=== PATIENT | male | born 1985 | race Caucasian/White ===

== ENCOUNTER 2021-12-03 01:36 | Inpatient (IN) | payer OTHER, SELFPAY ==
--- NOTE | 2021-12-03 | ECG_ITS ---
Test Reason : medical clearance Blood Pressure : / mmHG Vent. Rate : 062 BPM Atrial Rate : 062 BPM P-R Int : 160 ms QRS Dur : 088 ms QT Int : 394 ms P-R-T Axes : 071 087 071 degrees QTc Int : 399 ms Normal sinus rhythm Normal ECG No previous ECGs available Referred By: Mary Jane Blankenship Electronically Signed By:JAMI NAJERA
[2021-12-03 01:46] VITALS: BP 107/71; PULSE 72; RESP 18; TEMP 36.4; O2SAT 95; BMI 22.4
[2021-12-03 02:17] LABS: Basophils Absolute Auto 0.1 X10*3/uL (0.0-0.2); Basophils Percent Auto 0.8 % (0-2); Eosinophils Absolute Auto 0.3 X10*3/uL (0.0-0.4); Eosinophils Percent Auto 3.5 % (0-4); Hematocrit 41.9 % (42.0-52.0); Hemoglobin 14.2 g/dl (14.0-18.0); Imm Gran Abs Auto 0.02 X10*3/uL (0.00-0.03); Imm Gran Pct Auto 0.2 % (0.0-0.4); Lymphocytes Absolute Auto 2.6 X10*3/uL (1.2-4.9); Lymphocytes Percent Auto 31.5 % (20-40); MANUAL DIFF FLAG NO; Mean Corpuscular HGB Conc 33.9 g/dl (31.0-36.0); Mean Corpuscular Hemoglobin 30.4 pg (27.0-33.0); Mean Corpuscular Volume 89.7 fL (80.0-98.0); Mean Platelet Volume 10.6 fL (9.4-12.4); Monocytes Absolute Auto 0.4 X10*3/uL (0.1-1.2); Monocytes Percent Auto 4.5 % (2-11); Neutrophils Absolute Auto 4.9 x10*3/uL (2.0-8.3); Neutrophils Percent Auto 59.5 % (45-73); Platelet Count 258 X10*3/uL (160-400); Red Blood Count 4.67 X10*6/uL (4.60-5.80); Red Cell Distribution Width 13.6 % (11.0-16.0); White Blood Count 8.3 X10*3/uL (4.8-10.8)
[2021-12-03 02:19] LABS: Amphetamine Screen Urine Not Detected (Not Detect); Barbiturates, Urine Not Detected (Not Detect); Benzodiazepines Screen Urine Not Detected (Not Detect); Cannabinoid Screen Urine POSITIVE (Not Detect); Cocaine Screen Urine POSITIVE (Not Detect); Fentanyl, urine Not Detected (Not Detect); Opiate Screen Urine Not Detected (Not Detect); Phencyclidine Screen Urine Not Detected (Not Detect)
[2021-12-03 02:20] LABS: COVID-19 Test Negative (Negative); IDNOW Serial# 55D5AD1C
[2021-12-03 02:44] LABS: Ethanol 153 mg/dL
[2021-12-03 02:46] LABS: Anion Gap 15 (12-20); Blood Urea Nitrogen 15 mg/dL (9-16); Calcium 9.2 mg/dL (8.4-10.2); Carbon Dioxide 22 mmol/L (22-29); Chloride 110 mmol/L (96-108); Estimated Glomerular Filt Rate > 60; Glucose Random 94 mg/dL (60-115); Potassium 4.4 mmol/L (3.3-5.1); Sodium 143 mmol/L (135-145)
[2021-12-03 02:55] LABS: Valproate < 2.0 mcg/mL (50.0-100.0)
--- NOTE | 2021-12-03 06:09 | PC.NURSE ---
Patient currently sleeping, no distress observed/reported, behavior appropriate, med rec completed, pending provider's approval, BHN referral completed/confirmed, pending evaluation in the morning, VSS, will continue to monitor.
--- NOTE | 2021-12-03 06:34 | ED.PSYCH ---
HPI - Psych General Chief Complaint: Psychiatric Symptoms Stated Complaint: crisis Time Seen by Provider: 12/03/21 06:34 Source: patient Mode of arrival: EMS Limitations: no limitations History of Present Illness MD complaint: suicidal ideation and feels depressed Onset (ago): day(s) Duration: getting worse History of same: Yes Relieving factors: none Context: significant life stressor Associated psychiatric symptoms: depression and suicidal ideation Associated symptoms: denies other symptoms If self harm: admits thoughts of self harm Related Data Home Medications Medication Instructions Recorded Confirmed buprenorphine 8 mg-naloxone 2 mg 1.5 strip SUBLINGUAL DAILY 12/03/21 12/03/21 sublingual film (Suboxone) divalproex 500 mg tablet,delayed 1,500 mg PO BEDTIME 12/03/21 12/03/21 release gabapentin 300 mg capsule 1 cap PO TID 12/03/21 12/03/21 prazosin 1 mg capsule 3 cap PO BEDTIME 12/03/21 12/03/21 quetiapine 100 mg tablet 1 tab PO BEDTIME 12/03/21 12/03/21 Allergies Allergy/AdvReac Type Severity Reaction Status Date / Time No Known Allergies Allergy Verified 12/03/21 01:45 Review of Systems Review of Systems: Constitutional : No Fever, No Chills ENT/Mouth : No Ear Pain, No Nasal Congestion, No sore throat Eyes: No Eye Pain, No Swelling, No Redness Cardiovascular : No Chest Pain, No SOB Respiratory : No Cough, No Sputum, No Dyspnea Gastrointestinal : No Nausea, No Vomiting, No Diarrhea, No Hematochezia, No Melena Genitourinary : No Dysuria, No Urinary Frequency, No Hematuria Musculoskeletal : No Myalgias Skin : No Skin Lesions, No rash Neuro : No Weakness, No Numbness, No Paresthesias, No Dizziness, No Headache Psych : positive Anxiety, positive Depression, positive SI no HI Heme/Lymph: No Lymphadenopathy Endocrine : No Polyuria, No Polydipsia All other systems reviewed and are negative FOR[facility]LY [facility], [facility] Past Medical History Attestation statement: The following information was validated with the patient. Medical History (Updated 12/03/21 @ 07:09 by Mayr Jane Blankenship DO) Depression Substance abuse Social History Social History (Updated 12/03/21 @ 07:07 by Mary Jane Blankenship DO) Patient Tobacco Use Status: Tobacco use Unknown Substance Use Type: Crack/Cocaine and Former Substance User Advance Directives: No Advance Directives Information Provided: No Physical Exam Vital Signs: Vital Signs: Last Vital Signs Temp 97.9 F 12/03/21 07:56 Pulse 80 12/03/21 07:56 Resp 17 12/03/21 07:56 BP 122/76 12/03/21 07:56 Pulse Ox 96 12/03/21 07:56 BMI result Body Mass Index 22.4 Appearance: Alert. Oriented X3. No acute distress. Eyes: Pupils equal, round and reactive to light. ENT: Pharynx normal. Neck: Normal inspection. Neck supple. CVS: Normal heart rate and rhythm. Pulses normal. Respiratory: No respiratory distress. Breath sounds normal. Abdomen: Soft and non-tender. Skin: Skin warm and dry. Normal skin color. Normal skin turgor. Extremities: No lower extremity edema. Neuro: Oriented X 3. No motor deficit. No sensory deficit. CN2-12 intact Course Course Course Narrative: Physician observation started at 709am. Patient placed in physician observation because the patient needed more time for BHN to assess the need for psych admission. At the time observation was started the patient's vitals were stable, patient is alert and oriented Neuro: nonfocal, CV RRR, Lungs clear voluntary bed search can leave if he wants per BHN MDM - Psych MDM Narrative Medical decision making narrative: 36 yo male with hx of substance abuse and depression here with c/o SI and depression will obtain labs and BHN consult, PRN ativan he has been drinking at home. Lab Data Result diagrams: 12/03/21 02:11 12/03/21 02:11 Labs: Lab Results 12/03/21 12/03/21 12/03/21 Range/Units 01:55 01:55 02:11 WBC (4.8-10.8) X10*3/uL RBC (4.60-5.80) X10*6/uL Hgb (14.0-18.0) g/dl Hct (42.0-52.0) % MCV (80.0-98.0) fL MCH (27.0-33.0) pg MCHC (31.0-36.0) g/dl RDW (11.0-16.0) % Plt Count (160-400) X10*3/uL MPV (9.4-12.4) fL Immature Gran % (Auto) (0.0-0.4) % Neut % (Auto) (45-73) % Lymph % (Auto) (20-40) % [place] % (Auto) (2-11) % Eos % (Auto) (0-4) % Baso % (Auto) (0-2) % Lymph # (Auto) (1.2-4.9) X10*3/uL [place] # (Auto) (0.1-1.2) X10*3/uL Eos # (Auto) (0.0-0.4) X10*3/uL Baso # (Auto) (0.0-0.2) X10*3/uL Abs Immat Gran (auto) (0.00-0.03) X10*3/uL Absolute Neuts (auto) (2.0-8.3) x10*3/uL Absolute Nucleated RBC (0.0-0.012) X10*3/uL Nucleated RBC % (auto) (0.0-0.2) /100WBC Sodium (135-145) mmol/L Potassium (3.3-5.1) mmol/L Chloride (96-108) mmol/L Carbon Dioxide (22-29) mmol/L Anion Gap (12-20) BUN (9-16) mg/dL Creatinine (0.5-1.4) mg/dL Estim Creat Clear Calc Estimated GFR Random Glucose (60-115) mg/dL Calcium (8.4-10.2) mg/dL Urine Opiates Screen Not Detected (Not Detect) Urine Fentanyl Screen Not Detected (Not Detect) Ur Barbiturates Screen Not Detected (Not Detect) Valproic Acid (50.0-100.0) mcg/mL Ur Phencyclidine Scrn Not Detected (Not Detect) Ur Amphetamines Screen Not Detected (Not Detect) U Benzodiazepines Scrn Not Detected (Not Detect) Urine Cocaine Screen POSITIVE H (Not Detect) U Marijuana (THC) Screen POSITIVE H (Not Detect) Ethyl Alcohol 153 mg/dL COVID-19 (ML) Negative (Negative) COVID-19 Clin Com See Note 12/03/21 12/03/21 Range/Units 02:11 02:11 WBC 8.3 (4.8-10.8) X10*3/uL RBC 4.67 (4.60-5.80) X10*6/uL Hgb 14.2 (14.0-18.0) g/dl Hct 41.9 L (42.0-52.0) % MCV 89.7 (80.0-98.0) fL MCH 30.4 (27.0-33.0) pg MCHC 33.9 (31.0-36.0) g/dl RDW 13.6 (11.0-16.0) % Plt Count 258 (160-400) X10*3/uL MPV 10.6 (9.4-12.4) fL Immature Gran % (Auto) 0.2 (0.0-0.4) % Neut % (Auto) 59.5 (45-73) % Lymph % (Auto) 31.5 (20-40) % [place] % (Auto) 4.5 (2-11) % Eos % (Auto) 3.5 (0-4) % Baso % (Auto) 0.8 (0-2) % Lymph # (Auto) 2.6 (1.2-4.9) X10*3/uL [place] # (Auto) 0.4 (0.1-1.2) X10*3/uL Eos # (Auto) 0.3 (0.0-0.4) X10*3/uL Baso # (Auto) 0.1 (0.0-0.2) X10*3/uL Abs Immat Gran (auto) 0.02 (0.00-0.03) X10*3/uL Absolute Neuts (auto) 4.9 (2.0-8.3) x10*3/uL Absolute Nucleated RBC 0.000 (0.0-0.012) X10*3/uL Nucleated RBC % (auto) 0.0 (0.0-0.2) /100WBC Sodium 143 (135-145) mmol/L Potassium 4.4 (3.3-5.1) mmol/L Chloride 110 H (96-108) mmol/L Carbon Dioxide 22 (22-29) mmol/L Anion Gap 15 (12-20) BUN 15 (9-16) mg/dL Creatinine 1.02 (0.5-1.4) mg/dL Estim Creat Clear Calc 107.0 Estimated GFR > 60 Random Glucose 94 (60-115) mg/dL Calcium 9.2 (8.4-10.2) mg/dL Urine Opiates Screen (Not Detect) Urine Fentanyl Screen (Not Detect) Ur Barbiturates Screen (Not Detect) Valproic Acid < 2.0 L (50.0-100.0) mcg/mL Ur Phencyclidine Scrn (Not Detect) Ur Amphetamines Screen (Not Detect) U Benzodiazepines Scrn (Not Detect) Urine Cocaine Screen (Not Detect) U Marijuana (THC) Screen (Not Detect) Ethyl Alcohol mg/dL COVID-19 (ML) (Negative) COVID-19 Clin Com Discharge Plan Discharge Clinical Impression: Depression Qualifiers: Depression Type: unspecified Qualified Code(s): F32.A - Depression, unspecified Patient Disposition: Still a Patient Prescriptions: No Action gabapentin 300 mg capsule 1 cap PO TID 0RF divalproex 500 mg tablet,delayed release (DR/EC) 1,500 mg PO BEDTIME 0RF prazosin 1 mg capsule 3 cap PO BEDTIME 0RF quetiapine 100 mg tablet 1 tab PO BEDTIME 0RF buprenorphine-naloxone [Suboxone] 8-2 mg film 1.5 strip sublingual DAILY 0RF
--- NOTE | 2021-12-03 07:10 | PC.NURSE ---
patient appears to remain asleep at present respirations are even and unlabored patient appears in no distress
[2021-12-03 07:56] VITALS: BP 122/76; PULSE 80; RESP 17; TEMP 36.6; O2SAT 96
[2021-12-03] MEDS: Gabapentin 300 MG CAPSULE PO ×3 (09:51→20:18)
[2021-12-03] MEDS: Buprenorphine/Naloxone 8/2 mg FILM 1.5 FILM SUBLINGUAL (09:51)
--- NOTE | 2021-12-03 15:28 | PC.NURSE ---
Patient resting comfortably in bed ate lunch and took all meds without difficulty. Patient aware of being transferred to m3 later this shift.
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
[2021-12-03 20:18] VITALS: BP 122/89; PULSE 69; RESP 17; TEMP 36.2; O2SAT 97
[2021-12-03] MEDS: LORazepam 1 MG TABLET 2 MG PO (20:18)
[2021-12-03] MEDS: QUEtiapine Fumarate 100 MG TABLET PO (20:18)
[2021-12-03] MEDS: Prazosin HCL 1 MG CAPSULE 3 MG PO (20:18)
[2021-12-03] MEDS: Divalproex Sodium 500 MG TABLET.DR 1500 MG PO (20:18)
[2021-12-03 22:54] VITALS: BP 104/70; PULSE 106; RESP 18; TEMP 36.7; O2SAT 97
--- NOTE | 2021-12-04 01:25 | PC.NURSE ---
Vidal is a 36 year old male who was brought in by the PD for SI. Patient had no plan. Alert and oriented x4. Pleasant, calm, cooperative. History of substance and ETOH abuse. Got into an argument with his live-in girlfriend where she felt like she needed to call the box office attendant because he seemed unstable. Patient currently taking suboxone. Patient has been off his other medications for a while . At this time, the patient shows willingness to get back on a medication regimen, get his head right , and wants to stop getting high . Patient has no medical complaints at time of admission. Currently denies SI/HI and hallucinations.
[2021-12-04 08:00] VITALS: BP 104/59; PULSE 60; RESP 16; TEMP 36.6; O2SAT 98
[2021-12-04] MEDS: Buprenorphine/Naloxone 12/3 mg FILM 1 FILM BUCCAL (09:05)
[2021-12-04] MEDS: Folic Acid 1 MG TABLET PO (09:05)
[2021-12-04] MEDS: Gabapentin 300 MG CAPSULE PO ×3 (09:05→20:21)
[2021-12-04] MEDS: Thiamine HCL 100 MG TABLET 50 MG PO (09:05)
[2021-12-04 09:35] LABS: Cholesterol 179 mg/dL; HDL Cholesterol 63 mg/dL; LDL Cholesterol Calculated 94 mg/dl; Magnesium 1.8 mg/dL (1.6-2.6); Triglycerides 114 mg/dL
[2021-12-04 09:53] LABS: Estimated Average Glucose 100 mg/dL; Hemoglobin A1c % 5.1 %
[2021-12-04 09:57] LABS: Free T4 (Free Thyroxine) 1.14 ng/dL (0.71-1.85); Thyroid Stimulating Hormone 1.95 uIU/mL (0.32-4.0)
[2021-12-04 10:12] LABS: Folate 8.5 ng/mL (> or = 4.0); Vitamin B12 423 pg/mL (200-900)
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
[2021-12-04] MEDS: LORazepam 1 MG TABLET 2 MG PO ×2 (12:45→20:22)
[2021-12-04 20:05] VITALS: BP 122/73; PULSE 81; RESP 18; TEMP 36.6; O2SAT 97
[2021-12-04] MEDS: Divalproex Sodium 500 MG TABLET.DR 1500 MG PO (20:21)
[2021-12-04] MEDS: Prazosin HCL 1 MG CAPSULE 3 MG PO (20:21)
[2021-12-04] MEDS: QUEtiapine Fumarate 50 MG TABLET PO (22:03)
[2021-12-05 00:20] VITALS: BP 121/80; PULSE 120; RESP 20; O2SAT 97
--- NOTE | 2021-12-05 05:10 | PC.NURSE ---
At 0400 patient was sleeping soundly. No noted distress. Patient was not sweating Respirations 16. Nurse did not wake patient for full CIWA assessment. Nurse will continue to monitor.
[2021-12-05 06:00] VITALS: BP 129/72; PULSE 116; RESP 16; TEMP 36.3; O2SAT 99
[2021-12-05] MEDS: Gabapentin 300 MG CAPSULE PO ×3 (08:35→20:26)
[2021-12-05] MEDS: Buprenorphine/Naloxone 12/3 mg FILM 1 FILM BUCCAL (08:35)
[2021-12-05] MEDS: Thiamine HCL 100 MG TABLET PO (08:35)
[2021-12-05] MEDS: Folic Acid 1 MG TABLET PO (08:35)
[2021-12-05] MEDS: FLUoxetine HCl 20 MG CAPSULE PO (11:02)
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
[2021-12-05] MEDS: Acetaminophen 325 MG TABLET 650 MG PO (13:39)
[2021-12-05] MEDS: LORazepam 1 MG TABLET 2 MG PO (13:39)
[2021-12-05 20:15] VITALS: BP 94/55; PULSE 85; RESP 20; TEMP 36.5; O2SAT 97
[2021-12-05] MEDS: Divalproex Sodium 500 MG TABLET.DR 1500 MG PO (20:24)
[2021-12-05] MEDS: Prazosin HCL 1 MG CAPSULE 3 MG PO (20:25)
[2021-12-05] MEDS: QUEtiapine Fumarate 50 MG TABLET PO ×2 (20:25→21:09)
[2021-12-05] MEDS: LORazepam 1 MG TABLET PO (20:26)
--- NOTE | 2021-12-06 00:17 | PC.NURSE ---
AT 0000, patient in bed sleeping. Noted some sweat on forehead but no agitation, respiration was 16. Patient awake 30 minutes prior to grab a snack and did not report any withdrawal symptoms at that time. Nurse did not wake patient for full CIWA assessment. Nurse will continue to monitor.
[2021-12-06] MEDS: LORazepam 1 MG TABLET PO ×2 (00:32→20:28)
--- NOTE | 2021-12-06 00:40 | PC.NURSE ---
Patient awake at 0030. Patient reports increased anxiety and diaphoresis . Patient scored a 9 on the CIWA assessment and was medicated with 1 mg Ativan PO prn. Patient
[2021-12-06] MEDS: traZODone HCL 50 MG TABLET PO (02:13)
[2021-12-06] MEDS: QUEtiapine Fumarate 50 MG TABLET PO ×2 (02:13→20:43)
--- NOTE | 2021-12-06 05:17 | PC.NURSE ---
Patient was sleeping at 0400, did not want to wake patient for full CIWA assessment. Patient observed from 0400 -0500 on safety checks. Mild sweating with no outward appearance of discomfort. Respirations were 16. Nurse will continue to monitor.
[2021-12-06 07:00] VITALS: BMI 21.0
[2021-12-06 08:49] VITALS: BP 116/64; PULSE 111; RESP 16; TEMP 36.8; O2SAT 98
[2021-12-06] MEDS: Buprenorphine/Naloxone 12/3 mg FILM 1 FILM BUCCAL (08:52)
[2021-12-06] MEDS: Folic Acid 1 MG TABLET PO (08:53)
[2021-12-06] MEDS: Gabapentin 300 MG CAPSULE PO ×3 (08:53→20:43)
[2021-12-06] MEDS: FLUoxetine HCl 20 MG CAPSULE PO (08:53)
[2021-12-06] MEDS: Thiamine HCL 100 MG TABLET PO (08:53)
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
[2021-12-06 20:25] VITALS: BP 102/60; PULSE 77; TEMP 36.3; O2SAT 95
[2021-12-06] MEDS: Divalproex Sodium 500 MG TABLET.DR 1500 MG PO (20:43)
[2021-12-06] MEDS: Prazosin HCL 1 MG CAPSULE 3 MG PO (20:43)
[2021-12-07 00:38] VITALS: BP 119/77; PULSE 128; RESP 18; TEMP 36.6; O2SAT 96
[2021-12-07 06:26] VITALS: BP 116/66; PULSE 85; RESP 17; TEMP 36.4; O2SAT 98
[2021-12-07 08:05] VITALS: BP 128/66; PULSE 90; RESP 17; TEMP 36.6; O2SAT 97
[2021-12-07] MEDS: Thiamine HCL 100 MG TABLET PO (08:20)
[2021-12-07] MEDS: FLUoxetine HCl 20 MG CAPSULE PO (08:20)
[2021-12-07] MEDS: Folic Acid 1 MG TABLET PO (08:20)
[2021-12-07] MEDS: Gabapentin 300 MG CAPSULE PO (08:20)
[2021-12-07] MEDS: Buprenorphine/Naloxone 12/3 mg FILM 1 FILM BUCCAL (08:20)
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
--- NOTE | 2021-12-07 13:56 | PC.NURSE ---
Patient is alert and oriented x4. Patient is in agreement with discharge and discharge teaching. Patient denies SI/HI/AH/VH. Patient reports that he is experiencing anxiety d/t being discharged. I am happy to go home, but am just a little anxious . Patient denies physical complaints at this time.
[2022-02-06 11:00] LABS: Alanine Aminotransferase 61 U/L (0-40); Albumin Level 3.7 g/dL (3.5-5.0); Alkaline Phosphatase 76 U/L (39-117); Anion Gap 12 (12-20); Aspartate Amino Transferase 28 U/L (5-37); Blood Urea Nitrogen 21 mg/dL (9-16); Calcium 9.8 mg/dL (8.4-10.2); Carbon Dioxide 29 mmol/L (22-29); Chloride 104 mmol/L (96-108); Creatinine Clr Calc Pharmacy 123.6; Estimated Glomerular Filt Rate > 60; Glucose Fasting 96 mg/dL (60-99); Potassium 4.3 mmol/L (3.3-5.1); Sodium 141 mmol/L (135-145); Total Protein 6.5 g/dL (6.5-8.0)
[2022-02-06 11:10] LABS: Thyroid Stimulating Hormone 1.56 uIU/mL (0.32-4.0)
[2022-02-06 11:19] LABS: Bilirubin Total < 0.2 mg/dL (0.0-1.0)
[2022-02-06 11:52] LABS: Folate 8.5 ng/mL (> or = 4.0); Vitamin B12 479 pg/mL (200-900)
== END 2021-12-07 14:08 | disposition home or self-care (01) | DRG 753 ==
LOC: HO.ED 19:25 → HO.PADLT16 22:23
PROVIDERS: Nurse Practitioner Family; Admitting Provider Registered Nurse; Emergency Provider Emergency Medicine; Visit Provider Social Worker
DX: F31.81 Bipolar II disorder (principal); R45.851 Suicidal ideations; F11.20 Opioid dependence, uncomplicated; F14.10 Cocaine abuse, uncomplicated; F17.210 Nicotine dependence, cigarettes, uncomplicated; F43.10 Post-traumatic stress disorder, unspecified; Z20.822 Contact with and (suspected) exposure to COVID-19; Z71.6 Tobacco abuse counseling; Z79.899 Other long term (current) drug therapy
CPT/HCPCS: 36415; 80048; 80053; 80061; 80164; 80307; 82077; 82607; 82746; 83036; 83735; 84439; 84443; 85025; 87635; 93005; 99285

== ENCOUNTER 2022-01-25 03:09 | Inpatient (IN) | payer OTHER, SELFPAY ==
[2022-01-25 03:14] VITALS: BMI 22.1
[2022-01-25 03:26] VITALS: BP 121/75; PULSE 85; RESP 16; TEMP 36.6; O2SAT 100
[2022-01-25 03:58] LABS: Amphetamine Screen Urine Not Detected (Not Detect); Barbiturates, Urine Not Detected (Not Detect); Benzodiazepines Screen Urine Not Detected (Not Detect); Cannabinoid Screen Urine Not Detected (Not Detect); Cocaine Screen Urine POSITIVE (Not Detect); Fentanyl, urine Not Detected (Not Detect); Opiate Screen Urine Not Detected (Not Detect); Phencyclidine Screen Urine Not Detected (Not Detect)
[2022-01-25 04:00] LABS: COVID-19 Test Negative (Negative)
[2022-01-25 04:11] LABS: MANUAL DIFF FLAG NO
[2022-01-25 04:23] LABS: Basophils Absolute Auto 0.1 X10*3/uL (0.0-0.2); Basophils Percent Auto 0.5 % (0-2); Eosinophils Absolute Auto 0.1 X10*3/uL (0.0-0.4); Eosinophils Percent Auto 0.7 % (0-4); Hematocrit 40.4 % (42.0-52.0); Hemoglobin 13.6 g/dl (14.0-18.0); Imm Gran Abs Auto 0.05 X10*3/uL (0.00-0.03); Imm Gran Pct Auto 0.4 % (0.0-0.4); Lymphocytes Absolute Auto 1.9 X10*3/uL (1.2-4.9); Lymphocytes Percent Auto 14.1 % (20-40); Mean Corpuscular HGB Conc 33.7 g/dl (31.0-36.0); Mean Corpuscular Volume 89.2 fL (80.0-98.0); Monocytes Absolute Auto 1.1 X10*3/uL (0.1-1.2); Monocytes Percent Auto 7.9 % (2-11); Neutrophils Absolute Auto 10.4 x10*3/uL (2.0-8.3); Neutrophils Percent Auto 76.4 % (45-73); Platelet Count 234 X10*3/uL (160-400); Red Blood Count 4.53 X10*6/uL (4.60-5.80); Red Cell Distribution Width 12.9 % (11.0-16.0); White Blood Count 13.6 X10*3/uL (4.8-10.8)
[2022-01-25 04:25] LABS: Ethanol 14 mg/dL
[2022-01-25 04:27] LABS: Anion Gap 12 (12-20); Blood Urea Nitrogen 16 mg/dL (9-16); Calcium 9.8 mg/dL (8.4-10.2); Carbon Dioxide 29 mmol/L (22-29); Chloride 106 mmol/L (96-108); Creatinine Clr Calc Pharmacy 127.7; Estimated Glomerular Filt Rate > 60; Glucose Random 83 mg/dL (60-115); Potassium 4.4 mmol/L (3.3-5.1); Sodium 143 mmol/L (135-145)
--- NOTE | 2022-01-25 05:01 | ED.PSYCH ---
HPI - Psych General Chief Complaint: Psychiatric Symptoms Stated Complaint: CRISIS/+SI Time Seen by Provider: 01/25/22 05:00 Source: patient and EMS Mode of arrival: EMS Limitations: no limitations History of Present Illness HPI Narrative: 36-year-old male came in by ambulance for evaluation of depression. Patient was just released from longterm yesterday, cannot go back home because he has restraining order by his girlfriend, patient had no place to go feeling depressed with suicidal ideation but no definitive plan. Patient admitted to drinking alcohol and used cocaine by sniffing. Patient has no medical complaints. Related Data Home Medications Medication Instructions Recorded Confirmed buprenorphine 8 mg-naloxone 2 mg 1.5 strip SUBLINGUAL DAILY 01/25/22 01/25/22 sublingual film (Suboxone) divalproex 500 mg tablet,delayed 3 tab PO BEDTIME 01/25/22 01/25/22 release gabapentin 300 mg capsule 1 cap PO TID 01/25/22 01/25/22 prazosin 1 mg capsule 3 cap PO BEDTIME 01/25/22 01/25/22 quetiapine 100 mg tablet 1 tab PO BEDTIME 01/25/22 01/25/22 Allergies Allergy/AdvReac Type Severity Reaction Status Date / Time No Known Allergies Allergy Verified 12/03/21 01:45 Review of Systems Review of Systems: All other systems are reviewed and are negative Constitutional: Reports as per HPI and Reports no additional constitutional complaints Eyes: Reports as per HPI and Reports no additional eye complaints Reports system reviewed and no additional complaints, except as documented Cardiovascular: Reports as per HPI and Reports no additional cardiovascular complaints Respiratory: Reports as per HPI and Reports no additional respiratory complaints Gastrointestinal: Reports as per HPI and Reports no additional gastrointestinal complaints Genitourinary: Reports no additional female genitourinary complaints Musculoskeletal: Reports no additional musculoskeletal complaints Skin/Breast: Reports system reviewed and no additional complaints, except as docu Psychiatric: Reports no additional psychiatric complaints Endocrine: Reports no additional endocrine complaints Hematologic/Lymphatic: Reports no additional hematologic/lymphatic complaints Allergic/Immunologic: Reports no additional allergic/immunologic complaints Reports system reviewed and no additional complaints, except as documented and Reports Abnormal speech present [facility] Past Medical History Medical History Depression Substance abuse Social History Social History Household Members: Other Household Members Other:: girlfriend Housing: House Do you presently have visiting nurse or other home services: No Patient Tobacco Use Status: Tobacco use Unknown Tobacco use type: Cigarette Cigarette Packs Per Day: 2 Cigarettes Per Day: 40.0 Substance Use Type: Crack/Cocaine and Marijuana Advance Directives: No Advance Directives Information Provided: No service: No Sexual orientation: Did not discuss. Physical Exam Vital Signs: Vital Signs: Last Vital Signs Temp 98 F 01/25/22 03:26 Pulse 85 01/25/22 03:26 Resp 16 01/25/22 03:26 BP 121/75 01/25/22 03:26 Pulse Ox 100 01/25/22 03:26 BMI result Body Mass Index 22.1 Vital signs have been reviewed as appeared to be correct. Blood pressure normal. Heart rate normal. Respiration rate normal. Temperature normal. Oxygen saturation normal. Appearance: Alert. Oriented X3. No acute distress. Head: Normal external exam. Normocephalic. Atraumatic. No Ellis signs noted. No raccoon eyes noted Eyes: PERRLA. EOMI. Conjunctiva and sclera normal. Eyelids normal. ENT: TM's Normal. Pharynx normal. Uvula midline. Moist mucous membranes. No trismus noted. No drooling noted. No muffled voice noted. Neck: Normal inspection. Neck supple. FROM. No adenopathy. Thyroid Normal. No meningeal signs. No neck mass noted. CVS: Normal heart rate and rhythm. Heart sound normal. No murmurs noted. Pulses normal throughout. Respiratory: No respiratory distress. Painless inspiration. Breath sounds normal. No wheezes/rales/rhonchi noted. Chest nontender. No accessory muscle usage noted or decreased air movement noted. Abdomen: Soft and nontender. Bowel sounds normal in all 4 quadrants. No distention noted. No organomegaly noted. No visible injury noted. Back: No CVA tenderness. Full range of motion noted. Skin: Skin warm and dry. Normal skin color. Normal skin turgor. No rashes/lesions/lacerations noted. Extremities: No lower extremity edema. Extremities exhibit normal range of motion. Extremities nontender. Neuro: Oriented X 3. Cranial nerve exam: II-XII are grossly intact No motor deficit. No sensory deficit. Reflexes normal. Patient Orientation: Person, Place, Time and Situation Level of Consciousness: Awake, Appropriate and Alert Patient Behavior: Appropriate, Guarded, Cooperative and Anxious Mood Description: Constricted, Blunted and Apprehensive Affect Description: Constricted, Blunted and Apprehensive Patient Cognition Impaired: No Ability to Follow Directions: Excellent Speech Pattern: Clear, Appropriate and Spontaneous Speech Memory Description: Intact, Immediate Intact and Short Term Intact Hallucinations: None Delusions: Not Present Thought Process: Intact Thought Content: positive for Intact, positive for Logical, denies Suicidal Ideation and denies Homicidal Ideation. Judgement: Appropriate Judgement and Insight: Intact Course Reevaluation(s) Reevaluation #1: Patient medically cleared, patient will be under physician observation started at 05:00, waiting for N evaluation. Time: 05:08 MDM - Psych Lab Data Result diagrams: 01/25/22 04:05 01/25/22 04:05 Labs: Lab Results 01/25/22 01/25/22 01/25/22 Range/Units 03:37 03:37 04:05 WBC 13.6 H (4.8-10.8) X10*3/uL RBC 4.53 L (4.60-5.80) X10*6/uL Hgb 13.6 L (14.0-18.0) g/dl Hct 40.4 L (42.0-52.0) % MCV 89.2 (80.0-98.0) fL MCH 30.0 (27.0-33.0) pg MCHC 33.7 (31.0-36.0) g/dl RDW 12.9 (11.0-16.0) % Plt Count 234 (160-400) X10*3/uL MPV 11.0 (9.4-12.4) fL Immature Gran % (Auto) 0.4 (0.0-0.4) % Neut % (Auto) 76.4 H (45-73) % Lymph % (Auto) 14.1 L (20-40) % [place] % (Auto) 7.9 (2-11) % Eos % (Auto) 0.7 (0-4) % Baso % (Auto) 0.5 (0-2) % Lymph # (Auto) 1.9 (1.2-4.9) X10*3/uL [place] # (Auto) 1.1 (0.1-1.2) X10*3/uL Eos # (Auto) 0.1 (0.0-0.4) X10*3/uL Baso # (Auto) 0.1 (0.0-0.2) X10*3/uL Abs Immat Gran (auto) 0.05 H (0.00-0.03) X10*3/uL Absolute Neuts (auto) 10.4 H (2.0-8.3) x10*3/uL Absolute Nucleated RBC 0.000 (0.0-0.012) X10*3/uL Nucleated RBC % (auto) 0.0 (0.0-0.2) /100WBC Sodium (135-145) mmol/L Potassium (3.3-5.1) mmol/L Chloride (96-108) mmol/L Carbon Dioxide (22-29) mmol/L Anion Gap (12-20) BUN (9-16) mg/dL Creatinine (0.5-1.4) mg/dL Estim Creat Clear Calc Estimated GFR Random Glucose (60-115) mg/dL Calcium (8.4-10.2) mg/dL Urine Opiates Screen Not Detected (Not Detect) Urine Fentanyl Screen Not Detected (Not Detect) Ur Barbiturates Screen Not Detected (Not Detect) Ur Phencyclidine Scrn Not Detected (Not Detect) Ur Amphetamines Screen Not Detected (Not Detect) U Benzodiazepines Scrn Not Detected (Not Detect) Urine Cocaine Screen POSITIVE H (Not Detect) U Marijuana (THC) Screen Not Detected (Not Detect) Ethyl Alcohol mg/dL COVID-19 (ML) Negative (Negative) COVID-19 Clin Com See Note 01/25/22 01/25/22 Range/Units 04:05 04:05 WBC (4.8-10.8) X10*3/uL RBC (4.60-5.80) X10*6/uL Hgb (14.0-18.0) g/dl Hct (42.0-52.0) % MCV (80.0-98.0) fL MCH (27.0-33.0) pg MCHC (31.0-36.0) g/dl RDW (11.0-16.0) % Plt Count (160-400) X10*3/uL MPV (9.4-12.4) fL Immature Gran % (Auto) (0.0-0.4) % Neut % (Auto) (45-73) % Lymph % (Auto) (20-40) % [place] % (Auto) (2-11) % Eos % (Auto) (0-4) % Baso % (Auto) (0-2) % Lymph # (Auto) (1.2-4.9) X10*3/uL [place] # (Auto) (0.1-1.2) X10*3/uL Eos # (Auto) (0.0-0.4) X10*3/uL Baso # (Auto) (0.0-0.2) X10*3/uL Abs Immat Gran (auto) (0.00-0.03) X10*3/uL Absolute Neuts (auto) (2.0-8.3) x10*3/uL Absolute Nucleated RBC (0.0-0.012) X10*3/uL Nucleated RBC % (auto) (0.0-0.2) /100WBC Sodium 143 (135-145) mmol/L Potassium 4.4 (3.3-5.1) mmol/L Chloride 106 (96-108) mmol/L Carbon Dioxide 29 (22-29) mmol/L Anion Gap 12 (12-20) BUN 16 (9-16) mg/dL Creatinine 0.82 (0.5-1.4) mg/dL Estim Creat Clear Calc 127.7 Estimated GFR > 60 Random Glucose 83 (60-115) mg/dL Calcium 9.8 D (8.4-10.2) mg/dL Urine Opiates Screen (Not Detect) Urine Fentanyl Screen (Not Detect) Ur Barbiturates Screen (Not Detect) Ur Phencyclidine Scrn (Not Detect) Ur Amphetamines Screen (Not Detect) U Benzodiazepines Scrn (Not Detect) Urine Cocaine Screen (Not Detect) U Marijuana (THC) Screen (Not Detect) Ethyl Alcohol 14 mg/dL COVID-19 (ML) (Negative) COVID-19 Clin Com Discharge Plan Discharge Clinical Impression: Depression, Suicidal ideation Prescriptions: No Action prazosin 1 mg capsule 3 cap PO BEDTIME 0RF divalproex 500 mg tablet,delayed release (DR/EC) 3 tab PO BEDTIME 0RF quetiapine 100 mg tablet 1 tab PO BEDTIME 0RF gabapentin 300 mg capsule 1 cap PO TID 0RF buprenorphine-naloxone [Suboxone] 8-2 mg film 1.5 strip sublingual DAILY 0RF
[2022-01-25 05:10] LABS: Valproate < 2.0 mcg/mL (50.0-100.0)
--- NOTE | 2022-01-25 06:33 | PC.NURSE ---
Patient slept through the night, no distress observed/reported, [facility] referral completed/confirmed/pending ETA, med rec completed/pending provider's approval, behavior non concerning, VSS, will continue to monitor.
[2022-01-25 07:29] VITALS: BP 93/63; PULSE 76; TEMP 36.7; O2SAT 97
--- NOTE | 2022-01-25 07:53 | PC.NURSE ---
pt is asleep, resps are = and nonlabored. pt is awaiting care team eval.
--- NOTE | 2022-01-25 11:12 | ECG_ITS ---
Test Reason : medical clearance Blood Pressure : / mmHG Vent. Rate : 066 BPM Atrial Rate : 066 BPM P-R Int : 150 ms QRS Dur : 092 ms QT Int : 414 ms P-R-T Axes : 051 085 066 degrees QTc Int : 434 ms Normal sinus rhythm Normal ECG When compared with ECG of 03-DEC-2021 10:19, No significant change was found Referred By: Salomon Fisher Electronically Signed By:JAMI NAJERA
--- NOTE | 2022-01-25 11:18 | PC.NURSE ---
pt has been seen by care team. Plan of care is to admit pt to inpt psych at [facility] [place] pt's suboxone dose was verified by Referral Rn of [place]. pt is aware and agreeale to plan of care.
[2022-01-25] MEDS: Buprenorphine/Naloxone 12/3 mg FILM 1 FILM SUBLINGUAL (12:19)
[2022-01-25] MEDS: LORazepam 1 MG TABLET 2 MG PO (16:24)
[2022-01-25] MEDS: Docusate Sodium 100 MG CAPSULE PO (22:42)
[2022-01-25] MEDS: Gabapentin 300 MG CAPSULE PO (22:43)
[2022-01-25] MEDS: Prazosin HCL 1 MG CAPSULE 3 MG PO (22:43)
[2022-01-25] MEDS: Divalproex Sodium 500 MG TABLET.DR 1500 MG PO (22:43)
[2022-01-25] MEDS: QUEtiapine Fumarate 100 MG TABLET PO (22:44)
[2022-01-25 22:47] VITALS: BP 118/76; PULSE 73; TEMP 37; O2SAT 99
[2022-01-25 22:48] VITALS: BMI 20.7
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
[2022-01-26 06:00] VITALS: BP 99/61; PULSE 96; TEMP 36.8; O2SAT 98
[2022-01-26 07:52] LABS: Cholesterol 149 mg/dL; HDL Cholesterol 55 mg/dL; LDL Cholesterol Calculated 76 mg/dl; Magnesium 1.9 mg/dL (1.6-2.6); Triglycerides 92 mg/dL
[2022-01-26 08:13] LABS: Free T4 (Free Thyroxine) 1.17 ng/dL (0.71-1.85); Thyroid Stimulating Hormone 1.83 uIU/mL (0.32-4.0)
[2022-01-26 08:14] LABS: Estimated Average Glucose 103 mg/dL; Hemoglobin A1c % 5.2 %
[2022-01-26] MEDS: Gabapentin 300 MG CAPSULE PO ×3 (09:00→20:17)
[2022-01-26] MEDS: Buprenorphine/Naloxone 8/2 mg FILM 1 FILM SUBLINGUAL (09:46)
[2022-01-26] MEDS: Buprenorphine/Naloxone 4/1 mg FILM 1 FILM SUBLINGUAL (09:46)
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
[2022-01-26] MEDS: FLUoxetine HCl Oral Solution 20 MG/5 ML SOLUTION PO (14:50)
[2022-01-26 18:00] VITALS: BP 117/73; PULSE 89; TEMP 37.1; O2SAT 100
[2022-01-26] MEDS: QUEtiapine Fumarate 25 MG TABLET PO (18:13)
[2022-01-26] MEDS: Prazosin HCL 1 MG CAPSULE 3 MG PO (20:16)
[2022-01-26] MEDS: QUEtiapine Fumarate 100 MG TABLET PO (20:17)
[2022-01-26] MEDS: Divalproex Sodium 500 MG TABLET.DR 1500 MG PO (20:18)
[2022-01-27 08:26] VITALS: BP 96/68; PULSE 80; TEMP 36.6; O2SAT 99
[2022-01-27] MEDS: FLUoxetine HCl Oral Solution 20 MG/5 ML SOLUTION PO (08:35)
[2022-01-27] MEDS: Gabapentin 300 MG CAPSULE PO ×3 (08:35→20:10)
[2022-01-27] MEDS: Buprenorphine/Naloxone 8/2 mg FILM 1 FILM SUBLINGUAL (08:36)
[2022-01-27] MEDS: Buprenorphine/Naloxone 4/1 mg FILM 1 FILM SUBLINGUAL (08:36)
[2022-01-27] MEDS: QUEtiapine Fumarate 25 MG TABLET PO ×2 (14:38→18:15)
[2022-01-27 20:00] VITALS: BP 106/76; PULSE 85; TEMP 36.8; O2SAT 99
[2022-01-27] MEDS: Divalproex Sodium 500 MG TABLET.DR 1500 MG PO (20:09)
[2022-01-27] MEDS: QUEtiapine Fumarate 100 MG TABLET PO (20:09)
[2022-01-27] MEDS: Docusate Sodium 100 MG CAPSULE PO (20:10)
[2022-01-27] MEDS: Prazosin HCL 1 MG CAPSULE 3 MG PO (20:10)
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
[2022-01-28 06:01] LABS: Folate 8.7 ng/mL (> or = 4.0); Vitamin B12 463 pg/mL (200-900)
[2022-01-28 06:49] VITALS: BP 113/70; PULSE 97; RESP 18; TEMP 36.2; O2SAT 97
[2022-01-28] MEDS: Buprenorphine/Naloxone 8/2 mg FILM 1 FILM SUBLINGUAL (07:54)
[2022-01-28] MEDS: Buprenorphine/Naloxone 4/1 mg FILM 1 FILM SUBLINGUAL (07:54)
[2022-01-28] MEDS: FLUoxetine HCl 20 MG CAPSULE PO (07:54)
[2022-01-28] MEDS: Gabapentin 300 MG CAPSULE PO ×3 (08:20→21:36)
[2022-01-28] MEDS: hydrOXYzine HCL 25 MG TABLET PO (12:05)
[2022-01-28] MEDS: QUEtiapine Fumarate 25 MG TABLET PO ×2 (12:05→23:12)
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
[2022-01-28 21:30] VITALS: BP 110/68; PULSE 85; TEMP 37.4
[2022-01-28] MEDS: Prazosin HCL 1 MG CAPSULE 3 MG PO (21:35)
[2022-01-28] MEDS: Divalproex Sodium 500 MG TABLET.DR 1500 MG PO (21:36)
[2022-01-28] MEDS: QUEtiapine Fumarate 100 MG TABLET PO (21:37)
[2022-01-28] MEDS: traZODone HCL 50 MG TABLET PO (23:12)
[2022-01-29] MEDS: FLUoxetine HCl 20 MG CAPSULE PO (09:11)
[2022-01-29] MEDS: Gabapentin 300 MG CAPSULE PO ×3 (09:12→21:37)
[2022-01-29] MEDS: Dextroamphetamine/Amphetamine XR 10 MG CAP.ER.24H 20 MG PO (09:12)
[2022-01-29 09:26] VITALS: BP 118/66; PULSE 99; RESP 16; TEMP 36.4; O2SAT 99
[2022-01-29] MEDS: QUEtiapine Fumarate 25 MG TABLET PO ×2 (10:37→19:05)
[2022-01-29] MEDS: hydrOXYzine HCL 25 MG TABLET PO ×2 (10:37→19:05)
[2022-01-29] MEDS: Nicotine Polacrilex 2 MG GUM 4 MG BUCCAL ×2 (13:20→19:05)
[2022-01-29 18:00] VITALS: BP 123/65; PULSE 95; TEMP 37; O2SAT 95
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
[2022-01-29] MEDS: QUEtiapine Fumarate 50 MG TABLET 150 MG PO (21:37)
[2022-01-29] MEDS: Prazosin HCL 1 MG CAPSULE 3 MG PO (21:37)
[2022-01-29] MEDS: Divalproex Sodium 500 MG TABLET.DR 1500 MG PO (21:37)
--- NOTE | 2022-01-29 21:49 | PC.NURSE ---
Pt submitted a Three Day Notice on Monday 01/29 up on Thursday 02/01.
[2022-01-30] MEDS: FLUoxetine HCl 20 MG CAPSULE PO (08:33)
[2022-01-30] MEDS: Buprenorphine/Naloxone 4/1 mg FILM 1 FILM SUBLINGUAL (08:33)
[2022-01-30] MEDS: Gabapentin 300 MG CAPSULE PO ×2 (08:33→14:07)
[2022-01-30] MEDS: Dextroamphetamine/Amphetamine XR 10 MG CAP.ER.24H 20 MG PO (08:33)
[2022-01-30] MEDS: Buprenorphine/Naloxone 8/2 mg FILM 1 FILM SUBLINGUAL (08:33)
[2022-01-30 09:11] VITALS: BP 112/72; PULSE 95; RESP 18; TEMP 36.4; O2SAT 99
[2022-01-30 10:32] LABS: Valproate 51.3 mcg/mL (50.0-100.0)
[2022-01-30] MEDS: QUEtiapine Fumarate 25 MG TABLET PO (14:07)
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
== END 2022-01-30 16:15 | disposition home or self-care (01) | DRG 753 ==
LOC: HO.ED 05:00 → HO.PM5 21:13
PROVIDERS: Admitting Provider Registered Nurse; Emergency Provider Emergency Medicine; Visit Provider Registered Nurse
DX: F31.81 Bipolar II disorder (principal); R45.851 Suicidal ideations; F11.10 Opioid abuse, uncomplicated; F14.10 Cocaine abuse, uncomplicated; F43.10 Post-traumatic stress disorder, unspecified; F11.20 Opioid dependence, uncomplicated; Z20.822 Contact with and (suspected) exposure to COVID-19; F17.210 Nicotine dependence, cigarettes, uncomplicated; Z71.6 Tobacco abuse counseling; Z79.899 Other long term (current) drug therapy
CPT/HCPCS: 36415; 80048; 80061; 80164; 80307; 82077; 82607; 82746; 83036; 83735; 84439; 84443; 85025; 87635; 93005; 99285

== ENCOUNTER 2022-02-02 15:10 | Inpatient (IN) | payer OTHER, SELFPAY ==
[2022-02-02 15:21] VITALS: BP 114/69; PULSE 103; RESP 18; TEMP 37.1; O2SAT 99; BMI 20.9
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
[2022-02-02 15:58] LABS: MANUAL DIFF FLAG NO
[2022-02-02 16:02] LABS: Amphetamine Screen Urine POSITIVE (Not Detect); Barbiturates, Urine Not Detected (Not Detect); Benzodiazepines Screen Urine Not Detected (Not Detect); Cannabinoid Screen Urine POSITIVE (Not Detect); Cocaine Screen Urine POSITIVE (Not Detect); Fentanyl, urine POSITIVE (Not Detect); Opiate Screen Urine Not Detected (Not Detect); Phencyclidine Screen Urine Not Detected (Not Detect)
[2022-02-02 16:03] LABS: Basophils Absolute Auto 0.1 X10*3/uL (0.0-0.2); Basophils Percent Auto 0.5 % (0-2); Eosinophils Absolute Auto 0.3 X10*3/uL (0.0-0.4); Eosinophils Percent Auto 3.7 % (0-4); Hemoglobin 12.7 g/dl (14.0-18.0); Imm Gran Abs Auto 0.03 X10*3/uL (0.00-0.03); Imm Gran Pct Auto 0.3 % (0.0-0.4); Lymphocytes Absolute Auto 2.1 X10*3/uL (1.2-4.9); Lymphocytes Percent Auto 22.4 % (20-40); Mean Corpuscular HGB Conc 33.4 g/dl (31.0-36.0); Mean Corpuscular Volume 89.8 fL (80.0-98.0); Mean Platelet Volume 11.1 fL (9.4-12.4); Monocytes Absolute Auto 0.7 X10*3/uL (0.1-1.2); Neutrophils Absolute Auto 5.9 x10*3/uL (2.0-8.3); Neutrophils Percent Auto 65.1 % (45-73); Platelet Count 233 X10*3/uL (160-400); Red Blood Count 4.23 X10*6/uL (4.60-5.80); Red Cell Distribution Width 13.2 % (11.0-16.0); White Blood Count 9.1 X10*3/uL (4.8-10.8)
[2022-02-02 16:04] LABS: COVID-19 Test Negative (Negative)
[2022-02-02 16:16] LABS: Ethanol 51 mg/dL
[2022-02-02 16:20] LABS: Alanine Aminotransferase 146 U/L (0-40); Albumin Level 4.1 g/dL (3.5-5.0); Alkaline Phosphatase 101 U/L (39-117); Anion Gap 16 (12-20); Aspartate Amino Transferase 79 U/L (5-37); Bilirubin Direct < 0.2 mg/dL (0.0-0.5); Bilirubin Total 0.3 mg/dL (0.0-1.0); Blood Urea Nitrogen 25 mg/dL (9-16); Calcium 9.4 mg/dL (8.4-10.2); Carbon Dioxide 24 mmol/L (22-29); Chloride 105 mmol/L (96-108); Creatinine Clr Calc Pharmacy 76.9; Estimated Glomerular Filt Rate > 60; Glucose Random 107 mg/dL (60-115); Potassium 3.8 mmol/L (3.3-5.1); Sodium 141 mmol/L (135-145); Total Protein 7.2 g/dL (6.5-8.0)
[2022-02-02 16:23] LABS: Valproate 2.8 mcg/mL (50.0-100.0)
--- NOTE | 2022-02-02 17:06 | PHA.MEDREC ---
Pharmacy Consult ? Medication Reconciliation Pharmacy has completed the medication reconciliation. Pt stated that he was here Friday and that is the last time he had his medications.
[2022-02-02 21:12] VITALS: BP 105/76; PULSE 87; RESP 15; O2SAT 99
[2022-02-02] MEDS: Prazosin HCL 1 MG CAPSULE 3 MG PO (21:13)
[2022-02-02] MEDS: Divalproex Sodium 500 MG TABLET.DR 1500 MG PO (21:14)
[2022-02-02] MEDS: QUEtiapine Fumarate 100 MG TABLET PO (21:14)
[2022-02-02] MEDS: Gabapentin 300 MG CAPSULE PO (21:14)
--- NOTE | 2022-02-03 07:24 | PC.NURSE ---
Patient slept through the night, no distress observed/reported, medication compliant, awaiting BHN assessment in the morning, behavior appropriate and non concerning at this time, VSS, will continue to monitor.
[2022-02-03 08:24] VITALS: BP 101/69; PULSE 82; RESP 15; O2SAT 98
[2022-02-03] MEDS: FLUoxetine HCl 20 MG CAPSULE PO (08:31)
[2022-02-03] MEDS: Dextroamphetamine/Amphetamine XR 10 MG CAP.ER.24H 20 MG PO (08:31)
[2022-02-03] MEDS: Buprenorphine/Naloxone 8/2 mg FILM 1 FILM SUBLINGUAL (08:32)
[2022-02-03] MEDS: Gabapentin 300 MG CAPSULE PO ×3 (08:32→20:53)
[2022-02-03] MEDS: Buprenorphine/Naloxone 4/1 mg FILM 1 FILM SUBLINGUAL (08:32)
--- NOTE | 2022-02-03 12:01 | PC.NURSE ---
pt calm cooperative, aox4, inpatient bed search
[2022-02-03] MEDS: QUEtiapine Fumarate 100 MG TABLET PO (20:53)
[2022-02-03] MEDS: Prazosin HCL 1 MG CAPSULE 3 MG PO (20:53)
[2022-02-03] MEDS: Divalproex Sodium 500 MG TABLET.DR 1500 MG PO (20:53)
[2022-02-03 20:57] VITALS: BP 116/77; PULSE 75; TEMP 36.6; O2SAT 98
--- NOTE | 2022-02-04 06:36 | PC.NURSE ---
Patient slept through the night, no distress observed/reported, medication complaint, disposition by N is section 12 inpatient bed search, VSS, contracted for the safety, behavior non concerning and appropriate, will continue to monitor.
[2022-02-04] MEDS: Buprenorphine/Naloxone 8/2 mg FILM 1 FILM SUBLINGUAL (08:29)
[2022-02-04] MEDS: Dextroamphetamine/Amphetamine XR 10 MG CAP.ER.24H 20 MG PO (08:29)
[2022-02-04] MEDS: FLUoxetine HCl 20 MG CAPSULE PO (08:29)
[2022-02-04] MEDS: Buprenorphine/Naloxone 4/1 mg FILM 1 FILM SUBLINGUAL (08:29)
[2022-02-04] MEDS: Gabapentin 300 MG CAPSULE PO ×3 (08:29→20:20)
[2022-02-04 08:33] VITALS: BP 106/59; PULSE 90; RESP 16; TEMP 36.7; O2SAT 98
--- NOTE | 2022-02-04 08:38 | PC.NURSE ---
pt a/o x 3 no sob/ana noted skin pink warm dry speaks in full sentences. denies any si/hi.
--- NOTE | 2022-02-04 10:33 | PC.NURSE ---
pt seen by [facility], pt aware of plan of care.
--- NOTE | 2022-02-04 12:37 | PC.NURSE ---
pt requested/given blank coloring paper sketches and 10 coloring pencils.
[2022-02-04] MEDS: QUEtiapine Fumarate 25 MG TABLET PO (12:56)
--- NOTE | 2022-02-04 12:58 | PC.NURSE ---
pt c/o slight anxiety, med x 1 with seroquel 25mg po.
[2022-02-04 13:57] VITALS: BP 112/72; PULSE 80; RESP 18; TEMP 37.1; O2SAT 100
[2022-02-04] MEDS: LORazepam 1 MG TABLET 2 MG PO (18:39)
[2022-02-04 20:19] VITALS: BP 124/83; PULSE 83; RESP 18; O2SAT 98
[2022-02-04] MEDS: Prazosin HCL 1 MG CAPSULE 3 MG PO (20:19)
[2022-02-04] MEDS: QUEtiapine Fumarate 100 MG TABLET PO (20:19)
[2022-02-04] MEDS: Divalproex Sodium 500 MG TABLET.DR 1500 MG PO (20:19)
--- NOTE | 2022-02-05 | ECG_ITS ---
Test Reason : CLEARANCE Blood Pressure : / mmHG Vent. Rate : 076 BPM Atrial Rate : 076 BPM P-R Int : 154 ms QRS Dur : 086 ms QT Int : 368 ms P-R-T Axes : 063 080 054 degrees QTc Int : 414 ms Normal sinus rhythm Normal ECG When compared with ECG of 25-JAN-2022 11:10, No significant change was found Referred By: Clary Tinsley Electronically Signed By:MELVIN ALDANA MD
--- NOTE | 2022-02-05 07:13 | PC.NURSE ---
patient appears to remain at rest at present respirations are even and unlabored patient appears in no distress
[2022-02-05 07:40] VITALS: BP 105/65; PULSE 86; TEMP 37.1; O2SAT 98
[2022-02-05] MEDS: Gabapentin 300 MG CAPSULE PO ×3 (09:10→20:12)
[2022-02-05] MEDS: Dextroamphetamine/Amphetamine XR 10 MG CAP.ER.24H 20 MG PO (09:10)
[2022-02-05] MEDS: FLUoxetine HCl 20 MG CAPSULE PO (09:10)
[2022-02-05] MEDS: Buprenorphine/Naloxone 8/2 mg FILM 1 FILM SUBLINGUAL (09:10)
[2022-02-05] MEDS: Buprenorphine/Naloxone 4/1 mg FILM 1 FILM SUBLINGUAL (09:10)
[2022-02-05] MEDS: QUEtiapine Fumarate 25 MG TABLET PO ×2 (10:23→20:12)
[2022-02-05 12:28] LABS: COVID-19 Test Negative (Negative)
[2022-02-05 16:42] VITALS: BP 131/78; PULSE 99; RESP 17; TEMP 36.6; O2SAT 98
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
[2022-02-05] MEDS: QUEtiapine Fumarate 100 MG TABLET PO (20:12)
[2022-02-05] MEDS: Prazosin HCL 1 MG CAPSULE 3 MG PO (20:12)
[2022-02-05] MEDS: Divalproex Sodium 500 MG TABLET.DR 1500 MG PO (20:12)
[2022-02-05 20:17] VITALS: BP 114/78; PULSE 85; RESP 18; TEMP 36.8; O2SAT 96
[2022-02-06 09:00] VITALS: BP 116/69; PULSE 88; RESP 16; TEMP 36.6; O2SAT 99
[2022-02-06] MEDS: Buprenorphine/Naloxone 8/2 mg FILM 1 FILM SUBLINGUAL (10:30)
[2022-02-06] MEDS: Gabapentin 300 MG CAPSULE PO ×3 (10:30→22:46)
[2022-02-06] MEDS: FLUoxetine HCl 20 MG CAPSULE PO (10:30)
[2022-02-06] MEDS: Buprenorphine/Naloxone 4/1 mg FILM 1 FILM SUBLINGUAL (10:30)
[2022-02-06] MEDS: QUEtiapine Fumarate 25 MG TABLET PO (12:07)
[2022-02-06 14:03] VITALS: BMI 20.9
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
[2022-02-06] MEDS: Prazosin HCL 1 MG CAPSULE 3 MG PO (22:46)
[2022-02-06] MEDS: QUEtiapine Fumarate 100 MG TABLET PO (22:46)
[2022-02-06] MEDS: Divalproex Sodium 500 MG TABLET.DR 1500 MG PO (22:46)
[2022-02-07] MEDS: FLUoxetine HCl 20 MG CAPSULE PO (10:09)
[2022-02-07] MEDS: Gabapentin 300 MG CAPSULE PO ×3 (10:09→20:48)
[2022-02-07] MEDS: Buprenorphine/Naloxone 8/2 mg FILM 1 FILM SUBLINGUAL (10:09)
[2022-02-07] MEDS: Buprenorphine/Naloxone 4/1 mg FILM 1 FILM SUBLINGUAL (10:10)
[2022-02-07 10:20] VITALS: BP 99/64; PULSE 93; RESP 17; TEMP 36.8; O2SAT 95
[2022-02-07] MEDS: QUEtiapine Fumarate 25 MG TABLET PO (13:20)
[2022-02-07 15:29] VITALS: BMI 22.9
--- NOTE | 2022-02-07 16:19 | P.PNPSI_ITS ---
Subjective Subjective Date of Service: 02/07/22 Reason For Visit: SI Interim History: planning to discuss rehabs with SW. some small thoughts of SI. reports otherwise he is sleeping, eating, getting along OK. no complaints or requests, other than to start adderall, which declines. Mental Status Exam Mental Status Exam Narrative: A&O. Pt has thin body habitus, tattoos, casual attire. intense eye contact, attentive. No Tics or Tremors. No abnormal involuntary movements. Calm, engaged in conversation. Non-pressured speech, spontaneous with regular rate and rhythm, normal volume and prosody. No prolonged speech latency or dysarthria. Mood is improved since admission. affect is constricted, normo-intense, non- labile. no SI/HI/AVH expressed. Thoughts are goal oriented. No known cognitive or memory impairment. Insight/ Judgment limited. Diagnostics Vital Signs (24Hr): Vital Signs - 24 hr 02/07/22 10:20 Temperature 98.3 F Pulse Rate 93 Respiratory Rate 17 Blood Pressure 99/64 Pulse Oximetry 95 BMI result Body Mass Index 22.9 Labs Results: 02/02/22 15:51 02/02/22 15:51 Medications Medications Current Medications Acetaminophen (Acetaminophen 325 Mg Tablet) 650 mg PO Q6H PRN PRN Reason: Headache/Pain Mild Scale (1-3) Al Hydroxide/Mg Hydroxide (Magnesium Hydrox/Alum Hydrox 30 Ml Oral.Susp) 30 ml PO Q6H PRN PRN Reason: Heartburn/Nausea Buprenorphine/Naloxone (Buprenorphine/Naloxone 4/1 Mg Film) 1 film SUBLINGUAL DAILY [facility] Last Admin: 02/07/22 10:10 Dose: 1 film Documented by: Buprenorphine/Naloxone (Buprenorphine/Naloxone 8/2 Mg Film) 1 film SUBLINGUAL DAILY [facility] Last Admin: 02/07/22 10:09 Dose: 1 film Documented by: Divalproex Sodium (Divalproex Sodium 500 Mg Tablet.) 1,500 mg PO BEDTIME [facility] Last Admin: 02/06/22 22:46 Dose: 1,500 mg Documented by: Fluoxetine HCl (Fluoxetine Hcl 20 Mg Capsule) 20 mg PO DAILY [facility] Last Admin: 02/07/22 10:09 Dose: 20 mg Documented by: Gabapentin (Gabapentin 300 Mg Capsule) 300 mg PO TID [facility] Last Admin: 02/07/22 14:46 Dose: 300 mg Documented by: Hydroxyzine HCl (Hydroxyzine Hcl 25 Mg Tablet) 25 mg PO BEDTIME PRN PRN Reason: Anxiety Magnesium Hydroxide (Milk Of Magnesia 30 Ml Oral.Susp) 30 ml PO DAILY PRN PRN Reason: Constipation Nicotine Polacrilex (Nicotine Polacrilex 2 Mg Gum) 4 mg BUCCAL Q2H PRN PRN Reason: nicotine withdrawal Prazosin HCl (Prazosin Hcl 1 Mg Capsule) 3 mg PO BEDTIME [facility]; Protocol Last Admin: 02/06/22 22:46 Dose: 3 mg Documented by: Quetiapine Fumarate (Quetiapine Fumarate 25 Mg Tablet) 25 mg PO QID PRN PRN Reason: anxiety, agitation Last Admin: 02/07/22 13:20 Dose: 25 mg Documented by: Quetiapine Fumarate (Quetiapine Fumarate 100 Mg Tablet) 100 mg PO BEDTIME [facility] Last Admin: 02/06/22 22:46 Dose: 100 mg Documented by: Trazodone HCl (Trazodone Hcl 50 Mg Tablet) 50 mg PO BEDTIME PRN PRN Reason: Insomnia Allergies Allergies Allergy/AdvReac Type Severity Reaction Status Date / Time No Known Allergies Allergy Verified 12/03/21 01:45 Assessment & Plan Assessment & Plan (1) Malingering: Status: Acute Code(s): Z76.5 - Malingerer [conscious simulation] (2) Post traumatic stress disorder (PTSD): Status: Acute Code(s): F43.10 - Post-traumatic stress disorder, unspecified (3) Cocaine use disorder: Status: Acute Code(s): F14.10 - Cocaine abuse, uncomplicated Plan 02/06: restarted prior meds aside from stimulant. 02/07: calmed since getting upset yesterday at no stimulant prescription. working with SW on rehab referrals. I spent _20 minutes with the patient and/or on the patient floor today, greater than?50% of which was spent counseling/coordinating care. Reason for contiued inpatient stay Substantial Risk for: harm to self
[2022-02-07] MEDS: Divalproex Sodium 500 MG TABLET.DR 1500 MG PO (20:49)
[2022-02-07] MEDS: traZODone HCL 50 MG TABLET PO (20:49)
[2022-02-07] MEDS: QUEtiapine Fumarate 100 MG TABLET PO (20:49)
[2022-02-07] MEDS: Prazosin HCL 1 MG CAPSULE 3 MG PO (20:49)
[2022-02-07 20:54] VITALS: BP 113/78; PULSE 90; TEMP 36.4; O2SAT 99
[2022-02-08 09:00] VITALS: BP 136/63; PULSE 99; RESP 17; TEMP 36.9; O2SAT 98
[2022-02-08] MEDS: FLUoxetine HCl 20 MG CAPSULE PO (09:06)
[2022-02-08] MEDS: Gabapentin 300 MG CAPSULE PO ×3 (09:06→21:25)
[2022-02-08] MEDS: Buprenorphine/Naloxone 4/1 mg FILM 1 FILM SUBLINGUAL (09:43)
[2022-02-08] MEDS: Buprenorphine/Naloxone 8/2 mg FILM 1 FILM SUBLINGUAL (09:43)
[2022-02-08] MEDS: QUEtiapine Fumarate 25 MG TABLET PO ×2 (10:54→21:25)
--- NOTE | 2022-02-08 13:02 | HO.PSYCHPN ---
Subjective Subjective Date of Service: 02/08/22 Reason For Visit: SI Interim History: pt found resting in bed. comes to interview room for discussion. states he is working with SW on referrals for rehabs. does not seem aware of his need to call daily for a rehab, referred to speak with SW again today. asking for adderall again. rationale for no adderall explained again. long explanation of where is GF is and changing decisions for treatment for the pair and his missing ID and how he can't discharge without an ID bcse he won't be able to picker/puller his medications. difficult to follow, sometimes apparently self-contradictory. per staff, irritable re adderall issue. threatening self-harm if DCed. napping days. med-compliant. has been referred to a couple of rehabs. attended some pm groups, not am groups. Mental Status Exam Mental Status Exam Narrative: A&O. Pt has thin body habitus, tattoos, casual attire. intense eye contact, attentive. No Tics or Tremors. No abnormal involuntary movements. Calm, engaged in conversation. Non-pressured speech, spontaneous with regular rate and rhythm, normal volume and prosody. No prolonged speech latency or dysarthria. Mood is improved since admission. affect is constricted, normo-intense, non-labile. no SI/HI/AVH expressed. Thoughts are goal oriented. No known cognitive or memory impairment. Insight/ Judgment limited. Diagnostics Vital Signs (24Hr): Vital Signs - 24 hr 02/07/22 20:54 02/08/22 09:00 Temperature 97.6 F 98.5 F Pulse Rate 90 99 Respiratory Rate 17 Blood Pressure 113/78 136/63 Pulse Oximetry 99 98 BMI result Body Mass Index 22.9 Labs Results: 02/02/22 15:51 02/02/22 15:51 Medications Medications Current Medications Acetaminophen (Acetaminophen 325 Mg Tablet) 650 mg PO Q6H PRN PRN Reason: Headache/Pain Mild Scale (1-3) Al Hydroxide/Mg Hydroxide (Magnesium Hydrox/Alum Hydrox 30 Ml Oral.Susp) 30 ml PO Q6H PRN PRN Reason: Heartburn/Nausea Buprenorphine/Naloxone (Buprenorphine/Naloxone 4/1 Mg Film) 1 film SUBLINGUAL DAILY [facility] Last Admin: 02/08/22 09:43 Dose: 1 film Documented by: Buprenorphine/Naloxone (Buprenorphine/Naloxone 8/2 Mg Film) 1 film SUBLINGUAL DAILY [facility] Last Admin: 02/08/22 09:43 Dose: 1 film Documented by: Divalproex Sodium (Divalproex Sodium 500 Mg Tablet.) 1,500 mg PO BEDTIME [facility] Last Admin: 02/07/22 20:49 Dose: 1,500 mg Documented by: Fluoxetine HCl (Fluoxetine Hcl 20 Mg Capsule) 20 mg PO DAILY [facility] Last Admin: 02/08/22 09:06 Dose: 20 mg Documented by: Gabapentin (Gabapentin 300 Mg Capsule) 300 mg PO TID [facility] Last Admin: 02/08/22 09:06 Dose: 300 mg Documented by: Hydroxyzine HCl (Hydroxyzine Hcl 25 Mg Tablet) 25 mg PO BEDTIME PRN PRN Reason: Anxiety Magnesium Hydroxide (Milk Of Magnesia 30 Ml Oral.Susp) 30 ml PO DAILY PRN PRN Reason: Constipation Nicotine Polacrilex (Nicotine Polacrilex 2 Mg Gum) 4 mg BUCCAL Q2H PRN PRN Reason: nicotine withdrawal Prazosin HCl (Prazosin Hcl 1 Mg Capsule) 3 mg PO BEDTIME [facility]; Protocol Last Admin: 02/07/22 20:49 Dose: 3 mg Documented by: Quetiapine Fumarate (Quetiapine Fumarate 25 Mg Tablet) 25 mg PO QID PRN PRN Reason: anxiety, agitation Last Admin: 02/08/22 10:54 Dose: 25 mg Documented by: Quetiapine Fumarate (Quetiapine Fumarate 100 Mg Tablet) 100 mg PO BEDTIME [facility] Last Admin: 02/07/22 20:49 Dose: 100 mg Documented by: Trazodone HCl (Trazodone Hcl 50 Mg Tablet) 50 mg PO BEDTIME PRN PRN Reason: Insomnia Last Admin: 02/07/22 20:49 Dose: 50 mg Documented by: Allergies Allergies Allergy/AdvReac Type Severity Reaction Status Date / Time No Known Allergies Allergy Verified 12/03/21 01:45 Assessment & Plan Assessment & Plan (1) Malingering: Status: Acute Code(s): Z76.5 - Malingerer [conscious simulation] (2) Post traumatic stress disorder (PTSD): Status: Acute Code(s): F43.10 - Post-traumatic stress disorder, unspecified (3) Cocaine use disorder: Status: Acute Code(s): F14.10 - Cocaine abuse, uncomplicated Plan 02/06: restarted prior meds aside from stimulant. 02/07: calmed since getting upset yesterday at no stimulant prescription. working with SW on rehab referrals. I spent ___25___ minutes with the patient and/or on the patient floor today, greater than?50% of which was spent counseling/coordinating care. Reason for contiued inpatient stay Substantial Risk for: inability to function and rapid decompensation
[2022-02-08] MEDS: Prazosin HCL 1 MG CAPSULE 3 MG PO (21:24)
[2022-02-08] MEDS: Divalproex Sodium 500 MG TABLET.DR 1500 MG PO (21:24)
[2022-02-08] MEDS: QUEtiapine Fumarate 100 MG TABLET PO (21:24)
[2022-02-08] MEDS: traZODone HCL 50 MG TABLET PO (21:24)
[2022-02-08 21:30] VITALS: BP 110/74; PULSE 85; RESP 16; TEMP 36.8; O2SAT 98
[2022-02-09 09:06] VITALS: BP 107/56; PULSE 79; RESP 18; TEMP 36.6; O2SAT 95
--- NOTE | 2022-02-09 09:57 | P.PNPSI_ITS ---
Subjective Subjective Date of Service: 02/09/22 Reason For Visit: SI Subjective Notes: Conditional Voluntary Healthcare Proxy: No Guardianship: No Medical Problems Affecting Mental Status: No Interim History: Patient was seen and discussed in rounds today. He continues to have some anxiety and depression. He talked about his thoughts about not being continued on Adderall which he plans to pursue when he leaves here. No complaints or side effects otherwise. Eating and sleeping adequately. No changes were made today Medication Compliance: Yes Side effects from medications: No Attending Groups: Intermittent Review of Systems Review of Systems Yes all other systems are reviewed and are negative Mental Status Exam Mental Status Exam Narrative: In today's visit he is alert, oriented and pleasant. Normal speech. Good eye contact. Affect is appropriate and constricted. No signs of psychosis. No SI/HI. Cognitively is grossly intact. Judgment and Diagnostics Vital Signs (24Hr): Vital Signs - 24 hr 02/08/22 21:30 02/09/22 09:06 Temperature 98.2 F 97.9 F Pulse Rate 85 79 Respiratory Rate 16 18 Blood Pressure 110/74 107/56 L Pulse Oximetry 98 95 BMI result Body Mass Index 22.9 Labs Results: 02/02/22 15:51 02/02/22 15:51 Medications Medications Current Medications Acetaminophen (Acetaminophen 325 Mg Tablet) 650 mg PO Q6H PRN PRN Reason: Headache/Pain Mild Scale (1-3) Al Hydroxide/Mg Hydroxide (Magnesium Hydrox/Alum Hydrox 30 Ml Oral.Susp) 30 ml PO Q6H PRN PRN Reason: Heartburn/Nausea Buprenorphine/Naloxone (Buprenorphine/Naloxone 4/1 Mg Film) 1 film SUBLINGUAL DAILY [facility] Last Admin: 02/08/22 09:43 Dose: 1 film Documented by: Buprenorphine/Naloxone (Buprenorphine/Naloxone 8/2 Mg Film) 1 film SUBLINGUAL DAILY [facility] Last Admin: 02/08/22 09:43 Dose: 1 film Documented by: Divalproex Sodium (Divalproex Sodium 500 Mg Tablet.) 1,500 mg PO BEDTIME [facility] Last Admin: 02/08/22 21:24 Dose: 1,500 mg Documented by: Fluoxetine HCl (Fluoxetine Hcl 20 Mg Capsule) 20 mg PO DAILY [facility] Last Admin: 02/08/22 09:06 Dose: 20 mg Documented by: Gabapentin (Gabapentin 300 Mg Capsule) 300 mg PO TID [facility] Last Admin: 02/08/22 21:25 Dose: 300 mg Documented by: Hydroxyzine HCl (Hydroxyzine Hcl 25 Mg Tablet) 25 mg PO BEDTIME PRN PRN Reason: Anxiety Magnesium Hydroxide (Milk Of Magnesia 30 Ml Oral.Susp) 30 ml PO DAILY PRN PRN Reason: Constipation Nicotine Polacrilex (Nicotine Polacrilex 2 Mg Gum) 4 mg BUCCAL Q2H PRN PRN Reason: nicotine withdrawal Prazosin HCl (Prazosin Hcl 1 Mg Capsule) 3 mg PO BEDTIME [facility]; Protocol Last Admin: 02/08/22 21:24 Dose: 3 mg Documented by: Quetiapine Fumarate (Quetiapine Fumarate 25 Mg Tablet) 25 mg PO QID PRN PRN Reason: anxiety, agitation Last Admin: 02/08/22 21:25 Dose: 25 mg Documented by: Quetiapine Fumarate (Quetiapine Fumarate 100 Mg Tablet) 100 mg PO BEDTIME [facility] Last Admin: 02/08/22 21:24 Dose: 100 mg Documented by: Trazodone HCl (Trazodone Hcl 50 Mg Tablet) 50 mg PO BEDTIME PRN PRN Reason: Insomnia Last Admin: 02/08/22 21:24 Dose: 50 mg Documented by: Allergies Allergies Allergy/AdvReac Type Severity Reaction Status Date / Time No Known Allergies Allergy Verified 12/03/21 01:45 Assessment & Plan Assessment & Plan (1) Malingering: Status: Acute Code(s): Z76.5 - Malingerer [conscious simulation] (2) Post traumatic stress disorder (PTSD): Status: Acute Code(s): F43.10 - Post-traumatic stress disorder, unspecified (3) Cocaine use disorder: Status: Acute Code(s): F14.10 - Cocaine abuse, uncomplicated Plan 02/06: restarted prior meds aside from stimulant. 02/07: calmed since getting upset yesterday at no stimulant prescription. working with SW on rehab referrals. 02/09: Continue current regimen and plans I spent minutes with the patient and/or on the patient floor today, greater than?50% of which was spent counseling/coordinating care. Reason for contiued inpatient stay Substantial Risk for: med/psych decompensation
[2022-02-09] MEDS: FLUoxetine HCl 20 MG CAPSULE PO (10:14)
[2022-02-09] MEDS: Gabapentin 300 MG CAPSULE PO ×3 (10:14→20:53)
[2022-02-09] MEDS: Buprenorphine/Naloxone 4/1 mg FILM 1 FILM SUBLINGUAL (10:15)
[2022-02-09] MEDS: Buprenorphine/Naloxone 8/2 mg FILM 1 FILM SUBLINGUAL (10:15)
[2022-02-09] MEDS: QUEtiapine Fumarate 25 MG TABLET PO ×2 (13:43→20:53)
[2022-02-09] MEDS: QUEtiapine Fumarate 50 MG TABLET PO (14:46)
[2022-02-09 20:45] VITALS: BP 105/62; PULSE 84; RESP 16; TEMP 36.6; O2SAT 97
[2022-02-09] MEDS: Prazosin HCL 1 MG CAPSULE 3 MG PO (20:52)
[2022-02-09] MEDS: hydrOXYzine HCL 25 MG TABLET PO (20:52)
[2022-02-09] MEDS: Divalproex Sodium 500 MG TABLET.DR 1500 MG PO (20:53)
[2022-02-09] MEDS: QUEtiapine Fumarate 100 MG TABLET PO (20:53)
[2022-02-10] MEDS: traZODone HCL 50 MG TABLET PO (02:52)
[2022-02-10] MEDS: QUEtiapine Fumarate 25 MG TABLET PO (02:52)
[2022-02-10 06:00] VITALS: BP 105/66; PULSE 86; RESP 18; TEMP 36.7; O2SAT 97
--- NOTE | 2022-02-10 09:35 | P.PNPSI_ITS ---
Subjective Subjective Date of Service: 02/10/22 Reason For Visit: SI Subjective Notes: Conditional Voluntary Interim History: Patient was seen and discussed in rounds today. Records and plans were reviewed. He continues to complain of racing thoughts and anxiety of Adderall which has not been continued. He will discuss that with Dr. Chapin and I also suggested that he may need to wait until he leaves and then should reconnect with [employer]OTT[employer]ING [employer]PERVIS[employer]. He also is requesting for his nighttime Seroquel to be increased to 150 mg which has been helpful with sleep and to change his p.r.n. Seroquel from 25-50 mg q.i.d. p.r.n.. No other complaints. No other changes were made Review of Systems Review of Systems Yes all other systems are reviewed and are negative Diagnostics Vital Signs (24Hr): Vital Signs - 24 hr 02/09/22 20:45 02/10/22 06:00 Temperature 97.8 F 98.1 F Pulse Rate 84 86 Respiratory Rate 16 18 Blood Pressure 105/62 105/66 Pulse Oximetry 97 97 BMI result Body Mass Index 22.9 Labs Results: 02/02/22 15:51 02/02/22 15:51 Medications Medications Current Medications Acetaminophen (Acetaminophen 325 Mg Tablet) 650 mg PO Q6H PRN PRN Reason: Headache/Pain Mild Scale (1-3) Al Hydroxide/Mg Hydroxide (Magnesium Hydrox/Alum Hydrox 30 Ml Oral.Susp) 30 ml PO Q6H PRN PRN Reason: Heartburn/Nausea Buprenorphine/Naloxone (Buprenorphine/Naloxone 4/1 Mg Film) 1 film SUBLINGUAL DAILY [facility] Last Admin: 02/09/22 10:15 Dose: 1 film Documented by: Buprenorphine/Naloxone (Buprenorphine/Naloxone 8/2 Mg Film) 1 film SUBLINGUAL DAILY [facility] Last Admin: 02/09/22 10:15 Dose: 1 film Documented by: Divalproex Sodium (Divalproex Sodium 500 Mg Tablet.) 1,500 mg PO BEDTIME [facility] Last Admin: 02/09/22 20:53 Dose: 1,500 mg Documented by: Fluoxetine HCl (Fluoxetine Hcl 20 Mg Capsule) 20 mg PO DAILY [facility] Last Admin: 02/09/22 10:14 Dose: 20 mg Documented by: Gabapentin (Gabapentin 300 Mg Capsule) 300 mg PO TID [facility] Last Admin: 02/09/22 20:53 Dose: 300 mg Documented by: Hydroxyzine HCl (Hydroxyzine Hcl 25 Mg Tablet) 25 mg PO BEDTIME PRN PRN Reason: Anxiety Last Admin: 02/09/22 20:52 Dose: 25 mg Documented by: Magnesium Hydroxide (Milk Of Magnesia 30 Ml Oral.Susp) 30 ml PO DAILY PRN PRN Reason: Constipation Nicotine Polacrilex (Nicotine Polacrilex 2 Mg Gum) 4 mg BUCCAL Q2H PRN PRN Reason: nicotine withdrawal Prazosin HCl (Prazosin Hcl 1 Mg Capsule) 3 mg PO BEDTIME [facility]; Protocol Last Admin: 02/09/22 20:52 Dose: 3 mg Documented by: Quetiapine Fumarate (Quetiapine Fumarate 50 Mg Tablet) 50 mg PO QID PRN PRN Reason: anxiety, agitation Quetiapine Fumarate (Quetiapine Fumarate 50 Mg Tablet) 150 mg PO BEDTIME [facility] Trazodone HCl (Trazodone Hcl 50 Mg Tablet) 50 mg PO BEDTIME PRN PRN Reason: Insomnia Last Admin: 02/10/22 02:52 Dose: 50 mg Documented by: Allergies Allergies Allergy/AdvReac Type Severity Reaction Status Date / Time No Known Allergies Allergy Verified 12/03/21 01:45 Assessment & Plan Assessment & Plan (1) Malingering: Status: Acute Code(s): Z76.5 - Malingerer [conscious simulation] (2) Post traumatic stress disorder (PTSD): Status: Acute Code(s): F43.10 - Post-traumatic stress disorder, unspecified (3) Cocaine use disorder: Status: Acute Code(s): F14.10 - Cocaine abuse, uncomplicated Plan 02/06: restarted prior meds aside from stimulant. 02/07: calmed since getting upset yesterday at no stimulant prescription. working with SW on rehab referrals. 02/09: Continue current regimen and plans 02/10: Continue current regimen and plans with changes to his p.r.n. Seroquel and nighttime Seroquel I spent minutes with the patient and/or on the patient floor today, greater than?50% of which was spent counseling/coordinating care. Reason for contiued inpatient stay Substantial Risk for: med/psych decompensation and other
[2022-02-10] MEDS: Buprenorphine/Naloxone 8/2 mg FILM 1 FILM SUBLINGUAL (09:40)
[2022-02-10] MEDS: Buprenorphine/Naloxone 4/1 mg FILM 1 FILM SUBLINGUAL (09:40)
[2022-02-10] MEDS: Gabapentin 300 MG CAPSULE PO ×3 (09:40→20:56)
[2022-02-10] MEDS: FLUoxetine HCl 20 MG CAPSULE PO (09:40)
[2022-02-10] MEDS: QUEtiapine Fumarate 50 MG TABLET PO (09:40)
[2022-02-10] MEDS: Prazosin HCL 1 MG CAPSULE 3 MG PO (20:56)
[2022-02-10] MEDS: QUEtiapine Fumarate 50 MG TABLET 150 MG PO (20:56)
[2022-02-10] MEDS: Divalproex Sodium 500 MG TABLET.DR 1500 MG PO (20:56)
[2022-02-10 20:59] VITALS: BP 102/62; PULSE 92; RESP 16; TEMP 36.6; O2SAT 98
[2022-02-11 08:30] VITALS: BP 106/62; PULSE 101; RESP 20; TEMP 36.1; O2SAT 98
[2022-02-11] MEDS: Gabapentin 300 MG CAPSULE PO ×3 (09:29→20:25)
[2022-02-11] MEDS: FLUoxetine HCl 20 MG CAPSULE PO (09:29)
[2022-02-11] MEDS: Buprenorphine/Naloxone 4/1 mg FILM 1 FILM SUBLINGUAL (09:30)
[2022-02-11] MEDS: Buprenorphine/Naloxone 8/2 mg FILM 1 FILM SUBLINGUAL (09:30)
[2022-02-11] MEDS: QUEtiapine Fumarate 50 MG TABLET PO (10:06)
[2022-02-11] MEDS: Perphenazine 4 MG TABLET PO ×2 (12:02→16:00)
--- NOTE | 2022-02-11 12:42 | HO.PSYCHPN ---
Subjective Subjective Date of Service: 02/11/22 Reason For Visit: SI Interim History: long monologue by pt re why he needs to be on adderall. declined to RX, citing adderall is not a Tx for anxiety or PTSD, which are the symptom and syndrome pt is c/o. reports seroquel makes him tired, can't use it during the day for anxiety. proposes other less-sedating neuroleptics. pt agrees to trial of perphenazine 4 mg Q4H PRN. per staff, isolative, napping. wants adderall. agitated dar shift. seroquel helpful for him but sedating. Mental Status Exam Mental Status Exam Narrative: A&O. Pt has thin body habitus, tattoos, casual attire. intense eye contact, attentive. No Tics or Tremors. No abnormal involuntary movements. engaged in conversation. Non-pressured speech, but with increased loudness, rate and amount. normal prosody. No prolonged speech latency or dysarthria. Mood is improved since admission. affect is constricted, hyper-intense, min-labile. no SI/HI/AVH expressed. Thoughts are goal oriented. No known cognitive or memory impairment. Insight/ Judgment limited. Diagnostics Vital Signs (24Hr): Vital Signs - 24 hr 02/10/22 20:59 Temperature 97.9 F Pulse Rate 92 Respiratory Rate 16 Blood Pressure 102/62 Pulse Oximetry 98 BMI result Body Mass Index 22.9 Labs Results: 02/02/22 15:51 02/02/22 15:51 Medications Medications Current Medications Acetaminophen (Acetaminophen 325 Mg Tablet) 650 mg PO Q6H PRN PRN Reason: Headache/Pain Mild Scale (1-3) Al Hydroxide/Mg Hydroxide (Magnesium Hydrox/Alum Hydrox 30 Ml Oral.Susp) 30 ml PO Q6H PRN PRN Reason: Heartburn/Nausea Buprenorphine/Naloxone (Buprenorphine/Naloxone 4/1 Mg Film) 1 film SUBLINGUAL DAILY JOSSELIN Last Admin: 02/11/22 09:30 Dose: 1 film Documented by: Buprenorphine/Naloxone (Buprenorphine/Naloxone 8/2 Mg Film) 1 film SUBLINGUAL DAILY JOSSELIN Last Admin: 02/11/22 09:30 Dose: 1 film Documented by: Divalproex Sodium (Divalproex Sodium 500 Mg Tablet.) 1,500 mg PO BEDTIME JOSSELIN Last Admin: 02/10/22 20:56 Dose: 1,500 mg Documented by: Fluoxetine HCl (Fluoxetine Hcl 20 Mg Capsule) 20 mg PO DAILY JOSSELIN Last Admin: 02/11/22 09:29 Dose: 20 mg Documented by: Gabapentin (Gabapentin 300 Mg Capsule) 300 mg PO TID JOSSELIN Last Admin: 02/11/22 09:29 Dose: 300 mg Documented by: Hydroxyzine HCl (Hydroxyzine Hcl 25 Mg Tablet) 25 mg PO BEDTIME PRN PRN Reason: Anxiety Last Admin: 02/09/22 20:52 Dose: 25 mg Documented by: Magnesium Hydroxide (Milk Of Magnesia 30 Ml Oral.Susp) 30 ml PO DAILY PRN PRN Reason: Constipation Nicotine Polacrilex (Nicotine Polacrilex 2 Mg Gum) 4 mg BUCCAL Q2H PRN PRN Reason: nicotine withdrawal Perphenazine (Perphenazine 4 Mg Tablet) 4 mg PO Q4H PRN PRN Reason: anxiety Last Admin: 02/11/22 12:02 Dose: 4 mg Documented by: Prazosin HCl (Prazosin Hcl 1 Mg Capsule) 3 mg PO BEDTIME JOSSELIN; Protocol Last Admin: 02/10/22 20:56 Dose: 3 mg Documented by: Quetiapine Fumarate (Quetiapine Fumarate 50 Mg Tablet) 150 mg PO BEDTIME JOSSELIN Last Admin: 02/10/22 20:56 Dose: 150 mg Documented by: Trazodone HCl (Trazodone Hcl 50 Mg Tablet) 50 mg PO BEDTIME PRN PRN Reason: Insomnia Last Admin: 02/10/22 02:52 Dose: 50 mg Documented by: Allergies Allergies Allergy/AdvReac Type Severity Reaction Status Date / Time No Known Allergies Allergy Verified 12/03/21 01:45 Assessment & Plan Assessment & Plan (1) Malingering: Status: Acute Code(s): Z76.5 - Malingerer [conscious simulation] (2) Post traumatic stress disorder (PTSD): Status: Acute Code(s): F43.10 - Post-traumatic stress disorder, unspecified (3) Cocaine use disorder: Status: Acute Code(s): F14.10 - Cocaine abuse, uncomplicated Plan 02/06: restarted prior meds aside from stimulant. 02/07: calmed since getting upset yesterday at no stimulant prescription. working with SW on rehab referrals. 02/09: Continue current regimen and plans 02/10: Continue current regimen and plans with changes to his p.r.n. Seroquel and nighttime Seroquel 02/11: focused on stimulant, which is once again declined. seroquel PRNs DCed as too sedating, perphenazine 4 mg PRNs started for anxiety. I spent ___25___ minutes with the patient and/or on the patient floor today, greater than?50% of which was spent counseling/coordinating care. Reason for contiued inpatient stay Substantial Risk for: inability to function and rapid decompensation
[2022-02-11 18:00] VITALS: BP 104/59; PULSE 92; RESP 18; TEMP 36.8; O2SAT 97
[2022-02-11] MEDS: Divalproex Sodium 500 MG TABLET.DR 1500 MG PO (20:25)
[2022-02-11] MEDS: QUEtiapine Fumarate 50 MG TABLET 150 MG PO (20:25)
[2022-02-11] MEDS: Prazosin HCL 1 MG CAPSULE 3 MG PO (20:25)
[2022-02-12 06:00] VITALS: BP 112/70; PULSE 106; RESP 18; TEMP 36.7; O2SAT 98
[2022-02-12] MEDS: Gabapentin 300 MG CAPSULE PO ×3 (09:31→20:35)
[2022-02-12] MEDS: FLUoxetine HCl 20 MG CAPSULE PO (09:31)
[2022-02-12] MEDS: Buprenorphine/Naloxone 4/1 mg FILM 1 FILM SUBLINGUAL (09:31)
[2022-02-12] MEDS: Buprenorphine/Naloxone 8/2 mg FILM 1 FILM SUBLINGUAL (09:31)
[2022-02-12] MEDS: Perphenazine 4 MG TABLET PO (10:04)
[2022-02-12] MEDS: Perphenazine 2 MG TABLET 6 MG PO ×2 (14:36→18:34)
--- NOTE | 2022-02-12 15:18 | P.PNPSI_ITS ---
Subjective Subjective Date of Service: 02/12/22 Reason For Visit: SI Interim History: seen with SKINNY song. calm, cooperative. asks questions about Rxs for the future, asks MD in ordaz if MD would be willing to Rx vyvanse, which MD declines. pt has been accepted for [facility] tomorrow. meds to be sent to [facility]. DC 1030. pt appears pleased with this plan. trilafon PRNs increased to 6 mg each, as pt cannot tell if they are helpful or not. per staff, taking trilafon PRNs. wants new MD soriae this commercial insurance underwriter will not Rx adderall. Mental Status Exam Mental Status Exam Narrative: A&O. Pt has thin body habitus, tattoos, casual attire. intense eye contact, attentive. No Tics or Tremors. No abnormal involuntary movements. engaged in conversation. Non-pressured speech, but with increased loudness, rate and amount. normal prosody. No prolonged speech latency or dysarthria. Mood is improved since admission. affect is constricted, normo-intense, non-labile. no SI/HI/AVH expressed. Thoughts are goal oriented. No known cognitive or memory impairment. Insight/ Judgment limited. Diagnostics Vital Signs (24Hr): Vital Signs - 24 hr 02/11/22 18:00 02/12/22 06:00 Temperature 98.3 F 98.1 F Pulse Rate 92 106 H Respiratory Rate 18 18 Blood Pressure 104/59 L 112/70 Pulse Oximetry 97 98 BMI result Body Mass Index 22.9 Labs Results: 02/02/22 15:51 02/02/22 15:51 Medications Medications Current Medications Acetaminophen (Acetaminophen 325 Mg Tablet) 650 mg PO Q6H PRN PRN Reason: Headache/Pain Mild Scale (1-3) Al Hydroxide/Mg Hydroxide (Magnesium Hydrox/Alum Hydrox 30 Ml Oral.Susp) 30 ml PO Q6H PRN PRN Reason: Heartburn/Nausea Buprenorphine/Naloxone (Buprenorphine/Naloxone 4/1 Mg Film) 1 film SUBLINGUAL DAILY JOSSELIN Last Admin: 02/12/22 09:31 Dose: 1 film Documented by: Buprenorphine/Naloxone (Buprenorphine/Naloxone 8/2 Mg Film) 1 film SUBLINGUAL DAILY JOSSELIN Last Admin: 02/12/22 09:31 Dose: 1 film Documented by: Divalproex Sodium (Divalproex Sodium 500 Mg Tablet.) 1,500 mg PO BEDTIME JOSSELIN Last Admin: 02/11/22 20:25 Dose: 1,500 mg Documented by: Fluoxetine HCl (Fluoxetine Hcl 20 Mg Capsule) 20 mg PO DAILY JOSSELIN Last Admin: 02/12/22 09:31 Dose: 20 mg Documented by: Gabapentin (Gabapentin 300 Mg Capsule) 300 mg PO TID [facility] Last Admin: 02/12/22 14:34 Dose: 300 mg Documented by: Hydroxyzine HCl (Hydroxyzine Hcl 25 Mg Tablet) 25 mg PO BEDTIME PRN PRN Reason: Anxiety Last Admin: 02/09/22 20:52 Dose: 25 mg Documented by: Magnesium Hydroxide (Milk Of Magnesia 30 Ml Oral.Susp) 30 ml PO DAILY PRN PRN Reason: Constipation Nicotine Polacrilex (Nicotine Polacrilex 2 Mg Gum) 4 mg BUCCAL Q2H PRN PRN Reason: nicotine withdrawal Perphenazine (Perphenazine 2 Mg Tablet) 6 mg PO Q4H PRN PRN Reason: anxiety Last Admin: 02/12/22 14:36 Dose: 6 mg Documented by: Prazosin HCl (Prazosin Hcl 1 Mg Capsule) 3 mg PO BEDTIME JOSSELIN; Protocol Last Admin: 02/11/22 20:25 Dose: 3 mg Documented by: Quetiapine Fumarate (Quetiapine Fumarate 50 Mg Tablet) 150 mg PO BEDTIME JOSSELIN Last Admin: 02/11/22 20:25 Dose: 150 mg Documented by: Trazodone HCl (Trazodone Hcl 50 Mg Tablet) 50 mg PO BEDTIME PRN PRN Reason: Insomnia Last Admin: 02/10/22 02:52 Dose: 50 mg Documented by: Allergies Allergies Allergy/AdvReac Type Severity Reaction Status Date / Time No Known Allergies Allergy Verified 12/03/21 01:45 Assessment & Plan Assessment & Plan (1) Malingering: Status: Acute Code(s): Z76.5 - Malingerer [conscious simulation] (2) Post traumatic stress disorder (PTSD): Status: Acute Code(s): F43.10 - Post-traumatic stress disorder, unspecified (3) Cocaine use disorder: Status: Acute Code(s): F14.10 - Cocaine abuse, uncomplicated Plan 02/06: restarted prior meds aside from stimulant. 02/07: calmed since getting upset yesterday at no stimulant prescription. working with SW on rehab referrals. 02/09: Continue current regimen and plans 02/10: Continue current regimen and plans with changes to his p.r.n. Seroquel and nighttime Seroquel 02/11: focused on stimulant, which is once again declined. seroquel PRNs DCed as too sedating, perphenazine 4 mg PRNs started for anxiety. 02/12: asks about vyvanse, which MD declines to Rx for him. DC [facility], meds to [facility]. I spent ___25___ minutes with the patient and/or on the patient floor today, greater than?50% of which was spent counseling/coordinating care. Reason for contiued inpatient stay Substantial Risk for: inability to function and rapid decompensation
[2022-02-12] MEDS: Prazosin HCL 1 MG CAPSULE 3 MG PO (20:34)
[2022-02-12] MEDS: Divalproex Sodium 500 MG TABLET.DR 1500 MG PO (20:34)
[2022-02-12] MEDS: QUEtiapine Fumarate 50 MG TABLET 150 MG PO (20:35)
[2022-02-12 20:38] VITALS: BP 120/75; PULSE 88; RESP 16; TEMP 36.6; O2SAT 96
[2022-02-13] MEDS: Gabapentin 300 MG CAPSULE PO (08:28)
[2022-02-13] MEDS: FLUoxetine HCl 20 MG CAPSULE PO (08:28)
--- NOTE | 2022-02-13 08:40 | MHC.CLN ---
F/U WEIGHT=74.752 KG, BMI=23. ADMISSION WEIGHT WAS 87% IBW. NOW WITHIN NORMAL LIMITS. NO NEW NUTRITION INTERVENTIONS.
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
[2022-02-13] MEDS: Acetaminophen 325 MG TABLET 650 MG PO (09:57)
[2022-02-13] MEDS: Buprenorphine/Naloxone 8/2 mg FILM 1 FILM SUBLINGUAL (10:14)
[2022-02-13] MEDS: Buprenorphine/Naloxone 4/1 mg FILM 1 FILM SUBLINGUAL (10:14)
--- NOTE | 2022-02-13 10:38 | PC.NURSE ---
Vidal is alert, fully oriented, pleasant and cooperative with discharge process. He denies ideation, plan or intent to harm self or others. He verbalizes understanding of meds and appointments and verbalizes plan to adhere to discharge plan. Plan is for discharge to the [facility]. He denies physical complaint.
== END 2022-02-13 10:20 | disposition home or self-care (01) | DRG 755 ==
LOC: HO.ED 16:06 → HO.PADLT16 02-05 15:19
PROVIDERS: Emergency Medicine; Physician Assistant Medical; Admitting Provider Social Worker; Emergency Provider Emergency Medicine Emergency Medical Services; Visit Provider Psychiatry & Neurology Psychiatry
DX: F43.10 Post-traumatic stress disorder, unspecified (principal); R45.851 Suicidal ideations; F11.20 Opioid dependence, uncomplicated; F17.210 Nicotine dependence, cigarettes, uncomplicated; F14.10 Cocaine abuse, uncomplicated; Z20.822 Contact with and (suspected) exposure to COVID-19; Z76.5 Malingerer [conscious simulation]; Z71.6 Tobacco abuse counseling; Z79.899 Other long term (current) drug therapy
CPT/HCPCS: 80048; 80076; 80164; 80307; 82077; 85025; 87635; 93005; 99285

== ENCOUNTER 2022-03-16 06:53 | Inpatient (IN) | payer OTHER, SELFPAY ==
[2022-03-16 07:01] VITALS: BP 133/80; PULSE 96; RESP 18; TEMP 36.7; O2SAT 95; BMI 26.6
--- NOTE | 2022-03-16 07:24 | ED_ITS ---
HPI - Psych General Chief Complaint: Psychiatric Symptoms Stated Complaint: SI Time Seen by Provider: 03/16/22 07:20 Source: patient Limitations: no limitations History of Present Illness HPI Narrative: This is a 36 years old male with prior psychiatric history and psychiatric hospitalization presented to emergency room complaining of MD NAVDEEP complaint: suicidal ideation and feels depressed Onset (ago): day(s) (1) Duration: constant History of same: Yes Relieving factors: none Related Data Previous Rx's Medication Instructions Recorded buprenorphine 4 mg-naloxone 1 mg 1 film sublingual DAILY 14 days 02/13/22 sublingual film (Suboxone) #14 ea buprenorphine 8 mg-naloxone 2 mg 1 film sublingual DAILY 14 days 02/13/22 sublingual film #14 ea divalproex 500 mg tablet,delayed 3 tab PO BEDTIME 30 days #90 tabs 02/13/22 release fluoxetine 20 mg capsule 20 mg PO DAILY 30 days #30 caps 02/13/22 gabapentin 300 mg capsule 1 cap PO TID 30 days #90 caps 02/13/22 perphenazine 2 mg tablet 8 mg PO Q4H PRN anxiety 30 days 02/13/22 #360 tabs prazosin 1 mg capsule 3 mg PO BEDTIME 30 days #30 caps 02/13/22 quetiapine 50 mg tablet 150 mg PO BEDTIME 30 days #90 tabs 02/13/22 Allergies Allergy/AdvReac Type Severity Reaction Status Date / Time No Known Allergies Allergy Verified 12/03/21 01:45 Review of Systems Review of Systems: Yes all other systems are reviewed and are negative Cardiovascular: Cardiovascular: Denies chest pain and Denies rapid heart rate Gastrointestinal: Gastrointestinal: Denies abdominal pain Psychiatric: Psychiatric: Reports as per HPI, Reports anxiety and Reports depression [facility] Past Medical History Medical History Depression Depression Opioid use disorder Substance abuse Suicidal ideation Social History Social History Household Members: Spouse Household Members Other:: girlfriend Housing: Apartment Housing Other:: can't stay with gf. can live with friend Do you presently have visiting nurse or other home services: No Patient Tobacco Use Status: Current everyday Tobacco user Tobacco use type: Cigarette Cigarette Packs Per Day: 1 Cigarettes Per Day: 20.0 Years Smoked: 18+ e-Cigarette/Vaping Use: Never Used Second Hand Smoke Exposure: No Substance Use Type: Crack/Cocaine Advance Directives: No service: No Sexual orientation: Don't Know Physical Exam Vital Signs: Vital Signs: Last Vital Signs Temp 98.1 F 03/16/22 07:01 Pulse 96 03/16/22 07:01 Resp 18 03/16/22 08:50 BP 133/80 03/16/22 07:01 Pulse Ox 95 03/16/22 07:01 O2 Del Method 03/16/22 07:01 BMI result Body Mass Index 26.6 Const: General: cooperative and comfortable Nutritional Appearance: average body habitus Orientation/consciousness: patient oriented x3 Limitations: no limitations HEENT: Head: Yes normal to inspection Ears: TM's normal bilaterally General nose exam: Normal external nose present Face and sinus: Yes normal facial exam Mouth: Normal oral and palatal mucosa present Throat: Yes posterior oropharynx normal Neck: Neck: Yes normal visual inspection and Yes full ROM Thyroid: Thyroid normal Chest: Chest palpation & inspection: normal inspection of the chest Resp: Effort & Inspection: normal respiratory effort Auscultation: clear to auscultation bilaterally Cardio: Jugular venous distension: no JVD Rate: regular rate Rhythm: regular rhythm GI: Inspection: Yes normal to inspection Palpation (GI): Soft to palpation, not firm, nontender and no guarding Auscultation: normal bowel sounds : General: Yes no CVA tenderness Back/Spine/Pelvis: Back: no CVA tenderness Skin: General skin exam: no rashes or lesions noted and elasticity normal Lesions: no lesions Rashes: no rashes Neuro: General: patient oriented x3 Cranial nerves: Yes CN's II-XII intact bilaterally and Yes Facial sensation intact/muscles of mastication intact Cognition (Neuro): normal cognition Gait exam (Neuro): Normal gait present Coordination: [id number] test normal Psych: Mental Status: mental status grossly normal Affect: Sad affect present Attitude: cooperative Thought process: Normal thought process present Thought content: Suicidality present Course Reevaluation(s) Reevaluation #1: we are waiting for crisis eval. I will sign out the pt to Dr Blankenship MDM - Psych Lab Data Labs: Lab Results 03/16/22 03/16/22 Range/Units 11:24 15:56 Urine Opiates Screen Not Detected (Not Detect) Urine Fentanyl Screen Not Detected (Not Detect) Ur Barbiturates Screen Not Detected (Not Detect) Ur Phencyclidine Scrn Not Detected (Not Detect) Ur Amphetamines Screen Not Detected (Not Detect) U Benzodiazepines Scrn Not Detected (Not Detect) Urine Cocaine Screen POSITIVE H (Not Detect) U Marijuana (THC) Screen Not Detected (Not Detect) COVID-19 (ML) Negative (Negative) COVID-19 Clin Com See Note Discharge Plan Discharge Clinical Impression: Depression Prescriptions: No Action perphenazine 2 mg Tablet 8 mg PO Q4H PRN (Reason: anxiety) 30 Days Qty: 360 0RF quetiapine 50 mg Tablet 150 mg PO BEDTIME 30 Days Qty: 90 0RF prazosin 1 mg capsule 3 mg PO BEDTIME 30 Days Qty: 30 0RF divalproex 500 mg tablet,delayed release (DR/EC) 3 tab PO BEDTIME 30 Days Qty: 90 0RF gabapentin 300 mg capsule 1 cap PO TID 30 Days Qty: 90 0RF fluoxetine 20 mg Capsule 20 mg PO DAILY 30 Days Qty: 30 0RF buprenorphine-naloxone 8-2 mg film 1 film sublingual DAILY 14 Days Qty: 14 0RF buprenorphine-naloxone [Suboxone] 4-1 mg film 1 film sublingual DAILY 14 Days Qty: 14 0RF
[2022-03-16 08:50] VITALS: RESP 18
[2022-03-16 11:49] LABS: Amphetamine Screen Urine Not Detected (Not Detect); Barbiturates, Urine Not Detected (Not Detect); Benzodiazepines Screen Urine Not Detected (Not Detect); Cannabinoid Screen Urine Not Detected (Not Detect); Cocaine Screen Urine POSITIVE (Not Detect); Fentanyl, urine Not Detected (Not Detect); Opiate Screen Urine Not Detected (Not Detect); Phencyclidine Screen Urine Not Detected (Not Detect)
[2022-03-16 16:25] LABS: COVID-19 Test Negative (Negative); IDNOW Serial# 55D5AD1C
[2022-03-16 16:53] VITALS: BP 108/68; PULSE 90; RESP 17; TEMP 36.2; O2SAT 96
--- NOTE | 2022-03-16 18:52 | ECG_ITS ---
Test Reason : MED CLEARANCE Blood Pressure : / mmHG Vent. Rate : 072 BPM Atrial Rate : 072 BPM P-R Int : 170 ms QRS Dur : 090 ms QT Int : 382 ms P-R-T Axes : 052 069 049 degrees QTc Int : 418 ms Normal sinus rhythm Normal ECG When compared with ECG of 05-FEB-2022 11:30, T wave amplitude has decreased in Anterior leads Referred By: Trena Parra Electronically Signed By:Spencer Virgen
[2022-03-16 19:08] LABS: MANUAL DIFF FLAG NO
[2022-03-16 19:09] LABS: Basophils Absolute Auto 0.1 X10*3/uL (0.0-0.2); Basophils Percent Auto 0.7 % (0-2); Eosinophils Absolute Auto 0.8 X10*3/uL (0.0-0.4); Eosinophils Percent Auto 9.6 % (0-4); Hematocrit 34.8 % (42.0-52.0); Hemoglobin 11.8 g/dl (14.0-18.0); Imm Gran Abs Auto 0.02 X10*3/uL (0.00-0.03); Imm Gran Pct Auto 0.2 % (0.0-0.4); Lymphocytes Absolute Auto 1.8 X10*3/uL (1.2-4.9); Lymphocytes Percent Auto 21.2 % (20-40); Mean Corpuscular HGB Conc 33.9 g/dl (31.0-36.0); Mean Corpuscular Hemoglobin 29.8 pg (27.0-33.0); Mean Corpuscular Volume 87.9 fL (80.0-98.0); Mean Platelet Volume 10.3 fL (9.4-12.4); Monocytes Percent Auto 12.1 % (2-11); Neutrophils Absolute Auto 4.8 x10*3/uL (2.0-8.3); Neutrophils Percent Auto 56.2 % (45-73); Platelet Count 231 X10*3/uL (160-400); Red Blood Count 3.96 X10*6/uL (4.60-5.80); Red Cell Distribution Width 13.3 % (11.0-16.0); White Blood Count 8.5 X10*3/uL (4.8-10.8)
[2022-03-16 19:29] LABS: Alanine Aminotransferase 18 U/L (0-40); Albumin Level 3.9 g/dL (3.5-5.0); Alkaline Phosphatase 77 U/L (39-117); Anion Gap 12 (12-20); Aspartate Amino Transferase 27 U/L (5-37); Bilirubin Direct 0.2 mg/dL (0.0-0.5); Bilirubin Total 0.4 mg/dL (0.0-1.0); Blood Urea Nitrogen 24 mg/dL (9-16); Carbon Dioxide 26 mmol/L (22-29); Chloride 105 mmol/L (96-108); Creatinine Clr Calc Pharmacy 97.1; Estimated Glomerular Filt Rate > 60; Glucose Random 108 mg/dL (60-115); Sodium 139 mmol/L (135-145); Total Protein 6.4 g/dL (6.5-8.0)
[2022-03-16 20:47] VITALS: BP 119/69; PULSE 78
[2022-03-16 20:49] LABS: Valproate 10.4 mcg/mL (50.0-100.0)
[2022-03-16] MEDS: hydrOXYzine HCL 50 MG TABLET PO (21:04)
[2022-03-16] MEDS: Buprenorphine/Naloxone 4/1 mg FILM 1 FILM SUBLINGUAL (22:46)
[2022-03-16] MEDS: Divalproex Sodium 500 MG TABLET.DR 1500 MG PO (22:46)
[2022-03-16] MEDS: Prazosin HCL 1 MG CAPSULE 3 MG PO (22:47)
[2022-03-16] MEDS: QUEtiapine Fumarate 50 MG TABLET 150 MG PO (22:47)
[2022-03-16] MEDS: Gabapentin 400 MG CAPSULE PO (22:47)
[2022-03-16 22:51] VITALS: BP 101/59
[2022-03-17] VITALS: BMI 26.6
[2022-03-17 06:00] VITALS: BP 111/72; PULSE 86; RESP 18; TEMP 36.6; O2SAT 96
[2022-03-17] MEDS: Buprenorphine/Naloxone 8/2 mg FILM 1 FILM SUBLINGUAL (08:23)
[2022-03-17] MEDS: Gabapentin 400 MG CAPSULE PO ×3 (08:24→20:29)
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
[2022-03-17] MEDS: FLUoxetine HCl 20 MG CAPSULE PO (12:10)
[2022-03-17] MEDS: QUEtiapine Fumarate 25 MG TABLET PO ×2 (14:15→18:10)
[2022-03-17 18:00] VITALS: BP 100/78; PULSE 86; TEMP 36.6; O2SAT 97
--- NOTE | 2022-03-17 18:07 | PC.NURSE ---
3-day noticed signed on 03/17/22, up on 03/20/22.
[2022-03-17] MEDS: LORazepam 0.5 MG TABLET PO (19:11)
[2022-03-17] MEDS: Buprenorphine/Naloxone 4/1 mg FILM 1 FILM SUBLINGUAL (20:28)
[2022-03-17] MEDS: QUEtiapine Fumarate 50 MG TABLET 150 MG PO (20:28)
[2022-03-17] MEDS: Prazosin HCL 1 MG CAPSULE 3 MG PO (20:28)
[2022-03-17] MEDS: Divalproex Sodium 500 MG TABLET.DR 1500 MG PO (20:29)
[2022-03-18 08:07] VITALS: BP 104/69; PULSE 76; RESP 16; TEMP 36.5; O2SAT 99
[2022-03-18] MEDS: FLUoxetine HCl 20 MG CAPSULE PO (08:09)
[2022-03-18] MEDS: Gabapentin 400 MG CAPSULE PO (08:09)
[2022-03-18] MEDS: Buprenorphine/Naloxone 8/2 mg FILM 1 FILM SUBLINGUAL (08:09)
[2022-03-18] MEDS: QUEtiapine Fumarate 25 MG TABLET PO (09:39)
--- NOTE | 2022-03-18 10:58 | PC.NURSE ---
pt states he does not want any nicotine replacement therapy.
--- NOTE | 2022-03-31 18:41 | P.DS_ITS ---
DS: Providers Provider Date of Service: 03/18/22 Date of admission: 03/16/22 20:01 Date of discharge: 03/18/22 Primary care physician: None Physician Admitting clinician: Sam Ernandez Attending physician on admission: Sam Ernandez Attending physician on discharge: Benito Chavez Discharging clinician: Brenda Arteaga DS: Diagnosis Discharge Diagnosis (1) Bipolar disorder: Status: Acute (2) Post traumatic stress disorder (PTSD): Status: Acute (3) Cocaine use disorder: Status: Acute DS: Medications Discharge Medications Home Medications: Home Medications Medication Instructions Recorded Confirmed divalproex 500 mg tablet,delayed 3 tab PO BEDTIME 03/23/22 03/23/22 release fluoxetine 20 mg capsule 1 cap PO DAILY 03/23/22 03/23/22 gabapentin 400 mg capsule 1 cap PO TID 03/23/22 03/23/22 perphenazine 2 mg tablet 8 mg PO QID PRN Psychosis 03/23/22 03/23/22 prazosin 1 mg capsule 3 cap PO BEDTIME 03/23/22 03/23/22 Previous Rx's Medication Instructions Recorded buprenorphine 4 mg-naloxone 1 mg 1 film sublingual QPM 2 days #2 ea 03/18/22 sublingual film (Suboxone) buprenorphine 8 mg-naloxone 2 mg 1 film sublingual QAM 2 days #2 ea 03/18/22 sublingual film quetiapine 50 mg tablet 150 mg PO BEDTIME 30 days #21 tabs 03/18/22 Mental Status Exam Mental Status Exam Patient Appearance: Appropriate Patient Orientation: Person, Place, Time and Situation Level of Consciousness: Alert Patient Behavior: Appropriate, Talkative and Good Eye Contact Mood Description: Appropriate Affect Description: Appropriate Patient Cognition Impaired: No Ability to Follow Directions: Good Speech Pattern: Spontaneous Speech Memory Description: Intact Hallucinations: None Delusions: Not Present Thought Process: Intact and Goal Oriented Thought Content: positive for Intact, positive for Goal Oriented and positive for Suicidal Ideation (denies) Judgement: Good DS: Summary Hospital Course Hospital Course: Admission to adult psychiatry for exacerbation of symptoms of bipolar disorder, substance abuse. Pt with increased depression, SI, one day relapse after attending [facility] and relationship discord-pt finding partner with another man [employer]. Medication regime was re-established after pt missed one day of regime, Pt trialing Quetiapine prn to see if it is more effective than Perphenazine. Pt asking to leave as he was feeling back on track and has plans to return to work and sobriety plan. Time spent discussing smoking cessation with patient: 3 to 10 minutes Status at Discharge Functional status at discharge: independent ambulation Overall status at discharge: patient is progressing back to baseline Time Spent with Patient Time attestation: Total time spent providing and/or coordinating discharge services: 35 Time spent: Greater than 30 minutes Discharge Plan Discharge Patient Disposition: Home, Self-Care Discharge Diagnosis: Bipolar Disorder PTSD Cocaine Use Disorder Referrals: [facility] [Other] - 03/20/22 11:00 am ([place] with [facility] [place] [facility] [place] Physician,None [Primary Care Provider] - 1 Week Discharge Medications: Continued quetiapine 50 mg Tablet 150 mg PO BEDTIME 30 Days Qty: 21 4RF Changed buprenorphine-naloxone 8-2 mg film 1 film sublingual QAM 2 Days Qty: 2 0RF buprenorphine-naloxone [Suboxone] 4-1 mg film 1 film sublingual QPM 2 Days Qty: 2 0RF Discontinued prazosin 1 mg capsule 3 mg PO BEDTIME 30 Days Qty: 30 0RF divalproex 500 mg tablet,delayed release (DR/EC) 3 tab PO BEDTIME 30 Days Qty: 90 0RF fluoxetine 20 mg Capsule 20 mg PO DAILY 30 Days Qty: 30 0RF gabapentin 400 mg capsule 1 cap PO TID perphenazine 2 mg tablet 8 mg PO QID PRN (Reason: anxiety) No Action perphenazine 2 mg tablet 8 mg PO QID PRN (Reason: Psychosis) prazosin 1 mg capsule 3 cap PO BEDTIME gabapentin 400 mg capsule 1 cap PO TID divalproex 500 mg tablet,delayed release (DR/EC) 3 tab PO BEDTIME fluoxetine 20 mg capsule 1 cap PO DAILY Discharge Orders: Discharge Order (Routine); Ordered 03/18/22 Ordered By: Brenda Arteaga Diet: Advance to usual diet Activity on Discharge: As tolerated Stand Alone Forms: Patient Portal Discharge page, Community Support Care Plan Goals: Stabilization of mood Continued work on sobriety Return to [facility] treatment focus Health Concerns: Bipolar Disorder PTSD Cocaine Use Disorder Plan of Treatment: Return to [facility] Return to [facility] treatment in [place] Attend follow up appointments Take medications as directed Continue to work on sobriety and mood stabilization Assessment: Alert, oriented, non-suicidal, non-psychotic. Goal oriented Pt reports he has a court date on 03/[address] [place] [address] and is planning to attend Discharge Date/Time: 03/18/22 11:28
== END 2022-03-18 11:28 | disposition home or self-care (01) | DRG 753 ==
LOC: HO.ED 18:53 → HO.PM5 20:06
PROVIDERS: Nurse Practitioner Family; Psychiatry & Neurology Psychiatry; Admitting Provider Psychiatry & Neurology Psychiatry; Emergency Provider Emergency Medicine; Visit Provider Clinical Nurse Specialist Psychiatric/Mental Health, Adult
DX: F31.9 Bipolar disorder, unspecified (principal); R45.851 Suicidal ideations; F17.210 Nicotine dependence, cigarettes, uncomplicated; Z71.6 Tobacco abuse counseling; F14.10 Cocaine abuse, uncomplicated; F43.10 Post-traumatic stress disorder, unspecified; Z20.822 Contact with and (suspected) exposure to COVID-19; Z79.899 Other long term (current) drug therapy
CPT/HCPCS: 36415; 80048; 80076; 80164; 80307; 85025; 87635; 93005; 99285

== ENCOUNTER 2022-03-22 23:46 | Emergency (ER) | payer OTHER, SELFPAY ==
--- NOTE | ~2022-03-22 | XR_ITS ---
EXAMINATION: XR CHEST CLINICAL INFORMATION: Productive cough COMPARISON: None TECHNIQUE: 2 views of the chest were obtained. FINDINGS: Osseous alignment is anatomic. No dense consolidation is seen. There is suggestion of mildly thick-walled perihilar airways in the left lung. No evidence of pneumothorax or pleural effusion. No acute osseous findings are seen. XR/XR chest 2V IMPRESSION: No dense consolidation. Suggestion of mildly thick-walled airways in the perihilar left lung, which could indicate bronchitis.
[2022-03-23 01:12] VITALS: BP 132/86; PULSE 88; RESP 16; TEMP 36.7; BMI 24.4
[2022-03-23 01:41] LABS: COVID-19 Test Negative (Negative)
--- NOTE | 2022-03-23 02:43 | ED.URI ---
HPI - URI/Sore Throat General Chief Complaint: Upper Respiratory Symptoms Stated Complaint: cough, cold sweats Time Seen by Provider: 03/23/22 02:42 Source: patient Mode of arrival: ambulatory History of Present Illness HPI Narrative: 36-year-old male who presents with loss of taste, productive cough, body aches but denies any GI or symptoms. Unsure if he has had a COVID sick contact. Related Data Previous Rx's Medication Instructions Recorded buprenorphine 4 mg-naloxone 1 mg 1 film sublingual QPM 2 days #2 ea 03/18/22 sublingual film (Suboxone) buprenorphine 8 mg-naloxone 2 mg 1 film sublingual QAM 2 days #2 ea 03/18/22 sublingual film divalproex 500 mg tablet,delayed 3 tab PO BEDTIME 30 days #21 tabs 03/18/22 release fluoxetine 20 mg capsule 20 mg PO DAILY 30 days #30 caps 03/18/22 gabapentin 400 mg capsule 1 cap PO TID #21 caps 03/18/22 naloxone 4 mg/actuation nasal 4 mg intranasal Q2M PRN opioid 03/18/22 spray (Narcan) overdose #2 ea prazosin 1 mg capsule 3 mg PO BEDTIME 30 days #21 caps 03/18/22 quetiapine 25 mg tablet 25 mg PO QID PRN Anxiety #28 tabs 03/18/22 quetiapine 50 mg tablet 150 mg PO BEDTIME 30 days #21 tabs 03/18/22 prednisone 50 mg tablet 50 mg PO DAILY 4 days #4 tabs 03/23/22 Allergies Allergy/AdvReac Type Severity Reaction Status Date / Time No Known Allergies Allergy Verified 12/03/21 01:45 Review of Systems Review of Systems: Pertinent positives and negatives as stated in HPI 10 point review of systems is otherwise negative. [facility] Past Medical History Source: nursing notes reviewed Medical History Depression Depression Opioid use disorder Substance abuse Suicidal ideation Social History Social History Household Members: None Household Members Other:: girlfriend Housing: Homeless Housing Other:: can't stay with gf. can live with friend Do you presently have visiting nurse or other home services: No Patient Tobacco Use Status: Current everyday Tobacco user Tobacco use type: Cigarette Cigarette Packs Per Day: 1 Cigarettes Per Day: 20.0 Years Smoked: 18+ e-Cigarette/Vaping Use: Never Used Second Hand Smoke Exposure: No Substance Use Type: Crack/Cocaine Advance Directives: No Advance Directives Information Provided: Yes service: No Sexual orientation: Straight/Heterosexual Physical Exam Vital Signs: Vital Signs: Last Vital Signs Temp 98.1 F 03/23/22 01:12 Pulse 88 03/23/22 01:12 Resp 16 03/23/22 01:12 BP 132/86 03/23/22 01:12 O2 Del Method 03/23/22 01:12 BMI result Body Mass Index 24.4 VITAL SIGNS: Reviewed. GENERAL: Well developed, well nourished, in no acute distress. HEAD: Normocephalic/atraumatic EYES: PERRLA, EOMI EARS: Ext canals without abnormality, TMs non-bulging and non-erythematous NOSE: Nares patent bilateral OROPHARYNX: no oral lesions noted, posterior pharynx clear and non-erythematous without noted tonsillar enlargement/erythema/exudates NECK: Supple, no adenopathy LUNGS: Good inspiratory effort, not decreased in the bases but there are some scattered trace wheeze CARDIOVASCULAR: Regular rate and rhythm without noted murmurs ABDOMEN: Soft, non-tender, non-distended with bowel sounds. MUSCULOSKELETAL: No tenderness, deformities, or effusions noted on gross inspection. EXTREMITIES: No cyanosis, clubbing or edema. SKIN: Inspection of the skin reveals no rashes NEUROLOGIC: Alert and oriented x 4. Strength and sensation to light touch were grossly intact x 4. Course Course Course Narrative: 36-year-old male with history and clinical presentation consistent with viral syndrome and he denies any history of asthma. Given patient's symptoms raises concern for possible COVID infection though on review of all investigations no evidence to suggest on chest x-ray or testing that he has COVID at this time. Patient was provided with albuterol and initial prednisone and then discharged home in stable condition. MDM - URI/Sore Throat Lab Data Labs: Lab Results 03/23/22 Range/Units 01:18 COVID-19 (ML) Negative (Negative) COVID-19 Clin Com See Note Discharge Plan Discharge Clinical Impression: Viral syndrome, Bronchitis, URI (upper respiratory infection) Patient Disposition: Home, Self-Care Instructions: Upper Respiratory Infection (ED), Acute Bronchitis (ED), Viral Syndrome (ED) Additional Instructions: 1. Recommend Tylenol/ibuprofen as needed for headaches, temperatures greater than 100.4, body aches. Increase fluid hydration, especially with water. 2. Please complete the short course of steroids you have been provided. 3. Follow-up with your primary care provider. Prescriptions: New prednisone 50 mg tablet 50 mg PO DAILY 4 Days Qty: 4 0RF No Action quetiapine 25 mg Tablet 25 mg PO QID PRN (Reason: Anxiety) Qty: 28 4RF prazosin 1 mg capsule 3 mg PO BEDTIME 30 Days Qty: 21 4RF gabapentin 400 mg capsule 1 cap PO TID Qty: 21 4RF divalproex 500 mg tablet,delayed release (DR/EC) 3 tab PO BEDTIME 30 Days Qty: 21 4RF fluoxetine 20 mg Capsule 20 mg PO DAILY 30 Days Qty: 30 0RF quetiapine 50 mg Tablet 150 mg PO BEDTIME 30 Days Qty: 21 4RF naloxone [Narcan] 4 mg/actuation spray,non-aerosol 4 mg intranasal Q2M PRN (Reason: opioid overdose) Qty: 2 0RF Rx Instructions: spray 1 dose into ONE nostril; alternate nostrils w each dose until help arrives buprenorphine-naloxone 8-2 mg film 1 film sublingual QAM 2 Days Qty: 2 0RF buprenorphine-naloxone [Suboxone] 4-1 mg film 1 film sublingual QPM 2 Days Qty: 2 0RF
[2022-03-23] MEDS: Albuterol Sulfate 90 MCG 8 GM INHALER 4 PUFF INHALE (03:05)
[2022-03-23 03:06] VITALS: PULSE 88; RESP 16; O2SAT 96
[2022-03-23] MEDS: predniSONE 10 MG TABLET 50 MG PO (03:15)
[2022-03-23] MEDS: Acetaminophen 325 MG TABLET 975 MG PO (03:15)
[2022-03-23] MEDS: Ibuprofen 400 MG TABLET PO (03:15)
[2022-03-23 03:18] VITALS: BP 113/78; PULSE 71; RESP 14; O2SAT 98
== END 2022-03-23 03:34 | disposition home or self-care (01) ==
PROVIDERS: Emergency Provider Student in an Organized Health Care Education/Training Program
DX: B34.9 Viral infection, unspecified (principal); J06.9 Acute upper respiratory infection, unspecified; J40 Bronchitis, not specified as acute or chronic; Z20.822 Contact with and (suspected) exposure to COVID-19; Z79.899 Other long term (current) drug therapy; F17.210 Nicotine dependence, cigarettes, uncomplicated
CPT/HCPCS: 71046; 87635; 94640; 99284

== ENCOUNTER 2022-03-23 03:27 | Inpatient (IN) | payer OTHER, SELFPAY ==
--- NOTE | ~2022-03-23 | CT_ITS ---
EXAMINATION: CT ABDOMEN AND PELVIS WITHOUT CONTRAST CLINICAL INFORMATION: Umbilical hernia with question of strangulation COMPARISON: None TECHNIQUE: Multidetector volumetric imaging was performed from the superior aspect of the liver through the pubic symphysis. Sagittal and coronal reformatted images were obtained on the technologist's workstation. This CT examination was performed using dose optimization techniques as appropriate, variously including the following: *Automated exposure control *Adjustment of mA and/or kV according to patient size (this includes techniques or standardized protocols for targeted exams where dose is matched to indication/reason for exam; i.e. extremities or head) *Use of iterative reconstruction technique DLP: 604 mGy-cm FINDINGS: LUNG BASES: The visualized lung bases are unremarkable. LIVER, GALLBLADDER, AND BILIARY TREE: The liver is normal in size, shape, and attenuation. No focal hepatic lesion or biliary ductal dilatation is present. The gallbladder is contracted but otherwise unremarkable with no evidence of radiopaque gallstones, gallbladder wall thickening, or obvious pericholecystic inflammatory changes. PANCREAS: Unremarkable. SPLEEN: Unremarkable. ADRENAL GLANDS: Unremarkable. KIDNEYS AND URETERS: The kidneys are normal in size, shape, and attenuation. No hydronephrosis, hydroureter, or calculi seen. No perinephric stranding. BLADDER: Unremarkable. GASTROINTESTINAL TRACT: Moderate stool burden is present throughout the colon. The small and large bowel are unremarkable. The appendix is is not seen with certainty but there is no evidence of appendicitis.. ABDOMINAL WALL: There is a tiny periumbilical hernia seen containing predominantly only fat. Peritoneal opening is about 5 mm x 4 mm. A tiny bit of fluid density is seen within this hernia sac. No bowel or bowel wall is within the hernia. The entire hernia measures 2.1 x 1.7 x 2.6 cm. LYMPH NODES: Shotty retroperitoneal lymph nodes are seen but there is no lymphadenopathy. VASCULAR: Unremarkable. PELVIC VISCERA: Unremarkable. OSSEOUS STRUCTURES: Unremarkable. CT/CT abdomen pelvis wo con IMPRESSION: Small periumbilical hernia containing only fat with a tiny amount of fluid seen. No other significant abnormality is detected. Fleischner guidelines were followed.
--- NOTE | ~2022-03-23 | XR_ITS ---
EXAMINATION: XR CHEST CLINICAL INFORMATION: Productive cough, shortness of breath COMPARISON: 03/23/2022 TECHNIQUE: 2 views of the chest were obtained. FINDINGS: As noted previously, there is a suggestion of perihilar bronchial wall thickening most notable on the lateral view. No dense focal consolidation. No pleural effusion or pneumothorax. Normal heart size. Regional skeleton intact. XR/XR chest 2V IMPRESSION: Similar appearance of perihilar bronchial wall thickening which can be seen in the setting of bronchitis or reactive airways disease.
[2022-03-23 03:31] VITALS: BP 115/76; PULSE 72; RESP 16; TEMP 37.1; O2SAT 98; BMI 25.7
[2022-03-23 04:05] LABS: Hematocrit 36.9 % (42.0-52.0); Hemoglobin 12.8 g/dl (14.0-18.0); Mean Corpuscular HGB Conc 34.7 g/dl (31.0-36.0); Mean Corpuscular Hemoglobin 29.6 pg (27.0-33.0); Mean Corpuscular Volume 85.2 fL (80.0-98.0); Platelet Count 273 X10*3/uL (160-400); Red Blood Count 4.33 X10*6/uL (4.60-5.80); Red Cell Distribution Width 13.2 % (11.0-16.0); White Blood Count 12.1 X10*3/uL (4.8-10.8)
[2022-03-23 04:06] LABS: Appearance Urine CLEAR; Color Urine YELLOW; Glucose Urine UA NEG (NEG); Leukocyte Esterase Urine NEG (NEG); Nitrite Urine NEG (NEG); Specific Gravity - Urine 1.025 (1.005-1.025); Urine Blood 1+ (NEG); Urine Ketones NEG (NEG); Urine Protein NEG (NEG-TRACE)
[2022-03-23 04:22] LABS: Anion Gap 12 (12-20); Blood Urea Nitrogen 15 mg/dL (9-16); Calcium 9.4 mg/dL (8.4-10.2); Carbon Dioxide 27 mmol/L (22-29); Chloride 102 mmol/L (96-108); Estimated Glomerular Filt Rate > 60; Ethanol < 10 mg/dL; Glucose Random 108 mg/dL (60-115); Potassium 3.6 mmol/L (3.3-5.1); Sodium 137 mmol/L (135-145)
[2022-03-23 04:22] LABS: Bacteria Urine TRACE /LPF; Mucus Urine 3+ /LPF; RBC Urine 0-2 /HPF (0); Squamous Epithelial Cell Urine TRACE /LPF; WBC Urine 0 /HPF (0-4)
[2022-03-23 04:23] LABS: Amphetamine Screen Urine Not Detected (Not Detect); Barbiturates, Urine Not Detected (Not Detect); Benzodiazepines Screen Urine Not Detected (Not Detect); Cannabinoid Screen Urine Not Detected (Not Detect); Cocaine Screen Urine POSITIVE (Not Detect); Fentanyl, urine POSITIVE (Not Detect); Opiate Screen Urine Not Detected (Not Detect); Phencyclidine Screen Urine Not Detected (Not Detect)
--- NOTE | 2022-03-23 05:29 | ED.GENADULT ---
HPI - General Adult General Chief complaint: Psychiatric Symptoms Stated complaint: SI Time Seen by Provider: 03/23/22 05:16 Source: patient Mode of arrival: ambulatory Limitations: no limitations History of Present Illness HPI narrative: Patient comes to the emergency room complaining of suicidal ideation. Patient was discharged from this hospital/ER after complaining for COVID like symptoms. Patient's test was negative for COVID, discharged. Soon after, patient return to the emergency room stating that he has been suicidal for 1 year. Patient states that his plan to overdose or cutting wrists. Patient reports being homeless for 11 days. Related Data Home Medications Medication Instructions Recorded Confirmed divalproex 500 mg tablet,delayed 3 tab PO BEDTIME 03/23/22 03/23/22 release fluoxetine 20 mg capsule 1 cap PO DAILY 03/23/22 03/23/22 gabapentin 400 mg capsule 1 cap PO TID 03/23/22 03/23/22 perphenazine 2 mg tablet 8 mg PO QID PRN Psychosis 03/23/22 03/23/22 prazosin 1 mg capsule 3 cap PO BEDTIME 03/23/22 03/23/22 Previous Rx's Medication Instructions Recorded buprenorphine 4 mg-naloxone 1 mg 1 film sublingual QPM 2 days #2 ea 03/18/22 sublingual film (Suboxone) buprenorphine 8 mg-naloxone 2 mg 1 film sublingual QAM 2 days #2 ea 03/18/22 sublingual film quetiapine 50 mg tablet 150 mg PO BEDTIME 30 days #21 tabs 03/18/22 Allergies Allergy/AdvReac Type Severity Reaction Status Date / Time No Known Allergies Allergy Verified 12/03/21 01:45 Review of Systems Review of Systems: Constitutional : No Weight loss, No Fever, No Chills, No Night Sweats, No Fatigue, No Malaise ENT/Mouth : No Hearing loss, No Ear Pain, No Nasal Congestion, No Sinus Pain, No Hoarseness, No sore throat, No Rhinorrhea, No Swallowing Difficulty Eyes: No Eye Pain, No Swelling, No Redness, No Foreign Body, No Discharge, No Vision Changes Cardiovascular : No Chest Pain, No SOB, No Dyspnea on Exertion, No Orthopnea, No Edema, No Palpitations Respiratory : No Cough, No Sputum, No Wheezing, No Smoke Exposure, No Dyspnea Gastrointestinal : No Nausea, No Vomiting, No Diarrhea, No Constipation, No abdominal Pain, No Hematochezia, No Melena Genitourinary : no irregular bleeding, No Dysuria, No Urinary Frequency, No Hematuria, No Urinary Incontinence, No Urgency, No Flank Pain, No Urinary Flow Changes, No Hesitancy Musculoskeletal : No joint pain, No Myalgias, No Joint Swelling Skin : No Skin Lesions, No rash Neuro : No Weakness, No Numbness, No Paresthesias, No Loss of Consciousness, No Dizziness, No Headache Psych : Patient complaining of anxiety, depression, suicidal ideation, no homicidal ideation Heme/Lymph: No Bruising, No Bleeding,No Lymphadenopathy Endocrine : No Polyuria, No Polydipsia, No Temperature Intolerance PMFSH Past Medical History Medical History Depression Depression Opioid use disorder Substance abuse Suicidal ideation Social History Social History Household Members: None Household Members Other:: girlfriend Housing: Homeless Housing Other:: can't stay with gf. can live with friend Do you presently have visiting nurse or other home services: No Patient Tobacco Use Status: Current everyday Tobacco user Tobacco use type: Cigarette Cigarette Packs Per Day: 1 Cigarettes Per Day: 20.0 Years Smoked: 18+ e-Cigarette/Vaping Use: Never Used Second Hand Smoke Exposure: No Substance Use Type: Crack/Cocaine Advance Directives: No Advance Directives Information Provided: Yes service: No Sexual orientation: Straight/Heterosexual Physical Exam ED Vital Signs: Vital Signs - 24 hr 03/23/22 03:31 Temperature 98.8 F Pulse Rate 72 Respiratory Rate 16 Blood Pressure 115/76 Pulse Oximetry 98 Oxygen Delivery Method Room Air BMI result Body Mass Index 25.7 Const Other: Appearance: Alert. Oriented X3. No acute distress. Somnolent but easily arousable Eyes: Pupils equal, round and reactive to light. ENT: Pharynx normal. Neck: Normal inspection. Neck supple. No lymph nodes noted. No crepitus CVS: Normal heart rate and rhythm. Pulses normal. Normal S1 and S2 Respiratory: No respiratory distress. Breath sounds normal. No Wheezing. No rales Abdomen: Soft and nontender. No rigidity. No distention. Skin: Skin warm and dry. Normal skin color. Normal skin turgor. Extremities: No lower extremity edema. No Lacerations. No Rash Neuro: Oriented X 3. No motor deficit. No sensory deficit. Moving all extremities. No slurred speech. CN 2 through 12 grossly intact Psych: calm, cooperative, normal affect Course Course Course Narrative: Behavioral health network consult pending. Physician observation started at 05:30 Medical Decision Making Lab Data Result diagrams: 03/23/22 03:59 03/23/22 03:59 Labs: Lab Results 03/23/22 03/23/22 03/23/22 Range/Units 03:52 03:53 03:59 WBC 12.1 H (4.8-10.8) X10*3/uL RBC 4.33 L (4.60-5.80) X10*6/uL Hgb 12.8 L (14.0-18.0) g/dl Hct 36.9 L (42.0-52.0) % MCV 85.2 (80.0-98.0) fL MCH 29.6 (27.0-33.0) pg MCHC 34.7 (31.0-36.0) g/dl RDW 13.2 (11.0-16.0) % Plt Count 273 (160-400) X10*3/uL MPV 10.0 (9.4-12.4) fL Absolute Nucleated RBC 0.000 (0.0-0.012) X10*3/uL Nucleated RBC % (auto) 0.0 (0.0-0.2) /100WBC Sodium (135-145) mmol/L Potassium (3.3-5.1) mmol/L Chloride (96-108) mmol/L Carbon Dioxide (22-29) mmol/L Anion Gap (12-20) BUN (9-16) mg/dL Creatinine (0.5-1.4) mg/dL Estim Creat Clear Calc Estimated GFR Random Glucose (60-115) mg/dL Calcium (8.4-10.2) mg/dL Urine Color YELLOW Urine Appearance CLEAR Urine pH 6.0 (5.0-8.0) Ur Specific [place] 1.025 (1.005-1.025) Urine Protein NEG (NEG-TRACE) MG/DL Urine Glucose (UA) NEG (NEG) MG/DL Urine Ketones NEG (NEG) MG/DL Urine Blood 1+ H (NEG) Urine Nitrite NEG (NEG) Ur Leukocyte Esterase NEG (NEG) Urine RBC 0-2 (0) /HPF Urine WBC 0 (0-4) /HPF Ur Squamous Epith Cells TRACE /LPF Urine Bacteria TRACE /LPF Urine Mucus 3+ /LPF Urine Opiates Screen Not Detected (Not Detect) Urine Fentanyl Screen POSITIVE H (Not Detect) Ur Barbiturates Screen Not Detected (Not Detect) Ur Phencyclidine Scrn Not Detected (Not Detect) Ur Amphetamines Screen Not Detected (Not Detect) U Benzodiazepines Scrn Not Detected (Not Detect) Urine Cocaine Screen POSITIVE H (Not Detect) U Marijuana (THC) Screen Not Detected (Not Detect) Ethyl Alcohol mg/dL 03/23/22 Range/Units 03:59 WBC (4.8-10.8) X10*3/uL RBC (4.60-5.80) X10*6/uL Hgb (14.0-18.0) g/dl Hct (42.0-52.0) % MCV (80.0-98.0) fL MCH (27.0-33.0) pg MCHC (31.0-36.0) g/dl RDW (11.0-16.0) % Plt Count (160-400) X10*3/uL MPV (9.4-12.4) fL Absolute Nucleated RBC (0.0-0.012) X10*3/uL Nucleated RBC % (auto) (0.0-0.2) /100WBC Sodium 137 (135-145) mmol/L Potassium 3.6 (3.3-5.1) mmol/L Chloride 102 (96-108) mmol/L Carbon Dioxide 27 (22-29) mmol/L Anion Gap 12 (12-20) BUN 15 (9-16) mg/dL Creatinine 0.90 (0.5-1.4) mg/dL Estim Creat Clear Calc 122.0 Estimated GFR > 60 Random Glucose 108 (60-115) mg/dL Calcium 9.4 (8.4-10.2) mg/dL Urine Color Urine Appearance Urine pH (5.0-8.0) Ur Specific [place] (1.005-1.025) Urine Protein (NEG-TRACE) MG/DL Urine Glucose (UA) (NEG) MG/DL Urine Ketones (NEG) MG/DL Urine Blood (NEG) Urine Nitrite (NEG) Ur Leukocyte Esterase (NEG) Urine RBC (0) /HPF Urine WBC (0-4) /HPF Ur Squamous Epith Cells /LPF Urine Bacteria /LPF Urine Mucus /LPF Urine Opiates Screen (Not Detect) Urine Fentanyl Screen (Not Detect) Ur Barbiturates Screen (Not Detect) Ur Phencyclidine Scrn (Not Detect) Ur Amphetamines Screen (Not Detect) U Benzodiazepines Scrn (Not Detect) Urine Cocaine Screen (Not Detect) U Marijuana (THC) Screen (Not Detect) Ethyl Alcohol < 10 mg/dL Discharge Plan Discharge Clinical Impression: Suicidal ideation Patient Disposition: Still a Patient Prescriptions: No Action quetiapine 50 mg Tablet 150 mg PO BEDTIME 30 Days Qty: 21 4RF buprenorphine-naloxone 8-2 mg film 1 film sublingual QAM 2 Days Qty: 2 0RF buprenorphine-naloxone [Suboxone] 4-1 mg film 1 film sublingual QPM 2 Days Qty: 2 0RF perphenazine 2 mg tablet 8 mg PO QID PRN (Reason: Psychosis) prazosin 1 mg capsule 3 cap PO BEDTIME gabapentin 400 mg capsule 1 cap PO TID divalproex 500 mg tablet,delayed release (DR/EC) 3 tab PO BEDTIME fluoxetine 20 mg capsule 1 cap PO DAILY
--- NOTE | 2022-03-23 06:53 | PC.NURSE ---
Patient slept through the night, no distress observed/reported, med rec completed/pending provider's approval, behavior appropriate and non concerning, [facility] referral completed/confirmed/pending ETA, VSS, will continue to monitor.
--- NOTE | 2022-03-23 07:11 | PC.NURSE ---
patient appears to remain asleep at present respirations are even and unlabored patient appears in no distress
--- NOTE | 2022-03-23 12:52 | PHA.MEDREC ---
Pharmacy Consult ? Medication Reconciliation rN has completed the medication reconciliation, PHARMACY REVIEWED
[2022-03-23 13:08] VITALS: BP 123/77; PULSE 82; TEMP 36.7; O2SAT 95
[2022-03-23] MEDS: Buprenorphine/Naloxone 8/2 mg FILM 1 FILM SUBLINGUAL (13:09)
[2022-03-23] MEDS: Gabapentin 400 MG CAPSULE PO ×2 (13:09→20:55)
[2022-03-23] MEDS: FLUoxetine HCl 20 MG CAPSULE PO (13:09)
--- NOTE | 2022-03-23 17:02 | ECG_ITS ---
Test Reason : GENERAL MEDICAL Blood Pressure : / mmHG Vent. Rate : 068 BPM Atrial Rate : 068 BPM P-R Int : 160 ms QRS Dur : 096 ms QT Int : 412 ms P-R-T Axes : 071 083 062 degrees QTc Int : 438 ms Normal sinus rhythm Incomplete right bundle branch block Borderline ECG When compared with ECG of 16-MAR-2022 19:38, No significant change was found Referred By: Brenda Arteaga Electronically Signed By:Spencer Virgen
[2022-03-23] MEDS: Buprenorphine/Naloxone 4/1 mg FILM 1 FILM SUBLINGUAL (17:53)
[2022-03-23] MEDS: Divalproex Sodium 500 MG TABLET.DR 1500 MG PO (20:55)
[2022-03-23] MEDS: QUEtiapine Fumarate 50 MG TABLET 150 MG PO (20:55)
[2022-03-23] MEDS: Prazosin HCL 1 MG CAPSULE 3 MG PO (20:55)
[2022-03-23 20:58] VITALS: BP 111/58; PULSE 74; RESP 18; TEMP 36.5; O2SAT 96
--- NOTE | 2022-03-23 21:50 | PM.IMHP ---
History of Present Illness Date of Service: 03/23/22 Chief Complaint: Epigastric pain This is a 36-year-old male with past medical history of ADHD, bipolar, PTSD, alcohol use disorder who presents to the hospital with complaints of gastric pain. Patient reports that he binge drinks occasionally, he was been drinking last night, woke up this morning with severe abdominal pain. [facility] Medical History Depression Depression Opioid use disorder Substance abuse Suicidal ideation Social History Household Members: None Household Members Other:: girlfriend Housing: Homeless Housing Other:: can't stay with gf. can live with friend Do you presently have visiting nurse or other home services: No Patient Tobacco Use Status: Current everyday Tobacco user Tobacco use type: Cigarette Cigarette Packs Per Day: 1 Cigarettes Per Day: 20.0 Years Smoked: 18+ e-Cigarette/Vaping Use: Never Used Second Hand Smoke Exposure: No Substance Use Type: Crack/Cocaine Advance Directives: No Advance Directives Information Provided: Yes service: No Sexual orientation: Straight/Heterosexual Meds Allergies Allergy/AdvReac Type Severity Reaction Status Date / Time No Known Allergies Allergy Verified 12/03/21 01:45 Active Medications: Current Medications Buprenorphine/Naloxone (Buprenorphine/Naloxone 8/2 Mg Film) 1 film SUBLINGUAL DAILY [facility] Last Admin: 03/23/22 13:09 Dose: 1 film Buprenorphine/Naloxone (Buprenorphine/Naloxone 4/1 Mg Film) 1 film SUBLINGUAL DAILY@1700 [facility] Last Admin: 03/23/22 17:53 Dose: 1 film Divalproex Sodium (Divalproex Sodium 500 Mg Tablet.) 1,500 mg PO BEDTIME [facility] Last Admin: 03/23/22 20:55 Dose: 1,500 mg Fluoxetine HCl (Fluoxetine Hcl 20 Mg Capsule) 20 mg PO DAILY [facility] Last Admin: 03/23/22 13:09 Dose: 20 mg Gabapentin (Gabapentin 400 Mg Capsule) 400 mg PO TID [facility] Last Admin: 03/23/22 20:55 Dose: 400 mg Perphenazine (Perphenazine 8 Mg Tablet) 8 mg PO QID PRN PRN Reason: Psychosis Prazosin HCl (Prazosin Hcl 1 Mg Capsule) 3 mg PO BEDTIME [facility]; Protocol Last Admin: 03/23/22 20:55 Dose: 3 mg Quetiapine Fumarate (Quetiapine Fumarate 50 Mg Tablet) 150 mg PO BEDTIME [facility] Last Admin: 03/23/22 20:55 Dose: 150 mg Home Medications Medication Instructions Recorded Confirmed Last Taken Type divalproex 500 mg tablet,delayed 3 tab PO BEDTIME 03/23/22 03/23/22 Unknown History release fluoxetine 20 mg capsule 1 cap PO DAILY 03/23/22 03/23/22 Unknown History gabapentin 400 mg capsule 1 cap PO TID 03/23/22 03/23/22 Unknown History perphenazine 2 mg tablet 8 mg PO QID PRN Psychosis 03/23/22 03/23/22 Unknown History prazosin 1 mg capsule 3 cap PO BEDTIME 03/23/22 03/23/22 Unknown History Physical Exam Vital Signs and Narrative: Vital Signs: Last Vital Signs Temp 97.7 F 03/23/22 20:58 Pulse 74 03/23/22 20:58 Resp 18 03/23/22 20:58 BP 111/58 L 03/23/22 20:58 Pulse Ox 96 03/23/22 20:58 O2 Del Method 03/23/22 20:58 BMI result Body Mass Index 25.7 Results Labs CBC and Chem 7: 03/23/22 03:59 03/23/22 03:59 Labs: Laboratory Results - last 24 hr 03/23/22 03/23/22 03/23/22 03:52 03:53 03:59 MCV 85.2 MCH 29.6 MCHC 34.7 RDW 13.2 Plt Count 273 MPV 10.0 Absolute Nucleated RBC 0.000 Nucleated RBC % (auto) 0.0 Anion Gap Estim Creat Clear Calc Estimated GFR Random Glucose Calcium Urine Color YELLOW Urine Appearance CLEAR Urine pH 6.0 Ur Specific [place] 1.025 Urine Protein NEG Urine Glucose (UA) NEG Urine Ketones NEG Urine Blood 1+ H Urine Nitrite NEG Ur Leukocyte Esterase NEG Urine RBC 0-2 Urine WBC 0 Ur Squamous Epith Cells TRACE Urine Bacteria TRACE Urine Mucus 3+ Urine Opiates Screen Not Detected Urine Fentanyl Screen POSITIVE H Ur Barbiturates Screen Not Detected Ur Phencyclidine Scrn Not Detected Ur Amphetamines Screen Not Detected U Benzodiazepines Scrn Not Detected Urine Cocaine Screen POSITIVE H U Marijuana (THC) Screen Not Detected Ethyl Alcohol 03/23/22 03:59 MCV MCH MCHC RDW Plt Count MPV Absolute Nucleated RBC Nucleated RBC % (auto) Anion Gap 12 Estim Creat Clear Calc 122.0 Estimated GFR > 60 Random Glucose 108 Calcium 9.4 Urine Color Urine Appearance Urine pH Ur Specific [place] Urine Protein Urine Glucose (UA) Urine Ketones Urine Blood Urine Nitrite Ur Leukocyte Esterase Urine RBC Urine WBC Ur Squamous Epith Cells Urine Bacteria Urine Mucus Urine Opiates Screen Urine Fentanyl Screen Ur Barbiturates Screen Ur Phencyclidine Scrn Ur Amphetamines Screen U Benzodiazepines Scrn Urine Cocaine Screen U Marijuana (THC) Screen Ethyl Alcohol < 10
[2022-03-24 00:45] VITALS: BP 118/68; PULSE 80; RESP 14; TEMP 36.2; O2SAT 95
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
[2022-03-24 06:00] VITALS: BP 103/57; PULSE 77; TEMP 36.3; O2SAT 96
[2022-03-24] MEDS: Gabapentin 400 MG CAPSULE PO ×3 (09:44→21:46)
[2022-03-24] MEDS: FLUoxetine HCl 20 MG CAPSULE PO (09:45)
[2022-03-24] MEDS: Buprenorphine/Naloxone 8/2 mg FILM 1 FILM SUBLINGUAL (09:46)
--- NOTE | 2022-03-24 12:42 | HO.PSYCHPN ---
Subjective Subjective Date of Service: 03/24/22 Reason For Visit: Depression/SI Diagnostics Vital Signs (24Hr): Vital Signs - 24 hr 03/23/22 13:08 03/23/22 20:58 03/24/22 00:45 Temperature 98.1 F 97.7 F 97.1 F Pulse Rate 82 74 80 Respiratory Rate 18 14 Blood Pressure 123/77 111/58 L 118/68 Pulse Oximetry 95 96 95 Oxygen Delivery Method Room Air Room Air Room Air 03/24/22 06:00 Temperature 97.3 F Pulse Rate 77 Respiratory Rate Blood Pressure 103/57 L Pulse Oximetry 96 Oxygen Delivery Method Room Air BMI result Body Mass Index 25.7 Labs Results: 03/23/22 03:59 03/23/22 03:59 Labs: Laboratory Results - last 48 hr 03/23/22 03/23/22 03/23/22 03:52 03:53 03:59 WBC 12.1 H RBC 4.33 L Hgb 12.8 L Hct 36.9 L MCV 85.2 MCH 29.6 MCHC 34.7 RDW 13.2 Plt Count 273 MPV 10.0 Absolute Nucleated RBC 0.000 Nucleated RBC % (auto) 0.0 Sodium Potassium Chloride Carbon Dioxide Anion Gap BUN Creatinine Estim Creat Clear Calc Estimated GFR Random Glucose Calcium Urine Color YELLOW Urine Appearance CLEAR Urine pH 6.0 Ur Specific [place] 1.025 Urine Protein NEG Urine Glucose (UA) NEG Urine Ketones NEG Urine Blood 1+ H Urine Nitrite NEG Ur Leukocyte Esterase NEG Urine RBC 0-2 Urine WBC 0 Ur Squamous Epith Cells TRACE Urine Bacteria TRACE Urine Mucus 3+ Urine Opiates Screen Not Detected Urine Fentanyl Screen POSITIVE H Ur Barbiturates Screen Not Detected Ur Phencyclidine Scrn Not Detected Ur Amphetamines Screen Not Detected U Benzodiazepines Scrn Not Detected Urine Cocaine Screen POSITIVE H U Marijuana (THC) Screen Not Detected Ethyl Alcohol 03/23/22 03:59 WBC RBC Hgb Hct MCV MCH MCHC RDW Plt Count MPV Absolute Nucleated RBC Nucleated RBC % (auto) Sodium 137 Potassium 3.6 Chloride 102 Carbon Dioxide 27 Anion Gap 12 BUN 15 Creatinine 0.90 Estim Creat Clear Calc 122.0 Estimated GFR > 60 Random Glucose 108 Calcium 9.4 Urine Color Urine Appearance Urine pH Ur Specific [place] Urine Protein Urine Glucose (UA) Urine Ketones Urine Blood Urine Nitrite Ur Leukocyte Esterase Urine RBC Urine WBC Ur Squamous Epith Cells Urine Bacteria Urine Mucus Urine Opiates Screen Urine Fentanyl Screen Ur Barbiturates Screen Ur Phencyclidine Scrn Ur Amphetamines Screen U Benzodiazepines Scrn Urine Cocaine Screen U Marijuana (THC) Screen Ethyl Alcohol < 10 Medications Medications Current Medications Acetaminophen (Acetaminophen 325 Mg Tablet) 650 mg PO Q6H PRN PRN Reason: Headache/Pain Mild Scale (1-3) Al Hydroxide/Mg Hydroxide (Magnesium Hydrox/Alum Hydrox 30 Ml Oral.Susp) 30 ml PO Q6H PRN PRN Reason: Heartburn/Nausea Buprenorphine/Naloxone (Buprenorphine/Naloxone 8/2 Mg Film) 1 film SUBLINGUAL DAILY [facility] Last Admin: 03/24/22 09:46 Dose: 1 film Buprenorphine/Naloxone (Buprenorphine/Naloxone 4/1 Mg Film) 1 film SUBLINGUAL DAILY@1700 [facility] Last Admin: 03/23/22 17:53 Dose: 1 film Divalproex Sodium (Divalproex Sodium 500 Mg Tablet.Dr) 1,500 mg PO BEDTIME [facility] Last Admin: 03/23/22 20:55 Dose: 1,500 mg Fluoxetine HCl (Fluoxetine Hcl 20 Mg Capsule) 20 mg PO DAILY [facility] Last Admin: 03/24/22 09:45 Dose: 20 mg Gabapentin (Gabapentin 400 Mg Capsule) 400 mg PO TID [facility] Last Admin: 03/24/22 09:44 Dose: 400 mg Magnesium Hydroxide (Milk Of Magnesia 30 Ml Oral.Susp) 30 ml PO DAILY PRN PRN Reason: Constipation Perphenazine (Perphenazine 8 Mg Tablet) 8 mg PO QID PRN PRN Reason: Psychosis Prazosin HCl (Prazosin Hcl 1 Mg Capsule) 3 mg PO BEDTIME [facility]; Protocol Last Admin: 03/23/22 20:55 Dose: 3 mg Quetiapine Fumarate (Quetiapine Fumarate 50 Mg Tablet) 150 mg PO BEDTIME [facility] Last Admin: 03/23/22 20:55 Dose: 150 mg Allergies Allergies Allergy/AdvReac Type Severity Reaction Status Date / Time No Known Allergies Allergy Verified 12/03/21 01:45 Assessment & Plan I spent minutes with the patient and/or on the patient floor today, greater than?50% of which was spent counseling/coordinating care.
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
[2022-03-24] MEDS: predniSONE 10 MG TABLET 50 MG PO (13:45)
[2022-03-24] MEDS: QUEtiapine Fumarate 25 MG TABLET PO (13:46)
[2022-03-24] MEDS: Buprenorphine/Naloxone 4/1 mg FILM 1 FILM SUBLINGUAL (16:48)
[2022-03-24 21:30] VITALS: BP 112/71; TEMP 36.3; O2SAT 96
[2022-03-24] MEDS: Prazosin HCL 1 MG CAPSULE 3 MG PO (21:45)
[2022-03-24] MEDS: Divalproex Sodium 500 MG TABLET.DR 1500 MG PO (21:46)
[2022-03-24] MEDS: QUEtiapine Fumarate 50 MG TABLET 150 MG PO (21:46)
[2022-03-25 06:00] VITALS: BP 114/72; PULSE 73; RESP 16; TEMP 36.3; O2SAT 96
[2022-03-25] MEDS: Gabapentin 400 MG CAPSULE PO ×3 (09:09→20:55)
[2022-03-25] MEDS: FLUoxetine HCl 20 MG CAPSULE PO (09:09)
[2022-03-25] MEDS: predniSONE 10 MG TABLET 50 MG PO (09:09)
[2022-03-25] MEDS: Buprenorphine/Naloxone 8/2 mg FILM 1 FILM SUBLINGUAL (09:09)
[2022-03-25] MEDS: Nicotine 21 MG PATCH.TD24 TRANSDERMA (12:34)
[2022-03-25] MEDS: Acetaminophen 325 MG TABLET 650 MG PO ×2 (12:43→20:58)
[2022-03-25] MEDS: QUEtiapine Fumarate 25 MG TABLET PO ×2 (12:44→14:29)
--- NOTE | 2022-03-25 13:15 | HO.PSYCHPN ---
Subjective Subjective Date of Service: 03/25/22 Reason For Visit: Depression/SI Subjective Notes: Conditional Voluntary Healthcare Proxy: No Guardianship: No Medical Problems Affecting Mental Status: No Interim History: Vidal reviewed precipitants to readmission, I never took the medications, began using, and fought with my girlfriend-she has someone else. Discussed his goals-believes medications are still not properly adjusted, review of regime with changes suggested. Medication Compliance: Yes Side effects from medications: No Attending Groups: Intermittent Review of Systems Acute medical concerns: No Medical Review of Systems: unchanged Review of Systems Reports behavioral changes Psychiatric: Reports abnormal sleep pattern, Reports anxiety, Reports behavioral changes, Reports depression, Reports hopelessness, Reports irritability, Reports anhedonia, Reports mood swings and Reports suicidal ideation Mental Status Exam Mental Status Exam Patient Appearance: Appropriate Patient Orientation: Person, Place, Time and Situation Level of Consciousness: Alert Patient Behavior: Talkative and Good Eye Contact Mood Description: Apprehensive Affect Description: Apprehensive Patient Cognition Impaired: No Ability to Follow Directions: Good Speech Pattern: Spontaneous Speech Memory Description: Episodic Impaired Hallucinations: None Delusions: Not Present Thought Process: Distracted and Rumination Thought Content: positive for Circumstantial and positive for Suicidal Ideation Depressive Symptoms: Increased Anxiety Judgement: Good Diagnostics Vital Signs (24Hr): Vital Signs - 24 hr 03/24/22 21:30 03/25/22 06:00 Temperature 97.4 F 97.4 F Pulse Rate 73 Respiratory Rate 16 Blood Pressure 112/71 114/72 Pulse Oximetry 96 96 Oxygen Delivery Method Room Air BMI result Body Mass Index 25.7 Labs Results: 03/26/22 08:13 03/23/22 03:59 Medications Medications Current Medications Acetaminophen (Acetaminophen 325 Mg Tablet) 650 mg PO Q6H PRN PRN Reason: Headache/Pain Mild Scale (1-3) Last Admin: 03/25/22 12:43 Dose: 650 mg Al Hydroxide/Mg Hydroxide (Magnesium Hydrox/Alum Hydrox 30 Ml Oral.Susp) 30 ml PO Q6H PRN PRN Reason: Heartburn/Nausea Amphetamine/Dextroamphetamine (Dextroamphetamine/Amphetamine Xr 10 Mg Cap.Er.24h) 20 mg PO DAILY [facility] Buprenorphine/Naloxone (Buprenorphine/Naloxone 8/2 Mg Film) 1 film SUBLINGUAL DAILY [facility] Last Admin: 03/25/22 09:09 Dose: 1 film Buprenorphine/Naloxone (Buprenorphine/Naloxone 4/1 Mg Film) 1 film SUBLINGUAL DAILY@1700 [facility] Last Admin: 03/24/22 16:48 Dose: 1 film Divalproex Sodium (Divalproex Sodium 500 Mg Tablet.) 1,500 mg PO BEDTIME [facility] Last Admin: 03/24/22 21:46 Dose: 1,500 mg Ferrous Sulfate (Ferrous Sulfate 324 Mg Tablet.) 325 mg PO DAILY [facility] Fluoxetine HCl (Fluoxetine Hcl 20 Mg Capsule) 20 mg PO DAILY [facility] Last Admin: 03/25/22 09:09 Dose: 20 mg Gabapentin (Gabapentin 400 Mg Capsule) 400 mg PO TID [facility] Last Admin: 03/25/22 09:09 Dose: 400 mg Magnesium Hydroxide (Milk Of Magnesia 30 Ml Oral.Susp) 30 ml PO DAILY PRN PRN Reason: Constipation Multivitamins/Vitamin C (Multivitamin Tablet) 1 tab PO DAILY [facility] Nicotine (Nicotine 21 Mg Patch.Td24) 21 mg TRANSDERMA DAILY [facility] Last Admin: 03/25/22 12:34 Dose: 21 mg Nicotine Polacrilex (Nicotine Polacrilex 2 Mg Gum) 4 mg BUCCAL Q1H PRN PRN Reason: Nicotine Cravings Prazosin HCl (Prazosin Hcl 1 Mg Capsule) 3 mg PO BEDTIME [facility]; Protocol Last Admin: 03/24/22 21:45 Dose: 3 mg Prednisone (Prednisone 10 Mg Tablet) 50 mg PO DAILY [facility] Stop: 03/26/22 23:50 Last Admin: 03/25/22 09:09 Dose: 50 mg Quetiapine Fumarate (Quetiapine Fumarate 50 Mg Tablet) 150 mg PO BEDTIME [facility] Last Admin: 03/24/22 21:46 Dose: 150 mg Quetiapine Fumarate (Quetiapine Fumarate 25 Mg Tablet) 25 mg PO QID PRN PRN Reason: anxiety Last Admin: 03/25/22 12:44 Dose: 25 mg Quetiapine Fumarate (Quetiapine Fumarate 25 Mg Tablet) 25 mg PO BID [facility] Vitamin D (Cholecalciferol (Vitamin D3) 25 Mcg Tablet) 25 mcg PO DAILY [facility] Allergies Allergies Allergy/AdvReac Type Severity Reaction Status Date / Time No Known Allergies Allergy Verified 12/03/21 01:45 Assessment & Plan Assessment & Plan (1) Adjustment disorder with mixed disturbance of emotions and conduct in remission: Status: Acute Code(s): F43.25 - Adjustment disorder with mixed disturbance of emotions and conduct (2) Bipolar II disorder: Status: Acute Code(s): F31.81 - Bipolar II disorder (3) Post traumatic stress disorder (PTSD): Status: Acute Code(s): F43.10 - Post-traumatic stress disorder, unspecified (4) Cocaine use disorder: Status: Acute Code(s): F14.10 - Cocaine abuse, uncomplicated Plan Patient is a 36-year-old male with history of mood lability, possibly bipolar 2 disorder and substance abuse, recently discharged from 02/13/22 and again from on 03/18/22 who presents for depression and SI in the face of relapse the day of discharge, not taking medications and continued relational strife. Plan: CV Q 15 minute checks Restart home meds 03/25/22 Re-start Adderall XR 20 mg daily Seroquel 25 mg 0900, 1500 I spent minutes with the patient and/or on the patient floor today, greater than?50% of which was spent counseling/coordinating care. Patient educated on: medication risk/benefits and therapeutic strategies Informed Consent: understands and further education needed Reason for contiued inpatient stay Substantial Risk for: inability to function and rapid decompensation
[2022-03-25] MEDS: Buprenorphine/Naloxone 4/1 mg FILM 1 FILM SUBLINGUAL (18:50)
[2022-03-25 20:50] VITALS: BP 141/72; PULSE 70; RESP 18; TEMP 36.7; O2SAT 97
[2022-03-25] MEDS: Prazosin HCL 1 MG CAPSULE 3 MG PO (20:55)
[2022-03-25] MEDS: QUEtiapine Fumarate 50 MG TABLET 150 MG PO (20:55)
[2022-03-25] MEDS: Divalproex Sodium 500 MG TABLET.DR 1500 MG PO (20:55)
[2022-03-26 06:00] VITALS: BP 111/71; PULSE 76; RESP 18; TEMP 36.3; O2SAT 96
[2022-03-26] MEDS: Dextroamphetamine/Amphetamine XR 10 MG CAP.ER.24H 20 MG PO (08:20)
[2022-03-26] MEDS: Gabapentin 400 MG CAPSULE PO (08:20)
[2022-03-26] MEDS: Buprenorphine/Naloxone 8/2 mg FILM 1 FILM SUBLINGUAL (08:20)
[2022-03-26] MEDS: predniSONE 10 MG TABLET 50 MG PO (08:21)
[2022-03-26] MEDS: Multivitamin TABLET 1 TAB PO (08:22)
[2022-03-26] MEDS: Ferrous Sulfate 324 MG TABLET.DR 325 MG PO (08:22)
[2022-03-26] MEDS: FLUoxetine HCl 20 MG CAPSULE PO (08:22)
[2022-03-26] MEDS: QUEtiapine Fumarate 25 MG TABLET PO ×3 (08:22→14:26)
[2022-03-26] MEDS: Cholecalciferol (Vitamin D3) 25 MCG TABLET PO (08:23)
[2022-03-26 08:27] LABS: MANUAL DIFF FLAG NO
[2022-03-26 08:29] LABS: Basophils Absolute Auto 0.1 X10*3/uL (0.0-0.2); Basophils Percent Auto 0.5 % (0-2); Eosinophils Absolute Auto 0.2 X10*3/uL (0.0-0.4); Eosinophils Percent Auto 1.9 % (0-4); Hemoglobin 11.5 g/dl (14.0-18.0); Imm Gran Abs Auto 0.04 X10*3/uL (0.00-0.03); Imm Gran Pct Auto 0.4 % (0.0-0.4); Lymphocytes Absolute Auto 3.7 X10*3/uL (1.2-4.9); Lymphocytes Percent Auto 35.6 % (20-40); Mean Corpuscular HGB Conc 33.8 g/dl (31.0-36.0); Mean Corpuscular Hemoglobin 29.9 pg (27.0-33.0); Mean Corpuscular Volume 88.3 fL (80.0-98.0); Mean Platelet Volume 10.7 fL (9.4-12.4); Monocytes Absolute Auto 0.9 X10*3/uL (0.1-1.2); Neutrophils Absolute Auto 5.5 x10*3/uL (2.0-8.3); Neutrophils Percent Auto 52.6 % (45-73); Platelet Count 253 X10*3/uL (160-400); Red Blood Count 3.85 X10*6/uL (4.60-5.80); Red Cell Distribution Width 13.8 % (11.0-16.0); White Blood Count 10.5 X10*3/uL (4.8-10.8)
[2022-03-26 08:34] LABS: Ammonia 56 umol/L (13-55)
[2022-03-26 08:44] LABS: Estimated Average Glucose 97 mg/dL
[2022-03-26 08:47] LABS: Alanine Aminotransferase 9 U/L (0-40); Albumin Level 3.6 g/dL (3.5-5.0); Alkaline Phosphatase 81 U/L (39-117); Aspartate Amino Transferase 10 U/L (5-37); Bilirubin Direct < 0.2 mg/dL (0.0-0.5); Bilirubin Total < 0.2 mg/dL (0.0-1.0); Cholesterol 147 mg/dL; HDL Cholesterol 47 mg/dL; LDL Cholesterol Calculated 86 mg/dl; Total Protein 6.2 g/dL (6.5-8.0); Triglycerides 73 mg/dL
[2022-03-26 08:51] LABS: Valproate 83.4 mcg/mL (50.0-100.0)
[2022-03-26 11:29] LABS: COVID-19 Test Negative (Negative)
[2022-03-26] MEDS: Nicotine 21 MG PATCH.TD24 TRANSDERMA (11:38)
--- NOTE | 2022-03-26 12:14 | P.PNPSI_ITS ---
Subjective Subjective Date of Service: 03/26/22 Reason For Visit: Depression/SI Subjective Notes: Conditional Voluntary Healthcare Proxy: No Guardianship: No Medical Problems Affecting Mental Status: No Interim History: Discussed interest in [facility]-applications are in place for [employer], [employer] and [facility]. Reports productive cough with green sputum- culture sent, rapid covid sent. Discussed sx of anxiety and potential medication titrations. Medication Compliance: Yes Side effects from medications: No Attending Groups: Intermittent Review of Systems Acute medical concerns: No Medical Review of Systems: unchanged Review of Systems Respiratory: Reports chest congestion and Reports cough Psychiatric: Reports anxiety Mental Status Exam Mental Status Exam Patient Appearance: Appropriate Patient Orientation: Person, Place, Time and Situation Level of Consciousness: Alert Patient Behavior: Talkative and Good Eye Contact Mood Description: Anxious Affect Description: Flat Patient Cognition Impaired: No Ability to Follow Directions: Good Speech Pattern: Spontaneous Speech Memory Description: Intact Hallucinations: None Delusions: Not Present Thought Process: Distracted Thought Content: positive for Intact Depressive Symptoms: Increased Anxiety Judgement: Good Diagnostics Vital Signs (24Hr): Vital Signs - 24 hr 03/25/22 20:50 03/26/22 06:00 Temperature 98.1 F 97.4 F Pulse Rate 70 76 Respiratory Rate 18 18 Blood Pressure 141/72 H 111/71 Pulse Oximetry 97 96 Oxygen Delivery Method Room Air BMI result Body Mass Index 25.7 Labs Results: 03/26/22 08:13 03/23/22 03:59 Labs: Laboratory Results - last 48 hr 03/26/22 03/26/22 03/26/22 08:13 08:13 08:13 WBC 10.5 RBC 3.85 L Hgb 11.5 L Hct 34.0 L MCV 88.3 MCH 29.9 MCHC 33.8 RDW 13.8 Plt Count 253 MPV 10.7 Immature Gran % (Auto) 0.4 Neut % (Auto) 52.6 Lymph % (Auto) 35.6 Amelia % (Auto) 9.0 Eos % (Auto) 1.9 Baso % (Auto) 0.5 Lymph # (Auto) 3.7 Amelia # (Auto) 0.9 Eos # (Auto) 0.2 Baso # (Auto) 0.1 Abs Immat Gran (auto) 0.04 H Absolute Neuts (auto) 5.5 Absolute Nucleated RBC 0.000 Nucleated RBC % (auto) 0.0 Estimat Average Glucose 97 Hemoglobin A1c % 5.0 Total Bilirubin < 0.2 Direct Bilirubin < 0.2 AST 10 D ALT 9 Alkaline Phosphatase 81 Ammonia Total Protein 6.2 L Albumin 3.6 Triglycerides 73 Cholesterol 147 LDL Cholesterol, Calc 86 HDL Cholesterol 47 Valproic Acid COVID-19 (ML) COVID-19 Clin Com 03/26/22 03/26/22 03/26/22 08:13 08:13 10:30 WBC RBC Hgb Hct MCV MCH MCHC RDW Plt Count MPV Immature Gran % (Auto) Neut % (Auto) Lymph % (Auto) Amelia % (Auto) Eos % (Auto) Baso % (Auto) Lymph # (Auto) Amelia # (Auto) Eos # (Auto) Baso # (Auto) Abs Immat Gran (auto) Absolute Neuts (auto) Absolute Nucleated RBC Nucleated RBC % (auto) Estimat Average Glucose Hemoglobin A1c % Total Bilirubin Direct Bilirubin AST ALT Alkaline Phosphatase Ammonia 56 H Total Protein Albumin Triglycerides Cholesterol LDL Cholesterol, Calc HDL Cholesterol Valproic Acid 83.4 COVID-19 (ML) Negative COVID-19 Clin Com See Note Medications Medications Current Medications Acetaminophen (Acetaminophen 325 Mg Tablet) 650 mg PO Q6H PRN PRN Reason: Headache/Pain Mild Scale (1-3) Last Admin: 03/25/22 20:58 Dose: 650 mg Al Hydroxide/Mg Hydroxide (Magnesium Hydrox/Alum Hydrox 30 Ml Oral.Susp) 30 ml PO Q6H PRN PRN Reason: Heartburn/Nausea Amphetamine/Dextroamphetamine (Dextroamphetamine/Amphetamine Xr 10 Mg Cap.Er.24h) 20 mg PO DAILY [facility] Last Admin: 03/26/22 08:20 Dose: 20 mg Buprenorphine/Naloxone (Buprenorphine/Naloxone 8/2 Mg Film) 1 film SUBLINGUAL DAILY [facility] Last Admin: 03/26/22 08:20 Dose: 1 film Buprenorphine/Naloxone (Buprenorphine/Naloxone 4/1 Mg Film) 1 film SUBLINGUAL DAILY@1700 [facility] Last Admin: 03/25/22 18:50 Dose: 1 film Divalproex Sodium (Divalproex Sodium 500 Mg Tablet.) 1,500 mg PO BEDTIME [facility] Last Admin: 03/25/22 20:55 Dose: 1,500 mg Ferrous Sulfate (Ferrous Sulfate 324 Mg Tablet.) 325 mg PO DAILY [facility] Last Admin: 03/26/22 08:22 Dose: 325 mg Fluoxetine HCl (Fluoxetine Hcl 10 Mg Capsule) 30 mg PO DAILY [facility] Gabapentin (Gabapentin 300 Mg Capsule) 600 mg PO TID [facility] Magnesium Hydroxide (Milk Of Magnesia 30 Ml Oral.Susp) 30 ml PO DAILY PRN PRN Reason: Constipation Multivitamins/Vitamin C (Multivitamin Tablet) 1 tab PO DAILY [facility] Last Admin: 03/26/22 08:22 Dose: 1 tab Nicotine (Nicotine 21 Mg Patch.Td24) 21 mg TRANSDERMA DAILY [facility] Last Admin: 03/26/22 11:38 Dose: 21 mg Nicotine Polacrilex (Nicotine Polacrilex 2 Mg Gum) 4 mg BUCCAL Q1H PRN PRN Reason: Nicotine Cravings Prazosin HCl (Prazosin Hcl 1 Mg Capsule) 3 mg PO BEDTIME [facility]; Protocol Last Admin: 03/25/22 20:55 Dose: 3 mg Prednisone (Prednisone 10 Mg Tablet) 50 mg PO DAILY [facility] Stop: 03/26/22 23:50 Last Admin: 03/26/22 08:21 Dose: 50 mg Quetiapine Fumarate (Quetiapine Fumarate 50 Mg Tablet) 150 mg PO BEDTIME [facility] Last Admin: 03/25/22 20:55 Dose: 150 mg Quetiapine Fumarate (Quetiapine Fumarate 25 Mg Tablet) 25 mg PO QID PRN PRN Reason: anxiety Last Admin: 03/26/22 11:57 Dose: 25 mg Quetiapine Fumarate (Quetiapine Fumarate 25 Mg Tablet) 25 mg PO 0900,1500 [facility] Last Admin: 03/26/22 08:22 Dose: 25 mg Vitamin D (Cholecalciferol (Vitamin D3) 25 Mcg Tablet) 25 mcg PO DAILY [facility] Last Admin: 03/26/22 08:23 Dose: 25 mcg Allergies Allergies Allergy/AdvReac Type Severity Reaction Status Date / Time No Known Allergies Allergy Verified 12/03/21 01:45 Assessment & Plan Assessment & Plan (1) Adjustment disorder with mixed disturbance of emotions and conduct in remission: Status: Acute Code(s): F43.25 - Adjustment disorder with mixed disturbance of emotions and conduct (2) Bipolar II disorder: Status: Acute Code(s): F31.81 - Bipolar II disorder (3) Post traumatic stress disorder (PTSD): Status: Acute Code(s): F43.10 - Post-traumatic stress disorder, unspecified (4) Cocaine use disorder: Status: Acute Code(s): F14.10 - Cocaine abuse, uncomplicated Plan Patient is a 36-year-old male with history of mood lability, possibly bipolar 2 disorder and substance abuse, recently discharged from [facility] 02/13/22 and again from on 03/18/22 who presents for depression and SI in the face of relapse the day of discharge, not taking medications and continued relational strife. Plan: CV Q 15 minute checks Restart home meds 03/26/22 Sputum culture, rapid covid testing Increase Gabapentin to 600 mg tid Increase Prozac to 30 mg daily I spent minutes with the patient and/or on the patient floor today, greater than?50% of which was spent counseling/coordinating care. Patient educated on: medication risk/benefits, therapeutic strategies and medical condition Informed Consent: understands and further education needed Reason for contiued inpatient stay Substantial Risk for: rapid decompensation
[2022-03-26] MEDS: Gabapentin 300 MG CAPSULE 600 MG PO ×2 (14:25→19:59)
[2022-03-26] MEDS: cloNIDine HCL 0.1 MG TABLET PO ×2 (14:45→20:04)
[2022-03-26] MEDS: Buprenorphine/Naloxone 4/1 mg FILM 1 FILM SUBLINGUAL (16:54)
[2022-03-26 18:45] VITALS: BP 125/78; PULSE 80
[2022-03-26] MEDS: Divalproex Sodium 500 MG TABLET.DR 1500 MG PO (19:58)
[2022-03-26] MEDS: Prazosin HCL 1 MG CAPSULE 3 MG PO (19:58)
[2022-03-26] MEDS: QUEtiapine Fumarate 50 MG TABLET 150 MG PO (19:59)
[2022-03-27] MEDS: Buprenorphine/Naloxone 8/2 mg FILM 1 FILM SUBLINGUAL (09:02)
[2022-03-27] MEDS: Nicotine 21 MG PATCH.TD24 TRANSDERMA (09:02)
[2022-03-27] MEDS: Dextroamphetamine/Amphetamine XR 10 MG CAP.ER.24H 20 MG PO (09:03)
[2022-03-27] MEDS: FLUoxetine HCl 10 MG CAPSULE 30 MG PO (09:03)
[2022-03-27] MEDS: Multivitamin TABLET 1 TAB PO (09:03)
[2022-03-27] MEDS: Gabapentin 300 MG CAPSULE 600 MG PO ×3 (09:03→21:06)
[2022-03-27] MEDS: Ferrous Sulfate 324 MG TABLET.DR PO (09:03)
[2022-03-27] MEDS: Cholecalciferol (Vitamin D3) 25 MCG TABLET PO (09:03)
[2022-03-27] MEDS: QUEtiapine Fumarate 25 MG TABLET PO ×4 (09:04→18:25)
[2022-03-27] MEDS: Acetaminophen 325 MG TABLET 650 MG PO (09:58)
[2022-03-27] MEDS: cloNIDine HCL 0.1 MG TABLET PO ×2 (10:02→18:26)
[2022-03-27] MEDS: guaiFENesin DM 200/20/10 ML 10 ML SYRUP PO ×2 (12:04→18:26)
[2022-03-27] MEDS: Buprenorphine/Naloxone 4/1 mg FILM 1 FILM SUBLINGUAL (15:58)
--- NOTE | 2022-03-27 16:09 | HO.PSYCHPN ---
Subjective Subjective Date of Service: 03/27/22 Reason For Visit: Depression/SI Subjective Notes: Conditional Voluntary Healthcare Proxy: No Guardianship: No Medical Problems Affecting Mental Status: No Interim History: Reports relief of sx of anxiety with recent increase in meds and prn use. Continues to report cough-culture pending, will ask hospitalist to meet with pt, CXR ordered, expectorant ordered-pt is agreement with this plan Medication Compliance: Yes Side effects from medications: No Attending Groups: No Review of Systems Acute medical concerns: No Medical Review of Systems: unchanged Review of Systems Respiratory: Reports cough Psychiatric: Reports no additional psychiatric complaints Mental Status Exam Mental Status Exam Patient Appearance: Appropriate Patient Orientation: Person, Place, Time and Situation Level of Consciousness: Alert Patient Behavior: Talkative and Good Eye Contact Mood Description: Anxious Affect Description: Flat Patient Cognition Impaired: No Ability to Follow Directions: Good Speech Pattern: Spontaneous Speech Memory Description: Intact Hallucinations: None Delusions: Not Present Thought Process: Distracted Thought Content: positive for Intact Judgement: Good Diagnostics Vital Signs (24Hr): Vital Signs - 24 hr 03/26/22 18:45 Pulse Rate 80 Blood Pressure 125/78 BMI result Body Mass Index 25.7 Labs Results: 03/26/22 08:13 03/23/22 03:59 Labs: Laboratory Results - last 48 hr 03/26/22 03/26/22 03/26/22 08:13 08:13 08:13 WBC 10.5 RBC 3.85 L Hgb 11.5 L Hct 34.0 L MCV 88.3 MCH 29.9 MCHC 33.8 RDW 13.8 Plt Count 253 MPV 10.7 Immature Gran % (Auto) 0.4 Neut % (Auto) 52.6 Lymph % (Auto) 35.6 Garden % (Auto) 9.0 Eos % (Auto) 1.9 Baso % (Auto) 0.5 Lymph # (Auto) 3.7 Garden # (Auto) 0.9 Eos # (Auto) 0.2 Baso # (Auto) 0.1 Abs Immat Gran (auto) 0.04 H Absolute Neuts (auto) 5.5 Absolute Nucleated RBC 0.000 Nucleated RBC % (auto) 0.0 Estimat Average Glucose 97 Hemoglobin A1c % 5.0 Total Bilirubin < 0.2 Direct Bilirubin < 0.2 AST 10 D ALT 9 Alkaline Phosphatase 81 Ammonia Total Protein 6.2 L Albumin 3.6 Triglycerides 73 Cholesterol 147 LDL Cholesterol, Calc 86 HDL Cholesterol 47 Valproic Acid COVID-19 (ML) COVID-19 Clin Com 03/26/22 03/26/22 03/26/22 08:13 08:13 10:30 WBC RBC Hgb Hct MCV MCH MCHC RDW Plt Count MPV Immature Gran % (Auto) Neut % (Auto) Lymph % (Auto) Garden % (Auto) Eos % (Auto) Baso % (Auto) Lymph # (Auto) Garden # (Auto) Eos # (Auto) Baso # (Auto) Abs Immat Gran (auto) Absolute Neuts (auto) Absolute Nucleated RBC Nucleated RBC % (auto) Estimat Average Glucose Hemoglobin A1c % Total Bilirubin Direct Bilirubin AST ALT Alkaline Phosphatase Ammonia 56 H Total Protein Albumin Triglycerides Cholesterol LDL Cholesterol, Calc HDL Cholesterol Valproic Acid 83.4 COVID-19 (ML) Negative COVID-19 Clin Com See Note Medications Medications Current Medications Acetaminophen (Acetaminophen 325 Mg Tablet) 650 mg PO Q6H PRN PRN Reason: Headache/Pain Mild Scale (1-3) Last Admin: 03/27/22 09:58 Dose: 650 mg Al Hydroxide/Mg Hydroxide (Magnesium Hydrox/Alum Hydrox 30 Ml Oral.Susp) 30 ml PO Q6H PRN PRN Reason: Heartburn/Nausea Amphetamine/Dextroamphetamine (Dextroamphetamine/Amphetamine Xr 10 Mg Cap.Er.24h) 20 mg PO DAILY [facility] Last Admin: 03/27/22 09:03 Dose: 20 mg Buprenorphine/Naloxone (Buprenorphine/Naloxone 8/2 Mg Film) 1 film SUBLINGUAL DAILY [facility] Last Admin: 03/27/22 09:02 Dose: 1 film Buprenorphine/Naloxone (Buprenorphine/Naloxone 4/1 Mg Film) 1 film SUBLINGUAL DAILY@1700 [facility] Last Admin: 03/27/22 15:58 Dose: 1 film Clonidine HCl (Clonidine Hcl 0.1 Mg Tablet) 0.1 mg PO BID PRN; Protocol PRN Reason: anxiety Last Admin: 03/27/22 10:02 Dose: 0.1 mg Divalproex Sodium (Divalproex Sodium 500 Mg Tablet.) 1,500 mg PO BEDTIME [facility] Last Admin: 03/26/22 19:58 Dose: 1,500 mg Ferrous Sulfate (Ferrous Sulfate 324 Mg Tablet.) 324 mg PO DAILY [facility] Last Admin: 03/27/22 09:03 Dose: 324 mg Fluoxetine HCl (Fluoxetine Hcl 10 Mg Capsule) 30 mg PO DAILY [facility] Last Admin: 03/27/22 09:03 Dose: 30 mg Gabapentin (Gabapentin 300 Mg Capsule) 600 mg PO TID [facility] Last Admin: 03/27/22 14:32 Dose: 600 mg Guaifenesin/Dextromethorphan (Guaifenesin Dm 200/20/10 Ml 10 Ml Syrup) 10 ml PO Q6H PRN PRN Reason: productive cough Last Admin: 03/27/22 12:04 Dose: 10 ml Magnesium Hydroxide (Milk Of Magnesia 30 Ml Oral.Susp) 30 ml PO DAILY PRN PRN Reason: Constipation Multivitamins/Vitamin C (Multivitamin Tablet) 1 tab PO DAILY [facility] Last Admin: 03/27/22 09:03 Dose: 1 tab Nicotine (Nicotine 21 Mg Patch.Td24) 21 mg TRANSDERMA DAILY [facility] Last Admin: 03/27/22 09:02 Dose: 21 mg Nicotine Polacrilex (Nicotine Polacrilex 2 Mg Gum) 4 mg BUCCAL Q1H PRN PRN Reason: Nicotine Cravings Prazosin HCl (Prazosin Hcl 1 Mg Capsule) 3 mg PO BEDTIME [facility]; Protocol Last Admin: 03/26/22 19:58 Dose: 3 mg Quetiapine Fumarate (Quetiapine Fumarate 50 Mg Tablet) 150 mg PO BEDTIME [facility] Last Admin: 03/26/22 19:59 Dose: 150 mg Quetiapine Fumarate (Quetiapine Fumarate 25 Mg Tablet) 25 mg PO QID PRN PRN Reason: anxiety Last Admin: 03/27/22 14:32 Dose: 25 mg Quetiapine Fumarate (Quetiapine Fumarate 25 Mg Tablet) 25 mg PO 0900,1500 [facility] Last Admin: 03/27/22 14:32 Dose: 25 mg Vitamin D (Cholecalciferol (Vitamin D3) 25 Mcg Tablet) 25 mcg PO DAILY [facility] Last Admin: 03/27/22 09:03 Dose: 25 mcg Allergies Allergies Allergy/AdvReac Type Severity Reaction Status Date / Time No Known Allergies Allergy Verified 12/03/21 01:45 Assessment & Plan Assessment & Plan (1) Adjustment disorder with mixed disturbance of emotions and conduct in remission: Status: Acute Code(s): F43.25 - Adjustment disorder with mixed disturbance of emotions and conduct (2) Bipolar II disorder: Status: Acute Code(s): F31.81 - Bipolar II disorder (3) Post traumatic stress disorder (PTSD): Status: Acute Code(s): F43.10 - Post-traumatic stress disorder, unspecified (4) Cocaine use disorder: Status: Acute Code(s): F14.10 - Cocaine abuse, uncomplicated Plan Patient is a 36-year-old male with history of mood lability, possibly bipolar 2 disorder and substance abuse, recently discharged from [facility] 02/13/22 and again from on 03/18/22 who presents for depression and SI in the face of relapse the day of discharge, not taking medications and continued relational strife. Plan: CV Q 15 minute checks Restart home meds 03/27/22 Chest xray Hospitalist consult-productive cough Sputum culture pending Continue psychotropic regime-pt reporting relief of anxiety today. I spent minutes with the patient and/or on the patient floor today, greater than?50% of which was spent counseling/coordinating care. Patient educated on: medication risk/benefits, therapeutic strategies and medical condition Informed Consent: understands and further education needed Reason for contiued inpatient stay Substantial Risk for: rapid decompensation
[2022-03-27 18:00] VITALS: BP 102/60; PULSE 76; TEMP 36.6; O2SAT 96
[2022-03-27] MEDS: Divalproex Sodium 500 MG TABLET.DR 1500 MG PO (21:05)
[2022-03-27] MEDS: QUEtiapine Fumarate 50 MG TABLET 150 MG PO (21:05)
[2022-03-28] MEDS: QUEtiapine Fumarate 25 MG TABLET PO ×5 (00:19→18:57)
[2022-03-28] MEDS: guaiFENesin DM 200/20/10 ML 10 ML SYRUP PO ×2 (00:19→08:35)
[2022-03-28 06:35] VITALS: BP 111/64; PULSE 86; RESP 16; TEMP 36.2; O2SAT 97
[2022-03-28] MEDS: Nicotine 21 MG PATCH.TD24 TRANSDERMA (08:18)
[2022-03-28] MEDS: Cholecalciferol (Vitamin D3) 25 MCG TABLET PO (08:18)
[2022-03-28] MEDS: FLUoxetine HCl 10 MG CAPSULE 30 MG PO (08:18)
[2022-03-28] MEDS: Buprenorphine/Naloxone 8/2 mg FILM 1 FILM SUBLINGUAL (08:18)
[2022-03-28] MEDS: Dextroamphetamine/Amphetamine XR 10 MG CAP.ER.24H 20 MG PO (08:18)
[2022-03-28] MEDS: Gabapentin 300 MG CAPSULE 600 MG PO ×3 (08:19→20:27)
[2022-03-28] MEDS: Multivitamin TABLET 1 TAB PO (08:19)
[2022-03-28] MEDS: Ferrous Sulfate 324 MG TABLET.DR PO (08:28)
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
[2022-03-28] MEDS: Acetaminophen 325 MG TABLET 650 MG PO ×2 (09:53→17:33)
--- NOTE | 2022-03-28 11:31 | HO.PM.IMCN ---
History of Present Illness Data of Consult Service Date: 03/28/22 Primary Care Provider: None Physician HPI Reason for consult: Cough This is a 36 year old male who reports no chronic medical diagnoses. He is admitted to the inpatient psychiatric unit. Medical consult is requested for productive cough. Patient is seen and examined on the unit. He reports a productive cough of greenish sputum which has been ongoing for 1 week. He reports that it has not worsened but that has not also improved. He denies any shortness of breath or any pleuritic type chest pain. He denies any fevers or chills. He reports that he never gets sick. He does report chronic tobacco use as well as crack cocaine smoking.. Reports last use of crack on the ED prior to arrival at [facility]. A sputum culture has been ordered by the psychiatry team which is growing Streptococcus pneumonia. Past medical history Denies Past surgical history Denies Family history Reports his father of cancer, unknown type. He was in his 40s. Social history Reports drinking alcohol 3 times a week, denies prior withdrawal symptoms Reports smoking tobacco about a pack a day although he reports that he has been in and out of rehab for the last 3 months so has not been smoking as much. Reports crack cocaine use. Review of Systems Review of Systems: Negative except HPI PMFSH Medical History Depression Depression Opioid use disorder Substance abuse Suicidal ideation Social History Household Members: None Household Members Other:: girlfriend Housing: Homeless Housing Other:: can't stay with gf. can live with friend Do you presently have visiting nurse or other home services: No Patient Tobacco Use Status: Current everyday Tobacco user Tobacco use type: Cigarette Cigarette Packs Per Day: 1 Cigarettes Per Day: 1 Years Smoked: 18+ Smoked in Last 30 Days: Yes e-Cigarette/Vaping Use: Currently Using Patient Interested in Nicotine Replacement: Yes Patient Given Instructions on How to Stop Smoking: No Second Hand Smoke Exposure: Yes Use of substances other than those prescribed or required for medical reasons: Yes Substance Use Type: Crack/Cocaine Substance Use Frequency: Daily Last Used Substance: Just Prior to Admission Currently Displaying Signs/Symptoms of Drug Intoxication Withdrawal: No Any prior treatment program specific to substance use: Yes Have you been hit, kicked, punched, or otherwise hurt by someone within the past year? If so, by whom?: No Do you feel safe in your current relationship?: Yes Is there a partner from a previous relationship who is making you feel unsafe now?: No Are you made to feel afraid or neglected: No Advance Directives: No Advance Directives Information Provided: Yes Do you have thoughts of harming others: None Do you have a plan to hurt others: No Plan Recently lost weight without trying: Unsure How much weight loss: Unsure Eating poorly because of decreased appetite: Yes Nutrition screen score: 5 Poor oral hygiene: No service: No Sexual orientation: Straight/Heterosexual Meds Allergies Allergy/AdvReac Type Severity Reaction Status Date / Time No Known Allergies Allergy Verified 12/03/21 01:45 Active Medications: Current Medications Acetaminophen (Acetaminophen 325 Mg Tablet) 650 mg PO Q6H PRN PRN Reason: Headache/Pain Mild Scale (1-3) Last Admin: 03/28/22 09:53 Dose: 650 mg Al Hydroxide/Mg Hydroxide (Magnesium Hydrox/Alum Hydrox 30 Ml Oral.Susp) 30 ml PO Q6H PRN PRN Reason: Heartburn/Nausea Amphetamine/Dextroamphetamine (Dextroamphetamine/Amphetamine Xr 10 Mg Cap.Er.24h) 30 mg PO DAILY [facility] Buprenorphine/Naloxone (Buprenorphine/Naloxone 8/2 Mg Film) 1 film SUBLINGUAL DAILY [facility] Last Admin: 03/28/22 08:18 Dose: 1 film Buprenorphine/Naloxone (Buprenorphine/Naloxone 4/1 Mg Film) 1 film SUBLINGUAL DAILY@1700 [facility] Last Admin: 03/27/22 15:58 Dose: 1 film Clonidine HCl (Clonidine Hcl 0.1 Mg Tablet) 0.1 mg PO BID PRN; Protocol PRN Reason: anxiety Last Admin: 03/27/22 18:26 Dose: 0.1 mg Divalproex Sodium (Divalproex Sodium 500 Mg Tablet.) 1,500 mg PO BEDTIME [facility] Last Admin: 03/27/22 21:05 Dose: 1,500 mg Ferrous Sulfate (Ferrous Sulfate 324 Mg Tablet.) 324 mg PO DAILY [facility] Last Admin: 03/28/22 08:28 Dose: 324 mg Fluoxetine HCl (Fluoxetine Hcl 10 Mg Capsule) 30 mg PO DAILY [facility] Last Admin: 03/28/22 08:18 Dose: 30 mg Gabapentin (Gabapentin 300 Mg Capsule) 600 mg PO TID [facility] Last Admin: 03/28/22 08:19 Dose: 600 mg Guaifenesin/Dextromethorphan (Guaifenesin Dm 200/20/10 Ml 10 Ml Syrup) 10 ml PO Q6H PRN PRN Reason: productive cough Last Admin: 03/28/22 08:35 Dose: 10 ml Magnesium Hydroxide (Milk Of Magnesia 30 Ml Oral.Susp) 30 ml PO DAILY PRN PRN Reason: Constipation Multivitamins/Vitamin C (Multivitamin Tablet) 1 tab PO DAILY [facility] Last Admin: 03/28/22 08:19 Dose: 1 tab Nicotine (Nicotine 21 Mg Patch.Td24) 21 mg TRANSDERMA DAILY [facility] Last Admin: 03/28/22 08:18 Dose: 21 mg Nicotine Polacrilex (Nicotine Polacrilex 2 Mg Gum) 4 mg BUCCAL Q1H PRN PRN Reason: Nicotine Cravings Prazosin HCl (Prazosin Hcl 1 Mg Capsule) 3 mg PO BEDTIME [facility]; Protocol Last Admin: 03/27/22 21:12 Dose: Not Given Quetiapine Fumarate (Quetiapine Fumarate 50 Mg Tablet) 150 mg PO BEDTIME [facility] Last Admin: 03/27/22 21:05 Dose: 150 mg Quetiapine Fumarate (Quetiapine Fumarate 25 Mg Tablet) 25 mg PO QID PRN PRN Reason: anxiety Last Admin: 03/28/22 11:06 Dose: 25 mg Quetiapine Fumarate (Quetiapine Fumarate 25 Mg Tablet) 25 mg PO 0900,1500 [facility] Last Admin: 03/28/22 08:28 Dose: 25 mg Vitamin D (Cholecalciferol (Vitamin D3) 25 Mcg Tablet) 25 mcg PO DAILY [facility] Last Admin: 03/28/22 08:18 Dose: 25 mcg Home Medications Medication Instructions Recorded Confirmed Last Taken Type divalproex 500 mg tablet,delayed 3 tab PO BEDTIME 03/23/22 03/23/22 Unknown History release fluoxetine 20 mg capsule 1 cap PO DAILY 03/23/22 03/23/22 Unknown History gabapentin 400 mg capsule 1 cap PO TID 03/23/22 03/23/22 Unknown History perphenazine 2 mg tablet 8 mg PO QID PRN Psychosis 03/23/22 03/23/22 Unknown History prazosin 1 mg capsule 3 cap PO BEDTIME 03/23/22 03/23/22 Unknown History Physical Exam Vital Signs and Narrative: Vital Signs: Last Vital Signs Temp 97.1 F 03/28/22 06:35 Pulse 86 03/28/22 06:35 Resp 16 03/28/22 06:35 BP 111/64 03/28/22 06:35 Pulse Ox 97 03/28/22 06:35 O2 Del Method 03/27/22 18:00 BMI result Body Mass Index 25.7 Const: Other: Constitutional - Awake and Alert, No apparent distress Eyes - PERRLA, EOMI Cardiovascular - S1S2, RRR, No edema Respiratory - scattered mild wheezing; no respiratory distress, no accessory muscle use; ambulated the hallway of without any signs of respiratory distress Gastrointestinal - NT / ND; +BS; No rebound or guarding - No CVA tenderness Extremities - no calf tenderness bilaterally, no swelling Musculoskeletal - Normal inspection, normal ROM Skin - Warm/Dry Neurological - Alert & oriented x3, No focal deficit Psychological - Appropriate affect Results Labs CBC and Chem 7: 03/26/22 08:13 03/23/22 03:59 Imaging Radiologist's Impressions: Impressions Chest X-Ray 03/27/22 13:08 IMPRESSION: Similar appearance of perihilar bronchial wall thickening which can be seen in the setting of bronchitis or reactive airways disease. Assessment and Plan (1) Pneumonia: Status: Acute Plan This is a 36-year-old male with no prior medical history who is admitted to the inpatient psychiatric unit. Medical consult has been requested for a productive cough. His sputum culture has returned positive for Streptococcus pneumoniae. 1. Bronchitis/early pneumonia Sputum growing strep pneumo. He has no signs of sepsis. He is afebrile with normal oxygen saturations and without respiratory distress. He is not hypotensive. CBC checked 2 days ago when sputum was collected shows a normal white blood cell count and only 4% bands. Will treat with oral Ceftin 500 mg twice daily for 7 days. At this time he does not need transfer to the medical 4 for treatment with IV antibiotics. Please monitor for fevers, hypoxia, respiratory decline and hypotension. Should any of these occur please consult hospitalist immediately as at that point he may need transfer to the medical floor. Patient has been encouraged patient of tobacco as well as crack/cocaine. Will sign off. Please reconsult if any issues arise. Thank you.
[2022-03-28] MEDS: Buprenorphine/Naloxone 4/1 mg FILM 1 FILM SUBLINGUAL (16:18)
[2022-03-28 18:00] VITALS: BP 122/78; PULSE 88; RESP 16; TEMP 36.6; O2SAT 99
[2022-03-28] MEDS: Divalproex Sodium 500 MG TABLET.DR 1500 MG PO (20:27)
[2022-03-28] MEDS: QUEtiapine Fumarate 50 MG TABLET 150 MG PO (20:27)
[2022-03-28] MEDS: Prazosin HCL 1 MG CAPSULE 3 MG PO (20:28)
--- NOTE | 2022-03-29 | ECG_ITS ---
Test Reason : cp Blood Pressure : / mmHG Vent. Rate : 068 BPM Atrial Rate : 068 BPM P-R Int : 166 ms QRS Dur : 090 ms QT Int : 402 ms P-R-T Axes : 049 062 043 degrees QTc Int : 427 ms Normal sinus rhythm Normal ECG When compared with ECG of 23-MAR-2022 17:02, No significant change was found Referred By: Taylor Flores Electronically Signed By:JAMI NAJERA
[2022-03-29 06:00] VITALS: BP 93/57; PULSE 97; RESP 16; TEMP 36.1; O2SAT 95
[2022-03-29 08:14] LABS: HIV AB/AG Nonreactive (Nonreactive); HIV Num 1 0.12 S/CO (0.00-0.99)
[2022-03-29] MEDS: Ferrous Sulfate 324 MG TABLET.DR PO (08:39)
[2022-03-29] MEDS: Dextroamphetamine/Amphetamine XR 10 MG CAP.ER.24H 30 MG PO (08:39)
[2022-03-29] MEDS: Nicotine 21 MG PATCH.TD24 TRANSDERMA (08:39)
[2022-03-29] MEDS: FLUoxetine HCl 10 MG CAPSULE 30 MG PO (08:40)
[2022-03-29] MEDS: Buprenorphine/Naloxone 8/2 mg FILM 1 FILM SUBLINGUAL (08:40)
[2022-03-29] MEDS: Multivitamin TABLET 1 TAB PO (08:40)
[2022-03-29] MEDS: Cholecalciferol (Vitamin D3) 25 MCG TABLET PO (08:40)
[2022-03-29] MEDS: Gabapentin 300 MG CAPSULE 600 MG PO ×3 (08:40→20:14)
[2022-03-29] MEDS: QUEtiapine Fumarate 25 MG TABLET PO ×4 (09:01→21:55)
--- NOTE | 2022-03-29 09:19 | HO.PSYCHPN ---
Subjective Subjective Date of Service: 03/29/22 Reason For Visit: Depression/SI Subjective Notes: Conditional Voluntary Healthcare Proxy: No Guardianship: No Medical Problems Affecting Mental Status: No Interim History: Reports feeling some physical sx improvement with initiation of antibiotics. Denies med SE. Does report intermittent anxiety and SI-mainly with interactions with his partner. Overall finds regime to currently be on track, tolerated. Anxious about potential placement with [facility] Discussed that by history, he precipitously leaves hospital before improvment and does not allow med changes to take place-currently attempting to change this pattern. Medication Compliance: Yes Side effects from medications: No Attending Groups: Intermittent Review of Systems Acute medical concerns: No Medical Review of Systems: unchanged Review of Systems Psychiatric: Reports anxiety and Reports suicidal ideation (intermittent-usually r/t interactions with partner) Mental Status Exam Mental Status Exam Patient Appearance: Appropriate Patient Orientation: Person, Place, Time and Situation Level of Consciousness: Alert Patient Behavior: Appropriate, Talkative, Cooperative and Good Eye Contact Mood Description: Anxious Affect Description: Flat Patient Cognition Impaired: No Ability to Follow Directions: Good Speech Pattern: Spontaneous Speech Memory Description: Intact Hallucinations: None Delusions: Not Present Thought Process: Intact and Goal Oriented Thought Content: positive for Intact Depressive Symptoms: Increased Anxiety and Thoughts of /Suicide (intermittent-r/t interactions with partner) Judgement: Good Diagnostics Vital Signs (24Hr): Vital Signs - 24 hr 03/28/22 18:00 03/29/22 06:00 Temperature 97.8 F 97.0 F Pulse Rate 88 97 Respiratory Rate 16 16 Blood Pressure 122/78 93/57 L Pulse Oximetry 99 95 Oxygen Delivery Method Room Air Room Air BMI result Body Mass Index 25.7 Labs Results: 03/26/22 08:13 03/23/22 03:59 Labs: Laboratory Results - last 48 hr 03/28/22 12:25 HIV 1&2 Ab/P24 Ag 4thGn Nonreactive Imaging Radiology Impressions: ITS Impressions Chest X-Ray 03/27/22 13:08 IMPRESSION: Similar appearance of perihilar bronchial wall thickening which can be seen in the setting of bronchitis or reactive airways disease. Medications Medications Current Medications Acetaminophen (Acetaminophen 325 Mg Tablet) 650 mg PO Q6H PRN PRN Reason: Headache/Pain Mild Scale (1-3) Last Admin: 03/28/22 17:33 Dose: 650 mg Al Hydroxide/Mg Hydroxide (Magnesium Hydrox/Alum Hydrox 30 Ml Oral.Susp) 30 ml PO Q6H PRN PRN Reason: Heartburn/Nausea Amphetamine/Dextroamphetamine (Dextroamphetamine/Amphetamine Xr 10 Mg Cap.Er.24h) 30 mg PO DAILY [facility] Last Admin: 03/29/22 08:39 Dose: 30 mg Buprenorphine/Naloxone (Buprenorphine/Naloxone 8/2 Mg Film) 1 film SUBLINGUAL DAILY [facility] Last Admin: 03/29/22 08:40 Dose: 1 film Buprenorphine/Naloxone (Buprenorphine/Naloxone 4/1 Mg Film) 1 film SUBLINGUAL DAILY@1700 [facility] Last Admin: 03/28/22 16:18 Dose: 1 film Cefuroxime Axetil (Cefuroxime Axetil 500 Mg Tablet) 500 mg PO BID [facility] Stop: 04/03/22 21:01 Last Admin: 03/29/22 08:40 Dose: 500 mg Clonidine HCl (Clonidine Hcl 0.1 Mg Tablet) 0.1 mg PO BID PRN; Protocol PRN Reason: anxiety Last Admin: 03/27/22 18:26 Dose: 0.1 mg Divalproex Sodium (Divalproex Sodium 500 Mg Tablet.) 1,500 mg PO BEDTIME [facility] Last Admin: 03/28/22 20:27 Dose: 1,500 mg Ferrous Sulfate (Ferrous Sulfate 324 Mg Tablet.) 324 mg PO DAILY [facility] Last Admin: 03/29/22 08:39 Dose: 324 mg Fluoxetine HCl (Fluoxetine Hcl 10 Mg Capsule) 30 mg PO DAILY [facility] Last Admin: 03/29/22 08:40 Dose: 30 mg Gabapentin (Gabapentin 300 Mg Capsule) 600 mg PO TID [facility] Last Admin: 03/29/22 08:40 Dose: 600 mg Guaifenesin/Dextromethorphan (Guaifenesin Dm 200/20/10 Ml 10 Ml Syrup) 10 ml PO Q6H PRN PRN Reason: productive cough Last Admin: 03/28/22 08:35 Dose: 10 ml Magnesium Hydroxide (Milk Of Magnesia 30 Ml Oral.Susp) 30 ml PO DAILY PRN PRN Reason: Constipation Multivitamins/Vitamin C (Multivitamin Tablet) 1 tab PO DAILY [facility] Last Admin: 03/29/22 08:40 Dose: 1 tab Nicotine (Nicotine 21 Mg Patch.Td24) 21 mg TRANSDERMA DAILY [facility] Last Admin: 03/29/22 08:39 Dose: 21 mg Nicotine Polacrilex (Nicotine Polacrilex 2 Mg Gum) 4 mg BUCCAL Q1H PRN PRN Reason: Nicotine Cravings Prazosin HCl (Prazosin Hcl 1 Mg Capsule) 3 mg PO BEDTIME [facility]; Protocol Last Admin: 03/28/22 20:28 Dose: 3 mg Quetiapine Fumarate (Quetiapine Fumarate 50 Mg Tablet) 150 mg PO BEDTIME [facility] Last Admin: 03/28/22 20:27 Dose: 150 mg Quetiapine Fumarate (Quetiapine Fumarate 25 Mg Tablet) 25 mg PO QID PRN PRN Reason: anxiety Last Admin: 03/28/22 18:57 Dose: 25 mg Quetiapine Fumarate (Quetiapine Fumarate 25 Mg Tablet) 25 mg PO 0900,1500 [facility] Last Admin: 03/29/22 09:01 Dose: 25 mg Vitamin D (Cholecalciferol (Vitamin D3) 25 Mcg Tablet) 25 mcg PO DAILY [facility] Last Admin: 03/29/22 08:40 Dose: 25 mcg Allergies Allergies Allergy/AdvReac Type Severity Reaction Status Date / Time No Known Allergies Allergy Verified 12/03/21 01:45 Assessment & Plan Assessment & Plan (1) Adjustment disorder with mixed disturbance of emotions and conduct in remission: Status: Acute Code(s): F43.25 - Adjustment disorder with mixed disturbance of emotions and conduct (2) Bipolar II disorder: Status: Acute Code(s): F31.81 - Bipolar II disorder (3) Post traumatic stress disorder (PTSD): Status: Acute Code(s): F43.10 - Post-traumatic stress disorder, unspecified (4) Cocaine use disorder: Status: Acute Code(s): F14.10 - Cocaine abuse, uncomplicated Plan Patient is a 36-year-old male with history of mood lability, possibly bipolar 2 disorder and substance abuse, recently discharged from 02/13/22 and again from on 03/18/22 who presents for depression and SI in the face of relapse the day of discharge, not taking medications and continued relational strife. Plan: CV Q 15 minute checks Restart home meds 03/27/22 Chest xray Hospitalist consult-productive cough Sputum culture pending Continue psychotropic regime-pt reporting relief of anxiety today. 03/28/22 Increase Adderall XR to 30 mg Continue Rx for strep/pneumonia/bronchitis Discharge planning 7/22/22 Continue current plan. I spent minutes with the patient and/or on the patient floor today, greater than?50% of which was spent counseling/coordinating care. Patient educated on: therapeutic strategies Informed Consent: understands Reason for contiued inpatient stay Substantial Risk for: harm to self, inability to function and rapid decompensation
[2022-03-29] MEDS: Acetaminophen 325 MG TABLET 650 MG PO ×2 (10:38→18:12)
[2022-03-29] MEDS: cloNIDine HCL 0.1 MG TABLET PO ×2 (14:34→21:55)
[2022-03-29] MEDS: Buprenorphine/Naloxone 4/1 mg FILM 1 FILM SUBLINGUAL (17:04)
[2022-03-29 18:00] VITALS: BP 114/62; PULSE 84; TEMP 36.7; O2SAT 97
[2022-03-29] MEDS: guaiFENesin DM 200/20/10 ML 10 ML SYRUP PO (18:12)
[2022-03-29] MEDS: QUEtiapine Fumarate 50 MG TABLET 150 MG PO (20:13)
[2022-03-29] MEDS: Prazosin HCL 1 MG CAPSULE 3 MG PO (20:13)
[2022-03-29] MEDS: Divalproex Sodium 500 MG TABLET.DR 1500 MG PO (20:14)
[2022-03-29] MEDS: Ibuprofen 800 MG TABLET PO (20:21)
[2022-03-30] MEDS: guaiFENesin DM 200/20/10 ML 10 ML SYRUP PO ×3 (01:30→23:44)
[2022-03-30] MEDS: QUEtiapine Fumarate 50 MG TABLET PO (02:05)
[2022-03-30 08:42] VITALS: BP 93/64; PULSE 97; RESP 16; TEMP 36.4; O2SAT 96
[2022-03-30] MEDS: Buprenorphine/Naloxone 8/2 mg FILM 1 FILM SUBLINGUAL (08:42)
[2022-03-30] MEDS: Nicotine 21 MG PATCH.TD24 TRANSDERMA (08:42)
[2022-03-30] MEDS: Cholecalciferol (Vitamin D3) 25 MCG TABLET PO (08:42)
[2022-03-30] MEDS: Dextroamphetamine/Amphetamine XR 10 MG CAP.ER.24H 30 MG PO (08:43)
[2022-03-30] MEDS: Gabapentin 300 MG CAPSULE 600 MG PO ×3 (08:43→21:59)
[2022-03-30] MEDS: Ferrous Sulfate 324 MG TABLET.DR PO (08:43)
[2022-03-30] MEDS: QUEtiapine Fumarate 25 MG TABLET PO ×5 (08:43→21:58)
[2022-03-30] MEDS: Multivitamin TABLET 1 TAB PO (08:43)
[2022-03-30] MEDS: FLUoxetine HCl 10 MG CAPSULE 30 MG PO (08:43)
--- NOTE | 2022-03-30 11:43 | P.PNPSI_ITS ---
Subjective Subjective Date of Service: 03/30/22 Reason For Visit: Depression/SI Subjective Notes: Conditional Voluntary Healthcare Proxy: No Guardianship: No Medical Problems Affecting Mental Status: No Interim History: Patient was seen and discussed in rounds today. He has been pleasant and cooperative. He does have some cravings. He continues to have anxiety and is using the p.r.n. medications with moderate benefits. No complaints or side effects today. Eating and sleeping adequately. No changes were made today Review of Systems Psychiatric: Reports anxiety and Reports suicidal ideation (intermittent-usually r/t interactions with partner) Mental Status Exam Mental Status Exam Patient Appearance: Appropriate Patient Orientation: Person, Place, Time and Situation Level of Consciousness: Alert Patient Behavior: Appropriate, Talkative, Cooperative and Good Eye Contact Mood Description: Anxious Affect Description: Flat Patient Cognition Impaired: No Ability to Follow Directions: Good Speech Pattern: Spontaneous Speech Memory Description: Intact Hallucinations: None Delusions: Not Present Thought Process: Intact and Goal Oriented Thought Content: positive for Intact Depressive Symptoms: Increased Anxiety and Thoughts of /Suicide (intermittent-r/t interactions with partner) Judgement: Good Diagnostics Vital Signs (24Hr): Vital Signs - 24 hr 03/29/22 18:00 03/30/22 08:42 Temperature 98.1 F 97.6 F Pulse Rate 84 97 Respiratory Rate 16 Blood Pressure 114/62 93/64 Pulse Oximetry 97 96 Oxygen Delivery Method Room Air BMI result Body Mass Index 25.7 Labs Results: 03/26/22 08:13 03/23/22 03:59 Labs: Laboratory Results - last 48 hr 03/28/22 12:25 HIV 1&2 Ab/P24 Ag 4thGn Nonreactive Imaging Radiology Impressions: ITS Impressions Chest X-Ray 03/27/22 13:08 IMPRESSION: Similar appearance of perihilar bronchial wall thickening which can be seen in the setting of bronchitis or reactive airways disease. Medications Medications Current Medications Acetaminophen (Acetaminophen 325 Mg Tablet) 650 mg PO Q6H PRN PRN Reason: Headache/Pain Mild Scale (1-3) Last Admin: 03/29/22 18:12 Dose: 650 mg Al Hydroxide/Mg Hydroxide (Magnesium Hydrox/Alum Hydrox 30 Ml Oral.Susp) 30 ml PO Q6H PRN PRN Reason: Heartburn/Nausea Amphetamine/Dextroamphetamine (Dextroamphetamine/Amphetamine Xr 10 Mg Cap.Er.24h) 30 mg PO DAILY [facility] Last Admin: 03/30/22 08:43 Dose: 30 mg Buprenorphine/Naloxone (Buprenorphine/Naloxone 8/2 Mg Film) 1 film SUBLINGUAL DAILY [facility] Last Admin: 03/30/22 08:42 Dose: 1 film Buprenorphine/Naloxone (Buprenorphine/Naloxone 4/1 Mg Film) 1 film SUBLINGUAL DAILY@1700 [facility] Last Admin: 03/29/22 17:04 Dose: 1 film Cefuroxime Axetil (Cefuroxime Axetil 500 Mg Tablet) 500 mg PO BID [facility] Stop: 04/03/22 21:01 Last Admin: 03/30/22 08:43 Dose: 500 mg Clonidine HCl (Clonidine Hcl 0.1 Mg Tablet) 0.1 mg PO BID PRN; Protocol PRN Reason: anxiety Last Admin: 03/29/22 21:55 Dose: 0.1 mg Divalproex Sodium (Divalproex Sodium 500 Mg Tablet.) 1,500 mg PO BEDTIME [facility] Last Admin: 03/29/22 20:14 Dose: 1,500 mg Ferrous Sulfate (Ferrous Sulfate 324 Mg Tablet.) 324 mg PO DAILY [facility] Last Admin: 03/30/22 08:43 Dose: 324 mg Fluoxetine HCl (Fluoxetine Hcl 10 Mg Capsule) 30 mg PO DAILY [facility] Last Admin: 03/30/22 08:43 Dose: 30 mg Gabapentin (Gabapentin 300 Mg Capsule) 600 mg PO TID [facility] Last Admin: 03/30/22 08:43 Dose: 600 mg Guaifenesin/Dextromethorphan (Guaifenesin Dm 200/20/10 Ml 10 Ml Syrup) 10 ml PO Q6H PRN PRN Reason: productive cough Last Admin: 03/30/22 01:30 Dose: 10 ml Magnesium Hydroxide (Milk Of Magnesia 30 Ml Oral.Susp) 30 ml PO DAILY PRN PRN Reason: Constipation Multivitamins/Vitamin C (Multivitamin Tablet) 1 tab PO DAILY [facility] Last Admin: 03/30/22 08:43 Dose: 1 tab Nicotine (Nicotine 21 Mg Patch.Td24) 21 mg TRANSDERMA DAILY [facility] Last Admin: 03/30/22 08:42 Dose: 21 mg Nicotine Polacrilex (Nicotine Polacrilex 2 Mg Gum) 4 mg BUCCAL Q1H PRN PRN Reason: Nicotine Cravings Prazosin HCl (Prazosin Hcl 1 Mg Capsule) 3 mg PO BEDTIME [facility]; Protocol Last Admin: 03/29/22 20:13 Dose: 3 mg Quetiapine Fumarate (Quetiapine Fumarate 50 Mg Tablet) 150 mg PO BEDTIME [facility] Last Admin: 03/29/22 20:13 Dose: 150 mg Quetiapine Fumarate (Quetiapine Fumarate 25 Mg Tablet) 25 mg PO QID PRN PRN Reason: anxiety Last Admin: 03/29/22 21:55 Dose: 25 mg Quetiapine Fumarate (Quetiapine Fumarate 25 Mg Tablet) 25 mg PO 0900,1500 [facility] Last Admin: 03/30/22 08:43 Dose: 25 mg Vitamin D (Cholecalciferol (Vitamin D3) 25 Mcg Tablet) 25 mcg PO DAILY [facility] Last Admin: 03/30/22 08:42 Dose: 25 mcg Allergies Allergies Allergy/AdvReac Type Severity Reaction Status Date / Time No Known Allergies Allergy Verified 12/03/21 01:45 Assessment & Plan Assessment & Plan (1) Adjustment disorder with mixed disturbance of emotions and conduct in remission: Status: Acute Code(s): F43.25 - Adjustment disorder with mixed disturbance of emotions and conduct (2) Bipolar II disorder: Status: Acute Code(s): F31.81 - Bipolar II disorder (3) Post traumatic stress disorder (PTSD): Status: Acute Code(s): F43.10 - Post-traumatic stress disorder, unspecified (4) Cocaine use disorder: Status: Acute Code(s): F14.10 - Cocaine abuse, uncomplicated Plan Patient is a 36-year-old male with history of mood lability, possibly bipolar 2 disorder and substance abuse, recently discharged from 02/13/22 and again from on 03/18/22 who presents for depression and SI in the face of relapse the day of discharge, not taking medications and continued relational strife. Plan: CV Q 15 minute checks Restart home meds 03/27/22 Chest xray Hospitalist consult-productive cough Sputum culture pending Continue psychotropic regime-pt reporting relief of anxiety today. 03/28/22 Increase Adderall XR to 30 mg Continue Rx for strep/pneumonia/bronchitis Discharge planning 03/29/22 Continue current plan. 03/30: Continue current regimen and plans I spent minutes with the patient and/or on the patient floor today, greater than?50% of which was spent counseling/coordinating care. Reason for contiued inpatient stay Substantial Risk for: med/psych decompensation
[2022-03-30] MEDS: Acetaminophen 325 MG TABLET 650 MG PO (13:08)
[2022-03-30] MEDS: cloNIDine HCL 0.1 MG TABLET PO ×2 (13:08→21:59)
[2022-03-30 13:13] VITALS: BP 113/74; PULSE 86; RESP 16; O2SAT 94
[2022-03-30] MEDS: Ibuprofen 600 MG TABLET PO (14:17)
[2022-03-30] MEDS: Buprenorphine/Naloxone 4/1 mg FILM 1 FILM SUBLINGUAL (16:20)
[2022-03-30 17:03] VITALS: BP 110/65; PULSE 88; RESP 20; TEMP 36.7; O2SAT 96
[2022-03-30 21:56] VITALS: BP 105/64; PULSE 77
[2022-03-30] MEDS: Divalproex Sodium 500 MG TABLET.DR 1500 MG PO (21:58)
[2022-03-30] MEDS: QUEtiapine Fumarate 50 MG TABLET 150 MG PO (21:58)
[2022-03-30] MEDS: Prazosin HCL 1 MG CAPSULE 3 MG PO (21:59)
[2022-03-31 06:00] VITALS: BP 109/67; PULSE 92; RESP 18; TEMP 36.6; O2SAT 96
[2022-03-31] MEDS: Buprenorphine/Naloxone 8/2 mg FILM 1 FILM SUBLINGUAL (08:19)
[2022-03-31] MEDS: Nicotine 21 MG PATCH.TD24 TRANSDERMA (08:19)
[2022-03-31] MEDS: Ferrous Sulfate 324 MG TABLET.DR PO (08:20)
[2022-03-31] MEDS: Multivitamin TABLET 1 TAB PO (08:20)
[2022-03-31] MEDS: Gabapentin 300 MG CAPSULE 600 MG PO ×3 (08:20→20:26)
[2022-03-31] MEDS: Cholecalciferol (Vitamin D3) 25 MCG TABLET PO (08:20)
[2022-03-31] MEDS: Nicotine Polacrilex 2 MG GUM 4 MG BUCCAL (08:20)
[2022-03-31] MEDS: Dextroamphetamine/Amphetamine XR 10 MG CAP.ER.24H 30 MG PO (08:20)
[2022-03-31] MEDS: FLUoxetine HCl 10 MG CAPSULE 30 MG PO (08:21)
[2022-03-31] MEDS: QUEtiapine Fumarate 25 MG TABLET PO ×5 (08:21→21:57)
--- NOTE | 2022-03-31 09:31 | P.PNPSI_ITS ---
Subjective Subjective Date of Service: 03/31/22 Reason For Visit: Depression/SI Subjective Notes: Conditional Voluntary Healthcare Proxy: No Guardianship: No Medical Problems Affecting Mental Status: No Interim History: Patient was seen and discussed in rounds today. Records and plans were r oliviaiewed. He has been active, more social. No SI. Last night he became more anxious and agitated and was demanding Ativan or else. The on-call clinician did not prescribe this and he settled down. No complaints. No request for benzos today. No changes were made today Review of Systems Review of Systems Yes all other systems are reviewed and are negative Mental Status Exam Mental Status Exam Patient Appearance: Appropriate Patient Orientation: Person, Place, Time and Situation Level of Consciousness: Alert Patient Behavior: Appropriate, Talkative, Cooperative and Good Eye Contact Mood Description: Anxious Affect Description: Flat Patient Cognition Impaired: No Ability to Follow Directions: Good Speech Pattern: Spontaneous Speech Memory Description: Intact Hallucinations: None Delusions: Not Present Thought Process: Intact and Goal Oriented Thought Content: positive for Intact Depressive Symptoms: Increased Anxiety and Thoughts of /Suicide (intermittent-r/t interactions with partner) Judgement: Good Diagnostics Vital Signs (24Hr): Vital Signs - 24 hr 03/30/22 13:13 03/30/22 17:03 03/30/22 21:56 Temperature 98.1 F Pulse Rate 86 88 77 Respiratory Rate 16 20 Blood Pressure 113/74 110/65 105/64 Pulse Oximetry 94 96 Oxygen Delivery Method Room Air Room Air 03/31/22 06:00 Temperature 97.9 F Pulse Rate 92 Respiratory Rate 18 Blood Pressure 109/67 Pulse Oximetry 96 Oxygen Delivery Method BMI result Body Mass Index 25.7 Labs Results: 03/26/22 08:13 03/23/22 03:59 Imaging Radiology Impressions: ITS Impressions Chest X-Ray 03/27/22 13:08 IMPRESSION: Similar appearance of perihilar bronchial wall thickening which can be seen in the setting of bronchitis or reactive airways disease. Medications Medications Current Medications Acetaminophen (Acetaminophen 325 Mg Tablet) 650 mg PO Q6H PRN PRN Reason: Headache/Pain Mild Scale (1-3) Last Admin: 03/30/22 13:08 Dose: 650 mg Al Hydroxide/Mg Hydroxide (Magnesium Hydrox/Alum Hydrox 30 Ml Oral.Susp) 30 ml PO Q6H PRN PRN Reason: Heartburn/Nausea Amphetamine/Dextroamphetamine (Dextroamphetamine/Amphetamine Xr 10 Mg Cap.Er.24h) 30 mg PO DAILY [facility] Last Admin: 03/31/22 08:20 Dose: 30 mg Buprenorphine/Naloxone (Buprenorphine/Naloxone 8/2 Mg Film) 1 film SUBLINGUAL DAILY [facility] Last Admin: 03/31/22 08:19 Dose: 1 film Buprenorphine/Naloxone (Buprenorphine/Naloxone 4/1 Mg Film) 1 film SUBLINGUAL DAILY@1700 [facility] Last Admin: 03/30/22 16:20 Dose: 1 film Cefuroxime Axetil (Cefuroxime Axetil 500 Mg Tablet) 500 mg PO BID [facility] Stop: 04/03/22 21:01 Last Admin: 03/31/22 08:20 Dose: 500 mg Clonidine HCl (Clonidine Hcl 0.1 Mg Tablet) 0.1 mg PO BID PRN; Protocol PRN Reason: anxiety Last Admin: 03/30/22 21:59 Dose: 0.1 mg Divalproex Sodium (Divalproex Sodium 500 Mg Tablet.) 1,500 mg PO BEDTIME [facility] Last Admin: 03/30/22 21:58 Dose: 1,500 mg Ferrous Sulfate (Ferrous Sulfate 324 Mg Tablet.) 324 mg PO DAILY [facility] Last Admin: 03/31/22 08:20 Dose: 324 mg Fluoxetine HCl (Fluoxetine Hcl 10 Mg Capsule) 30 mg PO DAILY [facility] Last Admin: 03/31/22 08:21 Dose: 30 mg Gabapentin (Gabapentin 300 Mg Capsule) 600 mg PO TID [facility] Last Admin: 03/31/22 08:20 Dose: 600 mg Guaifenesin/Dextromethorphan (Guaifenesin Dm 200/20/10 Ml 10 Ml Syrup) 10 ml PO Q6H PRN PRN Reason: productive cough Last Admin: 03/30/22 23:44 Dose: 10 ml Ibuprofen (Ibuprofen 600 Mg Tablet) 600 mg PO Q4H PRN PRN Reason: Pain, Moderate (Pain Scale 4-6 Last Admin: 03/30/22 14:17 Dose: 600 mg Magnesium Hydroxide (Milk Of Magnesia 30 Ml Oral.Susp) 30 ml PO DAILY PRN PRN Reason: Constipation Multivitamins/Vitamin C (Multivitamin Tablet) 1 tab PO DAILY [facility] Last Admin: 03/31/22 08:20 Dose: 1 tab Nicotine (Nicotine 21 Mg Patch.Td24) 21 mg TRANSDERMA DAILY [facility] Last Admin: 03/31/22 08:19 Dose: 21 mg Nicotine Polacrilex (Nicotine Polacrilex 2 Mg Gum) 4 mg BUCCAL Q1H PRN PRN Reason: Nicotine Cravings Last Admin: 03/31/22 08:20 Dose: 4 mg Prazosin HCl (Prazosin Hcl 1 Mg Capsule) 3 mg PO BEDTIME [facility]; Protocol Last Admin: 03/30/22 21:59 Dose: 3 mg Quetiapine Fumarate (Quetiapine Fumarate 50 Mg Tablet) 150 mg PO BEDTIME [facility] Last Admin: 03/30/22 21:58 Dose: 150 mg Quetiapine Fumarate (Quetiapine Fumarate 25 Mg Tablet) 25 mg PO QID PRN PRN Reason: anxiety Last Admin: 03/30/22 21:58 Dose: 25 mg Quetiapine Fumarate (Quetiapine Fumarate 25 Mg Tablet) 25 mg PO 0900,1500 [facility] Last Admin: 03/31/22 08:21 Dose: 25 mg Vitamin D (Cholecalciferol (Vitamin D3) 25 Mcg Tablet) 25 mcg PO DAILY [facility] Last Admin: 03/31/22 08:20 Dose: 25 mcg Allergies Allergies Allergy/AdvReac Type Severity Reaction Status Date / Time No Known Allergies Allergy Verified 12/03/21 01:45 Assessment & Plan Assessment & Plan (1) Adjustment disorder with mixed disturbance of emotions and conduct in remission: Status: Acute Code(s): F43.25 - Adjustment disorder with mixed disturbance of emotions and conduct (2) Bipolar II disorder: Status: Acute Code(s): F31.81 - Bipolar II disorder (3) Post traumatic stress disorder (PTSD): Status: Acute Code(s): F43.10 - Post-traumatic stress disorder, unspecified (4) Cocaine use disorder: Status: Acute Code(s): F14.10 - Cocaine abuse, uncomplicated Plan Patient is a 36-year-old male with history of mood lability, possibly bipolar 2 disorder and substance abuse, recently discharged from [facility] 02/13/22 and again from on 03/18/22 who presents for depression and SI in the face of relapse the day of discharge, not taking medications and continued relational strife. Plan: CV Q 15 minute checks Restart home meds 03/27/22 Chest xray Hospitalist consult-productive cough Sputum culture pending Continue psychotropic regime-pt reporting relief of anxiety today. 03/28/22 Increase Adderall XR to 30 mg Continue Rx for strep/pneumonia/bronchitis Discharge planning 03/29/22 Continue current plan. 03/30: Continue current regimen and plans 03/31: Continue current plans and regimen I spent minutes with the patient and/or on the patient floor today, greater than?50% of which was spent counseling/coordinating care. Reason for contiued inpatient stay Substantial Risk for: med/psych decompensation
[2022-03-31] MEDS: cloNIDine HCL 0.1 MG TABLET PO ×2 (11:32→20:25)
[2022-03-31] MEDS: Buprenorphine/Naloxone 4/1 mg FILM 1 FILM SUBLINGUAL (16:53)
[2022-03-31 16:58] VITALS: BP 109/64; PULSE 80; RESP 20; TEMP 36.5; O2SAT 97
[2022-03-31 20:25] VITALS: BP 115/66; PULSE 90; RESP 14
[2022-03-31] MEDS: QUEtiapine Fumarate 50 MG TABLET 150 MG PO (20:26)
[2022-03-31] MEDS: Divalproex Sodium 500 MG TABLET.DR 1500 MG PO (20:26)
[2022-03-31] MEDS: Prazosin HCL 1 MG CAPSULE 3 MG PO (20:26)
[2022-03-31] MEDS: guaiFENesin DM 200/20/10 ML 10 ML SYRUP PO (21:57)
[2022-04-01 06:00] VITALS: BP 112/72; PULSE 79; RESP 18; TEMP 36.4; O2SAT 96
[2022-04-01] MEDS: QUEtiapine Fumarate 25 MG TABLET PO ×5 (07:04→23:20)
[2022-04-01] MEDS: Cholecalciferol (Vitamin D3) 25 MCG TABLET PO (08:38)
[2022-04-01] MEDS: Multivitamin TABLET 1 TAB PO (08:38)
[2022-04-01] MEDS: Ferrous Sulfate 324 MG TABLET.DR PO (08:38)
[2022-04-01] MEDS: Dextroamphetamine/Amphetamine XR 10 MG CAP.ER.24H 30 MG PO (08:38)
[2022-04-01] MEDS: FLUoxetine HCl 10 MG CAPSULE 30 MG PO (08:38)
[2022-04-01] MEDS: Nicotine 21 MG PATCH.TD24 TRANSDERMA (08:38)
[2022-04-01] MEDS: Gabapentin 300 MG CAPSULE 600 MG PO ×3 (08:39→22:07)
[2022-04-01] MEDS: Buprenorphine/Naloxone 8/2 mg FILM 1 FILM SUBLINGUAL (09:16)
[2022-04-01] MEDS: Acetaminophen 325 MG TABLET 650 MG PO ×2 (14:14→23:19)
[2022-04-01] MEDS: guaiFENesin DM 200/20/10 ML 10 ML SYRUP PO (15:57)
[2022-04-01] MEDS: cloNIDine HCL 0.1 MG TABLET PO (15:57)
--- NOTE | 2022-04-01 16:50 | HO.PSYCHPN ---
Subjective Subjective Date of Service: 04/01/22 Reason For Visit: Depression/SI Subjective Notes: [facility] Warning and Conditional Voluntary Healthcare Proxy: No Guardianship: No Medical Problems Affecting Mental Status: No Interim History: Patient seen and discussed with team. I evaluated the pt this evening and upon interview he reports pain due to a possible umbilical hernia, ?it just happened today.? Says he can feel the hernia because he can ?push it in real slow and feel it pop out.? Says ?other than that, im doing good.? Sleep and appetite are good. Reports his PRN seroquel and clonidine are working ?a little bit? but only if he takes them together and this makes him ?super sleepy.? Also notices increased appetite. Wants to go to the [facility]. Has not tried buspar in years, willing to re-trial.? Patient evaluated today and upon interview In the milieu, patient is safe and appropriate in behavior. Denies SI/SIB/HI upon inquiry. Denies irritability or assaultive ideation. Says he feels safe. Medication Compliance: Yes Mental Status Exam Mental Status Exam Narrative: A&O. Pt has normal body habitus, tattoos, casual attire. Moderate eye contact, attentive. No Tics or Tremors. No abnormal involuntary movements. Calm, engaged in conversation. Non-pressured speech, spontaneous with regular rate and rhythm, normal volume and prosody. No prolonged speech latency or dysarthria. Mood is good,? affect is constricted, c/o pain. Denies SI/SIB/HI upon inquiry. Denies A/VH or delusional thought content. Thoughts are goal oriented. No known cognitive or memory impairment. Insight/ Judgment limited. Diagnostics Vital Signs (24Hr): Vital Signs - 24 hr 03/31/22 16:58 03/31/22 20:25 04/01/22 06:00 Temperature 97.7 F 97.6 F Pulse Rate 80 90 79 Respiratory Rate 20 14 18 Blood Pressure 109/64 115/66 112/72 Pulse Oximetry 97 96 Oxygen Delivery Method Room Air BMI result Body Mass Index 25.7 Labs Results: 03/26/22 08:13 03/23/22 03:59 Imaging Radiology Impressions: ITS Impressions Chest X-Ray 03/27/22 13:08 IMPRESSION: Similar appearance of perihilar bronchial wall thickening which can be seen in the setting of bronchitis or reactive airways disease. Medications Medications Current Medications Acetaminophen (Acetaminophen 325 Mg Tablet) 650 mg PO Q6H PRN PRN Reason: Headache/Pain Mild Scale (1-3) Last Admin: 04/01/22 14:14 Dose: 650 mg Al Hydroxide/Mg Hydroxide (Magnesium Hydrox/Alum Hydrox 30 Ml Oral.Susp) 30 ml PO Q6H PRN PRN Reason: Heartburn/Nausea Amphetamine/Dextroamphetamine (Dextroamphetamine/Amphetamine Xr 10 Mg Cap.Er.24h) 30 mg PO DAILY [facility] Last Admin: 04/01/22 08:38 Dose: 30 mg Buprenorphine/Naloxone (Buprenorphine/Naloxone 8/2 Mg Film) 1 film SUBLINGUAL DAILY [facility] Last Admin: 04/01/22 09:16 Dose: 1 film Buprenorphine/Naloxone (Buprenorphine/Naloxone 4/1 Mg Film) 1 film SUBLINGUAL DAILY@1700 [facility] Last Admin: 03/31/22 16:53 Dose: 1 film Cefuroxime Axetil (Cefuroxime Axetil 500 Mg Tablet) 500 mg PO BID [facility] Stop: 04/03/22 21:01 Last Admin: 04/01/22 08:39 Dose: 500 mg Clonidine HCl (Clonidine Hcl 0.1 Mg Tablet) 0.1 mg PO BID PRN; Protocol PRN Reason: anxiety Last Admin: 04/01/22 15:57 Dose: 0.1 mg Divalproex Sodium (Divalproex Sodium 500 Mg Tablet.) 1,500 mg PO BEDTIME [facility] Last Admin: 03/31/22 20:26 Dose: 1,500 mg Ferrous Sulfate (Ferrous Sulfate 324 Mg Tablet.) 324 mg PO DAILY [facility] Last Admin: 04/01/22 08:38 Dose: 324 mg Fluoxetine HCl (Fluoxetine Hcl 10 Mg Capsule) 30 mg PO DAILY [facility] Last Admin: 04/01/22 08:38 Dose: 30 mg Gabapentin (Gabapentin 300 Mg Capsule) 600 mg PO TID [facility] Last Admin: 04/01/22 14:11 Dose: 600 mg Guaifenesin/Dextromethorphan (Guaifenesin Dm 200/20/10 Ml 10 Ml Syrup) 10 ml PO Q6H PRN PRN Reason: productive cough Last Admin: 04/01/22 15:57 Dose: 10 ml Ibuprofen (Ibuprofen 600 Mg Tablet) 600 mg PO Q4H PRN PRN Reason: Pain, Moderate (Pain Scale 4-6 Last Admin: 03/30/22 14:17 Dose: 600 mg Magnesium Hydroxide (Milk Of Magnesia 30 Ml Oral.Susp) 30 ml PO DAILY PRN PRN Reason: Constipation Multivitamins/Vitamin C (Multivitamin Tablet) 1 tab PO DAILY [facility] Last Admin: 04/01/22 08:38 Dose: 1 tab Nicotine (Nicotine 21 Mg Patch.Td24) 21 mg TRANSDERMA DAILY [facility] Last Admin: 04/01/22 08:38 Dose: 21 mg Nicotine Polacrilex (Nicotine Polacrilex 2 Mg Gum) 4 mg BUCCAL Q1H PRN PRN Reason: Nicotine Cravings Last Admin: 03/31/22 08:20 Dose: 4 mg Prazosin HCl (Prazosin Hcl 1 Mg Capsule) 3 mg PO BEDTIME [facility]; Protocol Last Admin: 03/31/22 20:26 Dose: 3 mg Quetiapine Fumarate (Quetiapine Fumarate 50 Mg Tablet) 150 mg PO BEDTIME [facility] Last Admin: 03/31/22 20:26 Dose: 150 mg Quetiapine Fumarate (Quetiapine Fumarate 25 Mg Tablet) 25 mg PO QID PRN PRN Reason: anxiety Last Admin: 04/01/22 15:56 Dose: 25 mg Quetiapine Fumarate (Quetiapine Fumarate 25 Mg Tablet) 25 mg PO 0900,1500 [facility] Last Admin: 04/01/22 14:12 Dose: 25 mg Vitamin D (Cholecalciferol (Vitamin D3) 25 Mcg Tablet) 25 mcg PO DAILY [facility] Last Admin: 04/01/22 08:38 Dose: 25 mcg Allergies Allergies Allergy/AdvReac Type Severity Reaction Status Date / Time No Known Allergies Allergy Verified 12/03/21 01:45 Assessment & Plan Assessment & Plan (1) Adjustment disorder with mixed disturbance of emotions and conduct in remission: Status: Acute Code(s): F43.25 - Adjustment disorder with mixed disturbance of emotions and conduct (2) Bipolar II disorder: Status: Acute Code(s): F31.81 - Bipolar II disorder (3) Post traumatic stress disorder (PTSD): Status: Acute Code(s): F43.10 - Post-traumatic stress disorder, unspecified (4) Cocaine use disorder: Status: Acute Code(s): F14.10 - Cocaine abuse, uncomplicated Plan Patient is a 36-year-old male with history of mood lability, possibly bipolar 2 disorder and substance abuse, recently discharged from [facility] 02/[facility]/22 and again from [facility] on 03/18/22 who presents for depression and SI in the face of relapse the day of discharge, not taking medications and continued relational strife. Plan: CV Q 15 minute checks Restart home meds 03/27/22 Chest xray Hospitalist consult-productive cough Sputum culture pending Continue psychotropic regime-pt reporting relief of anxiety today. 03/28/22 Increase Adderall XR to 30 mg Continue Rx for strep/pneumonia/bronchitis Discharge planning 03/29/22 Continue current plan. 03/30: Continue current regimen and plans 03/31: Increase buspar to 20 mg TID for anxiety. Discontinue seroquel due to reported sedation. I spent minutes with the patient and/or on the patient floor today, greater than?50% of which was spent counseling/coordinating care. Patient educated on: medication risk/benefits Reason for contiued inpatient stay Substantial Risk for: med/psych decompensation
[2022-04-01] MEDS: Buprenorphine/Naloxone 4/1 mg FILM 1 FILM SUBLINGUAL (17:02)
[2022-04-01] MEDS: Ibuprofen 600 MG TABLET PO ×2 (18:44→23:19)
[2022-04-01] MEDS: Prazosin HCL 1 MG CAPSULE 3 MG PO (22:04)
[2022-04-01 22:05] VITALS: BP 107/61; PULSE 79; TEMP 36.6
[2022-04-01] MEDS: busPIRone HCl 10 MG TABLET 20 MG PO (22:05)
[2022-04-01] MEDS: QUEtiapine Fumarate 50 MG TABLET 150 MG PO (22:06)
[2022-04-01] MEDS: Divalproex Sodium 500 MG TABLET.DR 1500 MG PO (22:07)
[2022-04-02 06:41] VITALS: BP 94/54; PULSE 71; RESP 18; TEMP 36.1; O2SAT 99
[2022-04-02] MEDS: FLUoxetine HCl 10 MG CAPSULE 30 MG PO (09:25)
[2022-04-02] MEDS: Nicotine 21 MG PATCH.TD24 TRANSDERMA (09:25)
[2022-04-02] MEDS: Gabapentin 300 MG CAPSULE 600 MG PO ×3 (09:25→20:50)
[2022-04-02] MEDS: busPIRone HCl 10 MG TABLET 20 MG PO ×3 (09:25→20:51)
[2022-04-02] MEDS: Cholecalciferol (Vitamin D3) 25 MCG TABLET PO (09:25)
[2022-04-02] MEDS: Buprenorphine/Naloxone 8/2 mg FILM 1 FILM SUBLINGUAL (09:25)
[2022-04-02] MEDS: Dextroamphetamine/Amphetamine XR 10 MG CAP.ER.24H 30 MG PO (09:26)
[2022-04-02] MEDS: Multivitamin TABLET 1 TAB PO (09:26)
[2022-04-02] MEDS: Ferrous Sulfate 324 MG TABLET.DR PO (09:26)
[2022-04-02] MEDS: QUEtiapine Fumarate 25 MG TABLET PO ×3 (11:34→23:23)
[2022-04-02] MEDS: Acetaminophen 325 MG TABLET 650 MG PO (11:34)
[2022-04-02] MEDS: cloNIDine HCL 0.1 MG TABLET PO (14:05)
[2022-04-02 14:06] VITALS: BP 109/64; PULSE 88; RESP 16
[2022-04-02] MEDS: Buprenorphine/Naloxone 4/1 mg FILM 1 FILM SUBLINGUAL (17:07)
[2022-04-02 18:00] VITALS: BP 102/64; PULSE 85; RESP 16; TEMP 36.4; O2SAT 96
[2022-04-02] MEDS: guaiFENesin DM 200/20/10 ML 10 ML SYRUP PO (18:12)
--- NOTE | 2022-04-02 19:01 | P.PNPSI_ITS ---
Subjective Subjective Date of Service: 04/02/22 Reason For Visit: Depression/SI Interim History: Patient seen and discussed with team. Patient evaluated today and upon interview he reports I cant hardly lay down or anything due to his umbilical pain, rates it as a 7/10 for pain. Denies benefit on Tylenol or NSAIDs, has suboxone on board, which complicates pain management with opiates. Discussed with hospitalist, who recommended toradol IM PRN. Otherwise says his mood is excellent and his sleep is good. He likes his meds they're fine, on buspar now, it seems to be doing better, not as sedated off seroquel. Says I think its okay. In the milieu, patient is safe and appropriate in behavior. Says he feels safe. Medication Compliance: Yes Side effects from medications: No Attending Groups: Yes Review of Systems Acute medical concerns: No Medical Review of Systems: unchanged Mental Status Exam Mental Status Exam Narrative: A&O. Pt has normal body habitus, tattoos, casual attire. Moderate eye contact, attentive. No Tics or Tremors. No abnormal involuntary movements. Calm, engaged in conversation. Non-pressured speech, spontaneous with regular rate and rhythm, normal volume and prosody. No prolonged speech latency or dysarthria. Mood is good,? affect is constricted, c/o pain. Denies SI/SIB/HI upon inquiry. Denies A/VH or delusional thought content. Thoughts are goal oriented. No known cognitive or memory impairment. Insight/ Judgment limited. Diagnostics Vital Signs (24Hr): Vital Signs - 24 hr 04/01/22 22:05 04/02/22 06:41 04/02/22 14:06 Temperature 97.8 F 96.9 F Pulse Rate 79 71 88 Respiratory Rate 18 16 Blood Pressure 107/61 94/54 L 109/64 Pulse Oximetry 99 Oxygen Delivery Method Room Air BMI result Body Mass Index 25.7 Labs Results: 03/26/22 08:13 03/23/22 03:59 Imaging Radiology Impressions: ITS Impressions Chest X-Ray 03/27/22 13:08 IMPRESSION: Similar appearance of perihilar bronchial wall thickening which can be seen in the setting of bronchitis or reactive airways disease. Abdomen/Pelvis CT 04/01/22 22:27 IMPRESSION: Small periumbilical hernia containing only fat with a tiny amount of fluid seen. No other significant abnormality is detected. Fleischner guidelines were followed. Medications Medications Current Medications Acetaminophen (Acetaminophen 325 Mg Tablet) 650 mg PO Q6H PRN PRN Reason: Headache/Pain Mild Scale (1-3) Last Admin: 04/02/22 11:34 Dose: 650 mg Al Hydroxide/Mg Hydroxide (Magnesium Hydrox/Alum Hydrox 30 Ml Oral.Susp) 30 ml PO Q6H PRN PRN Reason: Heartburn/Nausea Amphetamine/Dextroamphetamine (Dextroamphetamine/Amphetamine Xr 10 Mg Cap.Er .24h) 30 mg PO DAILY [facility] Last Admin: 04/02/22 09:26 Dose: 30 mg Buprenorphine/Naloxone (Buprenorphine/Naloxone 8/2 Mg Film) 1 film SUBLINGUAL DAILY [facility] Last Admin: 04/02/22 09:25 Dose: 1 film Buprenorphine/Naloxone (Buprenorphine/Naloxone 4/1 Mg Film) 1 film SUBLINGUAL DAILY@1700 [facility] Last Admin: 04/02/22 17:07 Dose: 1 film Buspirone HCl (Buspirone Hcl 10 Mg Tablet) 20 mg PO TID [facility] Last Admin: 04/02/22 14:03 Dose: 20 mg Cefuroxime Axetil (Cefuroxime Axetil 500 Mg Tablet) 500 mg PO BID [facility] Stop: 04/03/22 21:01 Last Admin: 04/02/22 09:26 Dose: 500 mg Clonidine HCl (Clonidine Hcl 0.1 Mg Tablet) 0.1 mg PO BID PRN; Protocol PRN Reason: anxiety Last Admin: 04/02/22 14:05 Dose: 0.1 mg Divalproex Sodium (Divalproex Sodium 500 Mg Tablet.) 1,500 mg PO BEDTIME [facility] Last Admin: 04/01/22 22:07 Dose: 1,500 mg Ferrous Sulfate (Ferrous Sulfate 324 Mg Tablet.) 324 mg PO DAILY [facility] Last Admin: 04/02/22 09:26 Dose: 324 mg Fluoxetine HCl (Fluoxetine Hcl 10 Mg Capsule) 30 mg PO DAILY [facility] Last Admin: 04/02/22 09:25 Dose: 30 mg Gabapentin (Gabapentin 300 Mg Capsule) 600 mg PO TID [facility] Last Admin: 04/02/22 14:03 Dose: 600 mg Guaifenesin/Dextromethorphan (Guaifenesin Dm 200/20/10 Ml 10 Ml Syrup) 10 ml PO Q6H PRN PRN Reason: productive cough Last Admin: 04/02/22 18:12 Dose: 10 ml Ibuprofen (Ibuprofen 600 Mg Tablet) 600 mg PO Q4H PRN PRN Reason: Pain, Moderate (Pain Scale 4-6 Last Admin: 04/01/22 23:19 Dose: 600 mg Magnesium Hydroxide (Milk Of Magnesia 30 Ml Oral.Susp) 30 ml PO DAILY PRN PRN Reason: Constipation Multivitamins/Vitamin C (Multivitamin Tablet) 1 tab PO DAILY [facility] Last Admin: 04/02/22 09:26 Dose: 1 tab Nicotine (Nicotine 21 Mg Patch.Td24) 21 mg TRANSDERMA DAILY [facility] Last Admin: 04/02/22 09:25 Dose: 21 mg Nicotine Polacrilex (Nicotine Polacrilex 2 Mg Gum) 4 mg BUCCAL Q1H PRN PRN Reason: Nicotine Cravings Last Admin: 03/31/22 08:20 Dose: 4 mg Prazosin HCl (Prazosin Hcl 1 Mg Capsule) 3 mg PO BEDTIME [facility]; Protocol Last Admin: 04/01/22 22:04 Dose: 3 mg Quetiapine Fumarate (Quetiapine Fumarate 50 Mg Tablet) 150 mg PO BEDTIME [facility] Last Admin: 04/01/22 22:06 Dose: 150 mg Quetiapine Fumarate (Quetiapine Fumarate 25 Mg Tablet) 25 mg PO QID PRN PRN Reason: anxiety Last Admin: 04/02/22 18:10 Dose: 25 mg Vitamin D (Cholecalciferol (Vitamin D3) 25 Mcg Tablet) 25 mcg PO DAILY [facility] Last Admin: 04/02/22 09:25 Dose: 25 mcg Allergies Allergies Allergy/AdvReac Type Severity Reaction Status Date / Time No Known Allergies Allergy Verified 12/03/21 01:45 Assessment & Plan Assessment & Plan (1) Adjustment disorder with mixed disturbance of emotions and conduct in remission: Status: Acute Code(s): F43.25 - Adjustment disorder with mixed disturbance of emotions and conduct (2) Bipolar II disorder: Status: Acute Code(s): F31.81 - Bipolar II disorder (3) Post traumatic stress disorder (PTSD): Status: Acute Code(s): F43.10 - Post-traumatic stress disorder, unspecified (4) Cocaine use disorder: Status: Acute Code(s): F14.10 - Cocaine abuse, uncomplicated Plan Patient is a 36-year-old male with history of mood lability, possibly bipolar 2 disorder and substance abuse, recently discharged from [facility] 02/13/22 and again from [facility] on 03/18/22 who presents for depression and SI in the face of relapse the day of discharge, not taking medications and continued relational strife. Plan: CV Q 15 minute checks Restart home meds 03/27/22 Chest xray Hospitalist consult-productive cough Sputum culture pending Continue psychotropic regime-pt reporting relief of anxiety today. 03/28/22 Increase Adderall XR to 30 mg Continue Rx for strep/pneumonia/bronchitis Discharge planning 03/29/22 Continue current plan. 03/30: Continue current regimen and plans 04/01: Start buspar to 20 mg TID for anxiety. Discontinue seroquel due to reported sedation. 04/02: reports benefit on buspar, c/o pain, hospitalist consult recommended toradol. I spent minutes with the patient and/or on the patient floor today, greater than?50% of which was spent counseling/coordinating care. Patient educated on: medication risk/benefits Reason for contiued inpatient stay Substantial Risk for: med/psych decompensation
[2022-04-02] MEDS: Divalproex Sodium 500 MG TABLET.DR 1500 MG PO (20:50)
[2022-04-02] MEDS: Prazosin HCL 1 MG CAPSULE 3 MG PO (20:51)
[2022-04-02] MEDS: QUEtiapine Fumarate 50 MG TABLET 150 MG PO (20:51)
[2022-04-02] MEDS: Ketorolac Tromethamine 15 MG/ML VIAL 10 MG IM (21:03)
[2022-04-03] MEDS: cloNIDine HCL 0.1 MG TABLET PO ×2 (06:02→18:29)
[2022-04-03] MEDS: QUEtiapine Fumarate 25 MG TABLET PO ×3 (06:02→18:33)
[2022-04-03 06:19] VITALS: BP 107/63; PULSE 76; RESP 16; TEMP 36.4; O2SAT 93
[2022-04-03] MEDS: Buprenorphine/Naloxone 8/2 mg FILM 1 FILM SUBLINGUAL (09:17)
[2022-04-03] MEDS: FLUoxetine HCl 10 MG CAPSULE 30 MG PO (09:17)
[2022-04-03] MEDS: Dextroamphetamine/Amphetamine XR 10 MG CAP.ER.24H 30 MG PO (09:17)
[2022-04-03] MEDS: Multivitamin TABLET 1 TAB PO (09:17)
[2022-04-03] MEDS: Gabapentin 300 MG CAPSULE 600 MG PO ×3 (09:18→21:32)
[2022-04-03] MEDS: Cholecalciferol (Vitamin D3) 25 MCG TABLET PO (09:18)
[2022-04-03] MEDS: busPIRone HCl 10 MG TABLET 20 MG PO ×3 (09:18→21:34)
[2022-04-03] MEDS: Ferrous Sulfate 324 MG TABLET.DR PO (09:18)
[2022-04-03] MEDS: Buprenorphine/Naloxone 4/1 mg FILM 1 FILM SUBLINGUAL (17:13)
[2022-04-03 21:30] VITALS: BP 100/61; PULSE 82; TEMP 36.4
[2022-04-03] MEDS: Divalproex Sodium 500 MG TABLET.DR 1500 MG PO (21:32)
[2022-04-03] MEDS: QUEtiapine Fumarate 50 MG TABLET 150 MG PO (21:33)
[2022-04-03] MEDS: Prazosin HCL 1 MG CAPSULE 3 MG PO (21:35)
[2022-04-03] MEDS: oxyCODONE HCl Immed Release 5 MG TABLET PO (21:41)
--- NOTE | 2022-04-03 23:18 | HO.PSYCHPN ---
Subjective Subjective Date of Service: 04/03/22 Reason For Visit: Depression/SI Subjective Notes: [facility] Warning Interim History: Patient seen and discussed with team. Patient evaluated today and upon interview he reports the toradol did not help, didnt notice much of nothing. No complaints. Says its been a rough day, his gf didnt come, thinks she relapsed on heroin. Pain is a 7 or 8/10. In the milieu, patient is safe and appropriate in behavior. Says he feels safe. Medication Compliance: Yes Side effects from medications: No Attending Groups: No Review of Systems Acute medical concerns: No Medical Review of Systems: unchanged Mental Status Exam Mental Status Exam Narrative: A&O. Pt has normal body habitus, tattoos, casual attire. Moderate eye contact, attentive. No Tics or Tremors. No abnormal involuntary movements. Calm, engaged in conversation. Non-pressured speech, spontaneous with regular rate and rhythm, normal volume and prosody. No prolonged speech latency or dysarthria. Mood is good,? affect is constricted, c/o pain. Denies SI/SIB/HI upon inquiry. Denies A/VH or delusional thought content. Thoughts are goal oriented. No known cognitive or memory impairment. Insight/ Judgment limited. Diagnostics Vital Signs (24Hr): Vital Signs - 24 hr 04/03/22 06:19 04/03/22 21:30 Temperature 97.6 F 97.6 F Pulse Rate 76 82 Respiratory Rate 16 Blood Pressure 107/63 100/61 Pulse Oximetry 93 Oxygen Delivery Method Room Air BMI result Body Mass Index 25.7 Labs Results: 03/26/22 08:13 03/23/22 03:59 Imaging Radiology Impressions: ITS Impressions Chest X-Ray 03/27/22 13:08 IMPRESSION: Similar appearance of perihilar bronchial wall thickening which can be seen in the setting of bronchitis or reactive airways disease. Abdomen/Pelvis CT 04/01/22 22:27 IMPRESSION: Small periumbilical hernia containing only fat with a tiny amount of fluid seen. No other significant abnormality is detected. Fleischner guidelines were followed. Medications Medications Current Medications Acetaminophen (Acetaminophen 325 Mg Tablet) 650 mg PO Q6H PRN PRN Reason: Headache/Pain Mild Scale (1-3) Last Admin: 04/02/22 11:34 Dose: 650 mg Al Hydroxide/Mg Hydroxide (Magnesium Hydrox/Alum Hydrox 30 Ml Oral.Susp) 30 ml PO Q6H PRN PRN Reason: Heartburn/Nausea Amphetamine/Dextroamphetamine (Dextroamphetamine/Amphetamine Xr 10 Mg Cap.Er.24h) 30 mg PO DAILY [facility] Last Admin: 04/03/22 09:17 Dose: 30 mg Buprenorphine/Naloxone (Buprenorphine/Naloxone 8/2 Mg Film) 1 film SUBLINGUAL DAILY [facility] Last Admin: 04/03/22 09:17 Dose: 1 film Buprenorphine/Naloxone (Buprenorphine/Naloxone 4/1 Mg Film) 1 film SUBLINGUAL DAILY@1700 [facility] Last Admin: 04/03/22 17:13 Dose: 1 film Buspirone HCl (Buspirone Hcl 10 Mg Tablet) 20 mg PO TID [facility] Last Admin: 04/03/22 21:34 Dose: 20 mg Clonidine HCl (Clonidine Hcl 0.1 Mg Tablet) 0.1 mg PO BID PRN; Protocol PRN Reason: anxiety Last Admin: 04/03/22 18:29 Dose: 0.1 mg Divalproex Sodium (Divalproex Sodium 500 Mg Tablet.) 1,500 mg PO BEDTIME [facility] Last Admin: 04/03/22 21:32 Dose: 1,500 mg Ferrous Sulfate (Ferrous Sulfate 324 Mg Tablet.) 324 mg PO DAILY [facility] Last Admin: 04/03/22 09:18 Dose: 324 mg Fluoxetine HCl (Fluoxetine Hcl 10 Mg Capsule) 30 mg PO DAILY [facility] Last Admin: 04/03/22 09:17 Dose: 30 mg Gabapentin (Gabapentin 300 Mg Capsule) 600 mg PO TID [facility] Last Admin: 04/03/22 21:32 Dose: 600 mg Guaifenesin/Dextromethorphan (Guaifenesin Dm 200/20/10 Ml 10 Ml Syrup) 10 ml PO Q6H PRN PRN Reason: productive cough Last Admin: 04/02/22 18:12 Dose: 10 ml Magnesium Hydroxide (Milk Of Magnesia 30 Ml Oral.Susp) 30 ml PO DAILY PRN PRN Reason: Constipation Multivitamins/Vitamin C (Multivitamin Tablet) 1 tab PO DAILY [facility] Last Admin: 04/03/22 09:17 Dose: 1 tab Nicotine (Nicotine 21 Mg Patch.Td24) 21 mg TRANSDERMA DAILY [facility] Last Admin: 04/03/22 11:45 Dose: Not Given Nicotine Polacrilex (Nicotine Polacrilex 2 Mg Gum) 4 mg BUCCAL Q1H PRN PRN Reason: Nicotine Cravings Last Admin: 03/31/22 08:20 Dose: 4 mg Prazosin HCl (Prazosin Hcl 1 Mg Capsule) 3 mg PO BEDTIME [facility]; Protocol Last Admin: 04/03/22 21:35 Dose: 3 mg Quetiapine Fumarate (Quetiapine Fumarate 50 Mg Tablet) 150 mg PO BEDTIME [facility] Last Admin: 04/03/22 21:33 Dose: 150 mg Quetiapine Fumarate (Quetiapine Fumarate 25 Mg Tablet) 25 mg PO QID PRN PRN Reason: anxiety Last Admin: 04/03/22 18:33 Dose: 25 mg Vitamin D (Cholecalciferol (Vitamin D3) 25 Mcg Tablet) 25 mcg PO DAILY [facility] Last Admin: 04/03/22 09:18 Dose: 25 mcg Allergies Allergies Allergy/AdvReac Type Severity Reaction Status Date / Time No Known Allergies Allergy Verified 12/03/21 01:45 Assessment & Plan Assessment & Plan (1) Adjustment disorder with mixed disturbance of emotions and conduct in remission: Status: Acute Code(s): F43.25 - Adjustment disorder with mixed disturbance of emotions and conduct (2) Bipolar II disorder: Status: Acute Code(s): F31.81 - Bipolar II disorder (3) Post traumatic stress disorder (PTSD): Status: Acute Code(s): F43.10 - Post-traumatic stress disorder, unspecified (4) Cocaine use disorder: Status: Acute Code(s): F14.10 - Cocaine abuse, uncomplicated Plan Patient is a 36-year-old male with history of mood lability, possibly bipolar 2 disorder and substance abuse, recently discharged from 02/13/22 and again from on 03/18/22 who presents for depression and SI in the face of relapse the day of discharge, not taking medications and continued relational strife. Plan: CV Q 15 minute checks Restart home meds 03/27/22 Chest xray Hospitalist consult-productive cough Sputum culture pending Continue psychotropic regime-pt reporting relief of anxiety today. 03/28/22 Increase Adderall XR to 30 mg Continue Rx for strep/pneumonia/bronchitis Discharge planning 03/29/22 Continue current plan. 03/30: Continue current regimen and plans 04/01: Start buspar to 20 mg TID for anxiety. Discontinue seroquel due to reported sedation. 04/02: reports benefit on buspar, c/o pain, hospitalist consult recommended toradol. 04/03: denies benefit on toradol, discussed pain management with hospitalist and she recommended oxycodone IR 5 mg once and surgical consult in the AM. I spent minutes with the patient and/or on the patient floor today, greater than?50% of which was spent counseling/coordinating care. Patient educated on: medication risk/benefits Reason for contiued inpatient stay Substantial Risk for: med/psych decompensation
[2022-04-04 07:00] VITALS: BMI 27.8
[2022-04-04] MEDS: Dextroamphetamine/Amphetamine XR 10 MG CAP.ER.24H 30 MG PO (08:19)
[2022-04-04] MEDS: busPIRone HCl 10 MG TABLET 20 MG PO ×3 (08:19→20:46)
[2022-04-04] MEDS: Nicotine 21 MG PATCH.TD24 TRANSDERMA (08:19)
[2022-04-04] MEDS: Ferrous Sulfate 324 MG TABLET.DR PO (08:19)
[2022-04-04] MEDS: FLUoxetine HCl 10 MG CAPSULE 30 MG PO (08:19)
[2022-04-04] MEDS: Multivitamin TABLET 1 TAB PO (08:19)
[2022-04-04] MEDS: Gabapentin 300 MG CAPSULE 600 MG PO ×3 (08:19→20:48)
[2022-04-04] MEDS: Cholecalciferol (Vitamin D3) 25 MCG TABLET PO (08:19)
[2022-04-04] MEDS: Buprenorphine/Naloxone 8/2 mg FILM 1 FILM SUBLINGUAL (08:19)
--- NOTE | 2022-04-04 08:34 | PM.CNGS ---
History of Present Illness Consult details Consult date: 04/04/22 Narrative: 36-year-old male referred for an umbilical hernia. He has been admitted to the psych unit since 03/23/2022 because of suicidal ideations and mood lability. He does have long history of behavioral health issues and has had multiple admissions at the psych unit. He had complained of pain on this umbilical hernia last night. He says that he had noticed this hernia about 3 days ago. He says that he feels that this started after he had a coughing fit from bronchitis. He denies vomiting. He currently appears comfortable Review of Systems Constitutional: Constitutional: Denies chills and Denies fever(s) Cardiovascular: Cardiovascular: Denies chest pain Respiratory: Respiratory: Reports cough Gastrointestinal: Gastrointestinal: Denies bloating and Denies vomiting PMFSH Past Medical History Medical History (Updated 04/04/22 @ 08:38 by Schuyler Summers MD) Depression Depression Opioid use disorder Substance abuse Suicidal ideation Umbilical hernia Social History Social History Household Members: None Household Members Other:: girlfriend Housing: Homeless Housing Other:: can't stay with gf. can live with friend Do you presently have visiting nurse or other home services: No Patient Tobacco Use Status: Current everyday Tobacco user Tobacco use type: Cigarette Cigarette Packs Per Day: 1 Cigarettes Per Day: 1 Years Smoked: 18+ Smoked in Last 30 Days: Yes e-Cigarette/Vaping Use: Currently Using Patient Interested in Nicotine Replacement: Yes Patient Given Instructions on How to Stop Smoking: No Second Hand Smoke Exposure: Yes Use of substances other than those prescribed or required for medical reasons: Yes Substance Use Type: Crack/Cocaine Substance Use Frequency: Daily Last Used Substance: Just Prior to Admission Currently Displaying Signs/Symptoms of Drug Intoxication Withdrawal: No Any prior treatment program specific to substance use: Yes Have you been hit, kicked, punched, or otherwise hurt by someone within the past year? If so, by whom?: No Do you feel safe in your current relationship?: Yes Is there a partner from a previous relationship who is making you feel unsafe now?: No Are you made to feel afraid or neglected: No Advance Directives: No Advance Directives Information Provided: Yes Do you have thoughts of harming others: None Do you have a plan to hurt others: No Plan Recently lost weight without trying: Unsure How much weight loss: Unsure Eating poorly because of decreased appetite: Yes Nutrition screen score: 5 Poor oral hygiene: No service: No Sexual orientation: Straight/Heterosexual Meds Allergies Allergy/AdvReac Type Severity Reaction Status Date / Time No Known Allergies Allergy Verified 12/03/21 01:45 Active Medications: Current Medications Acetaminophen (Acetaminophen 325 Mg Tablet) 650 mg PO Q6H PRN PRN Reason: Headache/Pain Mild Scale (1-3) Last Admin: 04/02/22 11:34 Dose: 650 mg Al Hydroxide/Mg Hydroxide (Magnesium Hydrox/Alum Hydrox 30 Ml Oral.Susp) 30 ml PO Q6H PRN PRN Reason: Heartburn/Nausea Amphetamine/Dextroamphetamine (Dextroamphetamine/Amphetamine Xr 10 Mg Cap.Er.24h) 30 mg PO DAILY [facility] Last Admin: 04/04/22 08:19 Dose: 30 mg Buprenorphine/Naloxone (Buprenorphine/Naloxone 8/2 Mg Film) 1 film SUBLINGUAL DAILY [facility] Last Admin: 04/04/22 08:19 Dose: 1 film Buprenorphine/Naloxone (Buprenorphine/Naloxone 4/1 Mg Film) 1 film SUBLINGUAL DAILY@1700 [facility] Last Admin: 04/03/22 17:13 Dose: 1 film Buspirone HCl (Buspirone Hcl 10 Mg Tablet) 20 mg PO TID [facility] Last Admin: 04/04/22 08:19 Dose: 20 mg Clonidine HCl (Clonidine Hcl 0.1 Mg Tablet) 0.1 mg PO BID PRN; Protocol PRN Reason: anxiety Last Admin: 04/03/22 18:29 Dose: 0.1 mg Divalproex Sodium (Divalproex Sodium 500 Mg Tablet.) 1,500 mg PO BEDTIME [facility] Last Admin: 04/03/22 21:32 Dose: 1,500 mg Ferrous Sulfate (Ferrous Sulfate 324 Mg Tablet.) 324 mg PO DAILY [facility] Last Admin: 04/04/22 08:19 Dose: 324 mg Fluoxetine HCl (Fluoxetine Hcl 10 Mg Capsule) 30 mg PO DAILY [facility] Last Admin: 04/04/22 08:19 Dose: 30 mg Gabapentin (Gabapentin 300 Mg Capsule) 600 mg PO TID [facility] Last Admin: 04/04/22 08:19 Dose: 600 mg Guaifenesin/Dextromethorphan (Guaifenesin Dm 200/20/10 Ml 10 Ml Syrup) 10 ml PO Q6H PRN PRN Reason: productive cough Last Admin: 04/02/22 18:12 Dose: 10 ml Magnesium Hydroxide (Milk Of Magnesia 30 Ml Oral.Susp) 30 ml PO DAILY PRN PRN Reason: Constipation Multivitamins/Vitamin C (Multivitamin Tablet) 1 tab PO DAILY [facility] Last Admin: 04/04/22 08:19 Dose: 1 tab Nicotine (Nicotine 21 Mg Patch.Td24) 21 mg TRANSDERMA DAILY [facility] Last Admin: 04/04/22 08:19 Dose: 21 mg Nicotine Polacrilex (Nicotine Polacrilex 2 Mg Gum) 4 mg BUCCAL Q1H PRN PRN Reason: Nicotine Cravings Last Admin: 03/31/22 08:20 Dose: 4 mg Prazosin HCl (Prazosin Hcl 1 Mg Capsule) 3 mg PO BEDTIME [facility]; Protocol Last Admin: 04/03/22 21:35 Dose: 3 mg Quetiapine Fumarate (Quetiapine Fumarate 50 Mg Tablet) 150 mg PO BEDTIME [facility] Last Admin: 04/03/22 21:33 Dose: 150 mg Quetiapine Fumarate (Quetiapine Fumarate 25 Mg Tablet) 25 mg PO QID PRN PRN Reason: anxiety Last Admin: 04/03/22 18:33 Dose: 25 mg Vitamin D (Cholecalciferol (Vitamin D3) 25 Mcg Tablet) 25 mcg PO DAILY [facility] Last Admin: 04/04/22 08:19 Dose: 25 mcg Home Medications Medication Instructions Recorded Confirmed Last Taken Type divalproex 500 mg tablet,delayed 3 tab PO BEDTIME 03/23/22 03/23/22 Unknown History release fluoxetine 20 mg capsule 1 cap PO DAILY 03/23/22 03/23/22 Unknown History gabapentin 400 mg capsule 1 cap PO TID 03/23/22 03/23/22 Unknown History perphenazine 2 mg tablet 8 mg PO QID PRN Psychosis 03/23/22 03/23/22 Unknown History prazosin 1 mg capsule 3 cap PO BEDTIME 03/23/22 03/23/22 Unknown History Physical Exam Vital Signs: Vital Signs: Last Vital Signs Temp 97.6 F 04/03/22 21:30 Pulse 82 04/03/22 21:30 Resp 16 04/03/22 06:19 BP 100/61 04/03/22 21:30 Pulse Ox 93 04/03/22 06:19 O2 Del Method 04/03/22 06:19 BMI result Body Mass Index 25.7 Const: General: comfortable and no acute distress Resp: Effort & Inspection: normal respiratory effort Cardio: Rate: regular rate GI: Other: Soft, small umbilical hernia, obvious feel Valsalva maneuver, reducible, slightly tender Results Labs Result diagrams: 03/26/22 08:13 03/23/22 03:59 Labs: Urine 03/23/22 Range/Units 03:52 Urine Color YELLOW Urine Appearance CLEAR Urine pH 6.0 (5.0-8.0) Ur Specific [place] 1.025 (1.005-1.025) Urine Protein NEG (NEG-TRACE) MG/DL Urine Glucose (UA) NEG (NEG) MG/DL All other labs normal. Assessment and Plan (1) Umbilical hernia: Status: Acute He has a small umbilical hernia as described above. This is reducible and does not appear to be acutely incarcerated or strangulated I explained to him that this may be repaired as an outpatient basis. He is currently being treated for issues. He may be seen in the office for follow-up once he is ready for discharge. The patient appears comfortable with the plan as above. His exam is otherwise benign. Thank you for the courtesy of the referral. Procedures Date of Service Date of Service: 04/04/22
[2022-04-04 08:39] VITALS: BP 102/57; PULSE 80; RESP 16; TEMP 36; O2SAT 97
[2022-04-04] MEDS: QUEtiapine Fumarate 25 MG TABLET PO (14:12)
[2022-04-04] MEDS: Buprenorphine/Naloxone 4/1 mg FILM 1 FILM SUBLINGUAL (17:04)
[2022-04-04] MEDS: traMADoL HCL 50 MG TABLET PO ×2 (17:22→21:54)
--- NOTE | 2022-04-04 17:54 | P.PNPSI_ITS ---
Subjective Subjective Date of Service: 04/04/22 Reason For Visit: Depression/SI Subjective Notes: [facility] Warning Healthcare Proxy: No Guardianship: No Medical Problems Affecting Mental Status: No Interim History: Patient seen and discussed with team. Patient evaluated today and upon interview pt reports benefit tramadol. Wants to discharge to [facility]. Mood is not good. Attributes this to his gf not coming to visit to drop off his clothes or ID, thinks she is getting high, hard to not stay stressed out. Sleep is good. Needs a PCP. Says I think its okay right now for buspar. Anxiety is fine. Mood is sad, disappointed over gf situation. In the milieu, patient is safe and appropriate in behavior. Denies SI/SIB/HI upon inquiry. Denies irritability or assaultive ideation. Says he feels safe. Medication Compliance: Yes Side effects from medications: No Attending Groups: Yes Review of Systems Acute medical concerns: No Medical Review of Systems: unchanged Mental Status Exam Mental Status Exam Narrative: A&O. Pt has normal body habitus, tattoos, casual attire. Moderate eye contact, attentive. No Tics or Tremors. No abnormal involuntary movements. Calm, engaged in conversation. Non-pressured speech, spontaneous with regular rate and rhythm, normal volume and prosody. No prolonged speech latency or dysarthria. Mood is sad,? affect is constricted. Denies SI/SIB/HI upon inquiry. Denies A/VH or delusional thought content. Thoughts are goal oriented. No known cognitive or memory impairment. Insight/ Judgment limited. Diagnostics Vital Signs (24Hr): Vital Signs - 24 hr 04/03/22 21:30 04/04/22 08:39 Temperature 97.6 F 96.8 F Pulse Rate 82 80 Respiratory Rate 16 Blood Pressure 100/61 102/57 L Pulse Oximetry 97 Oxygen Delivery Method Room Air BMI result Body Mass Index 27.8 Labs Results: 03/26/22 08:13 03/23/22 03:59 Imaging Radiology Impressions: ITS Impressions Chest X-Ray 03/27/22 13:08 IMPRESSION: Similar appearance of perihilar bronchial wall thickening which can be seen in the setting of bronchitis or reactive airways disease. Abdomen/Pelvis CT 04/01/22 22:27 IMPRESSION: Small periumbilical hernia containing only fat with a tiny amount of fluid seen. No other significant abnormality is detected. Fleischner guidelines were followed. Medications Medications Current Medications Acetaminophen (Acetaminophen 325 Mg Tablet) 650 mg PO Q6H PRN PRN Reason: Headache/Pain Mild Scale (1-3) Last Admin: 04/02/22 11:34 Dose: 650 mg Al Hydroxide/Mg Hydroxide (Magnesium Hydrox/Alum Hydrox 30 Ml Oral.Susp) 30 ml PO Q6H PRN PRN Reason: Heartburn/Nausea Amphetamine/Dextroamphetamine (Dextroamphetamine/Amphetamine Xr 10 Mg Cap.Er.24h) 30 mg PO DAILY [facility] Last Admin: 04/04/22 08:19 Dose: 30 mg Buprenorphine/Naloxone (Buprenorphine/Naloxone 8/2 Mg Film) 1 film SUBLINGUAL DAILY [facility] Last Admin: 04/04/22 08:19 Dose: 1 film Buprenorphine/Naloxone (Buprenorphine/Naloxone 4/1 Mg Film) 1 film SUBLINGUAL DAILY@1700 [facility] Last Admin: 04/04/22 17:04 Dose: 1 film Buspirone HCl (Buspirone Hcl 10 Mg Tablet) 20 mg PO TID [facility] Last Admin: 04/04/22 14:03 Dose: 20 mg Clonidine HCl (Clonidine Hcl 0.1 Mg Tablet) 0.1 mg PO BID PRN; Protocol PRN Reason: anxiety Last Admin: 04/03/22 18:29 Dose: 0.1 mg Divalproex Sodium (Divalproex Sodium 500 Mg Tablet.) 1,500 mg PO BEDTIME [facility] Last Admin: 04/03/22 21:32 Dose: 1,500 mg Ferrous Sulfate (Ferrous Sulfate 324 Mg Tablet.) 324 mg PO DAILY [facility] Last Admin: 04/04/22 08:19 Dose: 324 mg Fluoxetine HCl (Fluoxetine Hcl 10 Mg Capsule) 30 mg PO DAILY [facility] Last Admin: 04/04/22 08:19 Dose: 30 mg Gabapentin (Gabapentin 300 Mg Capsule) 600 mg PO TID [facility] Last Admin: 04/04/22 14:03 Dose: 600 mg Guaifenesin/Dextromethorphan (Guaifenesin Dm 200/20/10 Ml 10 Ml Syrup) 10 ml PO Q6H PRN PRN Reason: productive cough Last Admin: 04/02/22 18:12 Dose: 10 ml Magnesium Hydroxide (Milk Of Magnesia 30 Ml Oral.Susp) 30 ml PO DAILY PRN PRN Reason: Constipation Multivitamins/Vitamin C (Multivitamin Tablet) 1 tab PO DAILY [facility] Last Admin: 04/04/22 08:19 Dose: 1 tab Nicotine (Nicotine 21 Mg Patch.Td24) 21 mg TRANSDERMA DAILY [facility] Last Admin: 04/04/22 08:19 Dose: 21 mg Nicotine Polacrilex (Nicotine Polacrilex 2 Mg Gum) 4 mg BUCCAL Q1H PRN PRN Reason: Nicotine Cravings Last Admin: 03/31/22 08:20 Dose: 4 mg Prazosin HCl (Prazosin Hcl 1 Mg Capsule) 3 mg PO BEDTIME [facility]; Protocol Last Admin: 04/03/22 21:35 Dose: 3 mg Quetiapine Fumarate (Quetiapine Fumarate 50 Mg Tablet) 150 mg PO BEDTIME [facility] Last Admin: 04/03/22 21:33 Dose: 150 mg Quetiapine Fumarate (Quetiapine Fumarate 25 Mg Tablet) 25 mg PO QID PRN PRN Reason: anxiety Last Admin: 04/04/22 14:12 Dose: 25 mg Tramadol HCl (Tramadol Hcl 50 Mg Tablet) 50 mg PO TID PRN PRN Reason: umbilical pain Last Admin: 04/04/22 17:22 Dose: 50 mg Vitamin D (Cholecalciferol (Vitamin D3) 25 Mcg Tablet) 25 mcg PO DAILY [facility] Last Admin: 04/04/22 08:19 Dose: 25 mcg Allergies Allergies Allergy/AdvReac Type Severity Reaction Status Date / Time No Known Allergies Allergy Verified 12/03/21 01:45 Assessment & Plan Assessment & Plan (1) 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 ssion: Status: Acute Code(s): F43.25 - Adjustment disorder with mixed disturbance of emotions and conduct (2) Bipolar II disorder: Status: Acute Code(s): F31.81 - Bipolar II disorder (3) Post traumatic stress disorder (PTSD): Status: Acute Code(s): F43.10 - Post-traumatic stress disorder, unspecified (4) Cocaine use disorder: Status: Acute Code(s): F14.10 - Cocaine abuse, uncomplicated Plan Patient is a 36-year-old male with history of mood lability, possibly bipolar 2 disorder and substance abuse, recently discharged from 02/13/22 and again from on 03/18/22 who presents for depression and SI in the face of relapse the day of discharge, not taking medications and continued relational strife. Plan: CV Q 15 minute checks Restart home meds 03/27/22 Chest xray Hospitalist consult-productive cough Sputum culture pending Continue psychotropic regime-pt reporting relief of anxiety today. 03/28/22 Increase Adderall XR to 30 mg Continue Rx for strep/pneumonia/bronchitis Discharge planning 03/29/22 Continue current plan. 03/30: Continue current regimen and plans 04/01: Start buspar to 20 mg TID for anxiety. Discontinue seroquel due to reported sedation. 04/02: reports benefit on buspar, c/o pain, hospitalist consult recommended toradol. 04/03: denies benefit on toradol, discussed pain management with hospitalist and she recommended oxycodone IR 5 mg once and surgical consult in the AM. 04/04: Reviewed case with surgeon, Dr. Summers, who recommended OP follow up for hernia and tramadol to manage pain. I spent minutes with the patient and/or on the patient floor today, greater than?50% of which was spent counseling/coordinating care. Patient educated on: medication risk/benefits Reason for contiued inpatient stay Substantial Risk for: med/psych decompensation
[2022-04-04 20:45] VITALS: BP 106/68; PULSE 85; TEMP 36.3
[2022-04-04] MEDS: Divalproex Sodium 500 MG TABLET.DR 1500 MG PO (20:47)
[2022-04-04] MEDS: QUEtiapine Fumarate 50 MG TABLET 150 MG PO (20:47)
[2022-04-04] MEDS: Prazosin HCL 1 MG CAPSULE 3 MG PO (20:48)
[2022-04-05 06:00] VITALS: BP 97/59; PULSE 68; RESP 16; TEMP 36.4; O2SAT 96
[2022-04-05] MEDS: FLUoxetine HCl 10 MG CAPSULE 30 MG PO (08:17)
[2022-04-05] MEDS: Ferrous Sulfate 324 MG TABLET.DR PO (08:17)
[2022-04-05] MEDS: Buprenorphine/Naloxone 8/2 mg FILM 1 FILM SUBLINGUAL (08:17)
[2022-04-05] MEDS: Cholecalciferol (Vitamin D3) 25 MCG TABLET PO (08:17)
[2022-04-05] MEDS: Gabapentin 300 MG CAPSULE 600 MG PO ×3 (08:17→20:43)
[2022-04-05] MEDS: busPIRone HCl 10 MG TABLET 20 MG PO ×3 (08:17→20:42)
[2022-04-05] MEDS: Nicotine 21 MG PATCH.TD24 TRANSDERMA (08:17)
[2022-04-05] MEDS: Dextroamphetamine/Amphetamine XR 10 MG CAP.ER.24H 30 MG PO (08:18)
[2022-04-05] MEDS: Multivitamin TABLET 1 TAB PO (08:18)
[2022-04-05] MEDS: traMADoL HCL 50 MG TABLET PO ×3 (08:37→20:43)
[2022-04-05] MEDS: QUEtiapine Fumarate 25 MG TABLET PO ×2 (14:00→20:43)
[2022-04-05] MEDS: cloNIDine HCL 0.1 MG TABLET PO (17:32)
[2022-04-05] MEDS: Buprenorphine/Naloxone 4/1 mg FILM 1 FILM SUBLINGUAL (17:33)
[2022-04-05 17:34] VITALS: BP 111/65
--- NOTE | 2022-04-05 19:06 | HO.PSYCHPN ---
Subjective Subjective Date of Service: 04/05/22 Reason For Visit: Depression/SI Subjective Notes: [facility] Warning and Conditional Voluntary Healthcare Proxy: No Guardianship: No Medical Problems Affecting Mental Status: No Interim History: Patient seen and discussed with team. Patient evaluated today and upon interview he reports the tramadol is working fine. Says he finally heard from his gf, feels some relief, she is supposed to come tomorrow to bring his clothes and wallet. Everything is going good, the meds are working good. Says things are looking good for the [facility]. Pain is now a 4 or 3 /10 for umbilical hernia. In the milieu, patient is safe and appropriate in behavior. Denies SI/SIB/HI upon inquiry. Denies irritability or assaultive ideation. Says he feels safe. Mental Status Exam Mental Status Exam Narrative: A&O. Pt has normal body habitus, tattoos, casual attire. Moderate eye contact, attentive. No Tics or Tremors. No abnormal involuntary movements. Calm, engaged in conversation. Non-pressured speech, spontaneous with regular rate and rhythm, normal volume and prosody. No prolonged speech latency or dysarthria. Mood is good,? affect is euthymic. Denies SI/SIB/HI upon inquiry. Denies A/VH or delusional thought content. Thoughts are goal oriented. No known cognitive or memory impairment. Insight/ Judgment limited. Diagnostics Vital Signs (24Hr): Vital Signs - 24 hr 04/04/22 20:45 04/05/22 06:00 04/05/22 17:34 Temperature 97.3 F 97.6 F Pulse Rate 85 68 Respiratory Rate 16 Blood Pressure 106/68 97/59 L 111/65 Pulse Oximetry 96 BMI result Body Mass Index 27.8 Labs Results: 03/26/22 08:13 03/23/22 03:59 Imaging Radiology Impressions: ITS Impressions Chest X-Ray 03/27/22 13:08 IMPRESSION: Similar appearance of perihilar bronchial wall thickening which can be seen in the setting of bronchitis or reactive airways disease. Abdomen/Pelvis CT 04/01/22 22:27 IMPRESSION: Small periumbilical hernia containing only fat with a tiny amount of fluid seen. No other significant abnormality is detected. Fleischner guidelines were followed. Medications Medications Current Medications Acetaminophen (Acetaminophen 325 Mg Tablet) 650 mg PO Q6H PRN PRN Reason: Headache/Pain Mild Scale (1-3) Last Admin: 04/02/22 11:34 Dose: 650 mg Al Hydroxide/Mg Hydroxide (Magnesium Hydrox/Alum Hydrox 30 Ml Oral.Susp) 30 ml PO Q6H PRN PRN Reason: Heartburn/Nausea Amphetamine/Dextroamphetamine (Dextroamphetamine/Amphetamine Xr 10 Mg Cap.Er.24h) 30 mg PO DAILY [facility] Last Admin: 04/05/22 08:18 Dose: 30 mg Buprenorphine/Naloxone (Buprenorphine/Naloxone 8/2 Mg Film) 1 film SUBLINGUAL DAILY [facility] Last Admin: 04/05/22 08:17 Dose: 1 film Buprenorphine/Naloxone (Buprenorphine/Naloxone 4/1 Mg Film) 1 film SUBLINGUAL DAILY@1700 [facility] Last Admin: 04/05/22 17:33 Dose: 1 film Buspirone HCl (Buspirone Hcl 10 Mg Tablet) 20 mg PO TID [facility] Last Admin: 04/05/22 14:00 Dose: 20 mg Clonidine HCl (Clonidine Hcl 0.1 Mg Tablet) 0.1 mg PO BID PRN; Protocol PRN Reason: anxiety Last Admin: 04/05/22 17:32 Dose: 0.1 mg Divalproex Sodium (Divalproex Sodium 500 Mg Tablet.) 1,500 mg PO BEDTIME [facility] Last Admin: 04/04/22 20:47 Dose: 1,500 mg Ferrous Sulfate (Ferrous Sulfate 324 Mg Tablet.) 324 mg PO DAILY [facility] Last Admin: 04/05/22 08:17 Dose: 324 mg Fluoxetine HCl (Fluoxetine Hcl 10 Mg Capsule) 30 mg PO DAILY [facility] Last Admin: 04/05/22 08:17 Dose: 30 mg Gabapentin (Gabapentin 300 Mg Capsule) 600 mg PO TID [facility] Last Admin: 04/05/22 14:01 Dose: 600 mg Guaifenesin/Dextromethorphan (Guaifenesin Dm 200/20/10 Ml 10 Ml Syrup) 10 ml PO Q6H PRN PRN Reason: productive cough Last Admin: 04/02/22 18:12 Dose: 10 ml Magnesium Hydroxide (Milk Of Magnesia 30 Ml Oral.Susp) 30 ml PO DAILY PRN PRN Reason: Constipation Multivitamins/Vitamin C (Multivitamin Tablet) 1 tab PO DAILY [facility] Last Admin: 04/05/22 08:18 Dose: 1 tab Nicotine (Nicotine 21 Mg Patch.Td24) 21 mg TRANSDERMA DAILY [facility] Last Admin: 04/05/22 08:17 Dose: 21 mg Nicotine Polacrilex (Nicotine Polacrilex 2 Mg Gum) 4 mg BUCCAL Q1H PRN PRN Reason: Nicotine Cravings Last Admin: 03/31/22 08:20 Dose: 4 mg Prazosin HCl (Prazosin Hcl 1 Mg Capsule) 3 mg PO BEDTIME [facility]; Protocol Last Admin: 04/04/22 20:48 Dose: 3 mg Quetiapine Fumarate (Quetiapine Fumarate 50 Mg Tablet) 150 mg PO BEDTIME [facility] Last Admin: 04/04/22 20:47 Dose: 150 mg Quetiapine Fumarate (Quetiapine Fumarate 25 Mg Tablet) 25 mg PO QID PRN PRN Reason: anxiety Last Admin: 04/05/22 14:00 Dose: 25 mg Tramadol HCl (Tramadol Hcl 50 Mg Tablet) 50 mg PO TID PRN PRN Reason: umbilical pain Last Admin: 04/05/22 14:01 Dose: 50 mg Vitamin D (Cholecalciferol (Vitamin D3) 25 Mcg Tablet) 25 mcg PO DAILY [facility] Last Admin: 04/05/22 08:17 Dose: 25 mcg Allergies Allergies Allergy/AdvReac Type Severity Reaction Status Date / Time No Known Allergies Allergy Verified 12/03/21 01:45 Assessment & Plan Assessment & Plan (1) Adjustment disorder with mixed disturbance of emotions and conduct in remission: Status: Acute Code(s): F43.25 - Adjustment disorder with mixed disturbance of emotions and conduct (2) Bipolar II disorder: Status: Acute Code(s): F31.81 - Bipolar II disorder (3) Post traumatic stress disorder (PTSD): Status: Acute Code(s): F43.10 - Post-traumatic stress disorder, unspecified (4) Cocaine use disorder: Status: Acute Code(s): F14.10 - Cocaine abuse, uncomplicated Plan Patient is a 36-year-old male with history of mood lability, possibly bipolar 2 disorder and substance abuse, recently discharged from 02/13/22 and again from on 03/18/22 who presents for depression and SI in the face of relapse the day of discharge, not taking medications and continued relational strife. Plan: CV Q 15 minute checks Restart home meds 03/27/22 Chest xray Hospitalist consult-productive cough Sputum culture pending Continue psychotropic regime-pt reporting relief of anxiety today. 03/28/22 Increase Adderall XR to 30 mg Continue Rx for strep/pneumonia/bronchitis Discharge planning 03/29/22 Continue current plan. 03/30: Continue current regimen and plans 04/01: Start buspar to 20 mg TID for anxiety. Discontinue seroquel due to reported sedation. 04/02: reports benefit on buspar, c/o pain, hospitalist consult recommended toradol. 04/03: denies benefit on toradol, discussed pain management with hospitalist and she recommended oxycodone IR 5 mg once and surgical consult in the AM. 04/04: Reviewed case with surgeon, Dr. Summers, who recommended OP follow up for hernia and tramadol to manage pain. 04/05: No med changes, pt is stable I spent minutes with the patient and/or on the patient floor today, greater than?50% of which was spent counseling/coordinating care. Patient educated on: medication risk/benefits Reason for contiued inpatient stay Substantial Risk for: med/psych decompensation
[2022-04-05] MEDS: QUEtiapine Fumarate 50 MG TABLET 150 MG PO (20:42)
[2022-04-05] MEDS: Prazosin HCL 1 MG CAPSULE 3 MG PO (20:42)
[2022-04-05] MEDS: Divalproex Sodium 500 MG TABLET.DR 1500 MG PO (20:43)
[2022-04-05 20:45] VITALS: BP 106/67; PULSE 81; RESP 18; TEMP 36.8; O2SAT 96
[2022-04-06] MEDS: Multivitamin TABLET 1 TAB PO (09:23)
[2022-04-06] MEDS: Buprenorphine/Naloxone 8/2 mg FILM 1 FILM SUBLINGUAL (09:23)
[2022-04-06] MEDS: Cholecalciferol (Vitamin D3) 25 MCG TABLET PO (09:23)
[2022-04-06] MEDS: Gabapentin 300 MG CAPSULE 600 MG PO ×3 (09:23→20:47)
[2022-04-06] MEDS: Dextroamphetamine/Amphetamine XR 10 MG CAP.ER.24H 30 MG PO (09:23)
[2022-04-06] MEDS: Ferrous Sulfate 324 MG TABLET.DR PO (09:23)
[2022-04-06] MEDS: FLUoxetine HCl 10 MG CAPSULE 30 MG PO (09:23)
[2022-04-06] MEDS: Nicotine 21 MG PATCH.TD24 TRANSDERMA (09:23)
[2022-04-06] MEDS: busPIRone HCl 10 MG TABLET 20 MG PO ×3 (09:23→20:47)
[2022-04-06] MEDS: QUEtiapine Fumarate 25 MG TABLET PO ×2 (09:26→14:21)
[2022-04-06] MEDS: traMADoL HCL 50 MG TABLET PO ×3 (09:26→20:48)
[2022-04-06] MEDS: Buprenorphine/Naloxone 4/1 mg FILM 1 FILM SUBLINGUAL (17:15)
[2022-04-06 20:45] VITALS: BP 112/66; PULSE 89; RESP 16; TEMP 36.9
[2022-04-06] MEDS: QUEtiapine Fumarate 50 MG TABLET 150 MG PO (20:47)
[2022-04-06] MEDS: Prazosin HCL 1 MG CAPSULE 3 MG PO (20:47)
[2022-04-06] MEDS: Divalproex Sodium 500 MG TABLET.DR 1500 MG PO (20:48)
[2022-04-06] MEDS: cloNIDine HCL 0.1 MG TABLET PO (20:49)
--- NOTE | 2022-04-06 21:19 | P.PNPSI_ITS ---
Subjective Subjective Date of Service: 04/06/22 Reason For Visit: Depression/SI Subjective Notes: [facility] Warning and Conditional Voluntary Healthcare Proxy: No Guardianship: No Medical Problems Affecting Mental Status: No Interim History: Patient seen and discussed with team. Patient evaluated today and upon interview pt reports his Gf still didnt come to bring his clothes or ID, feels pretty stressed out right now and tired of getting lied to. ? In the milieu, patient is safe and appropriate in behavior. Denies SI/SIB/HI upon inquiry. Denies irritability or assaultive ideation. Says he feels safe. Medication Compliance: Yes Side effects from medications: No Attending Groups: Yes Review of Systems Acute medical concerns: No Medical Review of Systems: unchanged Mental Status Exam Mental Status Exam Narrative: A&O. Pt has normal body habitus, tattoos, casual attire. Moderate eye contact, attentive. No Tics or Tremors. No abnormal involuntary movements. Calm, engaged in conversation. Non-pressured speech, spontaneous with regular rate and rhythm, normal volume and prosody. No prolonged speech latency or dysarthria. Mood is stressed,? affect is euthymic. Denies SI/SIB/HI upon inquiry. Denies A/VH or delusional thought content. Thoughts are goal oriented. No known cognitive or memory impairment. Insight/ Judgment limited. Diagnostics Vital Signs (24Hr): Vital Signs - 24 hr 04/06/22 20:45 04/07/22 06:00 Temperature 98.4 F 97.7 F Pulse Rate 89 87 Respiratory Rate 16 16 Blood Pressure 112/66 105/61 Pulse Oximetry 95 Oxygen Delivery Method Room Air BMI result Body Mass Index 27.8 Labs Results: 03/26/22 08:13 03/23/22 03:59 Imaging Radiology Impressions: ITS Impressions Chest X-Ray 03/27/22 13:08 IMPRESSION: Similar appearance of perihilar bronchial wall thickening which can be seen in the setting of bronchitis or reactive airways disease. Abdomen/Pelvis CT 04/01/22 22:27 IMPRESSION: Small periumbilical hernia containing only fat with a tiny amount of fluid seen. No other significant abnormality is detected. Fleischner guidelines were followed. Medications Medications Current Medications Acetaminophen (Acetaminophen 325 Mg Tablet) 650 mg PO Q6H PRN PRN Reason: Headache/Pain Mild Scale (1-3) Last Admin: 04/02/22 11:34 Dose: 650 mg Al Hydroxide/Mg Hydroxide (Magnesium Hydrox/Alum Hydrox 30 Ml Oral.Susp) 30 ml PO Q6H PRN PRN Reason: Heartburn/Nausea Amphetamine/Dextroamphetamine (Dextroamphetamine/Amphetamine Xr 10 Mg Cap.Er.24h) 30 mg PO DAILY [facility] Last Admin: 04/07/22 09:06 Dose: 30 mg Buprenorphine/Naloxone (Buprenorphine/Naloxone 8/2 Mg Film) 1 film SUBLINGUAL DAILY [facility] Last Admin: 04/07/22 09:06 Dose: 1 film Buprenorphine/Naloxone (Buprenorphine/Naloxone 4/1 Mg Film) 1 film SUBLINGUAL DAILY@1700 [facility] Last Admin: 04/06/22 17:15 Dose: 1 film Buspirone HCl (Buspirone Hcl 10 Mg Tablet) 20 mg PO TID [facility] Last Admin: 04/07/22 09:06 Dose: 20 mg Clonidine HCl (Clonidine Hcl 0.1 Mg Tablet) 0.1 mg PO BID PRN; Protocol PRN Reason: anxiety Last Admin: 04/06/22 20:49 Dose: 0.1 mg Divalproex Sodium (Divalproex Sodium 500 Mg Tablet.) 1,500 mg PO BEDTIME [facility] Last Admin: 04/06/22 20:48 Dose: 1,500 mg Ferrous Sulfate (Ferrous Sulfate 324 Mg Tablet.) 324 mg PO DAILY [facility] Last Admin: 04/07/22 09:06 Dose: 324 mg Fluoxetine HCl (Fluoxetine Hcl 10 Mg Capsule) 30 mg PO DAILY [facility] Last Admin: 04/07/22 09:06 Dose: 30 mg Gabapentin (Gabapentin 300 Mg Capsule) 600 mg PO TID [facility] Last Admin: 04/07/22 09:06 Dose: 600 mg Guaifenesin/Dextromethorphan (Guaifenesin Dm 200/20/10 Ml 10 Ml Syrup) 10 ml PO Q6H PRN PRN Reason: productive cough Last Admin: 04/02/22 18:12 Dose: 10 ml Magnesium Hydroxide (Milk Of Magnesia 30 Ml Oral.Susp) 30 ml PO DAILY PRN PRN Reason: Constipation Multivitamins/Vitamin C (Multivitamin Tablet) 1 tab PO DAILY [facility] Last Admin: 04/07/22 09:06 Dose: 1 tab Nicotine (Nicotine 21 Mg Patch.Td24) 21 mg TRANSDERMA DAILY [facility] Last Admin: 04/07/22 09:05 Dose: 21 mg Nicotine Polacrilex (Nicotine Polacrilex 2 Mg Gum) 4 mg BUCCAL Q1H PRN PRN Reason: Nicotine Cravings Last Admin: 03/31/22 08:20 Dose: 4 mg Prazosin HCl (Prazosin Hcl 1 Mg Capsule) 3 mg PO BEDTIME [facility]; Protocol Last Admin: 04/06/22 20:47 Dose: 3 mg Quetiapine Fumarate (Quetiapine Fumarate 50 Mg Tablet) 150 mg PO BEDTIME [facility] Last Admin: 04/06/22 20:47 Dose: 150 mg Quetiapine Fumarate (Quetiapine Fumarate 25 Mg Tablet) 25 mg PO QID PRN PRN Reason: anxiety Last Admin: 04/07/22 09:06 Dose: 25 mg Tramadol HCl (Tramadol Hcl 50 Mg Tablet) 50 mg PO TID PRN PRN Reason: umbilical pain Last Admin: 04/07/22 09:06 Dose: 50 mg Vitamin D (Cholecalciferol (Vitamin D3) 25 Mcg Tablet) 25 mcg PO DAILY [facility] Last Admin: 04/07/22 09:06 Dose: 25 mcg Allergies Allergies Allergy/AdvReac Type Severity Reaction Status Date / Time No Known Allergies Allergy Verified 12/03/21 01:45 Assessment & Plan Assessment & Plan (1) 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 ssion: Status: Acute Code(s): F43.25 - Adjustment disorder with mixed disturbance of emotions and conduct (2) Bipolar II disorder: Status: Acute Code(s): F31.81 - Bipolar II disorder (3) Post traumatic stress disorder (PTSD): Status: Acute Code(s): F43.10 - Post-traumatic stress disorder, unspecified (4) Cocaine use disorder: Status: Acute Code(s): F14.10 - Cocaine abuse, uncomplicated Plan Patient is a 36-year-old male with history of mood lability, possibly bipolar 2 disorder and substance abuse, recently discharged from [facility] 02/13/22 and again from on 03/18/22 who presents for depression and SI in the face of relapse the day of discharge, not taking medications and continued relational strife. Plan: CV Q 15 minute checks Restart home meds 03/27/22 Chest xray Hospitalist consult-productive cough Sputum culture pending Continue psychotropic regime-pt reporting relief of anxiety today. 03/28/22 Increase Adderall XR to 30 mg Continue Rx for strep/pneumonia/bronchitis Discharge planning 03/29/22 Continue current plan. 03/30: Continue current regimen and plans 04/01: Start buspar to 20 mg TID for anxiety. Discontinue seroquel due to reported sedation. 04/02: reports benefit on buspar, c/o pain, hospitalist consult recommended toradol. 04/03: denies benefit on toradol, discussed pain management with hospitalist and she recommended oxycodone IR 5 mg once and surgical consult in the AM. 04/04: Reviewed case with surgeon, Dr. Summers, who recommended OP follow up for hernia and tramadol to manage pain. 04/05: No med changes, pt is stable 04/06: no med changes, pt is feeling stable for discharge, awaiting [facility] bed I spent minutes with the patient and/or on the patient floor today, greater than?50% of which was spent counseling/coordinating care. Patient educated on: therapeutic strategies Reason for contiued inpatient stay Substantial Risk for: med/psych decompensation
[2022-04-07 06:00] VITALS: BP 105/61; PULSE 87; RESP 16; TEMP 36.5; O2SAT 95
[2022-04-07] MEDS: Nicotine 21 MG PATCH.TD24 TRANSDERMA (09:05)
[2022-04-07] MEDS: Gabapentin 300 MG CAPSULE 600 MG PO ×3 (09:06→20:55)
[2022-04-07] MEDS: Cholecalciferol (Vitamin D3) 25 MCG TABLET PO (09:06)
[2022-04-07] MEDS: Dextroamphetamine/Amphetamine XR 10 MG CAP.ER.24H 30 MG PO (09:06)
[2022-04-07] MEDS: Multivitamin TABLET 1 TAB PO (09:06)
[2022-04-07] MEDS: busPIRone HCl 10 MG TABLET 20 MG PO ×3 (09:06→20:58)
[2022-04-07] MEDS: traMADoL HCL 50 MG TABLET PO ×3 (09:06→20:56)
[2022-04-07] MEDS: Buprenorphine/Naloxone 8/2 mg FILM 1 FILM SUBLINGUAL (09:06)
[2022-04-07] MEDS: QUEtiapine Fumarate 25 MG TABLET PO ×3 (09:06→20:57)
[2022-04-07] MEDS: FLUoxetine HCl 10 MG CAPSULE 30 MG PO (09:06)
[2022-04-07] MEDS: Ferrous Sulfate 324 MG TABLET.DR PO (09:06)
--- NOTE | 2022-04-07 10:19 | P.PNPSI_ITS ---
Subjective Subjective Date of Service: 04/07/22 Reason For Visit: Depression/SI Subjective Notes: [facility] Warning and Conditional Voluntary Healthcare Proxy: No Guardianship: No Medical Problems Affecting Mental Status: No Interim History: Patient seen and discussed with team. Patient evaluated today and upon interview he reports he feels disappointed as his gf has not responded to calls or visited, believes she has relapsed. Pt is future oriented and trying to focus on himself, motivated for discharge to [facility]. In the milieu, patient is safe and appropriate in behavior. Denies SI/SIB/HI upon inquiry. Denies irritability or assaultive ideation. Says he feels safe. Medication Compliance: Yes Side effects from medications: No Attending Groups: Yes Review of Systems Acute medical concerns: No Medical Review of Systems: unchanged Mental Status Exam Mental Status Exam Narrative: A&O. Pt has normal body habitus, tattoos, casual attire. Moderate eye contact, attentive. No Tics or Tremors. No abnormal involuntary movements. Calm, engaged in conversation. Non-pressured speech, spontaneous with regular rate and rhythm, normal volume and prosody. No prolonged speech latency or dysarthria. Mood is stressed,? affect is euthymic. Denies SI/SIB/HI upon inquiry. Denies A/VH or delusional thought content. Thoughts are goal oriented. No known cognitive or memory impairment. Insight/ Judgment limited. Diagnostics Vital Signs (24Hr): Vital Signs - 24 hr 04/06/22 20:45 04/07/22 06:00 Temperature 98.4 F 97.7 F Pulse Rate 89 87 Respiratory Rate 16 16 Blood Pressure 112/66 105/61 Pulse Oximetry 95 Oxygen Delivery Method Room Air BMI result Body Mass Index 27.8 Labs Results: 03/26/22 08:13 03/23/22 03:59 Imaging Radiology Impressions: ITS Impressions Chest X-Ray 03/27/22 13:08 IMPRESSION: Similar appearance of perihilar bronchial wall thickening which can be seen in the setting of bronchitis or reactive airways disease. Abdomen/Pelvis CT 04/01/22 22:27 IMPRESSION: Small periumbilical hernia containing only fat with a tiny amount of fluid seen. No other significant abnormality is detected. Fleischner guidelines were followed. Medications Medications Current Medications Acetaminophen (Acetaminophen 325 Mg Tablet) 650 mg PO Q6H PRN PRN Reason: Headache/Pain Mild Scale (1-3) Last Admin: 04/02/22 11:34 Dose: 650 mg Al Hydroxide/Mg Hydroxide (Magnesium Hydrox/Alum Hydrox 30 Ml Oral.Susp) 30 ml PO Q6H PRN PRN Reason: Heartburn/Nausea Amphetamine/Dextroamphetamine (Dextroamphetamine/Amphetamine Xr 10 Mg Cap.Er.24h) 30 mg PO DAILY [facility] Last Admin: 04/07/22 09:06 Dose: 30 mg Buprenorphine/Naloxone (Buprenorphine/Naloxone 8/2 Mg Film) 1 film SUBLINGUAL DAILY [facility] Last Admin: 04/07/22 09:06 Dose: 1 film Buprenorphine/Naloxone (Buprenorphine/Naloxone 4/1 Mg Film) 1 film SUBLINGUAL DAILY@1700 [facility] Last Admin: 04/06/22 17:15 Dose: 1 film Buspirone HCl (Buspirone Hcl 10 Mg Tablet) 20 mg PO TID [facility] Last Admin: 04/07/22 09:06 Dose: 20 mg Clonidine HCl (Clonidine Hcl 0.1 Mg Tablet) 0.1 mg PO BID PRN; Protocol PRN Reason: anxiety Last Admin: 04/06/22 20:49 Dose: 0.1 mg Divalproex Sodium (Divalproex Sodium 500 Mg Tablet.) 1,500 mg PO BEDTIME [facility] Last Admin: 04/06/22 20:48 Dose: 1,500 mg Ferrous Sulfate (Ferrous Sulfate 324 Mg Tablet.) 324 mg PO DAILY [facility] Last Admin: 04/07/22 09:06 Dose: 324 mg Fluoxetine HCl (Fluoxetine Hcl 10 Mg Capsule) 30 mg PO DAILY [facility] Last Admin: 04/07/22 09:06 Dose: 30 mg Gabapentin (Gabapentin 300 Mg Capsule) 600 mg PO TID [facility] Last Admin: 04/07/22 09:06 Dose: 600 mg Guaifenesin/Dextromethorphan (Guaifenesin Dm 200/20/10 Ml 10 Ml Syrup) 10 ml PO Q6H PRN PRN Reason: productive cough Last Admin: 04/02/22 18:12 Dose: 10 ml Magnesium Hydroxide (Milk Of Magnesia 30 Ml Oral.Susp) 30 ml PO DAILY PRN PRN Reason: Constipation Multivitamins/Vitamin C (Multivitamin Tablet) 1 tab PO DAILY [facility] Last Admin: 04/07/22 09:06 Dose: 1 tab Nicotine (Nicotine 21 Mg Patch.Td24) 21 mg TRANSDERMA DAILY [facility] Last Admin: 04/07/22 09:05 Dose: 21 mg Nicotine Polacrilex (Nicotine Polacrilex 2 Mg Gum) 4 mg BUCCAL Q1H PRN PRN Reason: Nicotine Cravings Last Admin: 03/31/22 08:20 Dose: 4 mg Prazosin HCl (Prazosin Hcl 1 Mg Capsule) 3 mg PO BEDTIME [facility]; Protocol Last Admin: 04/06/22 20:47 Dose: 3 mg Quetiapine Fumarate (Quetiapine Fumarate 50 Mg Tablet) 150 mg PO BEDTIME [facility] Last Admin: 04/06/22 20:47 Dose: 150 mg Quetiapine Fumarate (Quetiapine Fumarate 25 Mg Tablet) 25 mg PO QID PRN PRN Reason: anxiety Last Admin: 04/07/22 09:06 Dose: 25 mg Tramadol HCl (Tramadol Hcl 50 Mg Tablet) 50 mg PO TID PRN PRN Reason: umbilical pain Last Admin: 04/07/22 09:06 Dose: 50 mg Vitamin D (Cholecalciferol (Vitamin D3) 25 Mcg Tablet) 25 mcg PO DAILY [facility] Last Admin: 04/07/22 09:06 Dose: 25 mcg Allergies Allergies Allergy/AdvReac Type Severity Reaction Status Date / Time No Known Allergies Allergy Verified 12/03/21 01:45 Assessment & Plan Assessment & Plan (1) Adjustment disorder with mixed disturbance of emotions and conduct in remission: Status: Acute Code(s): F43.25 - Adjustment disorder with mixed disturbance of emotions and conduct (2) Bipolar II disorder: Status: Acute Code(s): F31.81 - Bipolar II disorder (3) Post traumatic stress disorder (PTSD): Status: Acute Code(s): F43.10 - Post-traumatic stress disorder, unspecified (4) Cocaine use disorder: Status: Acute Code(s): F14.10 - Cocaine abuse, uncomplicated Plan Patient is a 36-year-old male with history of mood lability, possibly bipolar 2 disorder and substance abuse, recently discharged from [facility] 02/13/22 and again from on 03/18/22 who presents for depression and SI in the face of relapse the day of discharge, not taking medications and continued relational strife. Plan: CV Q 15 minute checks Restart home meds 03/27/22 Chest xray Hospitalist consult-productive cough Sputum culture pending Continue psychotropic regime-pt reporting relief of anxiety today. 03/28/22 Increase Adderall XR to 30 mg Continue Rx for strep/pneumonia/bronchitis Discharge planning 03/29/22 Continue current plan. 03/30: Continue current regimen and plans 04/01: Start buspar to 20 mg TID for anxiety. Discontinue seroquel due to reported sedation. 04/02: reports benefit on buspar, c/o pain, hospitalist consult recommended toradol. 04/03: denies benefit on toradol, discussed pain management with hospitalist and she recommended oxycodone IR 5 mg once and surgical consult in the AM. 04/04: Reviewed case with surgeon, Dr. Summers, who recommended OP follow up for hernia and tramadol to manage pain. 04/05: No med changes, pt is stable 04/06: No med changes 04/07: No med changes, pt stable for discharge and awaiting placement at [facility], does not want med changes I spent minutes with the patient and/or on the patient floor today, greater than?50% of which was spent counseling/coordinating care. Patient educated on: therapeutic strategies Reason for contiued inpatient stay Substantial Risk for: med/psych decompensation
[2022-04-07] MEDS: cloNIDine HCL 0.1 MG TABLET PO ×2 (14:09→20:56)
[2022-04-07] MEDS: Buprenorphine/Naloxone 4/1 mg FILM 1 FILM SUBLINGUAL (17:14)
[2022-04-07 20:50] VITALS: BP 111/55; PULSE 84; TEMP 36.7; O2SAT 98
[2022-04-07] MEDS: Divalproex Sodium 500 MG TABLET.DR 1500 MG PO (20:57)
[2022-04-07] MEDS: Prazosin HCL 1 MG CAPSULE 3 MG PO (20:58)
[2022-04-07] MEDS: QUEtiapine Fumarate 50 MG TABLET 150 MG PO (21:01)
[2022-04-08 06:00] VITALS: BP 110/63; PULSE 82; RESP 16; TEMP 36.8; O2SAT 98
[2022-04-08] MEDS: Buprenorphine/Naloxone 8/2 mg FILM 1 FILM SUBLINGUAL (08:37)
[2022-04-08] MEDS: Ferrous Sulfate 324 MG TABLET.DR PO (08:37)
[2022-04-08] MEDS: Cholecalciferol (Vitamin D3) 25 MCG TABLET PO (08:37)
[2022-04-08] MEDS: busPIRone HCl 10 MG TABLET 20 MG PO ×2 (08:37→14:12)
[2022-04-08] MEDS: FLUoxetine HCl 10 MG CAPSULE 30 MG PO (08:38)
[2022-04-08] MEDS: Multivitamin TABLET 1 TAB PO (08:38)
[2022-04-08] MEDS: Dextroamphetamine/Amphetamine XR 10 MG CAP.ER.24H 30 MG PO (08:38)
[2022-04-08] MEDS: Gabapentin 300 MG CAPSULE 600 MG PO ×2 (08:38→14:12)
[2022-04-08] MEDS: Nicotine 21 MG PATCH.TD24 TRANSDERMA (09:06)
[2022-04-08] MEDS: QUEtiapine Fumarate 25 MG TABLET PO ×2 (09:06→14:12)
[2022-04-08] MEDS: traMADoL HCL 50 MG TABLET PO ×2 (09:06→14:12)
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
== END 2022-04-08 14:35 | DRG 755 ==
LOC: HO.ED 05:32 → HO.PM5 22:55
PROVIDERS: Admitting Provider Psychiatry & Neurology Psychiatry; Emergency Provider Emergency Medicine; Visit Provider Clinical Nurse Specialist Psychiatric/Mental Health, Adult
DX: F43.25 Adjustment disorder with mixed disturbance of emotions and conduct (principal); J13 Pneumonia due to Streptococcus pneumoniae; R45.851 Suicidal ideations; F17.210 Nicotine dependence, cigarettes, uncomplicated; Z71.6 Tobacco abuse counseling; F31.81 Bipolar II disorder; F43.10 Post-traumatic stress disorder, unspecified; F11.20 Opioid dependence, uncomplicated; F14.10 Cocaine abuse, uncomplicated; Z20.822 Contact with and (suspected) exposure to COVID-19; Z79.899 Other long term (current) drug therapy
CPT/HCPCS: 36415; 71046; 74176; 80048; 80061; 80076; 80164; 80307; 81001; 82077; 82140; 83036; 85025; 85027; 87070; 87077; 87186; 87205; 87389; 87635; 93005; 99285; J1885

== ENCOUNTER 2023-05-13 09:00 | Inpatient (IN) | payer OTHER, SELFPAY ==
--- NOTE | 2023-05-13 | ECG_ITS ---
Test Reason : cocaine use Blood Pressure : / mmHG Vent. Rate : 091 BPM Atrial Rate : 091 BPM P-R Int : 132 ms QRS Dur : 088 ms QT Int : 352 ms P-R-T Axes : 019 078 038 degrees QTc Int : 432 ms Normal sinus rhythm Nonspecific ST and T wave abnormality Abnormal ECG When compared with ECG of 29-MAR-2022 21:22, Nonspecific ST and T wave abnormality is now Present Referred By: Taras Pratt Electronically Signed By:ARCADIO FLAHERTY
[2023-05-13 09:08] VITALS: BMI 22.3
--- NOTE | 2023-05-13 09:22 | ED_ITS ---
HPI - Psych General Chief Complaint: Psychiatric Symptoms Stated Complaint: SI Time Seen by Provider: 05/13/23 09:11 Source: patient and old records reviewed Mode of arrival: ambulatory Limitations: no limitations History of Present Illness HPI Narrative: 37 yo male with PMH of substance abuse and depression who presents with substance abuse drinking and plans to overdose and kill himself. He is not compliant with medications. Last used yesterday. Has not taken his suboxone in 4 to 5 days was taking 24mg per day. MD complaint: suicidal ideation, feels depressed, substance abuse and alcohol abuse Onset (ago): month(s) Duration: getting worse History of same: Yes Relieving factors: none Exacerbating factors: alcohol and drug use Context: recent alcohol abuse, recent drug abuse and significant life stressor Associated psychiatric symptoms: depression and suicidal ideation Associated symptoms: denies other symptoms Treatments prior to arrival: none If self harm: admits thoughts of self harm and has plan Related Data Previous Rx's Medication Instructions Recorded buprenorphine 4 mg-naloxone 1 mg 1 film sublingual DAILY 8 days #8 04/08/22 sublingual film (Suboxone) film buprenorphine 8 mg-naloxone 2 mg 1 film buccal DAILY 7 days #7 ea 04/08/22 sublingual film (Suboxone) buspirone 10 mg tablet 20 mg PO TID #90 tabs 04/08/22 cholecalciferol (vitamin D3) 25 25 mcg PO DAILY #30 tabs 04/08/22 mcg (1,000 unit) tablet clonidine HCl 0.1 mg tablet 0.1 mg PO BID PRN anxiety #30 tabs 04/08/22 dextroamphetamine-amphetamine ER 30 mg PO DAILY #30 caps 04/08/22 30 mg 24hr capsule,extend release (Adderall XR) divalproex 500 mg tablet,delayed 3 tab PO BEDTIME #90 tabs 04/08/22 release ferrous sulfate 324 mg (65 mg 324 mg PO DAILY #30 tabs 04/08/22 iron) tablet,delayed release gabapentin 300 mg capsule 600 mg PO TID #180 caps 04/08/22 multivitamin (Daily-Tiffany tablet) 1 tab PO DAILY #30 tabs 04/08/22 naloxone 4 mg/actuation nasal 4 mg intranasal Q2M PRN opioid 04/08/22 spray (Narcan) overdose #2 ea nicotine (polacrilex) 2 mg gum 4 mg buccal Q1H PRN Nicotine 04/08/22 Cravings #60 ea nicotine 21 mg/24 hr daily 21 mg transdermal DAILY #30 ea 04/08/22 transdermal patch prazosin 1 mg capsule 3 cap PO BEDTIME #90 caps 04/08/22 quetiapine 25 mg tablet 25 mg PO QID PRN anxiety #30 tabs 04/08/22 quetiapine 50 mg tablet 150 mg PO BEDTIME 30 days #90 tabs 04/08/22 tramadol 50 mg tablet (Ultram) 25 mg PO TID PRN umbilical hernia 04/08/22 pain #11 tabs fluoxetine 10 mg capsule (Prozac) 10 mg PO DAILY #30 caps 04/09/22 fluoxetine 20 mg capsule (Prozac) 20 mg PO DAILY #30 caps 04/09/22 Allergies Allergy/AdvReac Type Severity Reaction Status Date / Time No Known Allergies Allergy Verified 12/03/21 01:45 Review of Systems Review of Systems: Constitutional : No Fever, No Chills Cardiovascular : No Chest Pain, No SOB Respiratory : No Cough, No Sputum, No Dyspnea Gastrointestinal : No Nausea, No Vomiting, No Diarrhea, No Hematochezia, No Melena Genitourinary : No Dysuria, No Urinary Frequency, No Hematuria Musculoskeletal : No Myalgias Skin : No Skin Lesions, No rash Neuro : No Weakness, No Numbness, No Paresthesias, No Dizziness, No Headache Psych : positive Anxiety, positive Depression, positive SI no HI All other systems reviewed and are negative PMFSH Past Medical History Attestation statement: The following information was validated with the patient. Medical History Depression Depression Opioid use disorder Substance abuse Suicidal ideation Umbilical hernia Social History Social History Household Members: None Household Members Other:: girlfriend Housing: Homeless Housing Other:: can't stay with gf. can live with friend Do you presently have visiting nurse or other home services: No Patient Tobacco Use Status: Current everyday Tobacco user Tobacco use type: Cigarette Cigarette Packs Per Day: 1 Cigarettes Per Day: 1 Years Smoked: 18+ e-Cigarette/Vaping Use: Currently Using Second Hand Smoke Exposure: Yes Substance Use Type: Crack/Cocaine Advance Directives: No Advance Directives Information Provided: Yes service: No Sexual orientation: Straight/Heterosexual Physical Exam Vital Signs: Vital Signs: BMI result Body Mass Index 22.3 Appearance: Alert. Oriented X3. No acute distress. Eyes: Pupils equal, round and reactive to light. ENT: Pharynx normal. Neck: Normal inspection. Neck supple. CVS: Normal heart rate and rhythm. Pulses normal. Respiratory: No respiratory distress. Breath sounds normal. Abdomen: Soft and nontender. Skin: Skin warm and dry. Normal skin color. Normal skin turgor. Extremities: No lower extremity edema. Neuro: Oriented X 3. No motor deficit. No sensory deficit. CN2-12 intact Course Course Course Narrative: Physician observation started at 1013am Patient placed in physician observation because the patient needed more time for CARE to assess the need for psych admission. At the time observation was started the patient's vitals were stable, patient is alert and oriented , Neuro: nonfocal, CV RRR, Lungs clear Medical Decision Making Medical Decision Making MDM Narrative: 37 yo male with PMH of substance abuse and bipolar disorder here with c/o SI and wanting to overdose at this time will obtain basic labs and refer to CARE team. Pending scoring and recent use may need to be put back on suboxone. Dispo p ending CARE team assessments. Has been admitted here before. Differential Diagnosis Differential Diagnoses: The differential diagnosis associated with the presentation includes substance abuse, mental health crisis Admission/Observation Consideration of admission/observation: Escalation of care including admission/observation considered observe until CARE team assessments Consult Healthcare Provider Management of the patient was discussed with: Behavioral Health Provider Lab Data [facility] Lab Attestation statement: I reviewed the patient's lab results. 05/13/23 09:38 05/13/23 09:38 Labs: Lab Results 05/13/23 05/13/23 05/13/23 Range/Units 09:38 09:38 09:38 WBC 8.2 (4.8-10.8) X10*3/uL RBC 4.84 D (4.60-5.80) X10*6/uL Hgb 13.8 L (14.0-18.0) g/dl Hct 40.4 L (42.0-52.0) % MCV 83.5 (80.0-98.0) fL MCH 28.5 (27.0-33.0) pg MCHC 34.2 (31.0-36.0) g/dl RDW 13.7 (11.0-16.0) % Plt Count 260 (160-400) X10*3/uL MPV 11.4 (9.4-12.4) fL Immature Gran % (Auto) 0.1 (0.0-0.4) % Neut % (Auto) 58.5 (45-73) % Lymph % (Auto) 26.7 (20-40) % [place] % (Auto) 9.7 (2-11) % Eos % (Auto) 3.9 (0-4) % Baso % (Auto) 1.1 (0-2) % Lymph # (Auto) 2.2 (1.2-4.9) X10*3/uL [place] # (Auto) 0.8 (0.1-1.2) X10*3/uL Eos # (Auto) 0.3 (0.0-0.4) X10*3/uL Baso # (Auto) 0.1 (0.0-0.2) X10*3/uL Abs Immat Gran (auto) 0.01 (0.00-0.03) X10*3/uL Absolute Neuts (auto) 4.8 (2.0-8.3) x10*3/uL Absolute Nucleated RBC 0.000 (0.0-0.012) X10*3/uL Nucleated RBC % (auto) 0.0 (0.0-0.2) /100WBC Sodium 138 (135-145) mmol/L Potassium 3.0 L (3.3-5.1) mmol/L Chloride 104 (96-108) mmol/L Carbon Dioxide 25 (22-29) mmol/L Anion Gap 12 (12-20) BUN 14 (9-16) mg/dL Creatinine 0.76 (0.5-1.4) mg/dL Estim Creat Clear Calc 137.9 Estimated GFR > 60 Random Glucose 114 (60-115) mg/dL Calcium 10.0 D (8.4-10.2) mg/dL Total Bilirubin 0.6 (0.0-1.0) mg/dL Direct Bilirubin 0.2 (0.0-0.5) mg/dL AST 32 (5-37) U/L ALT 23 (0-40) U/L Alkaline Phosphatase 113 (39-117) U/L Total Protein 7.9 (6.5-8.0) g/dL Albumin 4.3 (3.5-5.0) g/dL Urine Opiates Screen (Not Detect) Urine Fentanyl Screen (Not Detect) Ur Barbiturates Screen (Not Detect) Valproic Acid < 12.5 L (50.0-100.0) mcg/mL Ur Phencyclidine Scrn (Not Detect) Ur Amphetamines Screen (Not Detect) U Benzodiazepines Scrn (Not Detect) Urine Cocaine Screen (Not Detect) U Marijuana (THC) Screen (Not Detect) Ethyl Alcohol 24 mg/dL 05/13/23 Range/Units 09:38 WBC (4.8-10.8) X10*3/uL RBC (4.60-5.80) X10*6/uL Hgb (14.0-18.0) g/dl Hct (42.0-52.0) % MCV (80.0-98.0) fL MCH (27.0-33.0) pg MCHC (31.0-36.0) g/dl RDW (11.0-16.0) % Plt Count (160-400) X10*3/uL MPV (9.4-12.4) fL Immature Gran % (Auto) (0.0-0.4) % Neut % (Auto) (45-73) % Lymph % (Auto) (20-40) % [place] % (Auto) (2-11) % Eos % (Auto) (0-4) % Baso % (Auto) (0-2) % Lymph # (Auto) (1.2-4.9) X10*3/uL [place] # (Auto) (0.1-1.2) X10*3/uL Eos # (Auto) (0.0-0.4) X10*3/uL Baso # (Auto) (0.0-0.2) X10*3/uL Abs Immat Gran (auto) (0.00-0.03) X10*3/uL Absolute Neuts (auto) (2.0-8.3) x10*3/uL Absolute Nucleated RBC (0.0-0.012) X10*3/uL Nucleated RBC % (auto) (0.0-0.2) /100WBC Sodium (135-145) mmol/L Potassium (3.3-5.1) mmol/L Chloride (96-108) mmol/L Carbon Dioxide (22-29) mmol/L Anion Gap (12-20) BUN (9-16) mg/dL Creatinine (0.5-1.4) mg/dL Estim Creat Clear Calc Estimated GFR Random Glucose (60-115) mg/dL Calcium (8.4-10.2) mg/dL Total Bilirubin (0.0-1.0) mg/dL Direct Bilirubin (0.0-0.5) mg/dL AST (5-37) U/L ALT (0-40) U/L Alkaline Phosphatase (39-117) U/L Total Protein (6.5-8.0) g/dL Albumin (3.5-5.0) g/dL Urine Opiates Screen Not Detected (Not Detect) Urine Fentanyl Screen Not Detected (Not Detect) Ur Barbiturates Screen Not Detected (Not Detect) Valproic Acid (50.0-100.0) mcg/mL Ur Phencyclidine Scrn Not Detected (Not Detect) Ur Amphetamines Screen Not Detected (Not Detect) U Benzodiazepines Scrn Not Detected (Not Detect) Urine Cocaine Screen POSITIVE H (Not Detect) U Marijuana (THC) Screen POSITIVE H (Not Detect) Ethyl Alcohol mg/dL External Record Review External record reviewed: Inpatient record Social Determinants Patient?s care significantly limited by Social Determinants of Health including: Problems related to primary support group Discharge Plan Discharge Clinical Impression: Cocaine use disorder, Suicidal ideation Patient Disposition: Still a Patient Prescriptions: No Action clonidine HCl 0.1 mg Tablet 0.1 mg PO BID PRN (Reason: anxiety) Qty: 30 1RF Protocol: Hold for SBP< HOLD for SBP < : 90 nicotine (polacrilex) 2 mg Gum 4 mg buccal Q1H PRN (Reason: Nicotine Cravings) Qty: 60 0RF buspirone 10 mg Tablet 20 mg PO TID Qty: 90 0RF nicotine 21 mg/24 hr Patch 24 Hour 21 mg transdermal DAILY Qty: 30 0RF gabapentin 300 mg Capsule 600 mg PO TID Qty: 180 0RF ferrous sulfate 324 mg (65 mg iron) Tablet,Delayed Release (Dr/Ec) 324 mg PO DAILY Qty: 30 0RF multivitamin [Daily-Tiffany] Tablet 1 tab PO DAILY Qty: 30 0RF quetiapine 25 mg Tablet 25 mg PO QID PRN (Reason: anxiety) Qty: 30 0RF cholecalciferol (vitamin D3) 25 mcg (1,000 unit) Tablet 25 mcg PO DAILY Qty: 30 0RF dextroamphetamine-amphetamine [Adderall XR] 30 mg capsule,extended release 24hr 30 mg PO DAILY Qty: 30 0RF Rx Instructions: Partial Fill upon patient request. prazosin 1 mg capsule 3 cap PO BEDTIME Qty: 90 0RF divalproex 500 mg tablet,delayed release (DR/EC) 3 tab PO BEDTIME Qty: 90 0RF quetiapine 50 mg Tablet 150 mg PO BEDTIME 30 Days Qty: 90 0RF naloxone [Narcan] 4 mg/actuation spray,non-aerosol 4 mg intranasal Q2M PRN (Reason: opioid overdose) Qty: 2 0RF Rx Instructions: spray 1 dose into ONE nostril; alternate nostrils w each dose until help arrives tramadol [Ultram] 50 mg tablet 25 mg PO TID PRN (Reason: umbilical hernia pain) Qty: 11 2RF buprenorphine-naloxone [Suboxone] 4-1 mg film 1 film sublingual DAILY 8 Days Qty: 8 0RF Rx Instructions: daily at 5 pm buprenorphine-naloxone [Suboxone] 8-2 mg film 1 film buccal DAILY 7 Days Qty: 7 0RF fluoxetine [Prozac] 20 mg capsule 20 mg PO DAILY Qty: 30 0RF Rx Instructions: Total dosage 30 mg daily fluoxetine [Prozac] 10 mg capsule 10 mg PO DAILY Qty: 30 0RF
--- NOTE | 2023-05-13 09:22 | PC.NURSE ---
SI w/ plan to OD. Reports daily drinker of 5-6 nips w/ multiple beers daily for a long time . use of crack cocaine use daily. Suboxone out pt. No suboxone in 6+ days. Denies HI/AH/VH. Reported drinking 1 nip today. Denies seizure hx w/ withdrawals.
[2023-05-13 09:44] LABS: MANUAL DIFF FLAG NO
[2023-05-13 09:45] LABS: Basophils Absolute Auto 0.1 X10*3/uL (0.0-0.2); Basophils Percent Auto 1.1 % (0-2); Eosinophils Absolute Auto 0.3 X10*3/uL (0.0-0.4); Eosinophils Percent Auto 3.9 % (0-4); Hematocrit 40.4 % (42.0-52.0); Hemoglobin 13.8 g/dl (14.0-18.0); Imm Gran Abs Auto 0.01 X10*3/uL (0.00-0.03); Imm Gran Pct Auto 0.1 % (0.0-0.4); Lymphocytes Absolute Auto 2.2 X10*3/uL (1.2-4.9); Lymphocytes Percent Auto 26.7 % (20-40); Mean Corpuscular HGB Conc 34.2 g/dl (31.0-36.0); Mean Corpuscular Hemoglobin 28.5 pg (27.0-33.0); Mean Corpuscular Volume 83.5 fL (80.0-98.0); Mean Platelet Volume 11.4 fL (9.4-12.4); Monocytes Absolute Auto 0.8 X10*3/uL (0.1-1.2); Monocytes Percent Auto 9.7 % (2-11); Neutrophils Absolute Auto 4.8 x10*3/uL (2.0-8.3); Neutrophils Percent Auto 58.5 % (45-73); Platelet Count 260 X10*3/uL (160-400); Red Blood Count 4.84 X10*6/uL (4.60-5.80); Red Cell Distribution Width 13.7 % (11.0-16.0); White Blood Count 8.2 X10*3/uL (4.8-10.8)
[2023-05-13 09:59] LABS: Amphetamine Screen Urine Not Detected (Not Detect); Barbiturates, Urine Not Detected (Not Detect); Benzodiazepines Screen Urine Not Detected (Not Detect); Cannabinoid Screen Urine POSITIVE (Not Detect); Cocaine Screen Urine POSITIVE (Not Detect); Fentanyl, urine Not Detected (Not Detect); Opiate Screen Urine Not Detected (Not Detect); Phencyclidine Screen Urine Not Detected (Not Detect)
[2023-05-13 10:07] LABS: Alanine Aminotransferase 23 U/L (0-40); Albumin Level 4.3 g/dL (3.5-5.0); Alkaline Phosphatase 113 U/L (39-117); Anion Gap 12 (12-20); Aspartate Amino Transferase 32 U/L (5-37); Bilirubin Direct 0.2 mg/dL (0.0-0.5); Bilirubin Total 0.6 mg/dL (0.0-1.0); Blood Urea Nitrogen 14 mg/dL (9-16); Carbon Dioxide 25 mmol/L (22-29); Chloride 104 mmol/L (96-108); Creatinine Clr Calc Pharmacy 137.9; Estimated Glomerular Filt Rate > 60; Ethanol 24 mg/dL; Glucose Random 114 mg/dL (60-115); Sodium 138 mmol/L (135-145); Total Protein 7.9 g/dL (6.5-8.0)
[2023-05-13 10:11] LABS: Valproate < 12.5 mcg/mL (50.0-100.0)
[2023-05-13] MEDS: Potassium Chloride ER 20 MEQ TAB.ER.PRT 40 MEQ PO (10:20)
[2023-05-13 13:16] VITALS: BP 117/83; PULSE 96; RESP 18; TEMP 36.3; O2SAT 97
--- NOTE | 2023-05-13 13:20 | PC.NURSE ---
Resting quietly in bed. Awating pt to give urine for UA. No apparent distrss.
[2023-05-13 13:42] LABS: Appearance Urine Clear; Color Urine Dark Yellow; Glucose Urine UA Negative (Negative); Leukocyte Esterase Urine Negative (Negative); Nitrite Urine Negative (Negative); Specific Gravity - Urine >= 1.030 (1.005-1.025); UMIC TRIGGER UACC YES; Urine Blood Negative (Negative); Urine Ketones Trace mg/dL (Negative); Urine Protein 30 (1+) mg/dL (Neg-Trace)
[2023-05-13 13:46] LABS: Bacteria Urine None Seen (None Seen); Hyaline Casts Urine 0-2 /LPF (0-2); Squamous Epithelial Cell Urine 0-2 /HPF (0-2); WBC Urine 0-5 /HPF (0-5)
[2023-05-13 14:00] VITALS: PULSE 96
--- NOTE | 2023-05-13 17:19 | PC.NURSE ---
pt up to ask for gingerale then went back to bed. last CIWA score 0. no complaints.
[2023-05-13] MEDS: LORazepam 1 MG TABLET 2 MG PO (18:02)
[2023-05-13 19:33] LABS: COVID-19 Test Negative (Negative); IDNOW Serial# 08D9AD1C
[2023-05-13 23:10] VITALS: BP 135/87; PULSE 97; RESP 18; TEMP 36.4; O2SAT 97
[2023-05-13 23:58] VITALS: BMI 23.6
[2023-05-13 23:59] VITALS: BP 135/87; PULSE 97; RESP 18; TEMP 36.4; O2SAT 97
--- NOTE | 2023-05-14 00:10 | PC.ADMIT ---
Addendum entered by Carol Ann Waller RN 05/14/23 00:19: patient has signed a conditional voluntary Original Note: Vidal is admitted for suicidal ideation with a plan to overdose on heroin. his admitting diagnosis is unspecified depressive d/o and PSA. He is pleasant and cooperative with the admission process. Although the patient did not give a reason for his feelings of suicidal ideation, he states that he is safe on the unit despite having vague underlying suicidal thoughts. he states his only goal for this admission is to get into a treatment program. he states that he is a daily drinker and is currently receiving suboxone treatment . he is pleasant, cooperative, and oriented on all spheres. Patient has declined to sign consent for any family members. all admission documentation completed CIWA for ETOH withdrawal initiated. treatment plan initiated, oriented to unit, monitor for safety
[2023-05-14] MEDS: LORazepam 1 MG TABLET 2 MG PO ×2 (00:39→12:41)
[2023-05-14] MEDS: Prazosin HCL 1 MG CAPSULE 3 MG PO ×2 (00:40→21:13)
[2023-05-14] MEDS: QUEtiapine Fumarate 50 MG TABLET 150 MG PO ×2 (00:40→21:13)
[2023-05-14 06:00] VITALS: BP 118/72; PULSE 109; RESP 17; TEMP 36.7; O2SAT 97
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
[2023-05-14] MEDS: Docusate Sodium 100 MG CAPSULE PO ×2 (09:22→21:13)
[2023-05-14] MEDS: FLUoxetine HCl 20 MG CAPSULE PO (09:22)
[2023-05-14] MEDS: Nicotine 21 MG PATCH.TD24 TRANSDERMA (09:22)
[2023-05-14] MEDS: FLUoxetine HCl 10 MG CAPSULE PO (09:22)
[2023-05-14 10:52] LABS: Alanine Aminotransferase 18 U/L (0-40); Albumin Level 3.7 g/dL (3.5-5.0); Alkaline Phosphatase 106 U/L (39-117); Anion Gap 10 (12-20); Aspartate Amino Transferase 23 U/L (5-37); Bilirubin Total 0.4 mg/dL (0.0-1.0); Blood Urea Nitrogen 11 mg/dL (9-16); Calcium 9.5 mg/dL (8.4-10.2); Carbon Dioxide 27 mmol/L (22-29); Chloride 107 mmol/L (96-108); Cholesterol 152 mg/dL (<200); Creatinine Clr Calc Pharmacy 155.3; Estimated Glomerular Filt Rate > 60; Glucose Fasting 122 mg/dL (60-99); HDL Cholesterol 53 mg/dL (>40); LDL Cholesterol Calculated 80 mg/dL (<100); Potassium 3.1 mmol/L (3.3-5.1); Sodium 141 mmol/L (135-145); Total Protein 6.9 g/dL (6.5-8.0); Triglycerides 98 mg/dL (<150)
[2023-05-14 10:58] LABS: Estimated Average Glucose 100 mg/dL; Hemoglobin A1c % 5.1 % (<6.0)
[2023-05-14 11:13] LABS: Free T4 (Free Thyroxine) 1.06 ng/dL (0.71-1.85); Thyroid Stimulating Hormone 0.69 uIU/mL (0.32-4.0)
[2023-05-14 11:24] LABS: Vitamin B12 890 pg/mL (200-900)
[2023-05-14] MEDS: Thiamine HCL 100 MG TABLET 50 MG PO (12:40)
[2023-05-14] MEDS: Gabapentin 300 MG CAPSULE PO (12:41)
[2023-05-14] MEDS: Folic Acid 1 MG TABLET PO (12:41)
[2023-05-14] MEDS: Divalproex Sodium 500 MG TABLET.DR PO ×2 (12:42→21:13)
[2023-05-14] MEDS: Multivitamin TABLET 1 TAB PO (12:42)
[2023-05-14 18:00] VITALS: BP 112/72; PULSE 68; RESP 16; TEMP 36.8; O2SAT 96
[2023-05-14] MEDS: cloNIDine HCL 0.1 MG TABLET PO (21:20)
[2023-05-14] MEDS: Acetaminophen 325 MG TABLET 650 MG PO (21:20)
[2023-05-14] MEDS: LORazepam 1 MG TABLET PO (21:20)
[2023-05-15 07:55] VITALS: BP 113/79; PULSE 120; RESP 16; TEMP 36.4; O2SAT 98
--- NOTE | 2023-05-15 08:52 | HO.PSYCHPN ---
Subjective Subjective Date of Service: 05/15/23 Reason For Visit: Depression Subjective Notes: Conditional Voluntary Interim History: Reviewed in team and . Patient reports feeling better than yesterday . Pt stated, I think the medications are helping me feel better . Pt reports he is hoping to get into a substance abuse program soon. Denies SI. Medication Compliance: Yes Side effects from medications: No Attending Groups: No Review of Systems Review of Systems Constitutional : No Fever, No Chills Cardiovascular : No Chest Pain, No SOB Respiratory : No Cough, No Sputum, No Dyspnea Gastrointestinal : No Nausea, No Vomiting, No Diarrhea, No Hematochezia, No Melena Genitourinary : No Dysuria, No Urinary Frequency, No Hematuria Musculoskeletal : No Myalgias Skin : No Skin Lesions, No rash Neuro : No Weakness, No Numbness, No Paresthesias, No Dizziness, No Headache Psych : positive Anxiety, positive Depression, positive SI no HI All other systems reviewed and are negative Constitutional: Reports as per HPI Eyes: Reports as per HPI Reports as per HPI Cardiovascular: Reports as per HPI Respiratory: Reports as per HPI Gastrointestinal: Reports as per HPI Genitourinary: Reports as per HPI Musculoskeletal: Reports as per HPI Skin/Breast: Reports as per HPI Reports as per HPI Psychiatric: Reports as per HPI Endocrine: Reports as per HPI Hematologic/Lymphatic: Reports as per HPI Allergic/Immunologic: Reports as per HPI Mental Status Exam Mental Status Exam Narrative: Pt is alert and oriented; behavior is cooperative and calm; dressed in casual attire; mood is described as okay ; eye contact appropriate; Speech is normal rate, volume and prosody and not pressured; no psychomotor agitation/retardation present; thought process is organized and goal directed; Thought content is on tx; otherwise pertinent to relevant topics and without any delusional content, paranoid ideations or grandiosity; denies SI/HI. There is no evidence of perceptual disturbance. Patients insight and judgment are poor but improving. Diagnostics Vital Signs (24Hr): Vital Signs - 24 hr 05/14/23 18:00 05/15/23 07:55 Temperature 98.2 F 97.5 F Pulse Rate 68 120 H Respiratory Rate 16 16 Blood Pressure 112/72 113/79 Pulse Oximetry 96 98 Oxygen Delivery Method Room Air Room Air BMI result Body Mass Index 23.6 Labs 05/13/23 09:38 05/14/23 09:39 Labs: Laboratory Results - last 48 hr 05/13/23 05/13/23 05/13/23 09:38 13:27 19:12 WBC 8.2 RBC 4.84 D Hgb 13.8 L Hct 40.4 L MCV 83.5 MCH 28.5 MCHC 34.2 RDW 13.7 Plt Count 260 MPV 11.4 Immature Gran % (Auto) 0.1 Neut % (Auto) 58.5 Lymph % (Auto) 26.7 [place] % (Auto) 9.7 Eos % (Auto) 3.9 Baso % (Auto) 1.1 Lymph # (Auto) 2.2 [place]ess # (Auto) 0.8 Eos # (Auto) 0.3 Baso # (Auto) 0.1 Abs Immat Gran (auto) 0.01 Absolute Neuts (auto) 4.8 Absolute Nucleated RBC 0.000 Nucleated RBC % (auto) 0.0 Sodium 138 Potassium 3.0 L Chloride 104 Carbon Dioxide 25 Anion Gap 12 BUN 14 Creatinine 0.76 Estim Creat Clear Calc 137.9 Estimated GFR > 60 Random Glucose 114 Fasting Glucose Estimat Average Glucose Hemoglobin A1c % Calcium 10.0 D Total Bilirubin 0.6 Direct Bilirubin 0.2 AST 32 ALT 23 Alkaline Phosphatase 113 Total Protein 7.9 Albumin 4.3 Triglycerides Cholesterol LDL Cholesterol, Calc HDL Cholesterol Vitamin B12 Folate TSH Free T4 Urine Color Dark Yellow Urine Appearance Clear Urine pH 6.0 Ur Specific [place] >= 1.030 H Urine Protein 30 (1+) H Urine Glucose (UA) Negative Urine Ketones Trace Urine Blood Negative Urine Nitrite Negative Ur Leukocyte Esterase Negative Urine RBC 3-5 H Urine WBC 0-5 Ur Squamous Epith Cells 0-2 Urine Bacteria None Seen Hyaline Casts 0-2 Urine Opiates Screen Not Detected Urine Fentanyl Screen Not Detected Ur Barbiturates Screen Not Detected Valproic Acid < 12.5 L Ur Phencyclidine Scrn Not Detected Ur Amphetamines Screen Not Detected U Benzodiazepines Scrn Not Detected Urine Cocaine Screen POSITIVE H U Marijuana (THC) Screen POSITIVE H Ethyl Alcohol 24 COVID-19 (ML) Negative COVID-19 Clin Com See Note 05/14/23 09:39 WBC RBC Hgb Hct MCV MCH MCHC RDW Plt Count MPV Immature Gran % (Auto) Neut % (Auto) Lymph % (Auto) [place] % (Auto) Eos % (Auto) Baso % (Auto) Lymph # (Auto) Ness # (Auto) Eos # (Auto) Baso # (Auto) Abs Immat Gran (auto) Absolute Neuts (auto) Absolute Nucleated RBC Nucleated RBC % (auto) Sodium 141 Potassium 3.1 L Chloride 107 Carbon Dioxide 27 Anion Gap 10 L BUN 11 Creatinine 0.70 Estim Creat Clear Calc 155.3 Estimated GFR > 60 Random Glucose Fasting Glucose 122 H Estimat Average Glucose 100 Hemoglobin A1c % 5.1 Calcium 9.5 Total Bilirubin 0.4 Direct Bilirubin AST 23 ALT 18 Alkaline Phosphatase 106 Total Protein 6.9 Albumin 3.7 Triglycerides 98 Cholesterol 152 LDL Cholesterol, Calc 80 HDL Cholesterol 53 Vitamin B12 890 Folate 5.0 TSH 0.69 Free T4 1.06 Urine Color Urine Appearance Urine pH Ur Specific [place] Urine Protein Urine Glucose (UA) Urine Ketones Urine Blood Urine Nitrite Ur Leukocyte Esterase Urine RBC Urine WBC Ur Squamous Epith Cells Urine Bacteria Hyaline Casts Urine Opiates Screen Urine Fentanyl Screen Ur Barbiturates Screen Valproic Acid Ur Phencyclidine Scrn Ur Amphetamines Screen U Benzodiazepines Scrn Urine Cocaine Screen U Marijuana (THC) Screen Ethyl Alcohol COVID-19 (ML) COVID-19 Clin Com Medications Medications Current Medications Acetaminophen (Acetaminophen 325 Mg Tablet) 650 mg PO Q6H PRN PRN Reason: Headache/Pain Mild Scale (1-3) Last Admin: 05/14/23 21:20 Dose: 650 mg Al Hydroxide/Mg Hydroxide (Magnesium Hydrox/Alum Hydrox 30 Ml Oral.Susp) 30 ml PO Q6H PRN PRN Reason: Heartburn/Nausea Clonidine HCl (Clonidine Hcl 0.1 Mg Tablet) 0.1 mg PO BID PRN; Protocol PRN Reason: anxiety Last Admin: 05/14/23 21:20 Dose: 0.1 mg Divalproex Sodium (Divalproex Sodium 500 Mg Tablet.Dr) 500 mg PO BID [facility] Last Admin: 05/14/23 21:13 Dose: 500 mg Docusate Sodium (Docusate Sodium 100 Mg Capsule) 100 mg PO BID [facility] Last Admin: 05/14/23 21:13 Dose: 100 mg Fluoxetine HCl (Fluoxetine Hcl 10 Mg Capsule) 10 mg PO DAILY [facility] Last Admin: 05/14/23 09:22 Dose: 10 mg Fluoxetine HCl (Fluoxetine Hcl 20 Mg Capsule) 20 mg PO DAILY [facility] Last Admin: 05/14/23 09:22 Dose: 20 mg Folic Acid (Folic Acid 1 Mg Tablet) 1 mg PO DAILY [facility] Last Admin: 05/14/23 12:41 Dose: 1 mg Gabapentin (Gabapentin 300 Mg Capsule) 300 mg PO DAILY [facility] Last Admin: 05/14/23 12:41 Dose: 300 mg Lorazepam (Lorazepam 1 Mg Tablet) 1 mg PO Q2H PRN PRN Reason: CIWA 6-12 Last Admin: 05/14/23 21:20 Dose: 1 mg Lorazepam (Lorazepam 1 Mg Tablet) 2 mg PO Q2H PRN PRN Reason: CIWA 13 and above Magnesium Hydroxide (Milk Of Magnesia 30 Ml Oral.Susp) 30 ml PO DAILY PRN PRN Reason: Constipation Multivitamins/Vitamin C (Multivitamin Tablet) 1 tab PO DAILY [facility] Last Admin: 05/14/23 12:42 Dose: 1 tab Nicotine (Nicotine 21 Mg Patch.Td24) 21 mg TRANSDERMA DAILY [facility] Last Admin: 05/14/23 09:22 Dose: 21 mg Nicotine Polacrilex (Nicotine Polacrilex 2 Mg Gum) 4 mg BUCCAL Q1H PRN PRN Reason: Nicotine Cravings Prazosin HCl (Prazosin Hcl 1 Mg Capsule) 3 mg PO BEDTIME [facility]; Protocol Last Admin: 05/14/23 21:13 Dose: 3 mg Quetiapine Fumarate (Quetiapine Fumarate 50 Mg Tablet) 150 mg PO BEDTIME [facility] Last Admin: 05/14/23 21:13 Dose: 150 mg Quetiapine Fumarate (Quetiapine Fumarate 25 Mg Tablet) 25 mg PO QID PRN PRN Reason: anxiety Thiamine HCl (Thiamine Hcl 100 Mg Tablet) 50 mg PO DAILY [facility] Last Admin: 05/14/23 12:40 Dose: 50 mg Trazodone HCl (Trazodone Hcl 50 Mg Tablet) 50 mg PO BEDTIME [id number] PRN PRN Reason: Insomnia Allergies Allergies Allergy/AdvReac Type Severity Reaction Status Date / Time No Known Allergies Allergy Verified 05/13/23 17:45 Assessment & Plan Assessment & Plan (1) Bipolar disorder: Status: Acute Code(s): F31.9 - Bipolar disorder, unspecified (2) Alcohol use disorder, severe, dependence: Status: Acute Code(s): F10.20 - Alcohol dependence, uncomplicated (3) Cocaine use disorder: Status: Acute Code(s): F14.10 - Cocaine abuse, uncomplicated Plan Patient is a 37 year old male with hx of Bipolar d/o, cocaine abuse and ETOH abuse who self presented to [facility] ER d/t suicidal ideation with plan to overdose on heroin secondary to medication noncompliance and increased depressive symptoms. Plan: CV 15 minute safety checks Restart on home medications CIWA Referral to substance abuse program 05/15: Patient reports feeling better than yesterday . Pt stated, I think the medications are helping me feel better . Pt reports he is hoping to get into a substance abuse program soon. Denies SI. Continues to score on CIWA. Continue current tx plan. Patient educated on: diagnosis, medication risk/benefits, substance abuse and therapeutic strategies Informed Consent: understands Reason for continued inpatient stay Substantial Risk for: med/psych decompensation Time Spent With Patient Time: Total time managing care of this patient today _30___ minutes.
[2023-05-15] MEDS: FLUoxetine HCl 20 MG CAPSULE PO (09:12)
[2023-05-15] MEDS: Folic Acid 1 MG TABLET PO (09:12)
[2023-05-15] MEDS: Docusate Sodium 100 MG CAPSULE PO ×2 (09:12→23:38)
[2023-05-15] MEDS: Divalproex Sodium 500 MG TABLET.DR PO ×2 (09:12→20:53)
[2023-05-15] MEDS: Gabapentin 300 MG CAPSULE PO (09:12)
[2023-05-15] MEDS: Thiamine HCL 100 MG TABLET 50 MG PO (09:13)
[2023-05-15] MEDS: FLUoxetine HCl 10 MG CAPSULE PO (09:13)
[2023-05-15] MEDS: Multivitamin TABLET 1 TAB PO (09:13)
[2023-05-15] MEDS: Buprenorphine/Naloxone 12/3 mg FILM 1 FILM SUBLINGUAL ×2 (11:33→20:53)
[2023-05-15 20:35] VITALS: BP 125/71; PULSE 102; RESP 18; TEMP 36.6; O2SAT 97
[2023-05-15] MEDS: QUEtiapine Fumarate 50 MG TABLET 150 MG PO (20:50)
[2023-05-15] MEDS: Prazosin HCL 1 MG CAPSULE 3 MG PO (20:52)
--- NOTE | 2023-05-16 08:55 | P.PNPSI_ITS ---
Subjective Subjective Date of Service: 05/16/23 Reason For Visit: Depression Subjective Notes: Conditional Voluntary Interim History: Reviewed in team and . Patient reports feeling a lot better than when I came in . Pt states he plans on starting to attend groups since he is no longer having withdrawal symptoms. NIRAJ GROVER'rachna. He is hoping to get into a substance abuse program soon; wants to remain sober and return to [place]. Denies SI/HI/VH/AH. Pt is c/o of bilateral pain around nipples; denies any discharge. Will place hospitalist consult. Medication Compliance: Yes Side effects from medications: No Attending Groups: Yes Review of Systems Review of Systems Constitutional : No Fever, No Chills Cardiovascular : No Chest Pain, No SOB Respiratory : No Cough, No Sputum, No Dyspnea Gastrointestinal : No Nausea, No Vomiting, No Diarrhea, No Hematochezia, No Melena Genitourinary : No Dysuria, No Urinary Frequency, No Hematuria Musculoskeletal : No Myalgias Skin : No Skin Lesions, No rash Neuro : No Weakness, No Numbness, No Paresthesias, No Dizziness, No Headache Psych : positive Anxiety, positive Depression, positive SI no HI All other systems reviewed and are negative Constitutional: Reports as per HPI Eyes: Reports as per HPI Reports as per HPI Cardiovascular: Reports as per HPI Respiratory: Reports as per HPI Gastrointestinal: Reports as per HPI Genitourinary: Reports as per HPI Musculoskeletal: Reports as per HPI Skin/Breast: Reports as per HPI Reports as per HPI Psychiatric: Reports as per HPI Endocrine: Reports as per HPI Hematologic/Lymphatic: Reports as per HPI Allergic/Immunologic: Reports as per HPI Mental Status Exam Mental Status Exam Narrative: Pt is alert and oriented; behavior is cooperative and calm; dressed in casual attire; mood is described as good ; eye contact appropriate; Speech is normal rate, volume and prosody and not pressured; no psychomotor agitation/retardation present; thought process is organized and goal directed; Thought content is on tx; otherwise pertinent to relevant topics and without any delusional content, paranoid ideations or grandiosity; denies SI/HI. There is no evidence of perceptual disturbance. Patients insight and judgment are poor but improving. Diagnostics Vital Signs (24Hr): Vital Signs - 24 hr 05/15/23 20:35 Temperature 97.8 F Pulse Rate 102 H Respiratory Rate 18 Blood Pressure 125/71 Pulse Oximetry 97 Oxygen Delivery Method Room Air BMI result Body Mass Index 23.6 Labs 05/13/23 09:38 05/14/23 09:39 Labs: Laboratory Results - last 48 hr 05/14/23 09:39 Sodium 141 Potassium 3.1 L Chloride 107 Carbon Dioxide 27 Anion Gap 10 L BUN 11 Creatinine 0.70 Estim Creat Clear Calc 155.3 Estimated GFR > 60 Fasting Glucose 122 H Estimat Average Glucose 100 Hemoglobin A1c % 5.1 Calcium 9.5 Total Bilirubin 0.4 AST 23 ALT 18 Alkaline Phosphatase 106 Total Protein 6.9 Albumin 3.7 Triglycerides 98 Cholesterol 152 LDL Cholesterol, Calc 80 HDL Cholesterol 53 Vitamin B12 890 Folate 5.0 TSH 0.69 Free T4 1.06 Medications Medications Current Medications Acetaminophen (Acetaminophen 325 Mg Tablet) 650 mg PO Q6H PRN PRN Reason: Headache/Pain Mild Scale (1-3) Last Admin: 05/14/23 21:20 Dose: 650 mg Al Hydroxide/Mg Hydroxide (Magnesium Hydrox/Alum Hydrox 30 Ml Oral.Susp) 30 ml PO Q6H PRN PRN Reason: Heartburn/Nausea Buprenorphine/Naloxone (Buprenorphine/Naloxone 12/3 Mg Film) 1 film SUBLINGUAL BID [facility] Last Admin: 05/15/23 20:53 Dose: 1 film Clonidine HCl (Clonidine Hcl 0.1 Mg Tablet) 0.1 mg PO BID PRN; Protocol PRN Reason: anxiety Last Admin: 05/14/23 21:20 Dose: 0.1 mg Divalproex Sodium (Divalproex Sodium 500 Mg Tablet.Dr) 500 mg PO BID [facility] Last Admin: 05/15/23 20:53 Dose: 500 mg Docusate Sodium (Docusate Sodium 100 Mg Capsule) 100 mg PO BID [facility] Last Admin: 05/15/23 23:38 Dose: 100 mg Fluoxetine HCl (Fluoxetine Hcl 10 Mg Capsule) 10 mg PO DAILY [facility] Last Admin: 05/15/23 09:13 Dose: 10 mg Fluoxetine HCl (Fluoxetine Hcl 20 Mg Capsule) 20 mg PO DAILY [facility] Last Admin: 05/15/23 09:12 Dose: 20 mg Folic Acid (Folic Acid 1 Mg Tablet) 1 mg PO DAILY [facility] Last Admin: 05/15/23 09:12 Dose: 1 mg Gabapentin (Gabapentin 300 Mg Capsule) 300 mg PO DAILY [facility] Last Admin: 05/15/23 09:12 Dose: 300 mg Lorazepam (Lorazepam 1 Mg Tablet) 1 mg PO Q2H PRN PRN Reason: CIWA 6-12 Last Admin: 05/14/23 21:20 Dose: 1 mg Lorazepam (Lorazepam 1 Mg Tablet) 2 mg PO Q2H PRN PRN Reason: CIWA 13 and above Magnesium Hydroxide (Milk Of Magnesia 30 Ml Oral.Susp) 30 ml PO DAILY PRN PRN Reason: Constipation Multivitamins/Vitamin C (Multivitamin Tablet) 1 tab PO DAILY [facility] Last Admin: 05/15/23 09:13 Dose: 1 tab Nicotine (Nicotine 21 Mg Patch.Td24) 21 mg TRANSDERMA DAILY [facility] Last Admin: 05/15/23 09:14 Dose: Not Given Nicotine Polacrilex (Nicotine Polacrilex 2 Mg Gum) 4 mg BUCCAL Q1H PRN PRN Reason: Nicotine Cravings Prazosin HCl (Prazosin Hcl 1 Mg Capsule) 3 mg PO BEDTIME [facility]; Protocol Last Admin: 05/15/23 20:52 Dose: 3 mg Quetiapine Fumarate (Quetiapine Fumarate 50 Mg Tablet) 150 mg PO BEDTIME [facility] Last Admin: 05/15/23 20:50 Dose: 150 mg Quetiapine Fumarate (Quetiapine Fumarate 25 Mg Tablet) 25 mg PO QID PRN PRN Reason: anxiety Thiamine HCl (Thiamine Hcl 100 Mg Tablet) 50 mg PO DAILY [facility] Last Admin: 05/15/23 09:13 Dose: 50 mg Trazodone HCl (Trazodone Hcl 50 Mg Tablet) 50 mg PO BEDTIME MRX1 PRN PRN Reason: Insomnia Allergies Allergies Allergy/AdvReac Type Severity Reaction Status Date / Time No Known Allergies Allergy Verified 05/13/23 17:45 Assessment & Plan Assessment & Plan (1) Bipolar disorder: Status: Acute Code(s): F31.9 - Bipolar disorder, unspecified (2) Alcohol use disorder, severe, dependence: Status: Acute Code(s): F10.20 - Alcohol dependence, uncomplicated (3) Cocaine use disorder: Status: Acute Code(s): F14.10 - Cocaine abuse, uncomplicated Plan Patient is a 37 year old male with hx of Bipolar d/o, cocaine abuse and ETOH abuse who self presented to [facility] [place]/t suicidal ideation with plan to overdose on heroin secondary to medication noncompliance and increased depressive symptoms. Plan: CV 15 minute safety checks Restart on home medications CIWA Referral to substance abuse program 05/15: Patient reports feeling better than yesterday . Pt stated, I think the medications are helping me feel better . Pt reports he is hoping to get into a substance abuse program soon. Denies SI. Continues to score on CIWA. Continue current tx plan. 05/16: Patient reports feeling a lot better than when I came in . Pt states he plans on starting to attend groups since he is no longer having withdrawal symptoms. CIWA DC'd. He is hoping to get into a substance abuse program soon; wants to remain sober and return to [place]. Denies SI/HI/VH/AH. Pt is c/o of bilateral pain around nipples; denies any discharge. Will place hospitalist consult. Patient educated on: diagnosis, medication risk/benefits, substance abuse and therapeutic strategies Informed Consent: understands Reason for continued inpatient stay Substantial Risk for: med/psych decompensation Time Spent With Patient Time: Total time managing care of this patient today _30___ minutes.
[2023-05-16 09:00] VITALS: BP 120/68; PULSE 101; TEMP 36.2; O2SAT 98
[2023-05-16] MEDS: Docusate Sodium 100 MG CAPSULE PO ×2 (09:13→21:31)
[2023-05-16] MEDS: Gabapentin 300 MG CAPSULE PO ×2 (09:13→21:30)
[2023-05-16] MEDS: Thiamine HCL 100 MG TABLET 50 MG PO (09:14)
[2023-05-16] MEDS: Multivitamin TABLET 1 TAB PO (09:14)
[2023-05-16] MEDS: FLUoxetine HCl 10 MG CAPSULE PO (09:14)
[2023-05-16] MEDS: Folic Acid 1 MG TABLET PO (09:15)
[2023-05-16] MEDS: FLUoxetine HCl 20 MG CAPSULE PO (09:15)
[2023-05-16] MEDS: Divalproex Sodium 500 MG TABLET.DR PO ×2 (09:15→21:31)
[2023-05-16] MEDS: Nicotine 21 MG PATCH.TD24 TRANSDERMA (09:17)
[2023-05-16] MEDS: Buprenorphine/Naloxone 12/3 mg FILM 1 FILM SUBLINGUAL ×2 (09:25→21:32)
[2023-05-16] MEDS: QUEtiapine Fumarate 25 MG TABLET PO (14:08)
[2023-05-16] MEDS: cloNIDine HCL 0.1 MG TABLET PO (14:08)
[2023-05-16 20:10] VITALS: BP 126/74; PULSE 95; RESP 16; TEMP 36.6; O2SAT 98
[2023-05-16] MEDS: Prazosin HCL 1 MG CAPSULE 3 MG PO (21:29)
[2023-05-16] MEDS: QUEtiapine Fumarate 50 MG TABLET 150 MG PO (21:30)
--- NOTE | 2023-05-16 22:12 | P.CONHOSP_ITS ---
History of Present Illness Data of Consult Service Date: 05/16/23 Primary Care Provider: None Physician HPI Reason for consult: Bilateral pain/lump around nipples Patient is a 37-year-old male with a PMH significant for ADHD, polysubstance use disorder, and bipolar disorder who is admitted M3 psychiatry unit for increasing depression with SI. Medical consult for bilateral pain/lump around nipples. Patient states approximately 3 months ago he began noticing swelling in his breasts and painful lumps around his nipples bilaterally. States pain comes and goes, but lumps under nipples are tender to palpation. At other times breasts can be painful without palpation. Denies any discharge from area. Patient has a cousin who had an unspecified cancer and he is worried about having breast cancer. Patient also notes he has recently had a decrease in his sex drive. Denies any recent medication changes, reports being on the same meds for very long time. Denies chest pain/pressure, palpitations. Shortness of breath. Denies recent unintentional weight loss. No nausea, vomiting, fever, chills, diarrhea, abdominal pain. Review of Systems 2 Review of Systems: Swelling and tenderness of breasts bilaterally Tender symmetrical lumps surrounding nipples bilaterally Denies discharge from nipples No recent unintended weight loss Denies chest pain/pressure, palpitations No shortness of breath PMFSH Medical History Umbilical hernia Opioid use disorder Suicidal ideation Depression Substance abuse Depression Social History Household Members: None Household Members Other:: girlfriend Housing: Other Housing Other:: can't stay with gf. can live with friend Do you presently have visiting nurse or other home services: No Patient Tobacco Use Status: Current everyday Tobacco user Tobacco use type: Cigarette Cigarette Packs Per Day: 1 Cigarettes Per Day: 20.0 Years Smoked: 20 years Smoked in Last 30 Days: Yes e-Cigarette/Vaping Use: Currently Using Frequency of e-Cigarette/Vaping Use: daily Patient Interested in Nicotine Replacement: Yes Patient Given Instructions on How to Stop Smoking: No Second Hand Smoke Exposure: No Use of substances other than those prescribed or required for medical reasons: Yes Substance Use Type: Crack/Cocaine Substance Use Frequency: Daily Last Used Substance: Just Prior to Admission Currently Displaying Signs/Symptoms of Drug Intoxication Withdrawal: No Any prior treatment program specific to substance use: No (I used to) Have you been hit, kicked, punched, or otherwise hurt by someone within the past year? If so, by whom?: No Do you feel safe in your current relationship?: No Current Relationship Is there a partner from a previous relationship who is making you feel unsafe now?: No Are you made to feel afraid or neglected: No Advance Directives: No Advance Directives Information Provided: Yes Healthcare Proxy: No Guardian: No Do you have thoughts of harming others: None Do you have a plan to hurt others: No Plan Recently lost weight without trying: No Nutrition Risks: No Nutritional Risk Poor oral hygiene: No service: No Sexual orientation: Straight/Heterosexual Meds Allergies Allergy/AdvReac Type Severity Reaction Status Date / Time No Known Allergies Allergy Verified 05/13/23 17:45 Active Medications: Current Medications Acetaminophen (Acetaminophen 325 Mg Tablet) 650 mg PO Q6H PRN PRN Reason: Headache/Pain Mild Scale (1-3) Last Admin: 05/14/23 21:20 Dose: 650 mg Al Hydroxide/Mg Hydroxide (Magnesium Hydrox/Alum Hydrox 30 Ml Oral.Susp) 30 ml PO Q6H PRN PRN Reason: Heartburn/Nausea Buprenorphine/Naloxone (Buprenorphine/Naloxone 12/3 Mg Film) 1 film SUBLINGUAL BID [facility] Last Admin: 05/16/23 21:32 Dose: 1 film Clonidine HCl (Clonidine Hcl 0.1 Mg Tablet) 0.1 mg PO BID PRN; Protocol PRN Reason: anxiety Last Admin: 05/16/23 14:08 Dose: 0.1 mg Divalproex Sodium (Divalproex Sodium 500 Mg Tablet.Dr) 500 mg PO BID [facility] Last Admin: 05/16/23 21:31 Dose: 500 mg Docusate Sodium (Docusate Sodium 100 Mg Capsule) 100 mg PO BID [facility] Last Admin: 05/16/23 21:31 Dose: 100 mg Fluoxetine HCl (Fluoxetine Hcl 10 Mg Capsule) 10 mg PO DAILY [facility] Last Admin: 05/16/23 09:14 Dose: 10 mg Fluoxetine HCl (Fluoxetine Hcl 20 Mg Capsule) 20 mg PO DAILY [facility] Last Admin: 05/16/23 09:15 Dose: 20 mg Folic Acid (Folic Acid 1 Mg Tablet) 1 mg PO DAILY [facility] Last Admin: 05/16/23 09:15 Dose: 1 mg Gabapentin (Gabapentin 300 Mg Capsule) 300 mg PO BID [facility] Last Admin: 05/16/23 21:30 Dose: 300 mg Magnesium Hydroxide (Milk Of Magnesia 30 Ml Oral.Susp) 30 ml PO DAILY PRN PRN Reason: Constipation Multivitamins/Vitamin C (Multivitamin Tablet) 1 tab PO DAILY [facility] Last Admin: 05/16/23 09:14 Dose: 1 tab Nicotine (Nicotine 21 Mg Patch.Td24) 21 mg TRANSDERMA DAILY [facility] Last Admin: 05/16/23 09:17 Dose: 21 mg Nicotine Polacrilex (Nicotine Polacrilex 2 Mg Gum) 4 mg BUCCAL Q1H PRN PRN Reason: Nicotine Cravings Prazosin HCl (Prazosin Hcl 1 Mg Capsule) 3 mg PO BEDTIME [facility]; Protocol Last Admin: 05/16/23 21:29 Dose: 3 mg Quetiapine Fumarate (Quetiapine Fumarate 50 Mg Tablet) 150 mg PO BEDTIME [facility] Last Admin: 05/16/23 21:30 Dose: 150 mg Quetiapine Fumarate (Quetiapine Fumarate 25 Mg Tablet) 25 mg PO QID PRN PRN Reason: anxiety Last Admin: 05/16/23 14:08 Dose: 25 mg Thiamine HCl (Thiamine Hcl 100 Mg Tablet) 50 mg PO DAILY [facility] Last Admin: 05/16/23 09:14 Dose: 50 mg Trazodone HCl (Trazodone Hcl 50 Mg Tablet) 50 mg PO BEDTIME MRX1 PRN PRN Reason: Insomnia Home Medications Medication Instructions Recorded Confirmed Last Taken Type buprenorphine 12 mg-naloxone 3 mg 15 mg sublingual BID 05/13/23 05/13/23 Unknown History sublingual film (Suboxone) docusate sodium 100 mg capsule 100 mg PO BID 05/13/23 05/13/23 Unknown History tramadol 50 mg tablet 50 mg PO TID PRN pain 05/13/23 05/13/23 Unknown History buprenorphine 12 mg-naloxone 3 mg 15 mg sublingual BID 05/15/23 05/15/23 Unknown History sublingual film (Suboxone) Physical Exam 2 Vital Signs and Narrative: Vital Signs: Last Vital Signs Temp 98 F 05/16/23 20:10 Pulse 95 05/16/23 20:10 Resp 16 05/16/23 20:10 BP 126/74 05/16/23 20:10 Pulse Ox 98 05/16/23 20:10 O2 Del Method Room Air 05/16/23 20:10 BMI result Body Mass Index 23.6 General: AOx3, no acute distress Resp: CTA bilaterally CVS: S1, S2, RRR GI: +BS, NT, no distention Chest: Concentric, firm, mobile disc of tissue directly underneath area lower area bilaterally. Tender to palpation. Unable to express any fluid. Neuro: Cranial nerves II-XII grossly intact bilaterally. Motor grossly intact bilaterally Extremities: No edema Psych: Appropriate affect Results Labs 05/13/23 09:38 05/14/23 09:39 Assessment and Plan (1) Gynecomastia: Status: Acute Plan Patient is a 37-year-old male with a PMH significant for ADHD, polysubstance use disorder, and bipolar disorder who is admitted M3 psychiatry unit for increasing depression with SI. Medical consult for bilateral pain/lump around nipples. Gynecomastia Physical examination suggestive of gynecomastia Etiology unclear Will get labs: Serum testosterone, luteinizing hormone, estradiol, human chorionic gonadotropin, and prolactin Thank you for allowing us to participate in the care of this patient. Will continue following for now pending test results. Please let us know if there are any acute complaints or questions. Time Spent With Patient Time: Total time managing care of this patient today ____ minutes.
[2023-05-16 23:14] LABS: HCG Quantitative < 2 mIU/mL
[2023-05-17 08:31] LABS: Ammonia 40 umol/L (13-55)
[2023-05-17 08:35] LABS: Valproate 58.3 mcg/mL (50.0-100.0)
[2023-05-17 08:38] LABS: Alanine Aminotransferase 13 U/L (0-40); Albumin Level 3.4 g/dL (3.5-5.0); Alkaline Phosphatase 83 U/L (39-117); Aspartate Amino Transferase 17 U/L (5-37); Bilirubin Direct < 0.2 mg/dL (0.0-0.5); Bilirubin Total 0.2 mg/dL (0.0-1.0); Total Protein 6.2 g/dL (6.5-8.0)
[2023-05-17 09:00] VITALS: BP 129/81; PULSE 90; RESP 16; TEMP 36.4; O2SAT 98
[2023-05-17] MEDS: Thiamine HCL 100 MG TABLET 50 MG PO (09:18)
[2023-05-17] MEDS: Multivitamin TABLET 1 TAB PO (09:18)
[2023-05-17] MEDS: Buprenorphine/Naloxone 12/3 mg FILM 1 FILM SUBLINGUAL ×2 (09:18→20:13)
[2023-05-17] MEDS: Gabapentin 300 MG CAPSULE PO (09:18)
[2023-05-17] MEDS: Docusate Sodium 100 MG CAPSULE PO ×2 (09:18→20:13)
[2023-05-17] MEDS: FLUoxetine HCl 10 MG CAPSULE PO (09:19)
[2023-05-17] MEDS: Folic Acid 1 MG TABLET PO (09:19)
[2023-05-17] MEDS: Divalproex Sodium 500 MG TABLET.DR PO ×2 (09:19→20:12)
[2023-05-17] MEDS: Nicotine 21 MG PATCH.TD24 TRANSDERMA (09:20)
[2023-05-17] MEDS: FLUoxetine HCl 20 MG CAPSULE PO (09:20)
[2023-05-17 11:20] VITALS: BP 129/82; PULSE 92; RESP 18
[2023-05-17] MEDS: QUEtiapine Fumarate 25 MG TABLET PO ×2 (11:22→22:50)
[2023-05-17] MEDS: cloNIDine HCL 0.1 MG TABLET PO ×2 (11:22→22:50)
[2023-05-17] MEDS: Gabapentin 300 MG CAPSULE 600 MG PO ×2 (14:14→20:11)
--- NOTE | 2023-05-17 16:05 | HO.PSYCHPN ---
Subjective Subjective Date of Service: 05/17/23 Reason For Visit: Depression Subjective Notes: Conditional Voluntary Interim History: met with patient. Discussed with Nursing. Overall reports doing okay. Still depressed. Anxiety high. We discussed pre-admission gabapentin dosing consistent with [facility] being 600 mg 3 times per day. Also reported being prescribed Adderall, as per [facility] last prescription was January 2023. otherwise reports feeling supported on the unit. 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 Engaged. Hospital clothing. Self-care slightly limited. Depressed. No SI. No HI. No agitation or psychosis. Insight and judgment okay Diagnostics Vital Signs (24Hr): Vital Signs - 24 hr 05/16/23 20:10 05/17/23 09:00 05/17/23 11:20 Temperature 98 F 97.5 F Pulse Rate 95 90 92 Respiratory Rate 16 16 18 Blood Pressure 126/74 129/81 129/82 Pulse Oximetry 98 98 Oxygen Delivery Method Room Air Room Air BMI result Body Mass Index 23.6 Labs 05/13/23 09:38 05/14/23 09:39 Labs: Laboratory Results - last 48 hr 05/16/23 05/17/23 19:08 08:18 Total Bilirubin 0.2 Direct Bilirubin < 0.2 AST 17 ALT 13 Alkaline Phosphatase 83 Ammonia 40 Total Protein 6.2 L Albumin 3.4 L Beta HCG, Quant < 2 Valproic Acid 58.3 Medications Medications Current Medications Acetaminophen (Acetaminophen 325 Mg Tablet) 650 mg PO Q6H PRN PRN Reason: Headache/Pain Mild Scale (1-3) Last Admin: 05/14/23 21:20 Dose: 650 mg Al Hydroxide/Mg Hydroxide (Magnesium Hydrox/Alum Hydrox 30 Ml Oral.Susp) 30 ml PO Q6H PRN PRN Reason: Heartburn/Nausea Buprenorphine/Naloxone (Buprenorphine/Naloxone 12/3 Mg Film) 1 film SUBLINGUAL BID [facility] Last Admin: 05/17/23 09:18 Dose: 1 film Clonidine HCl (Clonidine Hcl 0.1 Mg Tablet) 0.1 mg PO BID PRN; Protocol PRN Reason: anxiety Last Admin: 05/17/23 11:22 Dose: 0.1 mg Divalproex Sodium (Divalproex Sodium 500 Mg Tablet.Dr) 500 mg PO BID [facility] Last Admin: 05/17/23 09:19 Dose: 500 mg Docusate Sodium (Docusate Sodium 100 Mg Capsule) 100 mg PO BID [facility] Last Admin: 05/17/23 09:18 Dose: 100 mg Fluoxetine HCl (Fluoxetine Hcl 10 Mg Capsule) 10 mg PO DAILY [facility] Last Admin: 05/17/23 09:19 Dose: 10 mg Fluoxetine HCl (Fluoxetine Hcl 20 Mg Capsule) 20 mg PO DAILY [facility] Last Admin: 05/17/23 09:20 Dose: 20 mg Folic Acid (Folic Acid 1 Mg Tablet) 1 mg PO DAILY [facility] Last Admin: 05/17/23 09:19 Dose: 1 mg Gabapentin (Gabapentin 300 Mg Capsule) 600 mg PO TID [facility] Last Admin: 05/17/23 14:14 Dose: 600 mg Magnesium Hydroxide (Milk Of Magnesia 30 Ml Oral.Susp) 30 ml PO DAILY PRN PRN Reason: Constipation Multivitamins/Vitamin C (Multivitamin Tablet) 1 tab PO DAILY [facility] Last Admin: 05/17/23 09:18 Dose: 1 tab Nicotine (Nicotine 21 Mg Patch.Td24) 21 mg TRANSDERMA DAILY [facility] Last Admin: 05/17/23 09:20 Dose: 21 mg Nicotine Polacrilex (Nicotine Polacrilex 2 Mg Gum) 4 mg BUCCAL Q1H PRN PRN Reason: Nicotine Cravings Prazosin HCl (Prazosin Hcl 1 Mg Capsule) 3 mg PO BEDTIME [facility]; Protocol Last Admin: 05/16/23 21:29 Dose: 3 mg Quetiapine Fumarate (Quetiapine Fumarate 50 Mg Tablet) 150 mg PO BEDTIME [facility] Last Admin: 05/16/23 21:30 Dose: 150 mg Quetiapine Fumarate (Quetiapine Fumarate 25 Mg Tablet) 25 mg PO QID PRN PRN Reason: anxiety Last Admin: 05/17/23 11:22 Dose: 25 mg Thiamine HCl (Thiamine Hcl 100 Mg Tablet) 50 mg PO DAILY [facility] Last Admin: 05/17/23 09:18 Dose: 50 mg Trazodone HCl (Trazodone Hcl 50 Mg Tablet) 50 mg PO BEDTIME MRX1 PRN PRN Reason: Insomnia Allergies Allergies Allergy/AdvReac Type Severity Reaction Status Date / Time No Known Allergies Allergy Verified 05/13/23 17:45 Assessment & Plan Assessment & Plan (1) Gynecomastia: Status: Acute Code(s): N62 - Hypertrophy of breast Assessment and Plan: Patient is a 37-year-old male with a PMH significant for ADHD, polysubstance use disorder, and bipolar disorder who is admitted M3 psychiatry unit for increasing depression with SI. Medical consult for bilateral pain/lump around nipples. Gynecomastia Physical examination suggestive of gynecomastia Etiology unclear Will get labs: Serum testosterone, luteinizing hormone, estradiol, human chorionic gonadotropin, and prolactin Thank you for allowing us to participate in the care of this patient. Will continue following for now pending test results. Please let us know if there are any acute complaints or questions. (2) Bipolar disorder: Status: Acute Code(s): F31.9 - Bipolar disorder, unspecified (3) Alcohol use disorder, severe, dependence: Status: Acute Code(s): F10.20 - Alcohol dependence, uncomplicated (4) Cocaine use disorder: Status: Acute Code(s): F14.10 - Cocaine abuse, uncomplicated Plan Patient is a 37 year old male with hx of Bipolar d/o, cocaine abuse and ETOH abuse who self presented to [facility] d/t suicidal ideation with plan to overdose on heroin secondary to medication noncompliance and increased depressive symptoms. Plan: CV 15 minute safety checks Restart on home medications CIWA Referral to substance abuse program 05/15: Patient reports feeling better than yesterday . Pt stated, I think the medications are helping me feel better . Pt reports he is hoping to get into a substance abuse program soon. Denies SI. Continues to score on CIWA. Continue current tx plan. 05/16: Patient reports feeling a lot better than when I came in . Pt states he plans on starting to attend groups since he is no longer having withdrawal symptoms. CIWA DC'd. He is hoping to get into a substance abuse program soon; wants to remain sober and return to [place]. Denies SI/HI/VH/AH. Pt is c/o of bilateral pain around nipples; denies any discharge. Will place hospitalist consult. 05/17/2023: Adjust gabapentin to pre-admission dose of 600 mg 3 times per day consistent with [facility]. Patient will discussed with primary team Adderall, which was last prescribed as per [facility] in January 2023. Patient educated on: diagnosis, medication risk/benefits, substance abuse and therapeutic strategies Informed Consent: understands Reason for continued inpatient stay Substantial Risk for: med/psych decompensation Time Spent With Patient Time: Total time managing care of this patient today ____ minutes.
[2023-05-17] MEDS: QUEtiapine Fumarate 50 MG TABLET 150 MG PO (20:10)
[2023-05-17] MEDS: Prazosin HCL 1 MG CAPSULE 3 MG PO (20:12)
[2023-05-17 20:15] VITALS: BP 123/73; PULSE 89; RESP 16; TEMP 36.9; O2SAT 99
[2023-05-18 08:00] VITALS: BP 120/73; PULSE 100; RESP 16; TEMP 36.8; O2SAT 98
[2023-05-18] MEDS: Buprenorphine/Naloxone 12/3 mg FILM 1 FILM SUBLINGUAL ×2 (09:18→20:39)
[2023-05-18] MEDS: Gabapentin 300 MG CAPSULE 600 MG PO ×3 (09:19→20:09)
[2023-05-18] MEDS: Divalproex Sodium 500 MG TABLET.DR PO ×2 (09:19→20:08)
[2023-05-18] MEDS: FLUoxetine HCl 10 MG CAPSULE PO (09:19)
[2023-05-18] MEDS: Thiamine HCL 100 MG TABLET 50 MG PO (09:20)
[2023-05-18] MEDS: Docusate Sodium 100 MG CAPSULE PO ×2 (09:20→20:10)
[2023-05-18] MEDS: Multivitamin TABLET 1 TAB PO (09:20)
[2023-05-18] MEDS: FLUoxetine HCl 20 MG CAPSULE PO (09:21)
[2023-05-18] MEDS: Folic Acid 1 MG TABLET PO (09:21)
[2023-05-18] MEDS: Nicotine 21 MG PATCH.TD24 TRANSDERMA (09:21)
[2023-05-18] MEDS: QUEtiapine Fumarate 25 MG TABLET PO ×2 (11:41→16:29)
[2023-05-18] MEDS: cloNIDine HCL 0.1 MG TABLET PO ×2 (11:41→20:09)
--- NOTE | 2023-05-18 16:07 | P.PNPSI_ITS ---
Subjective Subjective Date of Service: 05/18/23 Reason For Visit: Depression Interim History: Overall reports doing okay. slightly less depressed and slightly less anxious today. Has been more withdrawn. Sleep broken with nightmares, otherwise reports feeling supported on the unit. 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 Medication Compliance: Yes Side effects from medications: No Attending Groups: Intermittent Review of Systems Acute medical concerns: No Review of Systems Review of Systems unremarkable Mental Status Exam Mental Status Exam Narrative: pleasant. Engaged. Hospital clothing. Self-care slightly better. Depressed. No SI. No HI. No agitation or psychosis. Insight and judgment okay Diagnostics Vital Signs (24Hr): Vital Signs - 24 hr 05/17/23 20:15 05/18/23 08:00 Temperature 98.4 F 98.3 F Pulse Rate 89 100 Respiratory Rate 16 16 Blood Pressure 123/73 120/73 Pulse Oximetry 99 98 Oxygen Delivery Method Room Air Room Air BMI result Body Mass Index 23.6 Labs 05/13/23 09:38 05/14/23 09:39 Labs: Laboratory Results - last 48 hr 05/16/23 05/17/23 19:08 08:18 Total Bilirubin 0.2 Direct Bilirubin < 0.2 AST 17 ALT 13 Alkaline Phosphatase 83 Ammonia 40 Total Protein 6.2 L Albumin 3.4 L Beta HCG, Quant < 2 Valproic Acid 58.3 Medications Medications Current Medications Acetaminophen (Acetaminophen 325 Mg Tablet) 650 mg PO Q6H PRN PRN Reason: Headache/Pain Mild Scale (1-3) Last Admin: 05/14/23 21:20 Dose: 650 mg Al Hydroxide/Mg Hydroxide (Magnesium Hydrox/Alum Hydrox 30 Ml Oral.Susp) 30 ml PO Q6H PRN PRN Reason: Heartburn/Nausea Buprenorphine/Naloxone (Buprenorphine/Naloxone 12/3 Mg Film) 1 film SUBLINGUAL BID [facility] Last Admin: 05/18/23 09:18 Dose: 1 film Clonidine HCl (Clonidine Hcl 0.1 Mg Tablet) 0.1 mg PO BID PRN; Protocol PRN Reason: anxiety Last Admin: 05/18/23 11:41 Dose: 0.1 mg Divalproex Sodium (Divalproex Sodium 500 Mg Tablet.Dr) 500 mg PO BID [facility] Last Admin: 05/18/23 09:19 Dose: 500 mg Docusate Sodium (Docusate Sodium 100 Mg Capsule) 100 mg PO BID [facility] Last Admin: 05/18/23 09:20 Dose: 100 mg Fluoxetine HCl (Fluoxetine Hcl 10 Mg Capsule) 10 mg PO DAILY [facility] Last Admin: 05/18/23 09:19 Dose: 10 mg Fluoxetine HCl (Fluoxetine Hcl 20 Mg Capsule) 20 mg PO DAILY [facility] Last Admin: 05/18/23 09:21 Dose: 20 mg Folic Acid (Folic Acid 1 Mg Tablet) 1 mg PO DAILY [facility] Last Admin: 05/18/23 09:21 Dose: 1 mg Gabapentin (Gabapentin 300 Mg Capsule) 600 mg PO TID [facility] Last Admin: 05/18/23 14:44 Dose: 600 mg Magnesium Hydroxide (Milk Of Magnesia 30 Ml Oral.Susp) 30 ml PO DAILY PRN PRN Reason: Constipation Multivitamins/Vitamin C (Multivitamin Tablet) 1 tab PO DAILY [facility] Last Admin: 05/18/23 09:20 Dose: 1 tab Nicotine (Nicotine 21 Mg Patch.Td24) 21 mg TRANSDERMA DAILY [facility] Last Admin: 05/18/23 09:21 Dose: 21 mg Nicotine Polacrilex (Nicotine Polacrilex 2 Mg Gum) 4 mg BUCCAL Q1H PRN PRN Reason: Nicotine Cravings Prazosin HCl (Prazosin Hcl 5 Mg Capsule) 5 mg PO BEDTIME [facility]; Protocol Quetiapine Fumarate (Quetiapine Fumarate 50 Mg Tablet) 150 mg PO BEDTIME [facility] Last Admin: 05/17/23 20:10 Dose: 150 mg Quetiapine Fumarate (Quetiapine Fumarate 25 Mg Tablet) 25 mg PO QID PRN PRN Reason: anxiety Last Admin: 05/18/23 11:41 Dose: 25 mg Thiamine HCl (Thiamine Hcl 100 Mg Tablet) 50 mg PO DAILY [facility] Last Admin: 05/18/23 09:20 Dose: 50 mg Trazodone HCl (Trazodone Hcl 50 Mg Tablet) 50 mg PO BEDTIME MRX1 PRN PRN Reason: Insomnia Allergies Allergies Allergy/AdvReac Type Severity Reaction Status Date / Time No Known Allergies Allergy Verified 05/13/23 17:45 Assessment & Plan Assessment & Plan (1) Gynecomastia: Status: Acute Code(s): N62 - Hypertrophy of breast Assessment and Plan: Patient is a 37-year-old male with a PMH significant for ADHD, polysubstance use disorder, and bipolar disorder who is admitted M3 psychiatry unit for increasing depression with SI. Medical consult for bilateral pain/lump around nipples. Gynecomastia Physical examination suggestive of gynecomastia Etiology unclear Will get labs: Serum testosterone, luteinizing hormone, estradiol, human chorionic gonadotropin, and prolactin Thank you for allowing us to participate in the care of this patient. Will continue following for now pending test results. Please let us know if there are any acute complaints or questions. (2) Bipolar disorder: Status: Acute Code(s): F31.9 - Bipolar disorder, unspecified (3) Alcohol use disorder, severe, dependence: Status: Acute Code(s): F10.20 - Alcohol dependence, uncomplicated (4) Cocaine use disorder: Status: Acute Code(s): F14.10 - Cocaine abuse, uncomplicated Plan Patient is a 37 year old male with hx of Bipolar d/o, cocaine abuse and ETOH abuse who self presented to [facility] d/t suicidal ideation with plan to overdose on heroin secondary to medication noncompliance and increased depressive symptoms. Plan: CV 15 minute safety checks Restart on home medications CIWA Referral to substance abuse program 05/15: Patient reports feeling better than yesterday . Pt stated, I think the medications are helping me feel better . Pt reports he is hoping to get into a substance abuse program soon. Denies SI. Continues to score on CIWA. Continue current tx plan. 05/16: Patient reports feeling a lot better than when I came in . Pt states he plans on starting to attend groups since he is no longer having withdrawal symptoms. CIWA DC'd. He is hoping to get into a substance abuse program soon; wants to remain sober and return to [place]. Denies SI/HI/VH/AH. Pt is c/o of bilateral pain around nipples; denies any discharge. Will place hospitalist consult. 05/17/2023: Adjust gabapentin to pre-admission dose of 600 mg 3 times per day consistent with [facility]. Patient will discussed with primary team Adderall, which was last prescribed as per [facility] in January 2023. 05/18: increase prazosin to 5mg Reason for continued inpatient stay Substantial Risk for: harm to self Time Spent With Patient Time: Total time managing care of this patient today ____ minutes.
[2023-05-18] MEDS: QUEtiapine Fumarate 50 MG TABLET 150 MG PO (20:09)
[2023-05-18] MEDS: Prazosin HCL 5 MG CAPSULE PO (20:10)
[2023-05-18 20:14] VITALS: BP 130/73; PULSE 95; TEMP 36.7; O2SAT 98
[2023-05-18 21:24] LABS: Lutenizing Hormone 7.4 mIU/mL (1.5-9.3); Prolactin 16.1 ng/mL (2.0-18.0)
[2023-05-19 08:00] VITALS: BP 121/57; PULSE 94; RESP 18; TEMP 36.2; O2SAT 98
[2023-05-19] MEDS: Buprenorphine/Naloxone 12/3 mg FILM 1 FILM SUBLINGUAL ×2 (08:55→20:36)
[2023-05-19] MEDS: Nicotine 21 MG PATCH.TD24 TRANSDERMA (08:55)
[2023-05-19] MEDS: FLUoxetine HCl 10 MG CAPSULE PO (08:56)
[2023-05-19] MEDS: Multivitamin TABLET 1 TAB PO (08:56)
[2023-05-19] MEDS: Gabapentin 300 MG CAPSULE 600 MG PO ×3 (08:56→20:33)
[2023-05-19] MEDS: Thiamine HCL 100 MG TABLET 50 MG PO (08:57)
[2023-05-19] MEDS: FLUoxetine HCl 20 MG CAPSULE PO (08:57)
[2023-05-19] MEDS: Folic Acid 1 MG TABLET PO (08:57)
[2023-05-19] MEDS: Divalproex Sodium 500 MG TABLET.DR PO ×2 (08:57→20:35)
[2023-05-19] MEDS: Docusate Sodium 100 MG CAPSULE PO ×2 (08:58→20:35)
--- NOTE | 2023-05-19 09:34 | P.PNPSI_ITS ---
Subjective Subjective Date of Service: 05/19/23 Reason For Visit: Depression Subjective Notes: Conditional Voluntary Interim History: Reviewed in team and . Pt reports feeling a lot better than I did on Friday . He reports feeling confused because I don't know what to do. I feel like I always mess up. I know it's worth trying because I was clean for 15 months . Pt is looking forward to attending substance abuse program; waiting placement. He reports groups have been helpful. Medication Compliance: Yes Side effects from medications: No Attending Groups: Yes Review of Systems Constitutional: Reports as per HPI Eyes: Reports as per HPI Reports as per HPI Cardiovascular: Reports as per HPI Respiratory: Reports as per HPI Gastrointestinal: Reports as per HPI Genitourinary: Reports as per HPI Musculoskeletal: Reports as per HPI Skin/Breast: Reports as per HPI Reports as per HPI Psychiatric: Reports as per HPI Endocrine: Reports as per HPI Hematologic/Lymphatic: Reports as per HPI Allergic/Immunologic: Reports as per HPI Mental Status Exam Mental Status Exam Narrative: Pt is alert and oriented; behavior is cooperative, friendly and calm; dressed in casual attire; mood is described as good ; eye contact appropriate; Speech is normal rate, volume and prosody and not pressured; no psychomotor agitation/retardation present; thought process is organized and goal directed; Thought content is on tx; otherwise pertinent to relevant topics and without any delusional content, paranoid ideations or grandiosity; denies SI/HI. There is no evidence of perceptual disturbance. Patients insight and judgment are fair. Diagnostics Vital Signs (24Hr): Vital Signs - 24 hr 05/18/23 20:14 Temperature 98.1 F Pulse Rate 95 Blood Pressure 130/73 Pulse Oximetry 98 Oxygen Delivery Method Room Air BMI result Body Mass Index 23.6 Labs 05/13/23 09:38 05/14/23 09:39 Labs: Laboratory Results - last 48 hr 05/16/23 19:08 Luteinizing Hormone 7.4 Prolactin 16.1 Medications Medications Current Medications Acetaminophen (Acetaminophen 325 Mg Tablet) 650 mg PO Q6H PRN PRN Reason: Headache/Pain Mild Scale (1-3) Last Admin: 05/14/23 21:20 Dose: 650 mg Al Hydroxide/Mg Hydroxide (Magnesium Hydrox/Alum Hydrox 30 Ml Oral.Susp) 30 ml PO Q6H PRN PRN Reason: Heartburn/Nausea Buprenorphine/Naloxone (Buprenorphine/Naloxone 12/3 Mg Film) 1 film SUBLINGUAL BID [facility] Last Admin: 05/19/23 08:55 Dose: 1 film Clonidine HCl (Clonidine Hcl 0.1 Mg Tablet) 0.1 mg PO BID PRN; Protocol PRN Reason: anxiety Last Admin: 05/18/23 20:09 Dose: 0.1 mg Divalproex Sodium (Divalproex Sodium 500 Mg Tablet.Dr) 500 mg PO BID [facility] Last Admin: 05/19/23 08:57 Dose: 500 mg Docusate Sodium (Docusate Sodium 100 Mg Capsule) 100 mg PO BID [facility] Last Admin: 05/19/23 08:58 Dose: 100 mg Fluoxetine HCl (Fluoxetine Hcl 10 Mg Capsule) 10 mg PO DAILY [facility] Last Admin: 05/19/23 08:56 Dose: 10 mg Fluoxetine HCl (Fluoxetine Hcl 20 Mg Capsule) 20 mg PO DAILY [facility] Last Admin: 05/19/23 08:57 Dose: 20 mg Folic Acid (Folic Acid 1 Mg Tablet) 1 mg PO DAILY [facility] Last Admin: 05/19/23 08:57 Dose: 1 mg Gabapentin (Gabapentin 300 Mg Capsule) 600 mg PO TID [facility] Last Admin: 05/19/23 08:56 Dose: 600 mg Magnesium Hydroxide (Milk Of Magnesia 30 Ml Oral.Susp) 30 ml PO DAILY PRN PRN Reason: Constipation Multivitamins/Vitamin C (Multivitamin Tablet) 1 tab PO DAILY [facility] Last Admin: 05/19/23 08:56 Dose: 1 tab Nicotine (Nicotine 21 Mg Patch.Td24) 21 mg TRANSDERMA DAILY [facility] Last Admin: 05/19/23 08:55 Dose: 21 mg Nicotine Polacrilex (Nicotine Polacrilex 2 Mg Gum) 4 mg BUCCAL Q1H PRN PRN Reason: Nicotine Cravings Prazosin HCl (Prazosin Hcl 5 Mg Capsule) 5 mg PO BEDTIME [facility]; Protocol Last Admin: 05/18/23 20:10 Dose: 5 mg Quetiapine Fumarate (Quetiapine Fumarate 50 Mg Tablet) 150 mg PO BEDTIME [facility] Last Admin: 05/18/23 20:09 Dose: 150 mg Quetiapine Fumarate (Quetiapine Fumarate 25 Mg Tablet) 25 mg PO QID PRN PRN Reason: anxiety Last Admin: 05/18/23 16:29 Dose: 25 mg Thiamine HCl (Thiamine Hcl 100 Mg Tablet) 50 mg PO DAILY [facility] Last Admin: 05/19/23 08:57 Dose: 50 mg Trazodone HCl (Trazodone Hcl 50 Mg Tablet) 50 mg PO BEDTIME MRX1 PRN PRN Reason: Insomnia Allergies Allergies Allergy/AdvReac Type Severity Reaction Status Date / Time No Known Allergies Allergy Verified 05/13/23 17:45 Assessment & Plan Assessment & Plan (1) Gynecomastia: Status: Acute Code(s): N62 - Hypertrophy of breast Assessment and Plan: Patient is a 37-year-old male with a PMH significant for ADHD, polysubstance use disorder, and bipolar disorder who is admitted M3 psychiatry unit for increasing depression with SI. Medical consult for bilateral pain/lump around nipples. Gynecomastia Physical examination suggestive of gynecomastia Etiology unclear Will get labs: Serum testosterone, luteinizing hormone, estradiol, human chorionic gonadotropin, and prolactin Thank you for allowing us to participate in the care of this patient. Will continue following for now pending test results. Please let us know if there are any acute complaints or questions. (2) Bipolar disorder: Status: Acute Code(s): F31.9 - Bipolar disorder, unspecified (3) Alcohol use disorder, severe, dependence: Status: Acute Code(s): F10.20 - Alcohol dependence, uncomplicated (4) Cocaine use disorder: Status: Acute Code(s): F14.10 - Cocaine abuse, uncomplicated Plan Patient is a 37 year old male with hx of Bipolar d/o, cocaine abuse and ETOH abuse who self presented to [facility] ER d/t suicidal ideation with plan to overdose on heroin secondary to medication noncompliance and increased depressive symptoms. Plan: CV 15 minute safety checks Restart on home medications CIWA Referral to substance abuse program 05/15: Patient reports feeling better than yesterday . Pt stated, I think the medications are helping me feel better . Pt reports he is hoping to get into a substance abuse program soon. Denies SI. Continues to score on CIWA. Continue current tx plan. 05/16: Patient reports feeling a lot better than when I came in . Pt states he plans on starting to attend groups since he is no longer having withdrawal symptoms. CIWA DC'd. He is hoping to get into a substance abuse program soon; wants to remain sober and return to [place]. Denies SI/HI/VH/AH. Pt is c/o of bilateral pain around nipples; denies any discharge. Will place hospitalist consult. 05/17: Adjust gabapentin to pre-admission dose of 600 mg 3 times per day consistent with [facility]. Patient will discussed with primary team Adderall, which was last prescribed as per [facility] in January 2023. 05/18: increase prazosin to 5mg 05/19: Pt reports feeling a lot better than I did on Friday . He reports feeling confused because I don't know what to do. I feel like I always mess up. I know it's worth trying because I was clean for 15 months . Pt is looking forward to attending substance abuse program; waiting placement. He reports groups have been helpful. Patient educated on: diagnosis, medication risk/benefits, substance abuse, therapeutic strategies and medical condition Informed Consent: understands Reason for continued inpatient stay Substantial Risk for: med/psych decompensation Time Spent With Patient Time: Total time managing care of this patient today _30___ minutes.
[2023-05-19] MEDS: QUEtiapine Fumarate 25 MG TABLET PO (12:41)
[2023-05-19] MEDS: cloNIDine HCL 0.1 MG TABLET PO (12:41)
[2023-05-19 12:43] VITALS: BP 121/67; RESP 18
[2023-05-19 20:15] VITALS: BP 125/71; PULSE 92; RESP 18; TEMP 37.2; O2SAT 98
[2023-05-19] MEDS: Prazosin HCL 5 MG CAPSULE PO (20:34)
[2023-05-19] MEDS: QUEtiapine Fumarate 50 MG TABLET 150 MG PO (20:34)
[2023-05-19] MEDS: traZODone HCL 50 MG TABLET PO ×2 (21:14→22:49)
[2023-05-20 08:00] VITALS: BP 120/71; PULSE 98; RESP 18; TEMP 37; O2SAT 98
[2023-05-20] MEDS: Nicotine 21 MG PATCH.TD24 TRANSDERMA (09:00)
[2023-05-20] MEDS: FLUoxetine HCl 10 MG CAPSULE PO (09:01)
[2023-05-20] MEDS: Docusate Sodium 100 MG CAPSULE PO ×2 (09:01→20:11)
[2023-05-20] MEDS: Buprenorphine/Naloxone 12/3 mg FILM 1 FILM SUBLINGUAL ×2 (09:01→20:49)
[2023-05-20] MEDS: FLUoxetine HCl 20 MG CAPSULE PO (09:02)
[2023-05-20] MEDS: Gabapentin 300 MG CAPSULE 600 MG PO ×3 (09:02→20:11)
[2023-05-20] MEDS: Divalproex Sodium 500 MG TABLET.DR PO ×2 (09:02→20:10)
--- NOTE | 2023-05-20 09:32 | P.PNPSI_ITS ---
Subjective Subjective Date of Service: 05/20/23 Reason For Visit: Depression Subjective Notes: Conditional Voluntary Interim History: Reviewed in team and . Pt reports feeling good today. Pt states he is feeling hopeful about returning to work on Friday and saving up to return to [place] . Pt reports he plans on attending NA/AA meetings until he is accepted into a substance abuse program. Denies SI. Medication Compliance: Yes Side effects from medications: No Attending Groups: Yes Review of Systems Review of Systems unremarkable Constitutional: Reports as per HPI Eyes: Reports as per HPI Reports as per HPI Cardiovascular: Reports as per HPI Respiratory: Reports as per HPI Gastrointestinal: Reports as per HPI Genitourinary: Reports as per HPI Musculoskeletal: Reports as per HPI Skin/Breast: Reports as per HPI Reports as per HPI Psychiatric: Reports as per HPI Endocrine: Reports as per HPI Hematologic/Lymphatic: Reports as per HPI Allergic/Immunologic: Reports as per HPI Mental Status Exam Mental Status Exam Narrative: Pt is alert and oriented; behavior is cooperative, friendly and calm; dressed in casual attire; mood is described as good ; eye contact appropriate; Speech is normal rate, volume and prosody and not pressured; no psychomotor agitation/retardation present; thought process is organized and goal directed; Thought content is on tx; otherwise pertinent to relevant topics and without any delusional content, paranoid ideations or grandiosity; denies SI/HI. There is no evidence of perceptual disturbance. Patients insight and judgment are fair. Diagnostics Vital Signs (24Hr): Vital Signs - 24 hr 05/19/23 12:43 05/19/23 20:15 05/20/23 08:00 Temperature 99 F 98.6 F Pulse Rate 92 98 Respiratory Rate 18 18 18 Blood Pressure 121/67 125/71 120/71 Pulse Oximetry 98 98 Oxygen Delivery Method Room Air Room Air Room Air BMI result Body Mass Index 23.6 Labs 05/13/23 09:38 05/14/23 09:39 Labs: Laboratory Results - last 48 hr 05/16/23 19:08 Luteinizing Hormone 7.4 Prolactin 16.1 Medications Medications Current Medications Acetaminophen (Acetaminophen 325 Mg Tablet) 650 mg PO Q6H PRN PRN Reason: Headache/Pain Mild Scale (1-3) Last Admin: 05/14/23 21:20 Dose: 650 mg Al Hydroxide/Mg Hydroxide (Magnesium Hydrox/Alum Hydrox 30 Ml Oral.Susp) 30 ml PO Q6H PRN PRN Reason: Heartburn/Nausea Buprenorphine/Naloxone (Buprenorphine/Naloxone 12/3 Mg Film) 1 film SUBLINGUAL BID [facility] Last Admin: 05/20/23 09:01 Dose: 1 film Clonidine HCl (Clonidine Hcl 0.1 Mg Tablet) 0.1 mg PO BID [facility]; Protocol PRN Reason: anxiety Last Admin: 05/19/23 12:41 Dose: 0.1 mg Divalproex Sodium (Divalproex Sodium 500 Mg Tablet.Dr) 500 mg PO BID [facility] Last Admin: 05/20/23 09:02 Dose: 500 mg Docusate Sodium (Docusate Sodium 100 Mg Capsule) 100 mg PO BID [facility] Last Admin: 05/20/23 09:01 Dose: 100 mg Fluoxetine HCl (Fluoxetine Hcl 10 Mg Capsule) 10 mg PO DAILY [facility] Last Admin: 05/20/23 09:01 Dose: 10 mg Fluoxetine HCl (Fluoxetine Hcl 20 Mg Capsule) 20 mg PO DAILY [facility] Last Admin: 05/20/23 09:02 Dose: 20 mg Gabapentin (Gabapentin 300 Mg Capsule) 600 mg PO TID [facility] Last Admin: 05/20/23 09:02 Dose: 600 mg Magnesium Hydroxide (Milk Of Magnesia 30 Ml Oral.Susp) 30 ml PO DAILY PRN PRN Reason: Constipation Nicotine (Nicotine 21 Mg Patch.Td24) 21 mg TRANSDERMA DAILY [facility] Last Admin: 05/20/23 09:00 Dose: 21 mg Nicotine Polacrilex (Nicotine Polacrilex 2 Mg Gum) 4 mg BUCCAL Q1H PRN PRN Reason: Nicotine Cravings Prazosin HCl (Prazosin Hcl 5 Mg Capsule) 5 mg PO BEDTIME [facility]; Protocol Last Admin: 05/19/23 20:34 Dose: 5 mg Quetiapine Fumarate (Quetiapine Fumarate 50 Mg Tablet) 150 mg PO BEDTIME [facility] Last Admin: 05/19/23 20:34 Dose: 150 mg Quetiapine Fumarate (Quetiapine Fumarate 25 Mg Tablet) 25 mg PO QID PRN PRN Reason: anxiety Last Admin: 05/19/23 12:41 Dose: 25 mg Trazodone HCl (Trazodone Hcl 50 Mg Tablet) 50 mg PO BEDTIME MRX1 PRN PRN Reason: Insomnia Last Admin: 05/19/23 22:49 Dose: 50 mg Allergies Allergies Allergy/AdvReac Type Severity Reaction Status Date / Time No Known Allergies Allergy Verified 05/13/23 17:45 Assessment & Plan Assessment & Plan (1) Gynecomastia: Status: Acute Code(s): N62 - Hypertrophy of breast (2) Bipolar disorder: Status: Acute Code(s): F31.9 - Bipolar disorder, unspecified (3) Alcohol use disorder, severe, dependence: Status: Acute Code(s): F10.20 - Alcohol dependence, uncomplicated (4) Cocaine use disorder: Status: Acute Code(s): F14.10 - Cocaine abuse, uncomplicated Plan Patient is a 37 year old male with hx of Bipolar d/o, cocaine abuse and ETOH abuse who self presented to [facility] d/t suicidal ideation with plan to overdose on heroin secondary to medication noncompliance and increased depressive symptoms. Plan: CV 15 minute safety checks Restart on home medications Referral to substance abuse program 05/15: Patient reports feeling better than yesterday . Pt stated, I think the medications are helping me feel better . Pt reports he is hoping to get into a substance abuse program soon. Denies SI. Continues to score on CIWA. Continue current tx plan. 05/16: Patient reports feeling a lot better than when I came in . Pt states he plans on starting to attend groups since he is no longer having withdrawal symptoms. CIWA DC'd. He is hoping to get into a substance abuse program soon; wants to remain sober and return to [place]. Denies SI/HI/VH/AH. Pt is c/o of bilateral pain around nipples; denies any discharge. Will place hospitalist consult. 05/17: Adjust gabapentin to pre-admission dose of 600 mg 3 times per day consistent with [facility]. Patient will discussed with primary team Adderall, which was last prescribed as per [facility] in January 2023. 05/18: increase prazosin to 5mg 05/19: Pt reports feeling a lot better than I did on Friday . He reports feeling confused because I don't know what to do. I feel like I always mess up. I know it's worth trying because I was clean for 15 months . Pt is looking forward to attending substance abuse program; waiting placement. He reports groups have been helpful. 05/20: Pt reports feeling good today. Pt states he is feeling hopeful about returning to work on Friday and saving up to return to [place] . Pt reports he plans on attending NA/AA meetings until he is accepted into a substance abuse program. Denies SI. Planning for discharge on Friday. Patient educated on: diagnosis, medication risk/benefits, substance abuse and therapeutic strategies Informed Consent: understands Reason for continued inpatient stay Substantial Risk for: med/psych decompensation Time Spent With Patient Time: Total time managing care of this patient today _30___ minutes.
[2023-05-20] MEDS: cloNIDine HCL 0.1 MG TABLET PO (12:52)
[2023-05-20] MEDS: Acetaminophen 325 MG TABLET 650 MG PO (12:53)
[2023-05-20] MEDS: QUEtiapine Fumarate 25 MG TABLET PO ×2 (12:53→18:20)
[2023-05-20 12:55] VITALS: BP 137/78; PULSE 87; RESP 18
[2023-05-20 20:00] VITALS: BP 116/78; PULSE 98; TEMP 36.5; O2SAT 98
[2023-05-20] MEDS: Prazosin HCL 5 MG CAPSULE PO (20:10)
[2023-05-20] MEDS: QUEtiapine Fumarate 50 MG TABLET 150 MG PO (20:10)
[2023-05-20] MEDS: traZODone HCL 50 MG TABLET PO (20:10)
[2023-05-21 09:00] VITALS: BP 141/79; PULSE 116; TEMP 37.3; O2SAT 98
[2023-05-21] MEDS: Gabapentin 300 MG CAPSULE 600 MG PO ×2 (09:18→14:37)
[2023-05-21] MEDS: FLUoxetine HCl 10 MG CAPSULE PO (09:18)
[2023-05-21] MEDS: FLUoxetine HCl 20 MG CAPSULE PO (09:18)
[2023-05-21] MEDS: Buprenorphine/Naloxone 12/3 mg FILM 1 FILM SUBLINGUAL (09:18)
[2023-05-21] MEDS: Divalproex Sodium 500 MG TABLET.DR PO (09:19)
[2023-05-21] MEDS: Nicotine 21 MG PATCH.TD24 TRANSDERMA (09:19)
[2023-05-21] MEDS: Docusate Sodium 100 MG CAPSULE PO (09:19)
--- NOTE | 2023-05-21 09:26 | HO.PSYCHPN ---
Subjective Subjective Date of Service: 05/21/23 Reason For Visit: Depression Subjective Notes: Conditional Voluntary Medication Compliance: Yes Side effects from medications: No Attending Groups: Yes Review of Systems Review of Systems unremarkable Constitutional: Reports as per HPI Eyes: Reports as per HPI Reports as per HPI Cardiovascular: Reports as per HPI Respiratory: Reports as per HPI Gastrointestinal: Reports as per HPI Genitourinary: Reports as per HPI Musculoskeletal: Reports as per HPI Skin/Breast: Reports as per HPI Reports as per HPI Psychiatric: Reports as per HPI Endocrine: Reports as per HPI Hematologic/Lymphatic: Reports as per HPI Allergic/Immunologic: Reports as per HPI Mental Status Exam Mental Status Exam Narrative: Pt is alert and oriented; behavior is cooperative, friendly and calm; dressed in casual attire; mood is described as good ; eye contact appropriate; Speech is normal rate, volume and prosody and not pressured; no psychomotor agitation/retardation present; thought process is organized and goal directed; Thought content is on discharge; otherwise pertinent to relevant topics and without any delusional content, paranoid ideations or grandiosity; denies SI/HI. There is no evidence of perceptual disturbance. Patients insight and judgment are fair. Diagnostics Vital Signs (24Hr): Vital Signs - 24 hr 05/20/23 12:55 05/20/23 20:00 Temperature 97.7 F Pulse Rate 87 98 Respiratory Rate 18 Blood Pressure 137/78 116/78 Pulse Oximetry 98 Oxygen Delivery Method Room Air BMI result Body Mass Index 23.6 Labs 05/13/23 09:38 05/14/23 09:39 Medications Medications Current Medications Acetaminophen (Acetaminophen 325 Mg Tablet) 650 mg PO Q6H PRN PRN Reason: Headache/Pain Mild Scale (1-3) Last Admin: 05/20/23 12:53 Dose: 650 mg Al Hydroxide/Mg Hydroxide (Magnesium Hydrox/Alum Hydrox 30 Ml Oral.Susp) 30 ml PO Q6H PRN PRN Reason: Heartburn/Nausea Buprenorphine/Naloxone (Buprenorphine/Naloxone 12/3 Mg Film) 1 film SUBLINGUAL BID JOSSELIN Last Admin: 05/21/23 09:18 Dose: 1 film Clonidine HCl (Clonidine Hcl 0.1 Mg Tablet) 0.1 mg PO BID PRN; Protocol PRN Reason: anxiety Last Admin: 05/20/23 12:52 Dose: 0.1 mg Divalproex Sodium (Divalproex Sodium 500 Mg Tablet.Dr) 500 mg PO BID [facility] Last Admin: 05/21/23 09:19 Dose: 500 mg Docusate Sodium (Docusate Sodium 100 Mg Capsule) 100 mg PO BID [facility] Last Admin: 05/21/23 09:19 Dose: 100 mg Fluoxetine HCl (Fluoxetine Hcl 10 Mg Capsule) 10 mg PO DAILY [facility] Last Admin: 05/21/23 09:18 Dose: 10 mg Fluoxetine HCl (Fluoxetine Hcl 20 Mg Capsule) 20 mg PO DAILY [facility] Last Admin: 05/21/23 09:18 Dose: 20 mg Gabapentin (Gabapentin 300 Mg Capsule) 600 mg PO TID [facility] Last Admin: 05/21/23 09:18 Dose: 600 mg Magnesium Hydroxide (Milk Of Magnesia 30 Ml Oral.Susp) 30 ml PO DAILY PRN PRN Reason: Constipation Nicotine (Nicotine 21 Mg Patch.Td24) 21 mg TRANSDERMA DAILY [facility] Last Admin: 05/21/23 09:19 Dose: 21 mg Nicotine Polacrilex (Nicotine Polacrilex 2 Mg Gum) 4 mg BUCCAL Q1H PRN PRN Reason: Nicotine Cravings Prazosin HCl (Prazosin Hcl 5 Mg Capsule) 5 mg PO BEDTIME [facility]; Protocol Last Admin: 05/20/23 20:10 Dose: 5 mg Quetiapine Fumarate (Quetiapine Fumarate 50 Mg Tablet) 150 mg PO BEDTIME [facility] Last Admin: 05/20/23 20:10 Dose: 150 mg Quetiapine Fumarate (Quetiapine Fumarate 25 Mg Tablet) 25 mg PO QID PRN PRN Reason: anxiety Last Admin: 05/20/23 18:20 Dose: 25 mg Trazodone HCl (Trazodone Hcl 50 Mg Tablet) 50 mg PO BEDTIME MRX1 PRN PRN Reason: Insomnia Last Admin: 05/20/23 20:10 Dose: 50 mg Allergies Allergies Allergy/AdvReac Type Severity Reaction Status Date / Time No Known Allergies Allergy Verified 05/13/23 17:45 Assessment & Plan Assessment & Plan (1) Gynecomastia: Status: Acute Code(s): N62 - Hypertrophy of breast (2) Bipolar disorder: Status: Acute Code(s): F31.9 - Bipolar disorder, unspecified (3) Alcohol use disorder, severe, dependence: Status: Acute Code(s): F10.20 - Alcohol dependence, uncomplicated (4) Cocaine use disorder: Status: Acute Code(s): F14.10 - Cocaine abuse, uncomplicated Plan Patient is a 37 year old male with hx of Bipolar d/o, cocaine abuse and ETOH abuse who self presented to [facility] ER d/t suicidal ideation with plan to overdose on heroin secondary to medication noncompliance and increased depressive symptoms. Plan: CV 15 minute safety checks Restart on home medications Referral to substance abuse program 05/15: Patient reports feeling better than yesterday . Pt stated, I think the medications are helping me feel better . Pt reports he is hoping to get into a substance abuse program soon. Denies SI. Continues to score on CIWA. Continue current tx plan. 05/16: Patient reports feeling a lot better than when I came in . Pt states he plans on starting to attend groups since he is no longer having withdrawal symptoms. CIWA DC'd. He is hoping to get into a substance abuse program soon; wants to remain sober and return to [place]. Denies SI/HI/VH/AH. Pt is c/o of bilateral pain around nipples; denies any discharge. Will place hospitalist consult. 05/17: Adjust gabapentin to pre-admission dose of 600 mg 3 times per day consistent with [facility]. Patient will discussed with primary team Adderall, which was last prescribed as per [facility] in January 2023. 05/18: increase prazosin to 5mg 05/19: Pt reports feeling a lot better than I did on Friday . He reports feeling confused because I don't know what to do. I feel like I always mess up. I know it's worth trying because I was clean for 15 months . Pt is looking forward to attending substance abuse program; waiting placement. He reports groups have been helpful. 05/20: Pt reports feeling good today. Pt states he is feeling hopeful about returning to work on Friday and saving up to return to [place] . Pt reports he plans on attending NA/AA meetings until he is accepted into a substance abuse program. Denies SI. Planning for discharge on Friday. 05/21: Patient educated on: diagnosis, medication risk/benefits, substance abuse and therapeutic strategies Informed Consent: understands Reason for continued inpatient stay Substantial Risk for: med/psych decompensation Time Spent With Patient Time: Total time managing care of this patient today _30___ minutes.
[2023-05-21 10:54] LABS: Ammonia 44 umol/L (13-55)
[2023-05-21 10:59] LABS: Valproate 43.8 mcg/mL (50.0-100.0)
[2023-05-21 11:03] LABS: Alanine Aminotransferase 190 U/L (0-40); Albumin Level 3.7 g/dL (3.5-5.0); Alkaline Phosphatase 92 U/L (39-117); Aspartate Amino Transferase 129 U/L (5-37); Bilirubin Direct < 0.2 mg/dL (0.0-0.5); Bilirubin Total 0.2 mg/dL (0.0-1.0); Total Protein 6.8 g/dL (6.5-8.0)
--- NOTE | 2023-05-21 11:54 | PM.PSYDC ---
DS: Providers Provider Date of Service: 05/21/23 Date of admission: 05/13/23 22:52 Date of discharge: 05/21/23 Primary care physician: Audrey Physician Admitting clinician: Yu Martin Attending physician on admission: Benito Chavez Consults: 05/16/23 12:31 Consult to Hospitalist Routine Comment: Consulting Provider: Hospitalist Reason For Exam: bilateral pain/lump around nipples;no discharge Attending physician on discharge: Benito Chavez Discharging clinician: Yu Martin DS: Diagnosis Discharge Diagnosis (1) Gynecomastia: Status: Acute (2) Bipolar disorder: Status: Acute (3) Alcohol use disorder, severe, dependence: Status: Acute (4) Cocaine use disorder: Status: Acute DS: Medications Discharge Medications Home Medications: Home Medications Medication Instructions Recorded Confirmed buprenorphine 12 mg-naloxone 3 mg 15 mg sublingual BID 05/13/23 05/13/23 sublingual film (Suboxone) docusate sodium 100 mg capsule 100 mg PO BID 05/13/23 05/13/23 tramadol 50 mg tablet 50 mg PO TID PRN pain 05/13/23 05/13/23 buprenorphine 12 mg-naloxone 3 mg 15 mg sublingual BID 05/15/23 05/15/23 sublingual film (Suboxone) Previous Rx's Medication Instructions Recorded buspirone 10 mg tablet 20 mg (2 x 10 mg) PO TID #90 tabs 04/08/22 clonidine HCl 0.1 mg tablet 0.1 mg PO BID PRN anxiety #30 tabs 04/08/22 dextroamphetamine-amphetamine ER 30 mg PO DAILY #30 caps 04/08/22 30 mg 24hr capsule,extend release (Adderall XR) divalproex 500 mg tablet,delayed 3 tab PO BEDTIME #90 tabs 04/08/22 release gabapentin 300 mg capsule 600 mg (2 x 300 mg) PO TID #180 04/08/22 caps nicotine (polacrilex) 2 mg gum 4 mg buccal Q1H PRN Nicotine 04/08/22 Cravings #60 ea nicotine 21 mg/24 hr daily 21 mg transdermal DAILY #30 ea 04/08/22 transdermal patch prazosin 1 mg capsule 3 cap PO BEDTIME #90 caps 04/08/22 quetiapine 25 mg tablet 25 mg PO QID PRN anxiety #30 tabs 04/08/22 quetiapine 50 mg tablet 150 mg (3 x 50 mg) PO BEDTIME 30 04/08/22 days #90 tabs fluoxetine 10 mg capsule (Prozac) 10 mg PO DAILY #30 caps 04/09/22 fluoxetine 20 mg capsule (Prozac) 20 mg PO DAILY #30 caps 04/09/22 Mental Status Exam Mental Status Exam Narrative: Pt is alert and oriented; behavior is cooperative, friendly and calm; dressed in casual attire; mood is described as good ; eye contact appropriate; Speech is normal rate, volume and prosody and not pressured; no psychomotor agitation/retardation present; thought process is organized and goal directed; Thought content is on tx; otherwise pertinent to relevant topics and without any delusional content, paranoid ideations or grandiosity; denies SI/HI. There is no evidence of perceptual disturbance. Patients insight and judgment are fair. Data Data Completed and Pending Completed studies during hospitalization [Text1]: 05/16/23 05/17/23 05/21/23 19:08 08:18 10:34 Total Bilirubin 0.2 0.2 Direct Bilirubin < 0.2 < 0.2 AST 17 129 H ALT 13 190 H Alkaline Phosphatase 83 92 Ammonia 40 44 Total Protein 6.2 L 6.8 Albumin 3.4 L 3.7 Estradiol Ultra LCMSMS Pending Luteinizing Hormone 7.4 Prolactin 16.1 Total Testosterone Pending Fr Testosterone Dialys Pending Beta HCG, Quant < 2 Valproic Acid 58.3 43.8 L DS: Summary Hospital Course Hospital Course: Patient is a 37 year old male with hx of Bipolar d/o, cocaine abuse and ETOH abuse who self presented to [facility] ER d/t suicidal ideation with plan to overdose on heroin secondary to medication noncompliance and increased depressive symptoms. During admission assessment, pt presents calm and cooperative. He reports feeling anxious and depressed today. Pt stated, I'm depressed because I haven't been taking my medications, I'm doing drugs again and I'm not able to get back to [place] . Patient reports he is trying to get back to my family in [place] but don't have enough money to get there . He states he has not been taking his medication for the past 3 months and states he doesn't know why he hasn't been taking them . Patient reports he is hoping to get into a substance abuse program to help him stop using substances. Pt stated, I want to get clean. I relapsed after I left the program with a girl and she was getting high . 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 Pt reports suicidal ideation to overdose on heroin. Denies HI/VH/AH at this time. He would like to be restarted on him home medication. During hospital stay, Patient reports feeling better than yesterday . Pt stated, I think the medications are helping me feel better . Pt reports he is hoping to get into a substance abuse program soon. Denies SI. Continues to score on CIWA. Patient reports feeling a lot better than when I came in . Pt states he plans on starting to attend groups since he is no longer having withdrawal symptoms. CIWA DC'd. He is hoping to get into a substance abuse program soon; wants to remain sober and return to [place]. Pt is c/o of bilateral pain around nipples; denies any discharge. Will place hospitalist consult. Adjust gabapentin to pre-admission dose of 600 mg 3 times per day consistent with [facility] Pat. increase prazosin to 5mg. Pt reports feeling a lot better than I did on Friday . He reports feeling confused because I don't know what to do. I feel like I always mess up. I know it's worth trying because I was clean for 15 months . Pt is looking forward to attending substance abuse program; waiting placement. He reports groups have been helpful. Pt states he is feeling hopeful about returning to work on Friday and saving up to return to [place] . Patient was accepted to the [facility]. He plans on going to his current residence to obtain his belongings and go to the [facility] tomorrow morning. Patient was very appreciate for the care he received; states he will not use when I leave . Denies SI/HI/VH/AH at this time. Depakote discontinued d/t elevated liver enzymes; pt educated regarding this. Labs were ordered to be redrawn tomorrow; pt reports he will come to the hospital tomorrow to draw labs before going to the [facility] and will follow up with his outpatient PCP and psychiatric provider for treatment. Time spent discussing smoking cessation with patient: 3 to 10 minutes Status at Discharge Cognitive/behavioral status at discharge: Patient was interviewed prior to discharge and found to be fully oriented and without any SI or HI. Patient has insight and demonstrates good judgment in terms of wanting to pursue treatment. Patient is not in imminent risk of harm to self or others and has a safety plan that includes presenting to the closest ER or calling 911 if feeling unsafe. Patient has been observed closely by nursing and unit staff throughout admission; patient has not engaged in any behaviors that suggest dangerousness to self or others and has demonstrated appropriate behaviors and impulse control. Functional status at discharge: independent ambulation Overall status at discharge: patient is back to baseline Time Spent with Patient Time attestation: Total time managing care of this patient today _30___ minutes. Time spent: Less than 30 minutes Discharge Plan Discharge Anticipated Discharge Date/Time: 05/21/23 11:54 Patient Disposition: Home, Self-Care Discharge Diagnosis: Bipolar d/o, PTSD, Cocaine use, ETOH use Referrals: [facility] through [facility] [Other] - 05/27/23 3:30 pm (May 27 at 330) Physician,None [Primary Care Provider] - 1 Week Discharge Medications: New prazosin 5 mg Capsule 5 mg PO BEDTIME 30 Days Qty: 30 0RF Protocol: Hold for SBP< HOLD for SBP < : 90 fluoxetine 20 mg Capsule 20 mg PO DAILY 30 Days Qty: 30 0RF quetiapine 25 mg Tablet 25 mg PO QID PRN (Reason: anxiety) 30 Days Qty: 120 0RF quetiapine 50 mg Tablet 150 mg PO BEDTIME 30 Days Qty: 90 0RF buprenorphine-naloxone [Suboxone] 12-3 mg film 1 film sublingual ONCE Qty: 1 0RF Rx Instructions: Take for HS dose tonight. gabapentin 300 mg capsule 300 mg PO TID 30 Days Qty: 90 0RF Continued clonidine HCl 0.1 mg Tablet 0.1 mg PO BID PRN (Reason: anxiety) 30 Days Qty: 60 0RF Protocol: Hold for SBP< HOLD for SBP < : 90 docusate sodium 100 mg capsule 100 mg PO BID 30 Days Qty: 60 0RF Changed buprenorphine-naloxone [Suboxone] 12-3 mg film 1 film sublingual BID 7 Days Qty: 14 1RF Discontinued nicotine (polacrilex) 2 mg Gum 4 mg buccal Q1H PRN (Reason: Nicotine Cravings) Qty: 60 0RF buspirone 10 mg Tablet 20 mg PO TID Qty: 90 0RF nicotine 21 mg/24 hr Patch 24 Hour 21 mg transdermal DAILY Qty: 30 0RF gabapentin 300 mg Capsule 600 mg PO TID Qty: 180 0RF quetiapine 25 mg Tablet 25 mg PO QID PRN (Reason: anxiety) Qty: 30 0RF dextroamphetamine-amphetamine [Adderall XR] 30 mg capsule,extended release 24hr 30 mg PO DAILY Qty: 30 0RF Patient Comments: Hasn't been able to get appt w/ provider in some time Rx Instructions: Partial Fill upon patient request. prazosin 1 mg capsule 3 cap PO BEDTIME Qty: 90 0RF divalproex 500 mg tablet,delayed release (DR/EC) 3 tab PO BEDTIME Qty: 90 0RF quetiapine 50 mg Tablet 150 mg PO BEDTIME 30 Days Qty: 90 0RF fluoxetine [Prozac] 20 mg capsule 20 mg PO DAILY Qty: 30 0RF Rx Instructions: Total dosage 30 mg daily fluoxetine [Prozac] 10 mg capsule 10 mg PO DAILY Qty: 30 0RF tramadol 50 mg tablet 50 mg PO TID PRN (Reason: pain) buprenorphine-naloxone [Suboxone] 12-3 mg film 15 mg sublingual BID Discharge Orders: Discharge Order (Routine); Ordered 05/21/23 Ordered By: Yu Martin Diet: Regular diet Activity on Discharge: As tolerated Stand Alone Forms: Patient Portal Discharge page, Community Support Other Ambulatory Orders: Liver Panel (Routine) Timeframe: 1 Day Facility: [facility] - Location: Laboratory Ordered By: Yu Martin Care Plan Goals: Maintain mood and safe behaviors Take medications as prescribed Continue to pursue sobriety Practice coping skills Continue with outpatient providers and reach out to them as needed Health Concerns: Mood stability and behaviors Sobriety Follow up with labs to monitor liver. Monitor for rhonda, Depakote was discontinued. Speak to new psychiatric providers and PCP regarding labs and treatment. Plan of Treatment: Follow up with your PCP, psychiatric provider and other outpatient providers regarding above concerns Take medications as prescribed Assessment: Patient was interviewed prior to discharge and found to be fully oriented and without any SI or HI. Patient has insight and demonstrates good judgment in terms of wanting to pursue treatment. Patient is not in imminent risk of harm to self or others and has a safety plan that includes presenting to the closest ER or calling 911 if feeling unsafe. Patient has been observed closely by nursing and unit staff throughout admission; patient has not engaged in any behaviors that suggest dangerousness to self or others and has demonstrated appropriate behaviors and impulse control. Discharge Date/Time: 05/21/23 15:20
[2023-05-21] MEDS: Acetaminophen 325 MG TABLET 650 MG PO (12:14)
[2023-05-21 14:06] LABS: Alanine Aminotransferase 206 U/L (0-40); Albumin Level 3.9 g/dL (3.5-5.0); Alkaline Phosphatase 93 U/L (39-117); Aspartate Amino Transferase 147 U/L (5-37); Bilirubin Direct < 0.2 mg/dL (0.0-0.5); Bilirubin Total 0.2 mg/dL (0.0-1.0); Total Protein 7.4 g/dL (6.5-8.0)
[2023-05-21] MEDS: cloNIDine HCL 0.1 MG TABLET PO (14:37)
[2023-05-21] MEDS: QUEtiapine Fumarate 25 MG TABLET PO (14:37)
[2023-05-22 05:41] LABS: HBS Num1 248.61 mIU/mL (0-7.99); HBc Num1 0.04 S/CO (0.00-0.79); HBsAGNum1 0.29 S/CO (0.00-0.99); Hepatitis A Antibody IgM 0.24 Index (0-0.79); Hepatitis B Core Antibody Nonreactive (Nonreactive); Hepatitis B Surface Antigen Negative (Negative); ~HepC Num1 0.07 S/CO (0.00-0.79); ~Hepatitis A Antibody IgM Nonreactive (Nonreactive); ~Hepatitis B Surface Antibody REACTIVE (Nonreactive); ~Hepatitis C Antibody Nonreactive (Nonreactive)
[2023-05-22 15:54] LABS: Testosterone, Free 63.8 pg/mL (35.0-155.0); Testosterone, Total 382 ng/dL (250-1100)
[2023-05-23 22:54] LABS: Estradiol Ultra Sensitive 14 pg/mL (< OR = 29)
== END 2023-05-21 15:20 | disposition home or self-care (01) | DRG 753 ==
LOC: HO.ED 10:23 → HO.PADLT16 22:55
PROVIDERS: Internal Medicine; Student in an Organized Health Care Education/Training Program; Admitting Provider Psychiatry & Neurology Psychiatry; Emergency Provider Emergency Medicine; Responsible Provider Registered Nurse; Visit Provider Psychiatry & Neurology Psychiatry
DX: F31.9 Bipolar disorder, unspecified (principal); R45.851 Suicidal ideations; Z91.148 Patient's other noncompliance with medication regimen for other reason; F17.210 Nicotine dependence, cigarettes, uncomplicated; N62 Hypertrophy of breast; Z71.6 Tobacco abuse counseling; F11.20 Opioid dependence, uncomplicated; F10.20 Alcohol dependence, uncomplicated; F43.10 Post-traumatic stress disorder, unspecified; F14.10 Cocaine abuse, uncomplicated; Z59.01 Sheltered homelessness; Z20.822 Contact with and (suspected) exposure to COVID-19; Z79.899 Other long term (current) drug therapy
CPT/HCPCS: 36415; 80048; 80053; 80061; 80076; 80164; 80307; 81001; 82140; 82607; 82670; 82746; 83002; 83036; 84146; 84402; 84403; 84439; 84443; 84702; 85025; 86704; 86706; 86709; 86803; 87340; 87635; 93005; 99285; S9485

== ENCOUNTER → 2023-05-13 22:52 | Outpatient (BNV) | payer OTHER, SELFPAY | PROVIDERS: Admitting Provider Psychiatry & Neurology Psychiatry; Emergency Provider Emergency Medicine; Responsible Provider Registered Nurse; Visit Provider Registered Nurse | DX: F31.9 Bipolar disorder, unspecified (principal); F10.20 Alcohol dependence, uncomplicated; F14.10 Cocaine abuse, uncomplicated; N62 Hypertrophy of breast | CPT/HCPCS: 90792; 99231; 99232; 99238 ==

== ENCOUNTER → 2023-05-13 22:52 | Outpatient (BNV) | payer OTHER, SELFPAY | PROVIDERS: Admitting Provider Psychiatry & Neurology Psychiatry; Emergency Provider Emergency Medicine; Responsible Provider Registered Nurse; Visit Provider Psychiatry & Neurology Psychiatry | DX: F31.4 Bipolar disorder, current episode depressed, severe, without psychotic features (principal); F10.20 Alcohol dependence, uncomplicated; F14.10 Cocaine abuse, uncomplicated | CPT/HCPCS: 99231 ==

== ENCOUNTER → 2023-05-13 22:52 | Outpatient (BNV) | payer OTHER, SELFPAY | PROVIDERS: Admitting Provider Psychiatry & Neurology Psychiatry; Emergency Provider Emergency Medicine; Responsible Provider Registered Nurse; Visit Provider Student in an Organized Health Care Education/Training Program | DX: N62 Hypertrophy of breast (principal) | CPT/HCPCS: 99222 ==

== ENCOUNTER 2023-06-02 09:13 | Emergency (ER) | payer OTHER, SELFPAY ==
[2023-06-02 09:24] VITALS: BP 125/79; PULSE 87; RESP 17; TEMP 36.2; O2SAT 98; BMI 26.9
--- NOTE | 2023-06-02 10:36 | ED.GENADULT ---
HPI - General Adult General Chief complaint: Psychiatric Symptoms Stated complaint: si crisis Time Seen by Provider: 06/02/23 10:20 Source: patient, RN notes reviewed and old records reviewed Mode of arrival: ambulatory History of Present Illness HPI narrative: 37-year-old male with a past medical history of bipolar, cocaine abuse, ETOH abuse, recently discharged from inpatient psychiatry on 05/21 presenting to the ED complaining of suicidal ideation without plan, cocaine, and ETOH abuse. Admits to drinking 10 nips daily, reports drinking 1 nip this morning. Reports smoking cocaine was recently yesterday. Denies recent injury/ fall or trauma, HI, hallucinations. Onset (ago): day(s) Related Data Previous Rx's Medication Instructions Recorded buprenorphine 12 mg-naloxone 3 mg 1 film sublingual BID 7 days #14 ea 05/21/23 sublingual film (Suboxone) clonidine HCl 0.1 mg tablet 0.1 mg PO BID PRN anxiety 30 days 05/21/23 #60 tabs docusate sodium 100 mg capsule 100 mg PO BID 30 days #60 caps 05/21/23 fluoxetine 20 mg capsule 20 mg PO DAILY 30 days #30 caps 05/21/23 gabapentin 300 mg capsule 300 mg PO TID 30 days #90 caps 05/21/23 prazosin 5 mg capsule 5 mg PO BEDTIME 30 days #30 caps 05/21/23 quetiapine 25 mg tablet 25 mg PO QID PRN anxiety 30 days 05/21/23 #120 tabs quetiapine 50 mg tablet 150 mg (3 x 50 mg) PO BEDTIME 30 05/21/23 days #90 tabs Allergies Allergy/AdvReac Type Severity Reaction Status Date / Time No Known Allergies Allergy Verified 05/13/23 17:45 Review of Systems Review of Systems: Constitutional: No Fever, No Chills, No Fatigue, No Malaise ENT/Mouth: No Ear Pain, No Nasal Congestion Eyes: No Eye Pain, No Swelling, No Redness Cardiovascular: No Chest Pain, No SOB Respiratory: No Cough, No Dyspnea Gastrointestinal: No Nausea, No Vomiting, No Diarrhea, No Constipation, No Abdominal pain, Genitourinary: No Dysuria, No Urinary Frequency, No Hematuria Musculoskeletal: No joint pain, No Myalgias, No Joint Swelling Skin: No Skin Lesions, No rash Neuro: No Weakness, No Headache Psych: No Anxiety/Panic, No Depression, + SI, No HI/AH/VH, + Social Issues Yes all other systems are reviewed and are negative Constitutional: Constitutional: Reports as per [facility] Past Medical History Attestation statement: The following information was validated with the patient. Source: old records reviewed Medical History Suicidal ideation Umbilical hernia Opioid use disorder Suicidal ideation Depression Substance abuse Depression Social History Social History Household Members: None Household Members Other:: girlfriend Housing: Other Housing Other:: can't stay with gf. can live with friend Do you presently have visiting nurse or other home services: No Alcohol intake: current Alcohol intake frequency: 3 or more drinks per day Alcohol type: hard liquor Patient Tobacco Use Status: Current everyday Tobacco user Tobacco use type: Cigarette Cigarette Packs Per Day: 1 Cigarettes Per Day: 20.0 Years Smoked: 20 years Smoked in Last 30 Days: Yes e-Cigarette/Vaping Use: Currently Using Second Hand Smoke Exposure: No Use of substances other than those prescribed or required for medical reasons: Yes Substance Use Type: Crack/Cocaine Advance Directives: No Healthcare Proxy: No Guardian: No service: No Sexual orientation: Straight/Heterosexual Physical Exam ED Vital Signs: Vital Signs - 24 hr 06/02/23 09:24 06/02/23 13:01 Temperature 97.1 F Pulse Rate 87 82 Respiratory Rate 17 18 Blood Pressure 125/79 Pulse Oximetry 98 Oxygen Delivery Method Room Air BMI result Body Mass Index 26.9 Const General: cooperative, no acute distress and alert Orientation/consciousness: patient oriented x3 Limitations: no limitations HENMT Head: Yes normal to inspection and Yes atraumatic Ears: hearing grossly normal bilaterally General nose exam: Normal external nose present Face and sinus: Yes normal facial exam Eyes General: appearance normal, both eyes and all related structures EOM: EOMs intact bilaterally Neck Neck: Yes normal visual inspection and Yes no meningeal signs Resp Effort & Inspection: normal respiratory effort and no respiratory distress Auscultation: clear to auscultation bilaterally Cardio Rate: regular rate Heart sounds: S1 normal heart sound present and S2 normal heart sound present GI Inspection: Yes normal to inspection Palpation (GI): Soft to palpation, nontender, no guarding and not rigid Skin Rashes: no rashes Wounds: no wounds Neuro General: patient oriented x3, tone normal and no meningeal signs Cranial nerves: Yes CN's II-XII intact bilaterally Gait exam (Neuro): Normal gait present Extrem General: Yes normal to inspection Psych Thought content: Suicidality present, no homicidality and Depressive thoughts present Course Course Course Narrative: -1529-- leukocytosis of 15.1. H&H stable. Chronic transaminitis likely from ETOH abuse. UA negative - tox screen positive for cocaine. Ethanol negative CARE team evaluated patient, plan to have psychiatry consult completed regarding disposition. -1630-- ED care transferred to [facility] pending Psychiatry consult recommendations Medical Decision Making Medical Decision Making [facility] Narrative: 37-year-old male with a past medical history of bipolar, cocaine abuse, ETOH abuse, recently discharged from inpatient psychiatry on 05/21 presenting to the ED complaining of suicidal ideation, cocaine, and ETOH abuse. On exam vital signs stable, NAD, nontoxic appearing, no evidence of ETOH withdrawal at this time, no evidence of trauma. Concern for polysubstance abuse and suicidality/ depression. plan: Labs, tox screen, CARE team consult Please refer to course for remaining clinical decision making, interpretation of labs/imaging results, and discussions with consultants and/or family members. Differential Diagnosis Differential Diagnoses: The differential diagnosis associated with the presentation includes As above Admission/Observation Consideration of admission/observation: Escalation of care including admission/observation considered Consult Healthcare Provider Management of the patient was discussed with: Behavioral Health Provider Lab Data [facility] Lab Attestation statement: I reviewed the patient's lab results. 06/02/23 11:01 06/02/23 11:01 Labs: Lab Results 06/02/23 06/02/23 Range/Units 11:00 11:01 WBC 15.1 H (4.8-10.8) X10*3/uL RBC 4.57 L (4.60-5.80) X10*6/uL Hgb 13.0 L (14.0-18.0) g/dl Hct 39.2 L (42.0-52.0) % MCV 85.8 (80.0-98.0) fL MCH 28.4 (27.0-33.0) pg MCHC 33.2 (31.0-36.0) g/dl RDW 13.9 (11.0-16.0) % Plt Count 370 D (160-400) X10*3/uL MPV 10.4 (9.4-12.4) fL Immature Gran % (Auto) 0.5 H (0.0-0.4) % Neut % (Auto) 80.8 H (45-73) % Lymph % (Auto) 11.2 L (20-40) % [place] % (Auto) 6.7 (2-11) % Eos % (Auto) 0.1 (0-4) % Baso % (Auto) 0.7 (0-2) % Lymph # (Auto) 1.7 (1.2-4.9) X10*3/uL [place] # (Auto) 1.0 (0.1-1.2) X10*3/uL Eos # (Auto) 0.0 (0.0-0.4) X10*3/uL Baso # (Auto) 0.1 (0.0-0.2) X10*3/uL Abs Immat Gran (auto) 0.07 H (0.00-0.03) X10*3/uL Absolute Neuts (auto) 12.2 H (2.0-8.3) x10*3/uL Absolute Nucleated RBC 0.000 (0.0-0.012) X10*3/uL Nucleated RBC % (auto) 0.0 (0.0-0.2) /100WBC Sodium 138 (135-145) mmol/L Potassium 4.8 D (3.3-5.1) mmol/L Chloride 103 (96-108) mmol/L Carbon Dioxide 23 (22-29) mmol/L Anion Gap 17 (12-20) BUN 19 H (9-16) mg/dL Creatinine 0.71 (0.5-1.4) mg/dL Estim Creat Clear Calc 153.1 Estimated GFR > 60 Random Glucose 100 (60-115) mg/dL Calcium 9.9 (8.4-10.2) mg/dL Total Bilirubin 0.4 (0.0-1.0) mg/dL AST 45 H (5-37) U/L ALT 50 H (0-40) U/L Alkaline Phosphatase 121 H (39-117) U/L Total Protein 8.0 (6.5-8.0) g/dL Albumin 4.6 (3.5-5.0) g/dL Urine Color Yellow Urine Appearance Clear Urine pH 6.5 (5.0-9.0) Ur Specific [place] 1.025 (1.005-1.025) Urine Protein 30 (1+) H (Neg-Trace) mg/dL Urine Glucose (UA) Negative (Negative) mg/dL Urine Ketones Trace (Negative) mg/dL Urine Blood Negative (Negative) Urine Nitrite Negative (Negative) Ur Leukocyte Esterase Negative (Negative) Urine RBC 0-2 (0-2) /HPF Urine WBC 0-5 (0-5) /HPF Ur Squamous Epith Cells 0-2 (0-2) /HPF Urine Bacteria None Seen (None Seen) Hyaline Casts 0-2 (0-2) /LPF Salicylates < 5.0 L (15-30) mg/dL Urine Opiates Screen Not Detected (Not Detect) Urine Fentanyl Screen Not Detected (Not Detect) Acetaminophen < 17 (<30) mcg/mL Ur Barbiturates Screen Not Detected (Not Detect) Ur Phencyclidine Scrn Not Detected (Not Detect) Ur Amphetamines Screen Not Detected (Not Detect) U Benzodiazepines Scrn Not Detected (Not Detect) Urine Cocaine Screen POSITIVE H (Not Detect) U Marijuana (THC) Screen Not Detected (Not Detect) Ethyl Alcohol < 10 mg/dL Radiology Impression Discussion of test interpretation with radiology: I have reviewed the radiologist's reading. External Record Review External record reviewed: Inpatient record, Office record, Outpatient record, Prior outpatient labs, Prior outpatient radiology, Primary care record and Outside ED record Tests considered The following testing was considered but not selected: As above Social Determinants Patient?s care significantly limited by Social Determinants of Health including: Inadequate housing, Low income, Alcoholism and drug addiction in family, Unemployment and Other Social Determinant of Health Discharge Plan Discharge Clinical Impression: Suicidal ideations, Polysubstance abuse Patient Disposition: Still a Patient Prescriptions: No Action prazosin 5 mg Capsule 5 mg PO BEDTIME 30 Days Qty: 30 0RF Protocol: Hold for SBP< HOLD for SBP < : 90 fluoxetine 20 mg Capsule 20 mg PO DAILY 30 Days Qty: 30 0RF quetiapine 25 mg Tablet 25 mg PO QID PRN (Reason: anxiety) 30 Days Qty: 120 0RF quetiapine 50 mg Tablet 150 mg PO BEDTIME 30 Days Qty: 90 0RF clonidine HCl 0.1 mg Tablet 0.1 mg PO BID PRN (Reason: anxiety) 30 Days Qty: 60 0RF Protocol: Hold for SBP< HOLD for SBP < : 90 docusate sodium 100 mg capsule 100 mg PO BID 30 Days Qty: 60 0RF buprenorphine-naloxone [Suboxone] 12-3 mg film 1 film sublingual BID 7 Days Qty: 14 1RF Rx Instructions: Hasn't taken in several days gabapentin 300 mg capsule 300 mg PO TID 30 Days Qty: 90 0RF Interventions: [place]-Suicide Risk Severity Scale Last Done: 06/02/23 13:01
[2023-06-02 11:07] LABS: MANUAL DIFF FLAG NO
[2023-06-02 11:10] LABS: Appearance Urine Clear; Color Urine Yellow; Glucose Urine UA Negative (Negative); Leukocyte Esterase Urine Negative (Negative); Nitrite Urine Negative (Negative); PH 6.5 (5.0-9.0); Specific Gravity - Urine 1.025 (1.005-1.025); UMIC TRIGGER UACC YES; Urine Blood Negative (Negative); Urine Ketones Trace mg/dL (Negative); Urine Protein 30 (1+) mg/dL (Neg-Trace)
[2023-06-02 11:11] LABS: Basophils Absolute Auto 0.1 X10*3/uL (0.0-0.2); Basophils Percent Auto 0.7 % (0-2); Eosinophils Percent Auto 0.1 % (0-4); Hematocrit 39.2 % (42.0-52.0); Imm Gran Abs Auto 0.07 X10*3/uL (0.00-0.03); Imm Gran Pct Auto 0.5 % (0.0-0.4); Lymphocytes Absolute Auto 1.7 X10*3/uL (1.2-4.9); Lymphocytes Percent Auto 11.2 % (20-40); Mean Corpuscular HGB Conc 33.2 g/dl (31.0-36.0); Mean Corpuscular Hemoglobin 28.4 pg (27.0-33.0); Mean Corpuscular Volume 85.8 fL (80.0-98.0); Mean Platelet Volume 10.4 fL (9.4-12.4); Monocytes Percent Auto 6.7 % (2-11); Neutrophils Absolute Auto 12.2 x10*3/uL (2.0-8.3); Neutrophils Percent Auto 80.8 % (45-73); Platelet Count 370 X10*3/uL (160-400); Red Blood Count 4.57 X10*6/uL (4.60-5.80); Red Cell Distribution Width 13.9 % (11.0-16.0); White Blood Count 15.1 X10*3/uL (4.8-10.8)
[2023-06-02 11:19] LABS: Amphetamine Screen Urine Not Detected (Not Detect); Barbiturates, Urine Not Detected (Not Detect); Benzodiazepines Screen Urine Not Detected (Not Detect); Cannabinoid Screen Urine Not Detected (Not Detect); Cocaine Screen Urine POSITIVE (Not Detect); Fentanyl, urine Not Detected (Not Detect); Opiate Screen Urine Not Detected (Not Detect); Phencyclidine Screen Urine Not Detected (Not Detect)
[2023-06-02 11:22] LABS: Bacteria Urine None Seen (None Seen); Hyaline Casts Urine 0-2 /LPF (0-2); RBC Urine 0-2 /HPF (0-2); Squamous Epithelial Cell Urine 0-2 /HPF (0-2); WBC Urine 0-5 /HPF (0-5)
[2023-06-02 11:23] LABS: Acetaminophen LAB < 17 mcg/mL (<30); Salicylate < 5.0 mg/dL (15-30)
[2023-06-02 11:28] LABS: Alanine Aminotransferase 50 U/L (0-40); Albumin Level 4.6 g/dL (3.5-5.0); Alkaline Phosphatase 121 U/L (39-117); Anion Gap 17 (12-20); Aspartate Amino Transferase 45 U/L (5-37); Bilirubin Total 0.4 mg/dL (0.0-1.0); Blood Urea Nitrogen 19 mg/dL (9-16); Calcium 9.9 mg/dL (8.4-10.2); Carbon Dioxide 23 mmol/L (22-29); Chloride 103 mmol/L (96-108); Creatinine Clr Calc Pharmacy 153.1; Estimated Glomerular Filt Rate > 60; Ethanol < 10 mg/dL; Glucose Random 100 mg/dL (60-115); Potassium 4.8 mmol/L (3.3-5.1); Sodium 138 mmol/L (135-145)
[2023-06-02 13:01] VITALS: PULSE 82; RESP 18
--- NOTE | 2023-06-02 17:07 | PC.NURSE ---
Vidal was transferred to the POD from the main ED after admission. He does endorse SI without a plan and denies HI/AVH. Vidal has been sleeping since arriving in the POD. Appetite was good as he ate 100% of his lunch before going to sleep. Staff will continue to monitor.
[2023-06-02 20:56] VITALS: BP 111/69; PULSE 65; RESP 17; TEMP 36.6; O2SAT 98
--- NOTE | 2023-06-02 21:04 | PHA.MEDREC ---
Pharmacy Consult ? Medication Reconciliation Pharmacy has reviewed the medication reconciliation completed by Yaneth. Lamotrigene was recently prescribed and missed. Med added to home list. Loan Lozano, PharmD
[2023-06-02] MEDS: Gabapentin 300 MG CAPSULE PO (21:49)
[2023-06-02] MEDS: Prazosin HCL 5 MG CAPSULE PO (21:49)
[2023-06-02] MEDS: Buprenorphine/Naloxone 12/3 mg FILM 1 FILM SUBLINGUAL (21:49)
[2023-06-02] MEDS: Docusate Sodium 100 MG CAPSULE PO (21:50)
[2023-06-02] MEDS: lamoTRIgine 25 MG TABLET PO (21:50)
[2023-06-02] MEDS: QUEtiapine Fumarate 50 MG TABLET 150 MG PO (21:50)
--- NOTE | 2023-06-03 06:41 | PC.NURSE ---
Patient slept through the night, no distress observed/reported, medication compliant, patient was assessed by care team disposition pending psych consult, labs completed/resulted, vss, will continue to monitor.
--- NOTE | 2023-06-03 08:12 | PC.NURSE ---
patient appears to remain asleep at present respirations are even and unlabored patient appears in no distress.
[2023-06-03] MEDS: Buprenorphine/Naloxone 12/3 mg FILM 1 FILM SUBLINGUAL (10:54)
[2023-06-03] MEDS: Docusate Sodium 100 MG CAPSULE PO (10:54)
[2023-06-03] MEDS: lamoTRIgine 25 MG TABLET PO (10:54)
[2023-06-03] MEDS: Gabapentin 300 MG CAPSULE PO (10:54)
[2023-06-03] MEDS: FLUoxetine HCl 20 MG CAPSULE PO (10:54)
--- NOTE | 2023-06-03 15:34 | PC.NURSE ---
Patient states he is going to get a bus to [place] and [facility] will pick him up there.
== END 2023-06-03 15:39 | disposition home or self-care (01) ==
PROVIDERS: Emergency Provider Emergency Medicine
DX: R45.851 Suicidal ideations (principal); F19.10 Other psychoactive substance abuse, uncomplicated; F31.9 Bipolar disorder, unspecified; F43.10 Post-traumatic stress disorder, unspecified; F90.9 Attention-deficit hyperactivity disorder, unspecified type; F17.210 Nicotine dependence, cigarettes, uncomplicated; F11.20 Opioid dependence, uncomplicated; F10.20 Alcohol dependence, uncomplicated; Y90.0 Blood alcohol level of less than 20 mg/100 ml; Z79.899 Other long term (current) drug therapy
CPT/HCPCS: 36415; 80053; 80143; 80179; 80307; 81001; 85025; 99285; S9485